=== PATIENT | male | born 1970 | race Caucasian/White ===

== ENCOUNTER 2022-09-12 22:11 | Emergency (ER) | payer MEDICAID, SELFPAY ==
--- NOTE | 2022-09-12 22:12 | CTR_ITS ---
PROCEDURE INFORMATION: Exam: CT Head Without Contrast Exam date and time: 09/12/2022 10:14 PM Age: 51 years old Clinical indication: Stroke-like symptoms; Speech disturbance; Left upper extremity numbness/paresthesia; Additional info: Symptoms of acute stroke. Lkw 5. Left facial droop, seizures, lt upper ext weakness TECHNIQUE: Imaging protocol: Computed tomography of the head without contrast. Radiation optimization: All CT scans at this facility use at least one of these dose optimization techniques: automated exposure control; mA and/or kV adjustment per patient size (includes targeted exams where dose is matched to clinical indication); or iterative reconstruction. Other technique: STROKE PROTOCOL was implemented. REPORTING DATA: Count of CT and Cardiac NM exams in prior 12 months: This patient has received 0 known CTs and 0 known cardiac nuclear medicine studies in the 12 months prior to the current study. COMPARISON: No relevant prior studies available. RADIATION DOSE METRICS: Total DLP (mGy-cm): 1188.98 FINDINGS: Brain: Large intraparenchymal hemorrhage centered in the right thalamus which is extending into the superior midbrain. Hemorrhage measures 4.6 cm x 2.7 cm in the transaxial plane with craniocaudad extension at least 2.5 cm. Regional mass effect on the brain. Mild right to left shift of the midline structures about 4 mm. Small volume hemorrhage extension into the superior suprasellar cistern. Buckely matter and white matter interfaces are preserved at this time. Cerebral ventricles: Intraventricular hemorrhage extension with moderate intraventricular hemorrhage volume. Mildly dilated temporal horns of the lateral ventricles. Intraventricular hemorrhage is limited to lateral ventricles and 3rd ventricle at this time. No 4th ventricle hemorrhage seen. Paranasal sinuses: Visualized sinuses are unremarkable. No fluid levels. Mastoid air cells: Visualized mastoid air cells are well aerated. Bones/joints: Unremarkable. No acute fracture. Soft tissues: Unremarkable. CT/CT head thrombolytic [id number] IMPRESSION: Positive for large intraparenchymal hemorrhage with intraventricular extension demonstrating significant regional mass effect and mild midline shift. Early developing hydrocephalus features.
--- NOTE | 2022-09-12 22:12 | ECG_ITS ---
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 Measurements Intervals [place] Rate: 82 P: 50 WY: 129 QRS: 49 QRSD: 97 T: 38 QT: 419 QTc: 491 Interpretive Statements SINUS RHYTHM No previous ECG available for comparison Electronically Signed On 09-12-2022 23:29:31 CDT by Gurpreet Bolivar M.D. [id number]
[2022-09-12 22:14] VITALS: BP 238/100; PULSE 100; RESP 26; O2SAT 100
[2022-09-12 22:22] LABS: Basophils # 0.1 10^3/uL (0.0-0.1); Basophils % 0.6 %; Eosinophils # 0.2 10^3/uL (0.0-0.8); Eosinophils % 1.7 %; Hematocrit 42.1 % (42.0-52.0); Hemoglobin 14.4 g/dL (11.7-16.6); Lymphocytes # 3.3 10^3/uL (0.8-4.8); Lymphocytes % 27.7 %; Mean Corpuscular HGB Conc 34.2 g/dL (30.0-36.0); Mean Corpuscular Hemoglobin 28.6 pg (28.0-34.0); Mean Corpuscular Volume 83.7 fl (80-94); Monocytes # 0.9 10^3/uL (0.2-0.9); Monocytes % 7.5 %; Neutrophils # 7.35 10^3/uL (1.8-7.7); Neutrophils % 62.2 %; Nucleated Red Blood Cells % 0 %; Platelet Count 279 10^3/cmm (130-400); Red Blood Count 5.03 10^6/uL (4.1-5.3); Red Cell Distribution Width 13.2 % (12.1-15.1); White Blood Count 11.8 10^3/uL (4.0-10.0)
[2022-09-12] MEDS: etomidate 2 mg/mL INJ SDV 10 mL 20 MG IVP (22:25)
[2022-09-12] MEDS: vecuronium 10 mg SDV IVP (22:26)
--- NOTE | 2022-09-12 22:29 | XRR_ITS ---
PROCEDURE INFORMATION: Exam: XR Chest Exam date and time: 09/12/2022 10:31 PM Age: 51 years old Clinical indication: Device placement; Other: Post intubation TECHNIQUE: Imaging protocol: Radiologic exam of the chest. Views: 1 view. COMPARISON: No relevant prior studies available. FINDINGS: Tubes, catheters and devices: ETT is in place, tip is about 3 cm above stanislaw. Lungs: Unremarkable. No consolidation. Pleural spaces: Unremarkable. No pleural effusion. No pneumothorax. Heart/Mediastinum: Unremarkable. No cardiomegaly. Bones/joints: Unremarkable. XR/XR chest 1V portable [id number] IMPRESSION: No consolidation. ETT in place.
--- NOTE | 2022-09-12 22:31 | PM.CONSULT ---
Providers/Reason For Consult Consulting Physician/Specialty*: Jorge Bermudez MD Neurology and Epilepsy Reason for Consult*: Code stroke emergency department room 11 Primary Care Provider: Anu Marshall APN History of Present Illness History of Present Illness Travis Mckeon is a 51 year old male who was brought in by EMS. According to EMS personnel the patient was at work at a [employer] and experienced acute onset of right-sided head and neck pain followed by left-sided weakness, slurred speech and recurrent seizures and generalized shaking at 9:25 PM. The patient was transferred to [facility]. Accu-Chek glucose was reported to be 114. The patient was taken directly to the CT scanner to undergo noncontrast head CT and CT angiogram of the head and neck. But, noncontrast head CT revealed large intraparenchymal and intraventricular hemorrhage with mass effect. Patient was experiencing intermittent seizures and was started on IV Keppra and plans for intubation and transfer to a facility with neurosurgical coverage. NIH score roughly =9 coordination, sensory, visual grier and complete speech evaluation could not be obtained secondary to recurrent intermittent focal motor seizures involving the right side of his body. According to the patient's son who arrived at the emergency room, the patient has no history of seizures. Noncontrast CT scan impression: Positive for large intraparenchymal hemorrhage with intraventricular extension demonstrating significant regional mass effect and mild midline shift. Early developing hydrocephalus features. Past medical history: None Home medications: None Drug allergies: None Habits: The patient admits to occasional beers but denied other drug use Review of Systems General: Reports: ROS unobtainable due to medical condition Medications/Allergies Home Medications Medication Instructions Recorded Confirmed Last Taken Type No Known Home Medications 09/12/22 09/12/22 Unknown History Allergies Allergy/AdvReac Type Severity Reaction Status Date / Time No Known Allergies Allergy Verified 09/12/22 22:14 Vitals/I&O/Wt Last Vital Signs Pulse 100 09/12/22 22:14 Resp 26 H 09/12/22 22:14 BP 238/100 09/12/22 22:14 Pulse Ox 100 09/12/22 22:14 O2 Del Method Room Air 09/12/22 22:14 Physical Exam Narrative: NIH score =9 Blood pressure 238/100 The patient was initially alert and able to communicate and give some history but patient began experiencing recurrent seizures involving the right side of his body and occasionally involving the left upper extremity with decreasing level of consciousness. Head atraumatic cranial nerves II through XII revealed questionable left lower facial weakness. Extraocular movements difficult to assess secondary to recurrent seizures. Motor testing revealed patient able to lift the left arm against gravity with the arm falling down to the bed. Left lower extremity revealed no movement. Speech revealed fairly clear speech with decreased verbal output. Neglect, coordination and evaluation of sensory examination could not be determined secondary to recurrent seizures. Throat clear. Lungs clear. Heart regular rhythm and rate extremities were negative for clubbing or cyanosis Data 09/12/22 22:15 09/12/22 22:15 A&P Assessment and plan (1) Spontaneous intraparenchymal intracranial hemorrhage, acute: Impression: 1. Large intraparenchymal and intraventricular hemorrhage with mass effect 2. Recurrent seizures secondary to intracerebral and intraparenchymal hemorrhage Plan: 1. Agree with transfer to facility with neurosurgical coverage 2. Agree with IV Keppra load 1 g 3. Agree with intubation and stabilization for transfer to another facility with neurosurgical coverage (2) Seizure: Consult Attestations Medical Necessity Statement: Patient evaluated by neurology for intracerebral hemorrhage and recurrent seizures Coding Level of Care Code 67828 Diagnoses Spontaneous intraparenchymal intracranial hemorrhage, acute I62.9 Seizure R56.9 Time Spent (min) 30
[2022-09-12 22:33] LABS: INR 0.91 (0.8-1.2); Partial Thromboplastin Time 37.2 SECONDS (23.9-36.7)
[2022-09-12] MEDS: hyDRALAzine 20 mg/mL INJ 1 mL 10 MG IVP (22:34)
--- NOTE | 2022-09-12 22:36 | W.ED.NEUROSD ---
HPI - Neuro Symptoms/Deficit General: Chief Complaint: Neuro Symptoms/Deficit Stated Complaint: stroke like activity Time Seen by Provider: 09/12/22 22:12 Source: EMS Mode of arrival: EMS Limitations: altered mental status History of Present Illness: 51-year-old male is at work 30 minutes prior arrival started having a headache start having right-sided weakness slurred speech right-sided facial droop. In route patient had seizure-like activity he has some generalized shaking here he is able to awaken tell me his name speech is very slurred he is very confused. No other history is really obtainable at this time Review of Systems General: Reports: ROS unobtainable due to mental status Physical Exam Const: COMMON NORMALS: negative for patient oriented x3 GENERAL APPEARANCE: in distress and ill appearing HENMT: COMMON NORMALS: normocephalic and atraumatic HEAD & SCALP: normocephalic and atraumatic Eye: COMMON NORMALS: Equal, round and reactive pupils present and EOMs intact bilaterally PUPIL: Yes Equal, round and reactive pupils present Neck/C-Spine: COMMON NORMALS: full ROM and supple Chest: COMMONS NORMALS: normal inspection of the chest and normal palpation of entire chest wall Resp: COMMON NORMALS: normal respiratory effort, No retractions, No use of accessory muscles and clear to auscultation bilaterally AUSCULTATION: clear to auscultation bilaterally Cardio: COMMON NORMALS: regular rate, regular rhythm and No murmurs present (Cardio) RATE: regular rate RHYTHM: regular rhythm GI: COMMON NORMALS: Normal to inspection, nondistended, normoactive bowel sounds present, Soft to palpation, non-tender and no masses PALPATION: Yes Soft to palpation Extremity: COMMON NORMALS: normal to inspection and full ROM Neuro: COMMON NORMALS: negative for patient oriented x3 OTHER: Right-sided facial droop along with slurred speech and right-sided weakness patient is very confused Psych: COMMON NORMALS: mental status grossly normal, Normal thought process present and cooperative THOUGHT PROCESS: Normal thought process present Skin: COMMON NORMALS: no rashes or lesions noted and no wounds GENERAL SKIN EXAM: no rashes or lesions noted Procedures Intubation Time out performed: Yes sedative: Etomidate Mg Given: 20 paralytic: Vecuronium Mg Given: 10 Laryngoscope: Eloise ET Tube Size: 8 ET Tube Uncuffed: No Tube Secured Depth (cm): 23 Tube Secured Location: teeth Tube Placement Confirmation: visualized tube passing through cords Patient Tolerated Procedure: well Intubation Complications: none Course Vital Signs: Vital signs: Vital Signs Pulse Rate 113 H 09/12/22 22:50 Respiratory Rate 14 09/12/22 22:50 Blood Pressure 238/100 09/12/22 22:14 Pulse Oximetry 96 09/12/22 23:02 Oxygen Delivery Me thod Mechanical Ventil ation 09/12/22 23:02 Fraction of Inspir ed Oxygen 40 09/12/22 22:50 MDM - Neuro Symptoms/Deficit Medical Decision Making Patient presents here with intraparenchymal hemorrhage likely hypertensive related his blood pressure here is improved now 133/77 he was intubated as his mentation had worsened spoke to [facility] will transfer there for higher level of care Medical Records I reviewed the patient's medical records. Lab Data I reviewed the patient's lab results. 09/12/22 22:15 09/12/22 22:[address] 09/12/22 22:12 IMPRESSION: Positive for large intraparenchymal hemorrhage with intraventricular extension demonstrating significant regional mass effect and mild midline shift. Early developing hydrocephalus features. Laboratory Results WBC 11.8 10^3/uL (4.0-10.0) H 09/12/22 22:15 RBC 5.03 10^6/uL (4.1-5.3) 09/12/22 22:15 Hgb 14.4 g/dL (11.7-16.6) 09/12/22 22:15 Hct 42.1 % (42.0-52.0) 09/12/22 22:15 MCV 83.7 fl (80-94) 09/12/22 22:15 MCH 28.6 pg (28.0-34.0) 09/12/22 22:15 MCHC 34.2 g/dL (30.0-36.0) 09/12/22 22:15 RDW 13.2 % (12.1-15.1) 09/12/22 22:15 Plt Count 279 10^3/cmm (130-400) 09/12/22 22:15 MPV 11.0 fL (7.4-10.4) H 09/12/22 22:15 Neut % (Auto) 62.2 % 09/12/22 22:15 Lymph % (Auto) 27.7 % 09/12/22 22:15 [place] % (Auto) 7.5 % 09/12/22 22:15 Eos % (Auto) 1.7 % 09/12/22 22:15 Baso % (Auto) 0.6 % 09/12/22 22:15 Neut # (Auto) 7.35 10^3/uL (1.8-7.7) 09/12/22 22:15 Lymph # (Auto) 3.3 10^3/uL (0.8-4.8) 09/12/22 22:15 [place] # (Auto) 0.9 10^3/uL (0.2-0.9) 09/12/22 22:15 Eos # (Auto) 0.2 10^3/uL (0.0-0.8) 09/12/22 22:15 Baso # (Auto) 0.1 10^3/uL (0.0-0.1) 09/12/22 22:15 Nucleated RBC % (auto) 0 % 09/12/22 22:15 Nucleated RBCs # 0.0 /100WBC 09/12/22 22:15 PT 12.60 SECONDS (12.1-14.9) 09/12/22 22:15 INR 0.91 (0.8-1.2) 09/12/22 22:15 APTT 37.2 SECONDS (23.9-36.7) H 09/12/22 22:15 Sodium 138 mmol/L (136-145) 09/12/22 22:15 Potassium 3.3 mmol/L (3.5-5.1) L 09/12/22 22:15 Chloride 98 mmol/L (98-107) 09/12/22 22:15 Carbon Dioxide 28 mmol/L (22-29) 09/12/22 22:15 Anion Gap 15.3 (5-19) 09/12/22 22:15 BUN 14 mg/dL (6-20) 09/12/22 22:15 Creatinine 1.1 mg/dL (0.7-1.2) 09/12/22 22:15 GFR Calculation 70.9 mL/min (90-130) L 09/12/22 22:15 Glucose 129 mg/dL (65-115) H 09/12/22 22:15 Calculated Osmolality 288 mOsm/kg (285-295) 09/12/22 22:15 Calcium 9.0 mg/dL (8.5-10.5) 09/12/22 22:15 Total Bilirubin 0.3 mg/dL (0.15-1.2) 09/12/22 22:15 AST 21 U/L (0-40) 09/12/22 22:15 ALT 26 U/L (0-41) 09/12/22 22:15 Alkaline Phosphatase 112 U/L (40-130) 09/12/22 22:15 Total Protein 7.0 g/dL (6.6-8.7) 09/12/22 22:15 Albumin 4.1 g/dL (3.5-5.2) 09/12/22 22:15 Globulin 2.9 g/dL (1.3-4.6) 09/12/22 22:15 Ethyl Alcohol < 10 mg/dL (0-10) 09/12/22 22:15 Critical Care Time Critical Care Time: Critical Care Time: Yes Total Critical Care Time: 40 Attestation: The high probability of a clinically significant, sudden or life threatening deterioration of the patient's neuro system(s) required my full and direct attention, intervention and personal management. The critical care time is as shown. This time is in addition to time spent performing any reported procedures but includes the following: [x] Data and vital sign review and interpretation [x] Patient assessment, examination and intervention [x] Documentation [x] Medication orders and management Discharge Plan Discharge Patient Disposition: Xfer Short-Term Hosp Clinical Impression: Spontaneous intraparenchymal intracranial hemorrhage, acute Condition: Stable Referrals: Anu Marshall APN [Primary Care Provider] - Coding Level of Care Code ED Layaway Clerk for Tere Saavedra
[2022-09-12 22:37] LABS: Alanine Aminotransferase 26 U/L (0-41); Albumin Level 4.1 g/dL (3.5-5.2); Alkaline Phosphatase 112 U/L (40-130); Aspartate Amino Transferase 21 U/L (0-40); Blood Urea Nitrogen 14 mg/dL (6-20); Carbon Dioxide 28 mmol/L (22-29); Chloride 98 mmol/L (98-107); Globulin 2.9 g/dL (1.3-4.6); Glomerular Filtration Rate 70.9 mL/min (90-130); Glucose 129 mg/dL (65-115); Osmolality Calculated 288 mOsm/kg (285-295); Sodium 138 mmol/L (136-145); Total Bilirubin 0.3 mg/dL (0.15-1.2)
[2022-09-12] MEDS: nicardipine 20 MG/200 ML PREMIX 50 MG IV (22:37)
[2022-09-12 22:38] LABS: Alcohol Level < 10 mg/dL (0-10)
[2022-09-12 22:39] LABS: Anion Gap 15.3 (5-19); Potassium 3.3 mmol/L (3.5-5.1)
[2022-09-12] MEDS: propofol 1,000 MG/100 ML INJ 13.56 MG IV (22:43)
[2022-09-12 22:50] VITALS: PULSE 113; RESP 14; O2SAT 96
[2022-09-12] MEDS: labetalol 5 mg/mL SDV 20mL 20 MG IVP ×2 (22:58→23:03)
[2022-09-12 23:02] VITALS: O2SAT 96
--- NOTE | 2022-09-12 23:03 | PC.NURSE ---
2227 - 8.0 ET tube placed by Dr. Dempsey @ 2227. Color changed noted. Bilateral breath sounds noted. Xray confirmed.
--- NOTE | 2022-09-12 23:04 | PC.NURSE ---
2234 - ET tube pulled back from 23 cm at the teeth to 21 cm at the teeth
--- NOTE | 2022-09-12 23:27 | PC.NURSE ---
NIH stroke scale Upon arriving patient was able to communicate with nursing staff in a delayed but clear manner. Shortly after CT scan, patient began having seizures are snoring respirations. MDs decision to intubate patient to protect airway. NIH stroke scale was not able to be completed due to airway safety. Dr. Bermudez gave patient a score of 9 for NIH. Please see physician notes for further details.
--- NOTE | 2022-09-12 23:32 | XRR_ITS ---
PROCEDURE INFORMATION: Exam: XR Chest Exam date and time: 09/12/2022 11:37 PM Age: 51 years old Clinical indication: Device placement; Other: Og; Additional info: Og placement TECHNIQUE: Imaging protocol: Radiologic exam of the chest. Views: 1 view. COMPARISON: CR (CHEST, ) 09/12/2022 10:31 PM FINDINGS: Tubes, catheters and devices: Endotracheal tube position is unremarkable 5 cm cephalad to stanislaw. Enteric tube in the gastric body proximally. Lungs: Unremarkable. No consolidation. Pleural spaces: Unremarkable. No pleural effusion. No pneumothorax. Heart/Mediastinum: Unremarkable. No cardiomegaly. Bones/joints: Unremarkable. XR/XR chest 1V portable [id number] IMPRESSION: Satisfactory enteric tube position.
[2022-09-12 23:33] LABS: Amphetamines Screen Urine Negative (Negative); Barbiturates Screen Urine Negative (Negative); Benzodiazepines Screen Urine Negative (Negative); Cocaine Screen Urine Negative (Negative); Opiate Screen Urine Negative (Negative); PCP Screen Urine Negative (Negative); THC Screen Urine Negative (Negative)
[2022-09-12 23:44] LABS: Add Urine Microscopic? YES; Bacteria Urine TRACE /hpf; Bilirubin Urine Neg (Negative); Blood Urine Neg (Negative); Glucose Urine UA Norm (Normal); Ketones Urine Negative (Negative); Leukocyte Esterase Urine Negative (Negative); Mucus Urine TRACE /hpf; Nitrate Urine Negative (Negative); Protein Urine 2+ (Negative); RBC Urine 0-4 /hpf (0-2); Squamous Epithelial Cell Urine 0-4 /hpf (0-5); Urine Appearance Clear (CLEAR); Urine Color Light yellow (Yellow); Urobilinogen Urine Norm (Negative); WBC Urine 0-4 /hpf (0-5); pH Urine 6 (5-7)
[2022-09-12 23:45] LABS: Add Urine Culture? No; Hyaline Casts Urine RARE /lpf
[2022-09-12 23:54] VITALS: BP 113/61; PULSE 87; RESP 16; O2SAT 96
[2022-09-12] MEDS: nicardipine 20 MG/200 ML PREMIX 150 MG IV (23:58)
--- NOTE | 2022-09-13 00:14 | PC.NURSE ---
Intubation note Patient arrived to ED via EMS at 2210. Upon arrival patient was brought over to CT. In CT patient was able to communicate by telling name, , allergies, and that he takes no medications. Patient transported to room with nurse, upon arriving to room patient started having seizure activity and snoring respirations. MD decision to intubate patient at that time. 20mg Etomidate at 2225 10mg Vecuronium at 6 8.0 ETT, 23cm at teeth placed at 7. positive color change, lung sounds heard bilaterally, and pulse ox showing oxygen saturation of 94%. 1000mg Keppra at 8 10mg Hydrazine at 2234 Fentanyl, Cardene, Propofol all started and titrated. Labetolol IVP given for blood pressure. See MAR for further details. Chirinos catheter and OG placed. See charting for further details. Family updated and at bedside. Family given patients clothing and shoes.
[2022-09-13] MEDS: propofol 1,000 MG/100 ML INJ 33.9 MG IV (00:25)
[2022-09-19 18:01] LABS: ABG PCO2 39.1 mmHg (35-45); ABG PH Result 7.51 (7.35-7.45); HCO3 ABG 30.9 mmol/L (22-26)
[2022-09-19 18:02] LABS: Base Excess ABG 7.3 mmol/L (-2.0-2.0); Potassium Level - ABG 2.6 mmol/L (3.5-5.0)
[2022-09-19 18:03] LABS: Arterial Blood Gas Hematocrit 47.6 % (42-52); Blood Gas Allen Test POS; Blood Gas CCRB Time 1130; Blood Gas Sample Type Arterial; Oxygen Device VENT
[2022-09-19 18:04] LABS: Alveolar-Arterial Oxygen Gradi 73.8 mmHg (5-10); Carboxyhemoglobin 1.2 %THgb (0.4-20.1); HGB O2 Sat 98.1 % (95-100); Ionized Calcium Level - ABG 1.1 mmol/L (1.1-1.4); Methemoglobin 0.9 % (0.4-1.5); Total Hemoglobin 15.5 g/dL (14-18)
== END 2022-09-13 00:41 | disposition short-term general hospital (02) ==
PROVIDERS: Emergency Provider Emergency Medicine; PCP Nurse Practitioner Family
DX: I62.9 Nontraumatic intracranial hemorrhage, unspecified (principal)
CPT/HCPCS: 31500; 51702; 70450; 71045; 80051; 80053; 80306; 80307; 81001; 82330; 82805; 85025; 85610; 85730; 93005; 94002; 96365; 96366; 96367; 96375; 96376; 99291; J0360; J1953; J2704; J3010; J3490

== ENCOUNTER 2022-11-04 11:36 | Emergency (ER) | payer BC, MEDICAID, SELFPAY ==
[2022-11-04] VITALS (23 sets, daily range): BP systolic 98–172; BP diastolic 64–130; PULSE 109–126; RESP 19–28; O2SAT 90–95
--- NOTE | 2022-11-04 11:43 | ECG_ITS ---
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 Measurements Intervals [place] Rate: 111 P: 52 WY: 163 QRS: 35 QRSD: 86 T: 51 QT: 328 QTc: 446 Interpretive Statements SINUS TACHYCARDIA ABNORMAL RHYTHM ECG Compared to ECG 09/12/2022 22:42:03 Sinus rhythm no longer present Electronically Signed On 11-04-2022 12:10:40 CDT by Jennyfer Redman M.D. [email or web address]/store/[id number]
--- NOTE | 2022-11-04 11:47 | ED_ITS ---
HPI - General Adult General: Chief complaint: General Medical Stated complaint: HYPERTENSION Time Seen by Provider: 11/04/22 11:41 History of Present Illness: 51-year-old male presents to the ER from a residential via EMS due to elevated blood pressure. Patient is nonverbal but according to EMS the residential staff reveals that patient blood pressure was 200/116. Patient was able to answer my question by shaking his head. Patient denies any headache, blurry vision or change in vision. Chest pain or shortness of breath. Review of Systems General: Reports: ROS unobtainable due to medical condition Const: Denies: fever(s) or chills Physical Exam Narrative: EXAM NARRATIVE: ; Eye: COMMON NORMALS: Equal, round and reactive pupils present, EOMs intact bilaterally, conjunctivae normal, no scleral icterus, no papilledema, normal visual grier by confrontation and fundi normal bilaterally CONJUNCTIVA: Yes conjunctivae normal PUPIL: Yes Equal, round and reactive pupils present DIRECT OPHTHALMOSCOPY: Yes no papilledema and Yes fundi normal bilaterally Chest: COMMONS NORMALS: normal inspection of the chest, normal palpation of entire chest wall, normal inspection of the breasts and normal palpation of the breasts Breast/axilla inspection: Yes normal inspection of the breasts BREAST/AXILLA PALPATION: Yes normal palpation of the breasts Cardio: COMMON NORMALS: regular rhythm, S1 normal heart sound present and S2 normal heart sound present PALPATION: normal PMI RATE: tachycardic RHYTHM: regular rhythm HEART SOUNDS: S1 normal heart sound present and S2 normal heart sound present GI: COMMON NORMALS: Normal to inspection, nondistended, normoactive bowel sounds present, Soft to palpation, non-tender, No hepatosplenomegaly present, no masses and no bruits PALPATION: Yes Soft to palpation and Yes No hepatosplenomegaly present Neuro: SPEECH: Total aphasia MOTOR EXAM: Motor fasciculations not present and Abnormal muscle tone present (left upper and lower ext with sever contracture ) Course Vital Signs: Vital signs: Vital Signs Pulse Rate 124 H 11/04/22 13:15 Respiratory Rate 19 H 11/04/22 13:07 Blood Pressure 130/84 11/04/22 13:15 Pulse Oximetry 92 11/04/22 13:15 Oxygen Delivery Me thod Nasal Cannula 11/04/22 13:15 Oxygen Flow Rate 3 11/04/22 13:15 MDM - General Adult Medical Decision Making pt made comfortable in the ER. had cbc.cmp, ekg and cxr. pt was given Iv blood pressure medication.. blood pressure improved significantly Differential Diagnosis Elevated blood pressure, malignant hypertension hypertensive urgency or emergency Lab Data 11/04/22 11:43 11/04/22 11:43 Radiology Impressions Chest X-Ray 11/04/22 13:12 IMPRESSION: No acute cardiopulmonary findings. Laboratory Results WBC 12.08 10^3/uL (3.29-11.43) H 11/04/22 11:43 RBC 4.40 10^6/uL (3.85-5.65) 11/04/22 11:43 Hgb 12.90 g/dL (11.27-16.99) 11/04/22 11:43 Hct 37.4 % (37-53) 11/04/22 11:43 MCV 85.0 fl (82-101) 11/04/22 11:43 MCH 29.3 pg (27-33) 11/04/22 11:43 MCHC 34.5 g/dL (30-55) 11/04/22 11:43 RDW 14.1 % (12.1-15.1) 11/04/22 11:43 Plt Count 377 10^3/cmm (157-399) 11/04/22 11:43 MPV 10.7 fL (7.4-10.4) H 11/04/22 11:43 Neut % (Auto) 67.5 % 11/04/22 11:43 Lymph % (Auto) 22.8 % 11/04/22 11:43 [place] % (Auto) 7.5 % 11/04/22 11:43 Eos % (Auto) 1.1 % 11/04/22 11:43 Baso % (Auto) 0.7 % 11/04/22 11:43 Neut # (Auto) 8.15 10^3/uL (1.8-7.7) H 11/04/22 11:43 Lymph # (Auto) 2.8 10^3/uL (0.8-4.8) 11/04/22 11:43 [place] # (Auto) 0.9 10^3/uL (0.2-0.9) 11/04/22 11:43 Eos # (Auto) 0.1 10^3/uL (0.0-0.8) 11/04/22 11:43 Baso # (Auto) 0.1 10^3/uL (0.0-0.1) 11/04/22 11:43 Nucleated RBC % (auto) 0 % 11/04/22 11:43 Nucleated RBCs # 0.0 /100WBC 11/04/22 11:43 Sodium 141 mmol/L (136-145) 11/04/22 11:43 Potassium 4.3 mmol/L (3.5-5.1) 11/04/22 11:43 Chloride 101 mmol/L (98-107) 11/04/22 11:43 Carbon Dioxide 27 mmol/L (22-29) 11/04/22 11:43 Anion Gap 17.3 (5-19) 11/04/22 11:43 BUN 28 mg/dL (6-20) H 11/04/22 11:43 Creatinine 1.0 mg/dL (0.7-1.2) 11/04/22 11:43 GFR Calculation 79.1 mL/min (90-130) L 11/04/22 11:43 Glucose 115 mg/dL (65-115) 11/04/22 11:43 Calculated Osmolality 298 mOsm/kg (285-295) H 11/04/22 11:43 Calcium 10.3 mg/dL (8.5-10.5) 11/04/22 11:43 Total Bilirubin 0.3 mg/dL (0.15-1.2) 11/04/22 11:43 AST 24 U/L (0-40) 11/04/22 11:43 ALT 33 U/L (0-41) 11/04/22 11:43 Alkaline Phosphatase 136 U/L (40-130) H 11/04/22 11:43 Total Protein 7.9 g/dL (6.6-8.7) 11/04/22 11:43 Albumin 3.9 g/dL (3.5-5.2) 11/04/22 11:43 Globulin 4.0 g/dL (1.3-4.6) 11/04/22 11:43 XR interpretation done by ED provider, pending radiology final review ED provider radiology interpretation(s): No acute findings on x-ray. Discharge Plan Discharge Patient Disposition: Home Clinical Impression: CVA, old, aphasia, Hypertension Condition: Stable Prescriptions: No Action docusate sodium 50 mg/5 mL Liquid 10 ml feeding tube DAILY Robaxin 500 mg Tablet 500 mg feeding tube Q8H nystatin 100,000 unit/mL Suspension 5 ml PO Q6H Tylenol 325 mg Tablet 650 mg feeding tube Q6H PRN (Reason: Pain) Keppra 500 mg Tablet 1,000 mg PO Q12H famotidine 20 mg Tablet 20 mg feeding tube DAILY Milk of Magnesia 400 mg/5 mL Suspension 30 ml PO DAILY PRN (Reason: Constipation) Flomax 0.4 mg Capsule 0.4 mg PO DAILY amlodipine 10 mg Tablet 10 mg feeding tube DAILY Dulcolax (bisacodyl) 10 mg Suppository 10 mg IN QPM PRN (Reason: Constipation) metoprolol tartrate 50 mg Tablet 50 mg feeding tube BID Fleet Enema 19-7 gram/118 mL Enema 118 ml IN BEDTIME PRN (Reason: Constipation) lisinopril 40 mg Tablet 40 mg feeding tube DAILY Jevity 1.5 Luke 0.06 gram-1.5 kcal/mL Liquid See Rx Instructions .ROUTE .COMPLEX Rx Instructions: 60ML/HR TUBE EVERY SHIFT FOR NPO lactulose 20 gram/30 mL Solution 30 ml feeding tube TID [id number] gluconate 9 mg iron/ 15 mL (15 mL) Liquid 15 ml feeding tube DAILY Discharge Orders: Discharge ED (Routine); Ordered 11/04/22 Ordered By: Citlaly Leyva Referrals: Marshall,KIA Brennan [Primary Care Provider] - Discharge Diet: Advance as tolerated Discharge Activity: Resume usual activity Coding Level of Care Code ED Automatic 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
[2022-11-04] MEDS: hyDRALAzine 20 mg/mL INJ 1 mL 5 MG IVP (12:02)
[2022-11-04 12:03] LABS: Basophils # 0.1 10^3/uL (0.0-0.1); Basophils % 0.7 %; Eosinophils # 0.1 10^3/uL (0.0-0.8); Eosinophils % 1.1 %; Hematocrit 37.4 % (37-53); Lymphocytes # 2.8 10^3/uL (0.8-4.8); Lymphocytes % 22.8 %; Mean Corpuscular HGB Conc 34.5 g/dL (30-55); Mean Corpuscular Hemoglobin 29.3 pg (27-33); Mean Platelet Volume 10.7 fL (7.4-10.4); Monocytes # 0.9 10^3/uL (0.2-0.9); Monocytes % 7.5 %; Neutrophils # 8.15 10^3/uL (1.8-7.7); Neutrophils % 67.5 %; Nucleated Red Blood Cells % 0 %; Platelet Count 377 10^3/cmm (157-399); Red Cell Distribution Width 14.1 % (12.1-15.1); White Blood Count 12.08 10^3/uL (3.29-11.43)
[2022-11-04 12:26] LABS: Alanine Aminotransferase 33 U/L (0-41); Albumin Level 3.9 g/dL (3.5-5.2); Alkaline Phosphatase 136 U/L (40-130); Anion Gap 17.3 (5-19); Aspartate Amino Transferase 24 U/L (0-40); Blood Urea Nitrogen 28 mg/dL (6-20); Calcium 10.3 mg/dL (8.5-10.5); Carbon Dioxide 27 mmol/L (22-29); Chloride 101 mmol/L (98-107); Glomerular Filtration Rate 79.1 mL/min (90-130); Glucose 115 mg/dL (65-115); Osmolality Calculated 298 mOsm/kg (285-295); Potassium 4.3 mmol/L (3.5-5.1); Sodium 141 mmol/L (136-145); Total Bilirubin 0.3 mg/dL (0.15-1.2); Total Protein 7.9 g/dL (6.6-8.7)
--- NOTE | 2022-11-04 13:12 | XRR_ITS ---
PROCEDURE INFORMATION: Exam: XR Chest Exam date and time: 11/04/2022 1:23 PM Age: 51 years old Clinical indication: Other: Hypertension; Additional info: SOB TECHNIQUE: Imaging protocol: Radiologic exam of the chest. Views: 1 view. COMPARISON: CR (CHEST, ) 09/12/2022 11:37 PM FINDINGS: Tubes, catheters and devices: Presumed LINEMARKER shunt catheter traverses the right neck, right thorax, and visualized right hemiabdomen, without apparent kink or discontinuity. Lungs: Unremarkable. No consolidation. Pleural spaces: Unremarkable. No pleural effusion. No pneumothorax. Heart/Mediastinum: Unremarkable. No cardiomegaly. Bones/joints: Unremarkable. XR/XR chest 1V portable [id number] IMPRESSION: No acute cardiopulmonary findings.
[2022-11-04 16:37] LABS: Glucose Point of Care 133 mg/dL (70-110)
== END 2022-11-04 17:44 | disposition home or self-care (01) ==
PROVIDERS: Emergency Provider Family Medicine; PCP Nurse Practitioner Family
DX: I10 Essential (primary) hypertension (principal); I69.920 Aphasia following unspecified cerebrovascular disease
CPT/HCPCS: 36416; 71045; 80053; 82962; 85025; 93005; 96374; 99285; J0360

== ENCOUNTER 2022-11-09 18:04 | Emergency (ER) | payer BC, MEDICAID, SELFPAY ==
[2022-11-09 18:20] VITALS: BP 135/101; PULSE 125; RESP 22; TEMP 37.6; O2SAT 100; BMI 23.7
--- NOTE | 2022-11-09 18:29 | XRR_ITS ---
PROCEDURE INFORMATION: Exam: XR Chest Exam date and time: 11/09/2022 6:35 PM Age: 51 years old Clinical indication: Cough and fever; Additional info: Cough fever TECHNIQUE: Imaging protocol: Radiologic exam of the chest. Views: 1 view. COMPARISON: 1. CR (CHEST, ) 11/04/2022 1:23 PM 2. CR (CHEST, ) 09/12/2022 11:37 PM 3. CR (CHEST, ) 09/12/2022 10:31 PM FINDINGS: Tubes, catheters and devices: Stable catheter coursing along the right neck, chest, and upper abdomen. Lungs: Pulmonary hypoinflation. Left basilar subsegmental atelectasis versus scarring. No consolidation. Pleural spaces: No pleural effusion or pneumothorax. Heart/Mediastinum: Unremarkable. No cardiomegaly. Bones/joints: Degenerative changes along the spine and shoulders. XR/XR chest 1V portable [id number] IMPRESSION: No acute findings.
--- NOTE | 2022-11-09 18:31 | ECG_ITS ---
[facility] Test Date: 2022-11-09 Pat Name: Travis Mckeon Department: Room: Gender: Male Director Of Finance: : 1970 Requested By: Jus Beltran Order Number: [id number] Faisal MD: Gurpreet Bolivar M.D. Measurements Intervals [place] Rate: 129 P: 74 GA: 162 QRS: 46 QRSD: 86 T: 48 QT: 293 QTc: 430 Interpretive Statements SINUS TACHYCARDIA Compared to ECG 11/04/2022 11:55:38 No significant changes Electronically Signed On 11-09-2022 21:41:49 CDT by Gurpreet Bolivar M.D. [id number]
[2022-11-09 18:43] LABS: Basophils # 0.1 10^3/uL (0.0-0.1); Basophils % 0.4 %; Eosinophils # 0.1 10^3/uL (0.0-0.8); Eosinophils % 0.6 %; Hematocrit 40.1 % (37-53); Lymphocytes # 2.4 10^3/uL (0.8-4.8); Lymphocytes % 18.8 %; Mean Corpuscular HGB Conc 33.4 g/dL (30-55); Mean Corpuscular Hemoglobin 28.9 pg (27-33); Mean Corpuscular Volume 86.6 fl (82-101); Mean Platelet Volume 11.3 fL (7.4-10.4); Monocytes # 0.9 10^3/uL (0.2-0.9); Monocytes % 7.2 %; Neutrophils % 72.6 %; Nucleated Red Blood Cells % 0 %; Platelet Count 425 10^3/cmm (157-399); Red Blood Count 4.63 10^6/uL (3.85-5.65); Red Cell Distribution Width 14.1 % (12.1-15.1); White Blood Count 12.52 10^3/uL (3.29-11.43)
[2022-11-09 18:48] LABS: INR 0.96 (0.8-1.2)
--- NOTE | 2022-11-09 18:51 | ED_ITS ---
HPI - SOB/Dyspnea General: Chief Complaint: Shortness of Breath/Dyspnea Stated Complaint: tachy,resp distress Time Seen by Provider: 11/09/22 18:22 History of Present Illness: HPI Narrative: [facility] of tachycardia and respiratory distress. Per nursing [facility] said they may have heard some rales in the right lower lobe may be consistent with aspiration. He also reported fever 103 degrees axillary. Patient is nonverbal and has no use of his left side currently secondary to a brain bleed. Patient was released from [facility] about 3 weeks ago and has been at the [facility] ever since. Patient can wiggle his right toes and squeeze with his right hand when prompted. Patient's ex- is at bedside and provides some history. Review of Systems General: Reports: 10 or more systems reviewed and unremarkable except in HPI and below Physical Exam Const: COMMON NORMALS: no acute distress and alert; limitations (Patient is nonverbal with limited expressive capabilities) HENMT: COMMON NORMALS: normocephalic (Shunt in place), atraumatic, hearing grossly normal bilaterally, external ears normal, Normal external nose present and moist oral mucous membranes HEAD & SCALP: normocephalic (Shunt in place) and atraumatic NOSE: Normal external nose present EXTERNAL EAR: Yes external ears normal Neck/C-Spine: COMMON NORMALS: no JVD Chest: COMMONS NORMALS: normal inspection of the chest and normal palpation of entire chest wall Resp: COMMON NORMALS: normal respiratory effort (Patient is taking small shallow breaths), No retractions, No use of accessory muscles and clear to auscultation bilaterally AUSCULTATION: clear to auscultation bilaterally Cardio: COMMON NORMALS: no JVD, regular rhythm, S1 normal heart sound present, S2 normal heart sound present, No gallops present (Cardio), No clicks present (Cardio), No murmurs present (Cardio) and No rub (Cardio); negative for regular rate (Tachycardic) RATE: abnormal rate (Tachycardic) RHYTHM: regular rhythm HEART SOUNDS: S1 normal heart sound present and S2 normal heart sound present GI: COMMON NORMALS: Normal to inspection, nondistended, normoactive bowel sounds present (PEG tube in place), Soft to palpation, non-tender, No hepatosplenomegaly present and no masses PALPATION: Yes Soft to palpation and Yes No hepatosplenomegaly present Neuro: SENSORIUM/ORIENTATION: Yes alert Course Vital Signs: Vital signs: Vital Signs Temperature 98.8 F 11/09/22 22:32 Pulse Rate 99 11/09/22 22:32 Respiratory Rate 18 11/09/22 22:32 Blood Pressure 113/82 11/09/22 20:15 Pulse Oximetry 99 11/09/22 22:32 Oxygen Delivery Me thod Room Air 11/09/22 22:32 Oxygen Flow Rate 4 11/09/22 18:20 MDM - SOB/Dyspnea Medical Decision Making Patient presents to the ER with complaints of shortness of breath tachycardia and fever. Upon arrival patient's temperature was 99.7 he is on 4 L per nasal cannula satting 100% with a heart rate of 125 bpm and respirations 22 bpm, patient was worked up in a standard fashion with serial EKGs serial enzymes chest x-ray patient was given 1 L normal saline both fluid bolus temperature resolved pulse come down to the normal range and patient was looking and feeling much better. Respiratory panel was negative. As well as the rest of his labs were benign. Patient be discharged home with diagnosis of viral syndrome and fever. Differential Diagnosis Unlikely acute exacerbation of chronic obstructive airways disease, congestive heart failure, community acquired pneumonia, asthma with exacerbation or pulmonary embolism Medical Records I reviewed the patient's medical records. Lab Data I reviewed the patient's lab results. 11/09/22 17:55 11/09/22 20:40 Labs/Radiology: Radiology Impressions Chest X-Ray 11/09/22 18:29 IMPRESSION: No acute findings. Laboratory Results WBC 12.52 10^3/uL (3.29-11.43) H 11/09/22 17:55 RBC 4.63 10^6/uL (3.85-5.65) 11/09/22 17:55 Hgb 13.40 g/dL (11.27-16.99) 11/09/22 17:55 Hct 40.1 % (37-53) 11/09/22 17:55 MCV 86.6 fl (82-101) 11/09/22 17:55 MCH 28.9 pg (27-33) 11/09/22 17:55 MCHC 33.4 g/dL (30-55) 11/09/22 17:55 RDW 14.1 % (12.1-15.1) 11/09/22 17:55 Plt Count 425 10^3/cmm (157-399) H 11/09/22 17:55 MPV 11.3 fL (7.4-10.4) H 11/09/22 17:55 Neut % (Auto) 72.6 % 11/09/22 17:55 Lymph % (Auto) 18.8 % 11/09/22 17:55 [place] % (Auto) 7.2 % 11/09/22 17:55 Eos % (Auto) 0.6 % 11/09/22 17:55 Baso % (Auto) 0.4 % 11/09/22 17:55 Neut # (Auto) 9.10 10^3/uL (1.8-7.7) H 11/09/22 17:55 Lymph # (Auto) 2.4 10^3/uL (0.8-4.8) 11/09/22 17:55 [place] # (Auto) 0.9 10^3/uL (0.2-0.9) 11/09/22 17:55 Eos # (Auto) 0.1 10^3/uL (0.0-0.8) 11/09/22 17:55 Baso # (Auto) 0.1 10^3/uL (0.0-0.1) 11/09/22 17:55 Nucleated RBC % (auto) 0 % 11/09/22 17:55 Nucleated RBCs # 0.0 /100WBC 11/09/22 17:55 PT 13.00 SECONDS (12.1-14.9) 11/09/22 17:55 INR 0.96 (0.8-1.2) 11/09/22 17:55 Sodium 140 mmol/L (136-145) 11/09/22 20:40 Potassium 4.6 mmol/L (3.5-5.1) 11/09/22 20:40 Chloride 102 mmol/L (98-107) 11/09/22 20:40 Carbon Dioxide 26 mmol/L (22-29) 11/09/22 20:40 Anion Gap 16.6 (5-19) 11/09/22 20:40 BUN 23 mg/dL (6-20) H 11/09/22 20:40 Creatinine 0.8 mg/dL (0.7-1.2) 11/09/22 20:40 GFR Calculation 102.3 mL/min (90-130) 11/09/22 20:40 Glucose 130 mg/dL (65-115) H 11/09/22 20:40 Calculated Osmolality 295 mOsm/kg (285-295) 11/09/22 20:40 Lactic Acid 1.1 mmol/L (0.5-2.2) 11/09/22 20:40 Calcium 9.8 mg/dL (8.5-10.5) 11/09/22 20:40 Magnesium 1.9 mg/dL (1.7-2.3) 11/09/22 20:40 Total Bilirubin 0.3 mg/dL (0.15-1.2) 11/09/22 20:40 AST 19 U/L (0-40) 11/09/22 20:40 ALT 26 U/L (0-41) 11/09/22 20:40 Alkaline Phosphatase 125 U/L (40-130) 11/09/22 20:40 Troponin T Baseline 20 ng/L (0-15) H 11/09/22 20:40 Troponin T 120 Minute 20.61 ng/L (0-15) H 11/09/22 22:28 Delta Troponin T 0.61 ABS# (0-10) 11/09/22 22:28 Total Protein 6.9 g/dL (6.6-8.7) 11/09/22 20:40 Albumin 4.0 g/dL (3.5-5.2) 11/09/22 20:40 Globulin 2.9 g/dL (1.3-4.6) 11/09/22 20:40 Procalcitonin 0.18 ng/mL (0-0.5) 11/09/22 20:40 Urine Color Yellow (Yellow) 11/09/22 20:00 Urine Appearance Clear (CLEAR) 11/09/22 20:00 Urine pH 6 (5-7) 11/09/22 20:00 Ur Specific [place] 1.020 (1.005-1.030) 11/09/22 20:00 Urine Protein Neg (Negative) 11/09/22 20:00 Urine Glucose (UA) Norm (Normal) 11/09/22 20:00 Urine Ketones Negative (Negative) 11/09/22 20:00 Urine Blood Neg (Negative) 11/09/22 20:00 Urine Nitrate Negative (Negative) 11/09/22 20:00 Urine Bilirubin Neg (Negative) 11/09/22 20:00 Urine Urobilinogen Neg mg/dL (Negative) 11/09/22 20:00 Ur Leukocyte Esterase Negative (Negative) 11/09/22 20:00 Nasal Influ A H1 2009 PCR Not detected (NOT DETECT) 11/09/22 19:02 Adenovirus (PCR) Not detected (NOT DETECT) 11/09/22 19:02 C. pneumoniae DNA (PCR) Not detected (NOT DETECT) 11/09/22 19:02 Coronavirus 229E (PCR) Not detected (NOT DETECT) 11/09/22 19:02 Human Metapneumovir PCR Not detected (NOT DETECT) 11/09/22 19:02 Influenza A (H1) PCR Not detected (NOT DETECT) 11/09/22 19:02 Influenza A (H3) PCR Not detected (NOT DETECT) 11/09/22 19:02 Influenza Type A (PCR) Not detected (NOT DETECT) 11/09/22 19:02 Influenza Type B (PCR) Not detected (NOT DETECT) 11/09/22 19:02 M. pneumoniae (PCR) Not detected (NOT DETECT) 11/09/22 19:02 Parainfluenza 1 (PCR) Not detected (NOT DETECT) 11/09/22 19:02 Parainfluenza 2 (PCR) Not detected (NOT DETECT) 11/09/22 19:02 Parainfluenza 3 (PCR) Not detected (NOT DETECT) 11/09/22 19:02 Parainfluenza 4 (PCR) Not detected (NOT DETECT) 11/09/22 19:02 RSV Type A (PCR) Not detected (NOT DETECT) 11/09/22 19:02 RSV Type B (PCR) Not detected (NOT DETECT) 11/09/22 19:02 Entero/Rhino (PCR) Not detected (NOT DETECT) 11/09/22 19:02 SARS-CoV-2 (PCR) Not detected (NOT DETECT) 11/09/22 19:02 All radiology interpretation(s) finalized by discharge EKG Data EKG 1: I personally reviewed and interpreted this EKG as follows: EKG Interpretation Date: 11/09/22 EKG interpretation time: 18:42 Prior EKG tracings: not available for review Interpretation: EKG showed ventricular rate 129 beats minute, TN interval 162, QRS duration 86, QTc 369, sinus tachycardia no ST-T wave changes EKG 2: I personally reviewed and interpreted this EKG as follows: EKG Interpretation Date: 11/09/22 EKG interpretation time: 21:30 Prior EKG tracings: available for review Interpretation: EKG showed ventricular rate 111 beats a minute, TN interval 137, QRS duration 81, QTc of 372, Discharge Plan Discharge Patient Disposition: Home Clinical Impression: Viral syndrome Fever Qualifiers: Fever type: unspecified Qualified Code(s): R50.9 - Fever, unspecified Condition: Stable Prescriptions: No Action docusate sodium 50 mg/5 mL Liquid 10 ml feeding tube DAILY Robaxin 500 mg Tablet 500 mg feeding tube Q8H nystatin 100,000 unit/mL Suspension 5 ml PO Q6H Tylenol 325 mg Tablet 650 mg feeding tube Q6H PRN (Reason: Pain) Keppra 500 mg Tablet 1,000 mg PO Q12H famotidine 20 mg Tablet 20 mg feeding tube DAILY Milk of Magnesia 400 mg/5 mL Suspension 30 ml PO DAILY PRN (Reason: Constipation) Flomax 0.4 mg Capsule 0.4 mg PO DAILY amlodipine 10 mg Tablet 10 mg feeding tube DAILY Dulcolax (bisacodyl) 10 mg Suppository 10 mg TN QPM PRN (Reason: Constipation) metoprolol tartrate 50 mg Tablet 50 mg feeding tube BID Fleet Enema 19-7 gram/118 mL Enema 118 ml TN BEDTIME PRN (Reason: Constipation) lisinopril 40 mg Tablet 40 mg feeding tube DAILY Jevity 1.5 Luke 0.06 gram-1.5 kcal/mL Liquid See Rx Instructions .ROUTE .COMPLEX Rx Instructions: 60ML/HR TUBE EVERY SHIFT FOR NPO lactulose 20 gram/30 mL Solution 30 ml feeding tube TID [id number] gluconate 9 mg iron/ 15 mL (15 mL) Liquid 15 ml feeding tube DAILY Discharge Orders: Discharge ED (Routine); Ordered 11/09/22 Ordered By: Jus Beltran Referrals: Marshall,KIA Brennan [Referring] - 1 week Patient Instructions: Fever in Adults (ED), Viral Syndrome - Adult Activity Restrictions/Additional Instructions: Please follow-up with your family practice physician in approximately 7 days or sooner as needed for further evaluation and treatment. Please continue to use Tylenol as needed for fever control. Coding Level of Care Code ED Staff Writer for Tere Saavedra
[2022-11-09 19:06] VITALS: BP 150/113; PULSE 136; RESP 18; O2SAT 96
[2022-11-09] MEDS: sodium chloride 0.9% 1,000 ML 999 ML IV ×2 (19:18→22:35)
--- NOTE | 2022-11-09 20:05 | PC.NURSE ---
@1954- verbal order from Dr Beltran to Chirinos cath placement.
[2022-11-09 20:13] LABS: Add Urine Microscopic? NO; Charge for UA Resulting for Rev
[2022-11-09 20:15] VITALS: BP 113/82; PULSE 111; RESP 18; O2SAT 98
[2022-11-09 20:16] LABS: Bilirubin Urine Neg (Negative); Blood Urine Neg (Negative); Glucose Urine UA Norm (Normal); Ketones Urine Negative (Negative); Leukocyte Esterase Urine Negative (Negative); Nitrate Urine Negative (Negative); Protein Urine Neg (Negative); Urine Appearance Clear (CLEAR); Urine Color Yellow (Yellow); Urobilinogen Urine Neg (Negative); pH Urine 6 (5-7)
[2022-11-09 21:19] LABS: Troponin(5th) Baseline 20 ng/L (0-15)
[2022-11-09 21:21] LABS: Alanine Aminotransferase 26 U/L (0-41); Alkaline Phosphatase 125 U/L (40-130); Aspartate Amino Transferase 19 U/L (0-40); Blood Urea Nitrogen 23 mg/dL (6-20); Calcium 9.8 mg/dL (8.5-10.5); Carbon Dioxide 26 mmol/L (22-29); Chloride 102 mmol/L (98-107); Globulin 2.9 g/dL (1.3-4.6); Glomerular Filtration Rate 102.3 mL/min (90-130); Glucose 130 mg/dL (65-115); Lactic Sepsis W/Reflex 1.1 mmol/L (0.5-2.2); Magnesium 1.9 mg/dL (1.7-2.3); Osmolality Calculated 295 mOsm/kg (285-295); Sodium 140 mmol/L (136-145); Total Bilirubin 0.3 mg/dL (0.15-1.2); Total Protein 6.9 g/dL (6.6-8.7)
[2022-11-09 21:26] LABS: Anion Gap 16.6 (5-19); Potassium 4.6 mmol/L (3.5-5.1)
[2022-11-09 21:28] LABS: Procalcitonin 0.18 ng/mL (0-0.5)
--- NOTE | 2022-11-09 21:30 | ECG_ITS ---
[facility] Test Date: 2022-11-09 Pat Name: Travis Mckeon Department: Room: Gender: Male Dispatcher Chief Oil: : 1970 Requested By: Jus Beltran Order Number: [id number] Faisal MD: Gurpreet Bolivar M.D. Measurements Intervals [place] Rate: 111 P: -73 CT: 137 QRS: 52 QRSD: 81 T: 55 QT: 307 QTc: 418 Interpretive Statements SINUS TACHYCARDIA Compared to ECG 11/09/2022 18:42:11 Junctional tachycardia now present Sinus tachycardia no longer present Electronically Signed On 11-09-2022 21:42:57 CDT by Gurpreet Bolivar M.D. [email or web address] [email or web address], [id number]
[2022-11-09 22:32] VITALS: PULSE 99; RESP 18; TEMP 37.1; O2SAT 99
[2022-11-09 22:56] LABS: Adenovirus Not Detected (NOT DETECT); Chlamydia Pneumoniae Not Detected (NOT DETECT); Coronavirus 229E,HKU1,NL63,OC4 Not Detected (NOT DETECT); Human Metapneumovirus Not Detected (NOT DETECT); Human Rhinovirus/Enterovirus Not Detected (NOT DETECT); Influenza A Not Detected (NOT DETECT); Influenza A H1 Not Detected (NOT DETECT); Influenza A H1-2009 Not Detected (NOT DETECT); Influenza A H3 Not Detected (NOT DETECT); Influenza B Not Detected (NOT DETECT); Mycoplasma Pneumoniae Not Detected (NOT DETECT); Parainfluenza Virus Type 1 Not Detected (NOT DETECT); Parainfluenza Virus Type 2 Not Detected (NOT DETECT); Parainfluenza Virus Type 3 Not Detected (NOT DETECT); Parainfluenza Virus Type 4 Not Detected (NOT DETECT); Respiratory Syncytial Virus A Not Detected (NOT DETECT); Respiratory Syncytial Virus B Not Detected (NOT DETECT); SARS-COV-2 Not Detected (NOT DETECT)
[2022-11-09 23:01] LABS: Troponin 5 2HR 20.61 ng/L (0-15)
[2022-11-09 23:02] LABS: Troponin 5 2HR Delta 0.61 ABS# (0-10)
[2022-11-09 23:32] VITALS: BP 115/82; PULSE 90; RESP 17; O2SAT 95
== END 2022-11-10 00:04 | disposition home or self-care (01) ==
PROVIDERS: Emergency Provider Emergency Medicine; PCP Internal Medicine
DX: B34.9 Viral infection, unspecified (principal); Z20.822 Contact with and (suspected) exposure to COVID-19
CPT/HCPCS: 36415; 51702; 71045; 80053; 81003; 83605; 83735; 84145; 84484; 85025; 85610; 87040; 87486; 87581; 87633; 93005; 96360; 96361; 99285; J7030

== ENCOUNTER 2022-12-16 08:40 | Emergency (ER) | payer BC, MEDICAID, SELFPAY ==
[2022-12-16 08:41] VITALS: BP 112/75; PULSE 102; RESP 20; TEMP 37.2; O2SAT 91; BMI 22.3
[2022-12-16 08:48] VITALS: BP 112/75; PULSE 104; O2SAT 93
--- NOTE | 2022-12-16 09:05 | ED_ITS ---
HPI - General Adult General: Chief complaint: General Medical Stated complaint: DISLODGED PEG TUBE Time Seen by Provider: 12/16/22 08:56 History of Present Illness: 51-year-old male presents emergency department via EMS personnel [facility] Patient has a feeding tube in place that the [facility] staff became concerned that might of gotten displaced. It does appear that the plastic retainer to the PEG tube is loose but the PEG tube on examinat ion appears to be well secured. The patient is nonverbal given his previous comorbidities. There are no signs of erythema, skin irritation or infection to the insertion site of the feeding tube. Review of Systems General: Reports: ROS unobtainable due to medical condition Physical Exam Const: COMMON NORMALS: no acute distress, healthy appearing, alert and well nourished ORIENTATION/CONSCIOUSNESS: Yes Other orientation findings (Nonverbal) HENMT: COMMON NORMALS: normocephalic, atraumatic and moist oral mucous membranes HEAD & SCALP: normocephalic and atraumatic Eye: COMMON NORMALS: Equal, round and reactive pupils present and EOMs intact bilaterally PUPIL: Yes Equal, round and reactive pupils present Neck/C-Spine: COMMON NORMALS: full ROM and supple Resp: COMMON NORMALS: normal respiratory effort, No retractions and clear to auscultation bilaterally AUSCULTATION: clear to auscultation bilaterally Cardio: COMMON NORMALS: regular rate, regular rhythm, S1 normal heart sound present, S2 normal heart sound present and Peripheral pulses 2+ throughout RATE: regular rate RHYTHM: regular rhythm HEART SOUNDS: S1 normal heart sound present and S2 normal heart sound present PERIPHERAL PULSES: Peripheral pulses 2+ throughout GI: INSPECTION: Yes GI tube present and Yes other (PEG tube in place with dressing that appears saturated with tube feeding.) Back/Pelvis: COMMON NORMALS: thoracic and lumbar spine normal to inspection and no thoracic nor lumbar tenderness Extremity: NARRATIVE EXTREMITY EXAM: Bilateral lower extremities appear to be contracted. There is obvious muscle wasting noted. He does have good capillary refill is less than 3 seconds to all extremities. Neuro: SENSORIUM/ORIENTATION: Yes alert OTHER: Patient appears to be at his baseline after reviewing the medical record. Psych: COMMON NORMALS: mental status grossly normal and cooperative Skin: COMMON NORMALS: no rashes or lesions noted and turgor normal GENERAL SKIN EXAM: no rashes or lesions noted and turgor normal Course ED course: Plain film radiographic examination obtained unable to verify proper placement of the PEG tube. We repeated the radiographic plain film with injected barium contrast and it does appear that the PEG tube is properly placed. We will discharge the patient back to his residential care facility. Vital Signs: Vital signs: Vital Signs Temperature 98.9 F 12/16/22 08:41 Pulse Rate 104 H 12/16/22 08:48 Respiratory Rate 20 H 12/16/22 08:41 Blood Pressure 112/75 12/16/22 08:48 Pulse Oximetry 93 12/16/22 08:48 Oxygen Delivery Me thod Room Air 12/16/22 08:41 MDM - General Adult Medical Decision Making Physical exam completed and documented, I will obtain a plain film abdominal x- ray to evaluate placement of the patient's PEG tube. Differential Diagnosis Dislodged feeding tube. Medical Records I reviewed the patient's medical records. Lab Data Radiology Impressions Abdomen X-Ray 12/16/22 09:05 IMPRESSION: Percutaneous gastric tube projects over the left mid abdomen. Its position relative to the gastric lumen is unknown. KUB X-Ray 12/16/22 10:25 IMPRESSION: Contrast injection through the percutaneous gastric tube partially fills the gastric and duodenal lumen. No contrast extravasation is seen. All radiology interpretation(s) finalized by discharge ED provider radiology interpretation(s): FINDINGS: Tubes, catheters and devices: Percutaneous gastric tube projects over the left mid abdomen. TRIMMER OPERATOR THREE KNIFE shunt tubing is partially imaged over the right chest wall and upper abdomen. Gastrointestinal tract: Bowel gas pattern is unremarkable. No sign of obstruction. Intraperitoneal space: No gross free air. Bones/joints: Bones are unremarkable. XR/XR abdomen 1V* [id number] IMPRESSION: Percutaneous gastric tube projects over the left mid abdomen.? Its position relative to the gastric lumen is unknown. ? Repeat abdominal film with barium contrast FINDINGS: Tubes, catheters and devices: Contrast injected through the percutaneous gastric tube partially fills the gastric and proximal duodenal lumen. No extraluminal contrast extravasation is seen. TRIMMER OPERATOR THREE KNIFE shunt tubing projects over the right upper and mid abdomen. Gastrointestinal tract: Bowel gas pattern is unremarkable. No sign of obstruction. Intraperitoneal space: No gross free air. Bones/joints: Bones are unremarkable. XR/XR KUB [id number] IMPRESSION: Contrast injection through the percutaneous gastric tube partially fills the gastric and duodenal lumen. No contrast extravasation is seen. Discharge Plan Discharge Patient Disposition: Home Clinical Impression: Leaking PEG tube Condition: Stable Prescriptions: No Action docusate sodium 50 mg/5 mL Liquid 10 ml feeding tube DAILY Robaxin 500 mg Tablet 500 mg feeding tube Q8H nystatin 100,000 unit/mL Suspension 5 ml PO Q6H Tylenol 325 mg Tablet 650 mg feeding tube Q6H PRN (Reason: Pain) Keppra 500 mg Tablet 1,000 mg PO Q12H famotidine 20 mg Tablet 20 mg feeding tube DAILY Milk of Magnesia 400 mg/5 mL Suspension 30 ml PO DAILY PRN (Reason: Constipation) Flomax 0.4 mg Capsule 0.4 mg PO DAILY amlodipine 10 mg Tablet 10 mg feeding tube DAILY Dulcolax (bisacodyl) 10 mg Suppository 10 mg VA QPM PRN (Reason: Constipation) metoprolol tartrate 50 mg Tablet 50 mg feeding tube BID Fleet Enema 19-7 gram/118 mL Enema 118 ml VA BEDTIME PRN (Reason: Constipation) lisinopril 40 mg Tablet 40 mg feeding tube DAILY Jevity 1.5 Luke 0.06 gram-1.5 kcal/mL Liquid See Rx Instructions .ROUTE .COMPLEX Rx Instructions: 60ML/HR TUBE EVERY SHIFT FOR NPO lactulose 20 gram/30 mL Solution 30 ml feeding tube TID [id number] gluconate 9 mg iron/ 15 mL (15 mL) Liquid 15 ml feeding tube DAILY Discharge Orders: Discharge ED (Routine); Ordered 12/16/22 Ordered By: Tamir Herr Referrals: Antoine Biswas DO [Primary Care Provider] - Discharge Diet: Usual diet Discharge Activity: Resume usual activity Coding Level of Care Code ED Physical Meteorologist for Deng Fwd
--- NOTE | 2022-12-16 09:05 | XRR_ITS ---
PROCEDURE INFORMATION: Exam: XR Abdomen Exam date and time: 12/16/2022 9:18 AM Age: 51 years old Clinical indication: Device placement; Gi device; Peg tube; Additional info: Peg tube placement verification TECHNIQUE: Imaging protocol: Radiologic exam of the abdomen. Views: Frontal supine view of the abdomen. 1 View. COMPARISON: CR (CHEST, ) 11/09/2022 6:35 PM FINDINGS: Tubes, catheters and devices: Percutaneous gastric tube projects over the left mid abdomen. TIEDOWN OPERATOR shunt tubing is partially imaged over the right chest wall and upper abdomen. Gastrointestinal tract: Bowel gas pattern is unremarkable. No sign of obstruction. Intraperitoneal space: No gross free air. Bones/joints: Bones are unremarkable. XR/XR abdomen 1V* [id number] IMPRESSION: Percutaneous gastric tube projects over the left mid abdomen. Its position relative to the gastric lumen is unknown.
--- NOTE | 2022-12-16 10:25 | XRR_ITS ---
PROCEDURE INFORMATION: Exam: XR Abdomen Exam date and time: 12/16/2022 10:46 AM Age: 51 years old Clinical indication: Device placement; Gi device; Peg tube; Additional info: Peg tube placement with contrast TECHNIQUE: Imaging protocol: Radiologic exam of the abdomen. Views: Frontal supine view of the abdomen. 1 View. COMPARISON: CR (ABDOMEN, ) 12/16/2022 9:18 AM FINDINGS: Tubes, catheters and devices: Contrast injected through the percutaneous gastric tube partially fills the gastric and proximal duodenal lumen. No extraluminal contrast extravasation is seen. DIGITAL PRESS OPERATOR shunt tubing projects over the right upper and mid abdomen. Gastrointestinal tract: Bowel gas pattern is unremarkable. No sign of obstruction. Intraperitoneal space: No gross free air. Bones/joints: Bones are unremarkable. XR/XR KUB [id number] IMPRESSION: Contrast injection through the percutaneous gastric tube partially fills the gastric and duodenal lumen. No contrast extravasation is seen.
--- NOTE | 2022-12-16 12:34 | PC.NURSE ---
PT has been dc'd from er and is resting in room waiting for medicaid ride
--- NOTE | 2022-12-16 17:53 | PC.NURSE ---
Report called back to senior care. PT changed, cleaned, and repositions throughout stay while waiting on transport.
[2022-12-16 17:55] VITALS: BP 112/75; O2SAT 94
== END 2022-12-16 17:56 | disposition home or self-care (01) ==
PROVIDERS: Emergency Provider Internal Medicine; PCP Internal Medicine
DX: K94.29 Other complications of gastrostomy (principal)
CPT/HCPCS: 74018; 99283

== ENCOUNTER 2022-12-20 15:58 | Inpatient (IN) | payer BC, SELFPAY ==
[2022-12-20] VITALS (8 sets, daily range): BP systolic 92–119; BP diastolic 54–81; PULSE 113–128; RESP 15–22; TEMP 36.4–37.7; O2SAT 90–97; BMI 25.1
--- NOTE | 2022-12-20 16:06 | CTR_ITS ---
PROCEDURE INFORMATION: Exam: CT Abdomen And Pelvis With Contrast Exam date and time: 12/20/2022 6:02 PM Age: 51 years old Clinical indication: Abdominal pain; Acute; Prior surgery; Surgery date: 6+ months; Surgery type: Peg tube; Additional info: Severe pain with peg tub flushing; Concern for infection TECHNIQUE: Imaging protocol: Computed tomography of the abdomen and pelvis with contrast. Radiation optimization: All CT scans at this facility use at least one of these dose optimization techniques: automated exposure control; mA and/or kV adjustment per patient size (includes targeted exams where dose is matched to clinical indication); or iterative reconstruction. Contrast material: OMNI 350; Contrast volume: 100 ml; Contrast route: INTRAVENOUS (IV); REPORTING DATA: Count of CT and Cardiac NM exams in prior 12 months: This patient has received [address] and 0 known cardiac nuclear medicine studies in the 12 months prior to the current study. COMPARISON: CR (ABDOMEN, ) 12/16/2022 10:46 AM RADIATION DOSE METRICS: Total DLP (mGy-cm): 1105.43 FINDINGS: Tubes, catheters and devices: There is a catheter embedded in the anterior abdominal wall/left rectus muscle, consistent with a displaced/partially withdrawn PEG tube. There is intramuscular fluid and air surrounding the tip of the catheter. Peritoneal catheter noted with distal portion in the subhepatic space. No fluid collection associated with the catheter. Lungs: Mild atelectasis versus fibrosis noted at the lung bases. Liver: Liver demonstrates multiple simple appearing cysts measuring up to 3.5 cm. No acute hepatic abnormality. Gallbladder and bile ducts: No calcified gallstones in the gallbladder. No gallbladder wall thickening. No pericholecystic fluid. No biliary dilatation. Pancreas: Unremarkable. No ductal dilation. Spleen: Unremarkable. No splenomegaly. Adrenal glands: Unremarkable. No mass. Kidneys and ureters: Nonspecific low-density renal lesions, most of which are too small to characterize. These likely represent multiple cysts. The largest probable cyst measures 1.9 cm in diameter. No hydronephrosis in the bilateral kidneys. The ureters appear unremarkable. Stomach and bowel: No acute gastric abnormality demonstrated. The small bowel is unremarkable as demonstrated. No acute abnormality/inflammatory change of the colon. Appendix: No evidence of appendicitis. Intraperitoneal space: No free air. No significant fluid collection. Vasculature: No abdominal aortic aneurysm. Lymph nodes: Calcified lymph nodes in the lower mediastinum, consistent with old granulomatous disease. Urinary bladder: Urinary bladder is almost completely empty. The bladder appears unremarkable. Reproductive: Mildly enlarged prostate gland noted. Bones/joints: Unremarkable. No acute osseous abnormality. Soft tissues: Abnormal left rectus muscle secondary to displaced PEG tube, as above. CT/CT abdomen pelvis w con* [id number] IMPRESSION: 1. There is a catheter embedded in the anterior abdominal wall/left rectus muscle, consistent with a displaced/partially withdrawn PEG tube. There is intramuscular fluid and air surrounding the tip of the catheter. Recommend repositioning of the catheter. 2. Peritoneal catheter noted with distal portion in the subhepatic space. No fluid collection associated with the catheter. 3. No acute bowel abnormality identified. 4. No acute abnormality of the solid organs demonstrated. COMMENTS: Consistent with the [employer]'s Incidental Findings Committee white paper (J Am Car Radiol 2018): Any incidental renal lesion less than 1 cm or classified as too small to characterize, or any incidental cystic renal lesion characterized as simple-appearing, is likely benign. No follow-up imaging is recommended for these lesions per consensus recommendations based on imaging criteria.
--- NOTE | 2022-12-20 16:08 | XRR_ITS ---
PROCEDURE INFORMATION: Exam: XR Chest Exam date and time: 12/20/2022 4:14 PM Age: 51 years old Clinical indication: Fever; Additional info: Tachycardia, fever TECHNIQUE: Imaging protocol: Radiologic exam of the chest. Views: 1 view. COMPARISON: CR (CHEST, ) 11/09/2022 6:35 PM FINDINGS: Lungs: Infiltrate in the linear formation involving the left base. However, this appears to be slightly decreased since the previous examination and could be improving chronic changes. The right lung is clear. Pleural spaces: Unremarkable. No pleural effusion. No pneumothorax. Heart/Mediastinum: Unremarkable. No cardiomegaly. Bones/joints: Unremarkable. XR/XR chest 1V portable [id number] IMPRESSION: Left base infiltrate however, this appears improved since the previous examination.
--- NOTE | 2022-12-20 16:08 | ED_ITS ---
Documented by User: NEO Struod 12/22/22 09:01 HPI - Abdominal Pain General: Chief Complaint: Abdominal Pain Stated Complaint: Peg tube Issues Time Seen by Provider: 12/20/22 16:00 Source: EMS Mode of arrival: EMS Limitations: other (patient is non-verbal) History of Present Illness: Patient is a 51-year-old male who arrives to the ED today from his [place] [facility] for concerns of possible infection near/around his PEG tube. 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 He was seen here and subsequently shipped to [facility]. Patient has profound neurological deficits from this. He is non-verbal. Patient was seen here 2-3 days ago as [facility] had concerns for a dislodged PEG tube. XR with barium contrast was performed which showed PEG tube seem to be in place. residential states yesterday they began noticing patient seemed to be an incredible amount of discomfort when they would flush his PEG tube. They were reporting tenderness and firmness around his os sonia site as well as some redness, blood, and discharge. Patient arrives tachycardic 125. Temp is 99.1 although clinically he feels warmer. residential denies any other symptoms at this time. MD elicited complaint: other (pain with PEG flushing) Onset (ago): day(s) Pain Consistency: intermittent Location: Other (at/around PEG site) Radiation: none Migration to: no migration Exacerbating factors: other (flushing PEG tube) Relieving factors: nothing Review of Systems General: Reports: ROS unobtainable due to medical condition and ROS unobtainable due to mental status [facility] ED PFSH: Medical History CVA (cerebral vascular accident) Physical Exam Const: COMMON NORMALS: no acute distress and alert EXAM LIMITATIONS: other limitations (pt is non-verbal but can occasionally give one word answers ) ORIENTATION/CONSCIOUSNESS: Yes awake OTHER: feels warm, clammy HENMT: COMMON NORMALS: normocephalic and atraumatic HEAD & SCALP: normal to inspection, normocephalic and atraumatic Eye: GENERAL EYE: appearance normal, both eyes and all related structures Neck/C-Spine: COMMON NORMALS: no lymphadenopathy and no meningeal signs Resp: COMMON NORMALS: normal respiratory effort and clear to auscultation bilaterally AUSCULTATION: clear to auscultation bilaterally Cardio: COMMON NORMALS: regular rhythm RATE: tachycardic RHYTHM: regular rhythm GI: INSPECTION: Yes normal to inspection and Yes other (PEG tube-minimal surrounding redness; firmness surrounding ostomy) PALPATION: Yes Tenderness to palpation present (GI) Extremity: NARRATIVE EXTREMITY EXAM: chronic bilateral UE/LE atrophy and contractures; DP/PT pulses found on bilateral LEs Neuro: SENSORIUM/ORIENTATION: Yes alert MENINGEAL SIGNS: Yes no meningeal signs Skin: COMMON NORMALS: no rashes or lesions noted NARRATIVE SKIN EXAM: no sacral/decubitus ulcers noted GENERAL SKIN EXAM: no rashes or lesions noted Course Vital Signs: Vital signs: Vital Signs Temperature 101.4 F H 12/22/22 07:36 Pulse Rate 112 H 12/22/22 07:36 Respiratory Rate 18 12/22/22 07:36 Blood Pressure 125/83 12/22/22 07:36 Pulse Oximetry 93 12/22/22 07:36 Oxygen Delivery Me thod Nasal Cannula 12/22/22 07:36 Oxygen Flow Rate 1 12/22/22 07:36 MDM - Abdominal Pain Lab Data 12/22/22 04:37 12/22/22 04:37 Labs/Radiology: Radiology Impressions Chest X-Ray 12/20/22 16:08 IMPRESSION: Left base infiltrate however, this appears improved since the previous examination. Abdomen X-Ray 12/21/22 00:00 IMPRESSION: 1. Primary jejunostomy tube noted and appears in good position within the proximal jejunum. Contrast is seen within the stomach, duodenal sweep and proximal jejunum. No extravasation of contrast detected. 2. Normal bowel gas pattern Abdomen/Pelvis CT 12/21/22 12:53 IMPRESSION: 1. Again demonstrated is a gastrostomy tube positioned with its bulb in the left upper rectus abdominis muscle with injection of contrast accumulating in the left upper rectus abdominis muscle. This should be replaced by interventional radiology or surgery. 2. Consolidation with air bronchograms in the left lung base. Atelectatic changes in the right lung base. ADDENDUM: 12/21/221953 THIS REPORT CONTAINS FINDINGS THAT MAY BE CRITICAL TO PATIENT CARE. The findings were verbally communicated via telephone conference with Dr. Hawthorne at 7:52 PM CDT on 12/21/2022. The findings were acknowledged and understood. Laboratory Results WBC 20.44 10^3/uL (3.29-11.43) H 12/20/22 16:38 RBC 3.89 10^6/uL (3.85-5.65) 12/20/22 16:38 Hgb 11.30 g/dL (11.27-16.99) 12/20/22 16:38 Hct 34.9 % (37-53) L 12/20/22 16:38 MCV 89.7 fl (82-101) 12/20/22 16:38 MCH 29.0 pg (27-33) 12/20/22 16:38 MCHC 32.4 g/dL (30-55) 12/20/22 16:38 RDW 14.0 % (12.1-15.1) 12/20/22 16:38 Plt Count 381 10^3/cmm (157-399) 12/20/22 16:38 MPV 10.5 fL (7.4-10.4) H 12/20/22 16:38 Neut % (Auto) 83.3 % 12/20/22 16:38 Lymph % (Auto) 7.0 % 12/20/22 16:38 [place] % (Auto) 7.8 % 12/20/22 16:38 Eos % (Auto) 0.9 % 12/20/22 16:38 Baso % (Auto) 0.3 % 12/20/22 16:38 Neut # (Auto) 17.01 10^3/uL (1.8-7.7) H 12/20/22 16:38 Lymph # (Auto) 1.4 10^3/uL (0.8-4.8) 12/20/22 16:38 [place] # (Auto) 1.6 10^3/uL (0.2-0.9) H 12/20/22 16:38 Eos # (Auto) 0.2 10^3/uL (0.0-0.8) 12/20/22 16:38 Baso # (Auto) 0.1 10^3/uL (0.0-0.1) 12/20/22 16:38 Nucleated RBC % (auto) 0 % 12/20/22 16:38 Nucleated RBCs # 0.0 /100WBC 12/20/22 16:38 Sodium 138 mmol/L (136-145) 12/20/22 16:38 Potassium 4.1 mmol/L (3.5-5.1) 12/20/22 16:38 Chloride 95 mmol/L (98-107) L 12/20/22 16:38 Carbon Dioxide 31 mmol/L (22-29) H 12/20/22 16:38 Anion Gap 16.1 (5-19) 12/20/22 16:38 BUN 27 mg/dL (6-20) H 12/20/22 16:38 Creatinine 0.8 mg/dL (0.7-1.2) 12/20/22 16:38 GFR Calculation 102.3 mL/min (90-130) 12/20/22 16:38 Glucose 110 mg/dL (65-115) 12/20/22 16:38 Calculated Osmolality 292 mOsm/kg (285-295) 12/20/22 16:38 Lactic Acid 1.8 mmol/L (0.5-2.2) 12/20/22 16:38 Calcium 10.6 mg/dL (8.5-10.5) H 12/20/22 16:38 Iron 18 ug/dL (59-158) L 12/20/22 18:35 TIBC 136 mcg/dl 12/20/22 18:35 % Saturation 13.2 % (20-50) L 12/20/22 18:35 Unsat Iron Binding 118 ug/dL (112-347) 12/20/22 18:35 Total Bilirubin 0.3 mg/dL (0.15-1.2) 12/20/22 16:38 AST 20 U/L (0-40) 12/20/22 16:38 ALT 49 U/L (0-41) H 12/20/22 16:38 Alkaline Phosphatase 140 U/L (40-130) H 12/20/22 16:38 Troponin T Baseline 33 ng/L (0-15) H 12/20/22 16:38 Troponin T 120 Minute 31.46 ng/L (0-15) H 12/20/22 18:35 Delta Troponin T -1.54 ABS# (0-10) L 12/20/22 18:35 Total Protein 8.0 g/dL (6.6-8.7) 12/20/22 16:38 Albumin 3.5 g/dL (3.5-5.2) 12/20/22 16:38 Globulin 4.5 g/dL (1.3-4.6) 12/20/22 16:38 Lipase 38 U/L (13-60) 12/20/22 16:38 Vitamin B12 1364 pg/mL (232-1245) H 12/20/22 18:35 Procalcitonin 1.10 ng/mL (0-0.5) H 12/20/22 16:38 TSH 1.23 uIU/mL (0.27-4.20) 12/20/22 18:35 Urine Color Yellow (Yellow) 12/20/22 17:08 Urine Appearance Hazy (CLEAR) A 12/20/22 17:08 Urine pH 7 (5-7) 12/20/22 17:08 Ur Specific [place] 1.015 (1.005-1.030) 12/20/22 17:08 Urine Protein Neg (Negative) 12/20/22 17:08 Urine Glucose (UA) Norm (Normal) 12/20/22 17:08 Urine Ketones Negative (Negative) 12/20/22 17:08 Urine Blood Neg (Negative) 12/20/22 17:08 Urine Nitrate Negative (Negative) 12/20/22 17:08 Urine Bilirubin Neg (Negative) 12/20/22 17:08 Prot Sulfosalicylic Acd Cancelled 12/20/22 11:07 Urine Urobilinogen Norm mg/dL (Negative) 12/20/22 17:08 Ur Leukocyte Esterase 1+ (Negative) H 12/20/22 17:08 Urine RBC 0-4 /hpf (0-2) H 12/20/22 17:08 Urine WBC 5-10 /hpf (0-5) H 12/20/22 17:08 Ur Squamous Epith Cells 0-4 /hpf (0-5) H 12/20/22 17:08 Ur Transition Epith Cell Cancelled 12/20/22 11:07 Ur Renal Epithelial Cell Cancelled 12/20/22 11:07 Calcium Oxalate Crystal Cancelled 12/20/22 11:07 Uric Acid Crystals Cancelled 12/20/22 11:07 Triple Phos Crystals Cancelled 12/20/22 11:07 Other Crystals Cancelled 12/20/22 11:07 Amorphous Sediment 2+ /hpf 12/20/22 17:08 Urine Bacteria Trace /hpf (NONE) 12/20/22 17:08 Hyaline Casts 0-4 /lpf H 12/20/22 17:08 Fine Granular Casts Cancelled 12/20/22 11:07 Coarse Granular Casts Cancelled 12/20/22 11:07 RBC Casts Cancelled 12/20/22 11:07 Other Casts Cancelled 12/20/22 11:07 Urine Mucus Trace /hpf 12/20/22 17:08 Urine Trichomonas Cancelled 12/20/22 11:07 Urine Yeast Cancelled 12/20/22 11:07 Urine Sperm Cancelled 12/20/22 11:07 Ur Oval Fat Bodies Cancelled 12/20/22 11:07 Discharge Plan Discharge Patient Disposition: Admitted As Inpatient Admit Provider: Ander Bojorquez Clinical Impression: Leaking PEG tube, PEG tube malfunction, Elevated WBC count, Elevated procalcitonin Condition: Stable Sign Out Sign Out Data: Patient Sign Out occurred on 12/20/22 at 17:08. Patient's care was discussed, and care was transferred from to NEO Matias. Coding Level of Care Code ED Hydrator Operator for Chg Fwd Documented by User: NEO Matias 12/20/22 21:26 HPI - Abdominal Pain General: Chief Complaint: Abdominal Pain Stated Complaint: Peg tube Issues Time Seen by Provider: 12/20/22 16:00 PFSH ED PFSH: Medical History CVA (cerebral vascular accident) Course Vital Signs: Vital signs: Vital Signs Temperature 101.4 F H 12/22/22 07:36 Pulse Rate 112 H 12/22/22 07:36 Respiratory Rate 18 12/22/22 07:36 Blood Pressure 125/83 12/22/22 07:36 Pulse Oximetry 93 12/22/22 07:36 Oxygen Delivery Me thod Nasal Cannula 12/22/22 07:36 Oxygen Flow Rate 1 12/22/22 07:36 MDM - Abdominal Pain Medical Decision Making Catarina Lindsay PA-C: Transfer of care from Ruth Castañeda PA-C at 1700. At this point, patient's labs are beginning to come in and we are still waiting on imaging. Patient was found to have an elevated white blood cell count but lactic was normal. I added on a procalcitonin which came back elevated. Patient has some generalized lab abnormalities but no critical results at this time. Patient had blood cultures taken upon initial lab work. Chest CT shows an area in the left lower lobe concerning for atelectasis or infiltrate but, is found to be noticeably improved from previous x-rays a couple weeks ago. CT ex amination shows consistent with a displaced and partially withdrawn PEG. There appears to be a little fluid and air at the opening concerning for intra- abdominal contents. I spoke with Dr. Herr as he saw this patient a few days ago. We will start Zosyn at this time. He also recommended calling the hospitalist for admission. I was able to speak with Dr. Bojorquez regarding this patient. He did request touching base with general surgery as the PEG tube would have to be addressed during his stay but would otherwise admit. I spoke with Dr. Stock with general surgery who agreed to the consult for this patient. I called the hospitalist back and he agreed to admission. He did asked that we add vancomycin and also requested a CT of the chest. Upon placing the admission order, Dr. Herr indicated the CT of the chest needs to be performed on the floor and I have attempted to get a hold of the hospitalist to make him aware of Dr. Herr decision but have been unable to get a hold of him at this time. Transfer of care to the hospitalist and general surgery services at this time for further evaluation, intervention, and treatment of this patient. Differential Diagnosis Likely abdominal pain; Unlikely acute appendicitis, calculus of kidney, constipation, diverticulitis, gastroenteritis, pancreatitis or small bowel obstruction Lab Data 12/22/22 04:37 12/22/22 04:37 Labs/Radiology: Radiology Impressions Chest X-Ray 12/20/22 16:08 IMPRESSION: Left base infiltrate however, this appears improved since the previous examination. Abdomen X-Ray 12/21/22 00:00 IMPRESSION: 1. Primary jejunostomy tube noted and appears in good position within the proximal jejunum. Contrast is seen within the stomach, duodenal sweep and proximal jejunum. No extravasation of contrast detected. 2. Normal bowel gas pattern Abdomen/Pelvis CT 12/21/22 12:53 IMPRESSION: 1. Again demonstrated is a gastrostomy tube positioned with its bulb in the left upper rectus abdominis muscle with injection of contrast accumulating in the left upper rectus abdominis muscle. This should be replaced by interventional radiology or surgery. 2. Consolidation with air bronchograms in the left lung base. Atelectatic changes in the right lung base. ADDENDUM: 12/21/221953 THIS REPORT CONTAINS FINDINGS THAT MAY BE CRITICAL TO PATIENT CARE. The findings were verbally communicated via telephone conference with Dr. Hawthorne at 7:52 PM CDT on 12/21/2022. The findings were acknowledged and understood. Laboratory Results WBC 20.44 10^3/uL (3.29-11.43) H 12/20/22 16:38 RBC 3.89 10^6/uL (3.85-5.65) 12/20/22 16:38 Hgb 11.30 g/dL (11.27-16.99) 12/20/22 16:38 Hct 34.9 % (37-53) L 12/20/22 16:38 MCV 89.7 fl (82-101) 12/20/22 16:38 MCH 29.0 pg (27-33) 12/20/22 16:38 MCHC 32.4 g/dL (30-55) 12/20/22 16:38 RDW 14.0 % (12.1-15.1) 12/20/22 16:38 Plt Count 381 10^3/cmm (157-399) 12/20/22 16:38 MPV 10.5 fL (7.4-10.4) H 12/20/22 16:38 Neut % (Auto) 83.3 % 12/20/22 16:38 Lymph % (Auto) 7.0 % 12/20/22 16:38 Dorado % (Auto) 7.8 % 12/20/22 16:38 Eos % (Auto) 0.9 % 12/20/22 16:38 Baso % (Auto) 0.3 % 12/20/22 16:38 Neut # (Auto) 17.01 10^3/uL (1.8-7.7) H 12/20/22 16:38 Lymph # (Auto) 1.4 10^3/uL (0.8-4.8) 12/20/22 16:38 [place] # (Auto) 1.6 10^3/uL (0.2-0.9) H 12/20/22 16:38 Eos # (Auto) 0.2 10^3/uL (0.0-0.8) 12/20/22 16:38 Baso # (Auto) 0.1 10^3/uL (0.0-0.1) 12/20/22 16:38 Nucleated RBC % (auto) 0 % 12/20/22 16:38 Nucleated RBCs # 0.0 /100WBC 12/20/22 16:38 Sodium 138 mmol/L (136-145) 12/20/22 16:38 Potassium 4.1 mmol/L (3.5-5.1) 12/20/22 16:38 Chloride 95 mmol/L (98-107) L 12/20/22 16:38 Carbon Dioxide 31 mmol/L (22-29) H 12/20/22 16:38 Anion Gap 16.1 (5-19) 12/20/22 16:38 BUN 27 mg/dL (6-20) H 12/20/22 16:38 Creatinine 0.8 mg/dL (0.7-1.2) 12/20/22 16:38 GFR Calculation 102.3 mL/min (90-130) 12/20/22 16:38 Glucose 110 mg/dL (65-115) 12/20/22 16:38 Calculated Osmolality 292 mOsm/kg (285-295) 12/20/22 16:38 Lactic Acid 1.8 mmol/L (0.5-2.2) 12/20/22 16:38 Calcium 10.6 mg/dL (8.5-10.5) H 12/20/22 16:38 Iron 18 ug/dL (59-158) L 12/20/22 18:35 TIBC 136 mcg/dl 12/20/22 18:35 % Saturation 13.2 % (20-50) L 12/20/22 18:35 Unsat Iron Binding 118 ug/dL (112-347) 12/20/22 18:35 Total Bilirubin 0.3 mg/dL (0.15-1.2) 12/20/22 16:38 AST 20 U/L (0-40) 12/20/22 16:38 ALT 49 U/L (0-41) H 12/20/22 16:38 Alkaline Phosphatase 140 U/L (40-130) H 12/20/22 16:38 Troponin T Baseline 33 ng/L (0-15) H 12/20/22 16:38 Troponin T 120 Minute 31.46 ng/L (0-15) H 12/20/22 18:35 Delta Troponin T -1.54 ABS# (0-10) L 12/20/22 18:35 Total Protein 8.0 g/dL (6.6-8.7) 12/20/22 16:38 Albumin 3.5 g/dL (3.5-5.2) 12/20/22 16:38 Globulin 4.5 g/dL (1.3-4.6) 12/20/22 16:38 Lipase 38 U/L (13-60) 12/20/22 16:38 Vitamin B12 1364 pg/mL (232-1245) H 12/20/22 18:35 Procalcitonin 1.10 ng/mL (0-0.5) H 12/20/22 16:38 TSH 1.23 uIU/mL (0.27-4.20) 12/20/22 18:35 Urine Color Yellow (Yellow) 12/20/22 17:08 Urine Appearance Hazy (CLEAR) A 12/20/22 17:08 Urine pH 7 (5-7) 12/20/22 17:08 Ur Specific [place] 1.015 (1.005-1.030) 12/20/22 17:08 Urine Protein Neg (Negative) 12/20/22 17:08 Urine Glucose (UA) Norm (Normal) 12/20/22 17:08 Urine Ketones Negative (Negative) 12/20/22 17:08 Urine Blood Neg (Negative) 12/20/22 17:08 Urine Nitrate Negative (Negative) 12/20/22 17:08 Urine Bilirubin Neg (Negative) 12/20/22 17:08 Prot Sulfosalicylic Acd Cancelled 12/20/22 11:07 Urine Urobilinogen Norm mg/dL (Negative) 12/20/22 17:08 Ur Leukocyte Esterase 1+ (Negative) H 12/20/22 17:08 Urine RBC 0-4 /hpf (0-2) H 12/20/22 17:08 Urine WBC 5-10 /hpf (0-5) H 12/20/22 17:08 Ur Squamous Epith Cells 0-4 /hpf (0-5) H 12/20/22 17:08 Ur Transition Epith Cell Cancelled 12/20/22 11:07 Ur Renal Epithelial Cell Cancelled 12/20/22 11:07 Calcium Oxalate Crystal Cancelled 12/20/22 11:07 Uric Acid Crystals Cancelled 12/20/22 11:07 Triple Phos Crystals Cancelled 12/20/22 11:07 Other Crystals Cancelled 12/20/22 11:07 Amorphous Sediment 2+ /hpf 12/20/22 17:08 Urine Bacteria Trace /hpf (NONE) 12/20/22 17:08 Hyaline Casts 0-4 /lpf H 12/20/22 17:08 Fine Granular Casts Cancelled 12/20/22 11:07 Coarse Granular Casts Cancelled 12/20/22 11:07 RBC Casts Cancelled 12/20/22 11:07 Other Casts Cancelled 12/20/22 11:07 Urine Mucus Trace /hpf 12/20/22 17:08 Urine Trichomonas Cancelled 12/20/22 11:07 Urine Yeast Cancelled 12/20/22 11:07 Urine Sperm Cancelled 12/20/22 11:07 Ur Oval Fat Bodies Cancelled 12/20/22 11:07 All radiology interpretation(s) finalized by discharge Discharge Plan Discharge Patient Disposition: Admitted As Inpatient Admit Provider: Ander Bojorquez Clinical Impression: Leaking PEG tube, PEG tube malfunction, Elevated WBC count, Elevated procalcitonin Condition: Stable Sign Out Sign Out Data: Patient Sign Out occurred on 12/20/22 at 17:08. Patient's care was discussed, and care was transferred from to NEO Matias. Coding Level of Care Code ED Hydrator Operator for Tere Saavedra
--- NOTE | 2022-12-20 16:09 | ECG_ITS ---
[facility] Test Date: 2022-12-20 Pat Name: Travis Mckeon Department: Room: Gender: Male Crane Rigger: : 1970 Requested By: Ruth Castañeda Order Number: [id number] Faisal MD: Gurpreet Bolivar M.D. Measurements Intervals [place] Rate: 118 P: 64 RI: 184 QRS: 43 QRSD: 88 T: 55 QT: 301 QTc: 422 Interpretive Statements SINUS TACHYCARDIA ABNORMAL RHYTHM ECG Compared to ECG 11/09/2022 21:30:33 No significant changes Electronically Signed On 12-20-2022 18:12:42 CDT by Gurpreet Bolivar M.D. [id number]
[2022-12-20 16:54] LABS: Basophils # 0.1 10^3/uL (0.0-0.1); Basophils % 0.3 %; Eosinophils # 0.2 10^3/uL (0.0-0.8); Eosinophils % 0.9 %; Hematocrit 34.9 % (37-53); Lymphocytes # 1.4 10^3/uL (0.8-4.8); Mean Corpuscular HGB Conc 32.4 g/dL (30-55); Mean Corpuscular Volume 89.7 fl (82-101); Mean Platelet Volume 10.5 fL (7.4-10.4); Monocytes # 1.6 10^3/uL (0.2-0.9); Monocytes % 7.8 %; Neutrophils # 17.01 10^3/uL (1.8-7.7); Neutrophils % 83.3 %; Nucleated Red Blood Cells % 0 %; Platelet Count 381 10^3/cmm (157-399); Red Blood Count 3.89 10^6/uL (3.85-5.65); White Blood Count 20.44 10^3/uL (3.29-11.43)
[2022-12-20 17:10] LABS: Lactic Sepsis W/Reflex 1.8 mmol/L (0.5-2.2)
[2022-12-20 17:20] LABS: Add Urine Microscopic? YES; Bilirubin Urine Neg (Negative); Blood Urine Neg (Negative); Glucose Urine UA Norm (Normal); Ketones Urine Negative (Negative); Leukocyte Esterase Urine 1+ (Negative); Nitrate Urine Negative (Negative); Protein Urine Neg (Negative); Specific Gravity, Urine 1.015 (1.005-1.030); Urine Appearance Hazy (CLEAR); Urine Color Yellow (Yellow); Urobilinogen Urine Norm (Negative); pH Urine 7 (5-7)
[2022-12-20 17:25] LABS: Troponin(5th) Baseline 33 ng/L (0-15)
[2022-12-20 17:47] LABS: Add Urine Culture? No; Amorphous Sediment Urine 2+ /hpf; Bacteria Urine TRACE /hpf; Hyaline Casts Urine 0-4 /lpf; Mucus Urine TRACE /hpf; RBC Urine 0-4 /hpf (0-2); Squamous Epithelial Cell Urine 0-4 /hpf (0-5)
[2022-12-20 18:05] LABS: Alanine Aminotransferase 49 U/L (0-41); Albumin Level 3.5 g/dL (3.5-5.2); Alkaline Phosphatase 140 U/L (40-130); Anion Gap 16.1 (5-19); Aspartate Amino Transferase 20 U/L (0-40); Blood Urea Nitrogen 27 mg/dL (6-20); Calcium 10.6 mg/dL (8.5-10.5); Carbon Dioxide 31 mmol/L (22-29); Chloride 95 mmol/L (98-107); Globulin 4.5 g/dL (1.3-4.6); Glomerular Filtration Rate 102.3 mL/min (90-130); Glucose 110 mg/dL (65-115); Lipase 38 U/L (13-60); Osmolality Calculated 292 mOsm/kg (285-295); Potassium 4.1 mmol/L (3.5-5.1); Sodium 138 mmol/L (136-145); Total Bilirubin 0.3 mg/dL (0.15-1.2)
[2022-12-20] MEDS: iohexol 350 mg/mL 500 mL Btl (per mL) IV (18:05)
--- NOTE | 2022-12-20 18:56 | ECG_ITS ---
[facility] Test Date: 2022-12-20 Pat Name: Travis Mckeon Department: Room: Gender: Male Seo Engineer: : 1970 Requested By: Ruth Castañeda Order Number: [id number] Malone MD: Gurpreet Bolivar M.D. Measurements Intervals [place] Rate: 120 P: 90 [place]: 177 QRS: 43 QRSD: 90 T: 53 QT: 302 QTc: 428 Interpretive Statements SINUS TACHYCARDIA Compared to ECG 12/20/2022 16:09:13 No significant changes Electronically Signed On 12-21-2022 6:25:17 CDT by Gurpreet Bolivar M.D. [id number]
[2022-12-20] MEDS: piperacillin-tazobactam 3.375 GM in sodium chloride 0.9% (plus) 50 ML IV (18:57)
[2022-12-20 18:58] LABS: Troponin 5 2HR 31.46 ng/L (0-15)
[2022-12-20] MEDS: sodium chloride 0.9% 1,000 ML 999 ML IV ×2 (18:58→22:24)
[2022-12-20 19:05] LABS: Troponin 5 2HR Delta -1.54 ABS# (0-10)
--- NOTE | 2022-12-20 20:29 | PC.PHAR ---
Pharmacokinetic dosing service Date: 12/20/22 Time: 2030 Objective: Patient: Travis Mckeon Floor: ER Age: 51 yo Serum creatinine: 0.8 mg/dL Height: 71.0 Inches Weight (kg): 81.647 Diagnosis: Relevant medical/social history: Cultures and sensitivities: Other labs: Assessment: IBW (kg): 75.30 Dosing wt(kg): 81.647 Estimated Creatinine clearance (ml/min): 117.7 CRCL method: Cockcroft and Gault using ibw(default). Drug selected: Vancomycin Loading dose (mg): 0 Vd (liters): 73.5 (factor used: 0.9 L/kg) Celestino (hr-1): 0.102 Half life (hrs): 6.80 Recommended dose: 1250 mg Interval: 8 hrs Infusion time (hrs): 1.5 Predicted peak (mcg/mL): 28.3 Predicted trough (mcg/mL): 14.58 Total body weight is being used for vancomycin dosing. Renal function is stable [ ] /unstable [ ] Recommendations: Give Vancomycin 1250 mg q 8 hrs with an expected Cpeak of 28.3 mcg/ml and an expected Ctrough of 14.58 mcg/ml Renal dosing of other antibiotics (review renal dosing of other medications and list guidelines here): Thank you for the consult, will continue to follow. Signature: Jenny Lynn [facility]
[2022-12-20] MEDS: vancomycin 1,250 MG/250 ML PIGGYBACK 250 MG IV (20:33)
[2022-12-20 22:02] LABS: INR 1.12 (0.8-1.2)
--- NOTE | 2022-12-20 22:10 | PC.NURSE ---
Patient is nonverbal at baseline, admission questions obtained from [facility] staff. Patient is bed bound and strictly npo, receives nutrition through peg tube.
--- NOTE | 2022-12-20 22:21 | P.HP_ITS ---
Providers/Chief Complaint Admitting Physician: Ander Bojorquez MD Primary Care Provider: Antoine Biswas DO Chief Complaint: Peg tube Issues History of Present Illness History is obtained by talking to ER physician as patient is nonverbal. Travis Mckeon is a 51 year old male brought to the ER today from retirement due to PEG tube malfunction. 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 He was initially seen here on December 16, 2022 due to concerns for dislodged PEG tube. X-ray with barium contrast was performed on this day and the PEG tube seem to be in good position. Since yesterday patient has been noted to have increasing discomfort around the PEG tube site. He is also now erythematous and tender around that area. He had a temp of 99.1 Fahrenheit today and was sent into the emergency room due to concerns for infection. CT of the abdomen and pelvis performed today shows there is a catheter embedded in the anterior abdominal wall/left rectus muscle consistent with a displaced PEG tube. There is intramuscular fluid and air surrounding the tip of the catheter. Medications/Allergies Home Medications Medication Instructions Recorded Confirmed Last Taken Type acetaminophen 325 mg tablet 650 mg feeding tube Q6H PRN Pain 11/04/22 11/04/22 Unknown History (Tylenol) amlodipine 10 mg tablet 10 mg feeding tube DAILY 11/04/22 11/04/22 Unknown History bisacodyl 10 mg rectal suppository 10 mg RI QPM PRN Constipation 11/04/22 11/04/22 Unknown History (Dulcolax (bisacodyl)) docusate sodium 50 mg/5 mL oral 10 ml feeding tube DAILY 11/04/22 11/04/22 Unknown History liquid famotidine 20 mg tablet 20 mg feeding tube DAILY 11/04/22 11/04/22 Unknown History lactose-reduced food with fiber See Rx Instructions .Route .COMPLEX 11/04/22 11/04/22 Unknown History 0.06 gram-1.5 kcal/mL oral liquid (Jevity 1.5 Luke) lactulose 20 gram/30 mL oral 30 ml feeding tube TID 11/04/22 11/04/22 Unknown History solution levetiracetam 500 mg tablet 1,000 mg PO Q12H 11/04/22 11/04/22 Unknown History (Keppra) lisinopril 40 mg tablet 40 mg feeding tube DAILY 11/04/22 11/04/22 Unknown History magnesium hydroxide 400 mg/5 mL 30 ml PO DAILY PRN Constipation 11/04/22 11/04/22 Unknown History oral suspension (Milk of Magnesia) methocarbamol 500 mg tablet 500 mg feeding tube Q8H 11/04/22 11/04/22 Unknown History metoprolol tartrate 50 mg tablet 50 mg feeding tube BID 11/04/22 11/04/22 Unknown History icjloqyd-kumn-gpgpcud gluconate 9 15 ml feeding tube DAILY 11/04/22 11/04/22 Unknown History mg iron/15 mL (15 mL) oral liquid nystatin 100,000 unit/mL oral 5 ml PO Q6H 11/04/22 11/04/22 Unknown History suspension sodium phosphates 19 gram-7 118 ml RI BEDTIME PRN Constipation 11/04/22 11/04/22 Unknown History gram/118 mL enema (Fleet Enema) tamsulosin 0.4 mg capsule (Flomax) 0.4 mg PO DAILY 11/04/22 11/04/22 Unknown History Allergies Allergy/AdvReac Type Severity Reaction Status Date / Time No Known Allergies Allergy Verified 12/20/22 16:05 PFSH Acute PFSH: Medical History (Updated 12/21/22 @ 06:52 by Gemma Plunkett MD) CVA (cerebral vascular accident) Vitals/I&O/Wt Last Vital Signs Temp 97.6 F 12/20/22 21:39 Pulse 121 H 12/20/22 21:39 Resp 17 12/20/22 21:39 BP 92/57 12/20/22 21:39 Pulse Ox 90 12/20/22 21:39 O2 Del Method Room Air 12/20/22 21:44 12/20/22 12/20/22 12/20/22 06:59 14:59 22:59 Intake Total 1300 / 1300 Balance 1300 / 1300 Weight last 48 hrs Weight 81.647 kg Physical Exam Narrative: General: No acute distress, AO x3 HEENT: PERRLA, pupils bilaterally equal and reactive, pallors not present Chest: Normal vesicular breath sounds, no added sounds, equal good air entry bilaterally CVS: S1-S2 regular, no murmurs, no tachycardia, no gallops, no rubs Abdomen: Soft, nontender, no organomegaly, bowel sounds present Neuro: No focal deficits, no facial deformity, AO x3, power 5/5 in all limbs Extremities: Healthy surgical dressing present on the right hip, mild tenderness, soft no erythema. Data 12/21/22 05:53 12/21/22 05:53 Micro: Microbiology 12/20/22 16:42 Blood Culture - Preliminary Blood SPECIMEN COLLECTED 12/20/22 16:38 Blood Culture - Preliminary Blood SPECIMEN COLLECTED A&P Assessment and plan (1) PEG tube malfunction: (2) Infection of PEG site: (3) Seizure: (4) CVA (cerebral vascular accident): Plan 51-year-old male with profound residual neurological deficits from an intraparenchymal hemorrhage in August of this year sent from the retirement today due to PEG site malfunction. Patient has been noted to have increased erythema swelling and pain around the site of the PEG tube with difficulty feeding through there. CT abdomen shows that the tip of the PEG tube is currently lodged in the rectus muscle, it is displaced. N.p.o., PEG not to be used currently. Surgery has been consulted for repositioning of the tube. Noted to have PEG site infection, started on empiric piperacillin/tazobactam and vancomycin for the same. As needed morphine for pain management. Continue Keppra 1000 mg every 12 hours, convert back to IV administration currently. Metoprolol converted to IV additionally. DVt ppx: lovenox Attestations Medical Necessity Statement*: > 2 midnight admission is anticipated for above care Coding Level of Care Code Acute Code for Chg Fwd Diagnoses PEG tube malfunction K94.23 Infection of PEG site K94.22 Seizure R56.9 CVA (cerebral vascular accident) I63.9
[2022-12-20] MEDS: acetaminophen 1,000 MG/100 ML PIGGYBACK 400 MG IV (22:27)
[2022-12-20] MEDS: pantoprazole 40 mg SDV IVP (22:41)
[2022-12-20 22:56] LABS: Iron 18 ug/dL (59-158); Percent Saturation 13.2 % (20-50); Thyroid Stimulating Hormone 1.23 uIU/mL (0.27-4.20); Total Iron Binding Capacity 136 mcg/dl; Unsaturated Iron Binding 118 ug/dL (112-347); Vitamin B12 1364 pg/mL (232-1245)
[2022-12-20 23:01] LABS: Troponin 5 6HR 36.95 ng/L (0-15)
[2022-12-20 23:04] LABS: Troponin 5 6HR Delta 3.95 ng/L (0-12)
[2022-12-21] VITALS (7 sets, daily range): BP systolic 112–118; BP diastolic 71–81; PULSE 106–135; RESP 16–20; TEMP 36.6–38.7; O2SAT 90–93
--- NOTE | 2022-12-21 | XRR_ITS ---
PROCEDURE INFORMATION: Exam: XR Abdomen Exam date and time: 12/21/2022 12:12 PM Age: 51 years old Clinical indication: Device placement; Gi device; Peg tube; Additional info: Peg tube placement TECHNIQUE: Imaging protocol: Radiologic exam of the abdomen. Views: Frontal supine view of the abdomen. 1 View. Total images: 2 COMPARISON: CT abdomen pelvis w con* [id number] 12/20/2022 6:02 PM FINDINGS: Tubes, catheters and devices: Primary jejunostomy tube noted and appears in good position within the proximal jejunum. Contrast is seen within the stomach, duodenal sweep and proximal jejunum. No extravasation of contrast detected. Partially visualized [employer] shunt tubing curled in the right upper abdomen. Gastrointestinal tract: Bowel gas pattern is nondistended and nonobstructive. Small amount of contrast noted in the distal colon. Bones/joints: Unremarkable. XR/XR abdomen 1V* [id number] IMPRESSION: 1. Primary jejunostomy tube noted and appears in good position within the proximal jejunum. Contrast is seen within the stomach, duodenal sweep and proximal jejunum. No extravasation of contrast detected. 2. Normal bowel gas pattern
[2022-12-21] MEDS: dextrose 5%-sod chloride 0.9% 1,000 ML 75 ML IV ×2 (00:14→13:37)
[2022-12-21] MEDS: vancomycin 1,250 MG/250 ML PIGGYBACK 250 MG IV ×2 (04:06→12:24)
[2022-12-21] MEDS: acetaminophen 1,000 MG/100 ML PIGGYBACK 400 MG IV (05:54)
[2022-12-21 06:13] LABS: Basophils # 0.1 10^3/uL (0.0-0.1); Basophils % 0.3 %; Eosinophils # 0.1 10^3/uL (0.0-0.8); Eosinophils % 0.7 %; Hematocrit 31.8 % (37-53); Lymphocytes # 1.5 10^3/uL (0.8-4.8); Lymphocytes % 7.8 %; Mean Corpuscular HGB Conc 32.1 g/dL (30-55); Mean Corpuscular Hemoglobin 29.2 pg (27-33); Mean Corpuscular Volume 91.1 fl (82-101); Mean Platelet Volume 10.5 fL (7.4-10.4); Monocytes # 1.4 10^3/uL (0.2-0.9); Monocytes % 7.3 %; Neutrophils # 15.84 10^3/uL (1.8-7.7); Neutrophils % 83.2 %; Nucleated Red Blood Cells % 0 %; Platelet Count 370 10^3/cmm (157-399); Red Blood Count 3.49 10^6/uL (3.85-5.65); Red Cell Distribution Width 14.2 % (12.1-15.1); White Blood Count 19.05 10^3/uL (3.29-11.43)
[2022-12-21 06:33] LABS: Chol HDL Ratio 2.74 mg/dL (1.0-5.00); Cholesterol 85 mg/dL (0-200); HDL Cholesterol 31 mg/dL (60-100); LDL Cholesterol Calculated 41 mg/dL (50-129); LDL HDL Ratio 1.32 RATIO (0.00-3.22); Triglycerides 67 mg/dL (0-150)
[2022-12-21 06:34] LABS: Alanine Aminotransferase 38 U/L (0-41); Albumin Level 2.9 g/dL (3.5-5.2); Alkaline Phosphatase 125 U/L (40-130); Aspartate Amino Transferase 16 U/L (0-40); Blood Urea Nitrogen 23 mg/dL (6-20); Calcium 10.3 mg/dL (8.5-10.5); Carbon Dioxide 26 mmol/L (22-29); Chloride 101 mmol/L (98-107); Glomerular Filtration Rate 102.3 mL/min (90-130); Glucose 107 mg/dL (65-115); Magnesium 1.8 mg/dL (1.7-2.3); Osmolality Calculated 290 mOsm/kg (285-295); Phosphorus 3.3 mg/dL (2.5-4.5); Sodium 138 mmol/L (136-145); Total Bilirubin 0.4 mg/dL (0.15-1.2); Total Protein 6.9 g/dL (6.6-8.7)
[2022-12-21 06:37] LABS: Estmated Average Glucose 111; Hemoglobin A1C 5.5 % (4.0-6.0)
[2022-12-21 06:49] LABS: Folate Level 11.7 ng/mL (4.5-32.2)
[2022-12-21] MEDS: piperacillin-tazobactam 3.375 GM in sodium chloride 0.9% (plus) 50 ML IV ×3 (08:19→22:07)
[2022-12-21] MEDS: enoxaparin 40 mg/0.4 mL Syringe SUBCUT (08:20)
[2022-12-21 10:07] LABS: Lactate (Lactic Acid level) 0.9 mmol/L (0.5-2.2)
[2022-12-21] MEDS: ketorolac 30 mg/mL INJ 15 MG IVP ×2 (10:29→13:12)
[2022-12-21] MEDS: sodium chloride 0.9% 2,449.41 ML 2449.41 ML IV (10:30)
--- NOTE | 2022-12-21 10:32 | PM.PN ---
Subjective Subjective: This morning patient is septic, requested surgery for debridement Given septic bolus 30 mill per kilo Requested lactic acid Blood cultures taken, antibiotics initiated on admission Vitals/I&O/Wt Last Vital Signs Temp 101.3 F H 12/21/22 07:29 Pulse 135 H 12/21/22 07:29 Resp 17 12/21/22 07:29 BP 118/73 12/21/22 07:29 Pulse Ox 92 12/21/22 07:29 O2 Del Method Room Air 12/21/22 04:27 12/20/22 12/21/22 12/21/22 22:59 06:59 14:59 Intake Total 1400 / 1400 1360 / 2760 126.875 / 126.875 Balance 1400 / 1400 1360 / 2760 126.875 / 126.875 Weight last 48 hrs Weight 81.647 kg Physical Exam Narrative: Patient is nonverbal Not able to respond however eyes are open PEG tube site with purulent drainage around insertion site Clinically patient looks dehydrated Neuro exam is limited Currently he is on room air No sacral ulcers noted on back exam Febrile with tachycardia Data 12/21/22 05:53 12/21/22 05:53 Micro: Microbiology 12/20/22 16:42 Blood Culture - Preliminary Blood SPECIMEN COLLECTED 12/20/22 16:38 Blood Culture - Preliminary Blood SPECIMEN COLLECTED A&P Assessment and plan (1) CVA (cerebral vascular accident): (2) Infection of PEG site: (3) Leaking PEG tube: (4) PEG tube malfunction: (5) Sepsis: (6) Seizure: Plan Sepsis related to possible intramuscular abscess Dr. Stock consulted, Currently on antibiotics Sepsis criteria met with tachypnea tachycardia leukocytosis, requested lactic acid Cultures taken We will place Chirinos catheter No sacral ulcer Left lower lobe infiltrate Currently on broad-spectrum antibiotics Septic bolus given this morning 30 mill per kilo Patient is febrile with tachycardia Hold off on DVT prophylaxis Patient is from retirement Full code Attestations Medical Necessity Statement*: Continue medical management Diagnoses CVA (cerebral vascular accident) I63.9 Infection of PEG site K94.22 Leaking PEG tube K94.23 PEG tube malfunction K94.23 Sepsis A41.9 Seizure R56.9
--- NOTE | 2022-12-21 10:53 | PC.CHAP ---
Pastoral Care Encounter/Spiritual Assessment Type of Contact [] Declined occupational health nursing director visit [] Patient/Family/Request visit [] Outpatient visit [x] Follow-up visit [] Physician referral [] Code/Alert [] Routine visit [] Staff referral [] Actively dying [] Patient sleeping [] Family support [] [] Out of room [] Palliative care [] [] Receiving care in room [] Pre-surgical visit [] Trauma [] Long length of stay [] ICU visit [] Other: Relational/Emotional Strength [] Patient feels connected with others/family/visitors/staff [] Distress [] Loneliness/isolation [] Abandonment Spirituality of Patient [] Person of Deena [] Attends Scientologist of their Deena [] Believes in Prayer [] Reads Bible or Orthodox materials [] There are Spiritual issues to be addressed Mill Tender Washing Interventions [] Prayer [] Active listening [] Non-anxious presence [] Spiritual/emotional support [] Crisis/trauma care [] Spiritual counseling [] Bereavement support [] Provided bereavement packet [] Provided Bible/devotional materials [] Provided toy/stuffed animal, coloring book to patient or family member [] Provided Communion [] Anointing/[place] [] Salvation [] Completed spiritual assessment [] Other: Impact on Illness or Injury [] Angry [] Fearful [] Anxious [] Often cries [] Exhaustion [] Unable to work [] Unable to attend sikhism [] Unable to walk/stand [] Unable to read [] Unable to drive [] Unable to eat/drink [] Unable to sleep [] Unable to be with family [] Patient intubated [] Other: Summary Follow-up visit Time spent with patient 5 mins
[2022-12-21 12:03] LABS: Add Urine Microscopic? YES; Bilirubin Urine Neg (Negative); Blood Urine 2+ (Negative); Glucose Urine UA Norm (Normal); Ketones Urine Negative (Negative); Leukocyte Esterase Urine Trace (Negative); Nitrate Urine Negative (Negative); Protein Urine Trace (Negative); Specific Gravity, Urine 1.015 (1.005-1.030); Sulfosalicylic Acid Urine Positive (Negative); Urine Appearance Clear (CLEAR); Urine Color Yellow (Yellow); Urobilinogen Urine Norm (Negative); pH Urine 8 (5-7)
[2022-12-21 12:08] LABS: Add Urine Culture? No; Amorphous Sediment Urine TRACE /hpf; Bacteria Urine TRACE /hpf; Mucus Urine 2+ /hpf; RBC Urine 0-4 /hpf (0-2); Squamous Epithelial Cell Urine RARE /hpf (0-5); WBC Urine 0-4 /hpf (0-5)
--- NOTE | 2022-12-21 12:53 | CTR_ITS ---
PROCEDURE INFORMATION: Exam: CT Abdomen And Pelvis With Contrast Exam date and time: 12/21/2022 6:00 PM Age: 51 years old Clinical indication: Device placement; Gi device; Peg tube; Additional info: New feeding tube in stomach? , Replaced tube appears to be a peg by previous CT. Tube check TECHNIQUE: Imaging protocol: Computed tomography of the abdomen and pelvis with contrast. Radiation optimization: All CT scans at this facility use at least one of these dose optimization techniques: automated exposure control; mA and/or kV adjustment per patient size (includes targeted exams where dose is matched to clinical indication); or iterative reconstruction. Contrast material: OMNI 350; Contrast volume: 100 ml; Contrast route: INTRAVENOUS (IV); REPORTING DATA: Count of CT and Cardiac NM exams in prior 12 months: This patient has received 2 known CTs and 0 known cardiac nuclear medicine studies in the 12 months prior to the current study. COMPARISON: CT abdomen pelvis w con* [id number] 12/20/2022 6:02 PM RADIATION DOSE METRICS: Total DLP (mGy-cm): 1319 FINDINGS: Tubes, catheters and devices: Again demonstrated is a gastrostomy tube positioned with its bulb in the left upper rectus abdominis muscle with injection of contrast accumulating in the left upper rectus abdominis muscle. Lungs: Consolidation with air bronchograms in the left lung base. Atelectatic changes in the right lung base. Liver: Multiple hypodense lesions throughout both lobes of the liver measuring up to 4.1 x 3.0 cm in the left lobe. These are thought to be simple in nature and of no clinical significance. Gallbladder and bile ducts: Normal. No calcified stones. No ductal dilation. Pancreas: Normal. No ductal dilation. Spleen: Normal. No splenomegaly. Adrenal glands: Normal. No mass. Kidneys and ureters: Normal. No hydronephrosis. Stomach and bowel: Unremarkable. No obstruction. No mucosal thickening. Appendix: No evidence of appendicitis. Intraperitoneal space: Unremarkable. No free air. No significant fluid collection. Vasculature: Unremarkable. No abdominal aortic aneurysm. Lymph nodes: Unremarkable. No enlarged lymph nodes. Urinary bladder: There is a Chirinos catheter in the bladder. Reproductive: Unremarkable as visualized. Bones/joints: Unremarkable. No acute fracture. Soft tissues: Unremarkable. CT/CT abdomen pelvis w con* [id number] IMPRESSION: 1. Again demonstrated is a gastrostomy tube positioned with its bulb in the left upper rectus abdominis muscle with injection of contrast accumulating in the left upper rectus abdominis muscle. This should be replaced by interventional radiology or surgery. 2. Consolidation with air bronchograms in the left lung base. Atelectatic changes in the right lung base.
--- NOTE | 2022-12-21 12:54 | PM.CONSULT ---
Providers/Reason For Consult Consulting Physician/Specialty*: Dr. Marco Stock, DO/General surgery Reason for Consult*: Dislodged PEG tube Attending Physician: Gemma Plunkett MD Primary Care Provider: Antoine Biswas DO History of Present Illness History of Present Illness Travis Mckeon is a 51 year old male who does not speak, was brought to the hospital due to a dislodged PEG tube and swelling around the PEG tube insertion site. CT abdomen pelvis showed that the PEG tube was pulled out into the rectus muscle with some inflammation in the rectus. HPI and review of systems are limited secondary to patient's mental status. Review of Systems General: Reports: ROS unobtainable due to mental status Medications/Allergies Home Medications Medication Instructions Recorded Confirmed Last Taken Type acetaminophen 325 mg tablet 650 mg feeding tube Q6H PRN Pain 11/04/22 12/21/22 Unknown History (Tylenol) amlodipine 10 mg tablet 10 mg feeding tube DAILY 11/04/22 12/21/22 Unknown History bisacodyl 10 mg rectal suppository 10 mg WA QPM PRN Constipation 11/04/22 12/21/22 Unknown History (Dulcolax (bisacodyl)) famotidine 20 mg tablet 20 mg feeding tube DAILY 11/04/22 12/21/22 Unknown History lactose-reduced food with fiber See Rx Instructions .Route .COMPLEX 11/04/22 12/21/22 Unknown History 0.06 gram-1.5 kcal/mL oral liquid (Jevity 1.5 Luke) lactulose 20 gram/30 mL oral 30 ml feeding tube TID 11/04/22 12/21/22 Unknown History solution levetiracetam 500 mg tablet 1,000 mg PO Q12H 11/04/22 12/21/22 Unknown History (Keppra) lisinopril 40 mg tablet 40 mg feeding tube DAILY 11/04/22 12/21/22 Unknown History magnesium hydroxide 400 mg/5 mL 30 ml PO DAILY PRN Constipation 11/04/22 12/21/22 Unknown History oral suspension (Milk of Magnesia) methocarbamol 500 mg tablet 500 mg feeding tube Q8H 11/04/22 12/21/22 Unknown History metoprolol tartrate 50 mg tablet 50 mg feeding tube BID 11/04/22 12/21/22 Unknown History qljpbqbu-cdfy-dsasrpg gluconate 9 15 ml feeding tube DAILY 11/04/22 12/21/22 Unknown History mg iron/15 mL (15 mL) oral liquid sodium phosphates 19 gram-7 118 ml WA BEDTIME PRN Constipation 11/04/22 12/21/22 Unknown History gram/118 mL enema (Fleet Enema) tamsulosin 0.4 mg capsule (Flomax) 0.4 mg PO DAILY 11/04/22 12/21/22 Unknown History albuterol sulfate 2.5 mg/3 mL 2.5 mg inhalation Q6H PRN 12/21/22 12/21/22 Unknown History (0.083 %) solution for nebulization Shortness Of Breath Or Wheezing amino ac-protein hydro-whey 1 ea feeding tube DAILY 12/21/22 12/21/22 Unknown History protein 10 gram-100 kcal/30 mL oral liquid (ProSource) hydrochlorothiazide 25 mg tablet 25 mg feeding tube DAILY 12/21/22 12/21/22 Unknown History hydrocodone 5 mg-acetaminophen 325 1 tab feeding tube Q6H PRN Pain 12/21/22 12/21/22 Unknown History mg tablet pollens extract 1 tab PO DAILY 12/21/22 12/21/22 Unknown History Allergies Allergy/AdvReac Type Severity Reaction Status Date / Time No Known Allergies Allergy Verified 12/20/22 16:05 Current Medications Generic Name Dose Route Start Last Admin Trade Name Freq PRN Reason Stop Dose Admin Enoxaparin Sodium 40 mg 12/21/22 07:15 12/21/22 08:20 Enoxaparin 40 Mg/0.4 Ml Syringe SUBCUT 40 mg Q24H SRINIVASA Administration Levetiracetam 1,000 mg/ Sodium 110 mls @ 440 mls/hr 12/20/22 22:00 12/21/22 11:36 Chloride IV Infused Q12H SRINIVASA Infusion Dextrose/Sodium Chloride 1,000 mls @ 75 mls/hr 12/20/22 21:39 12/21/22 12:23 Dextrose 5%-Sod Chloride 0.9% IV 0 mls/hr .[id number] SRINIVASA Infusion Vancomycin/PEG/NADA/Lysine/Water 1,250 mg in 250 mls @ 250 mls/hr 12/21/22 05:00 12/21/22 12:24 Vancocin IV 250 mls/hr Q8H SRINIVASA Administration Piperacillin Sod/Tazobactam 50 mls @ 12.5 mls/hr 12/21/22 07:00 12/21/22 12:22 Sod 3.375 gm/ Sodium Chloride IV Infused Q8H SRINIVASA Infusion Protocol Pantoprazole Sodium 40 mg 12/20/22 21:39 12/20/22 22:41 Pantoprazole 40 Mg Sdv IVP 40 mg Q24H SRINIVASA Administration PFSH Acute PFSH: Medical History CVA (cerebral vascular accident) Vitals/I&O/Wt Last Vital Signs Temp 101.3 F H 12/21/22 07:29 Pulse 135 H 12/21/22 07:29 Resp 17 12/21/22 07:29 BP 118/73 12/21/22 07:29 Pulse Ox 92 12/21/22 07:29 O2 Del Method Room Air 12/21/22 04:27 12/20/22 12/21/22 12/21/22 22:59 06:59 14:59 Intake Total 1400 / 1400 1360 / 2760 3620.660 / 3620.660 Balance 1400 / 1400 1360 / 2760 3620.660 / 3620.660 Weight last 48 hrs Weight 180 lb Physical Exam Narrative: General : Patient is well developed , no acute distress, Head : Normal cephalic, a-traumatic. Ears : Pinnae and external canal are normal. Hearing is normal. Eyes : PERRLA, Sclera and injection are normal. No conjunctival discharge. Nose : Mucous membranes are without erythema. Throat : buccal mucosa is normal, gums are without significant recession or hypertrophy. Lungs : Equal chest rise bilaterally, no use of accessory muscles, trachea is midline. Cor : Rate and rhythm are normal. Abdomen : Soft, ND, NT, no g/r/m, there is induration around the PEG tube. No exudate Extremities : No edema, no cyanosis or clubbing, dorsalis pedis pulses are present bilaterally, non-tender to palpation of calves. Upper extremities are normal bilaterally. Back : non-tender to palpation, no CVA tenderness. Data 12/21/22 05:53 12/21/22 05:53 Micro: Microbiology 12/20/22 16:42 Blood Culture - Preliminary Blood SPECIMEN COLLECTED 12/20/22 16:38 Blood Culture - Preliminary Blood SPECIMEN COLLECTED A&P Assessment and plan (1) PEG tube malfunction: (2) Infection of PEG site: Plan PEG tube was exchanged at bedside. Tube check x-ray is read as no leak with feeding tube in the jejunum. CT done in the ER shows that this is a PEG tube. Going to order a repeat CT to confirm where the tube is. If the feeding tube is in the stomach it may be used immediately. Any infection his abdominal wall should drain out through the PEG tube insertion site. If the balloon is not in the appropriate position, I recommend removing the PEG tube and packing the insertion site once daily with half-inch plain packing gauze. Then in [address] NG tube for feeding which may begin 24 hours from now. If this happens, I plan to pursue PEG tube early next week after the inflammation and swelling have gone down. Coding Level of Care Code 89507 Diagnoses PEG tube malfunction K94.23 Infection of PEG site K94.22
--- NOTE | 2022-12-21 12:58 | P.PCN_ITS ---
Acute Procedures Feeding Tube Replacement: Type of tube: gastrostomy Insertion site prior to procedure: swollen Tube used for reinsertion: other [place] Tube Size (F): 20 Balloon size (ml): 9 Verification of placement: KUB Tube secured by: other Patient tolerated procedure: well Additional comments: Timeout was performed with nurse Whitehead in the room
[2022-12-21] MEDS: acetaminophen 650 mg Supp PR (16:22)
[2022-12-21] MEDS: iohexol 350 mg/mL 500 mL Btl (per mL) IV (18:02)
[2022-12-21 19:59] LABS: Vancomycin Trough 24.2 ug/mL (10-15)
--- NOTE | 2022-12-21 20:45 | P.PN_ITS ---
Subjective Subjective: I have been asked by my colleague Dr. Stock to follow-up on the care of Mr. Mckeon as he will be out of time for the next day. A CT scan of the abdomen was obtained after Dr. Stock placed that PEG tube. CT shows evidence of balloon inflated in the anterior rectus sheath. Therefore PEG tube needs to be removed, as indicated by previous consultation note wound will be packed and in 24 to 48 hours NG tube can be inserted for feeding, , Will attempt a PEG tube placement early next week. Vitals/I&O/Wt Last Vital Signs Temp 99.4 F 12/21/22 19:42 Pulse 106 H 12/21/22 19:42 Resp 20 H 12/21/22 19:42 BP 112/71 12/21/22 19:42 Pulse Ox 93 12/21/22 19:42 O2 Del Method Room Air 12/21/22 19:42 12/21/22 12/21/22 12/21/22 06:59 14:59 22:59 Intake Total 1360 / 2760 3870.660 / 3870.660 50 / 3920.660 Balance 1360 / 2760 3870.660 / 3870.660 50 / 3920.660 Weight last 48 hrs Weight 207 lb 7 oz Weight 180 lb Physical Exam GI: OTHER: PEG tube noted in place, after removal small skin opening with minimal di scharge, wound was irrigated with saline, subsequently packed with 1 inch packing. No superficial evidence of spreading infection is noted. Urinary Catheter Management: Chirinos: Cath Placed During This Visit: yes Urinary Catheter Date of Insertion: 12/21/22 Urinary Catheter Time of Insertion: 11:00 Data 12/21/22 05:53 12/21/22 05:53 Micro: Microbiology 12/20/22 16:42 Blood Culture - Preliminary Blood NEGATIVE TO DATE 12/20/22 16:38 Blood Culture - Preliminary Blood NEGATIVE TO DATE A&P Assessment and plan (1) PEG tube malfunction: Plan I have evaluated this patient after being requested by my colleague Dr. Stock. As per his original plan PEG tube was removed after being noticed to be on the rectus sheath instead of the stomach lumen. Wound was irrigated and packed. Wound will be continued to be back on a daily basis, patient should continue broad-spectrum antibiotics, in 48 hours NG tube can be placed for f eeding and Dr. Stock will attempt new PEG tube placement early next week. Attestations Medical Necessity Statement*: Patient will require 72 or more hours of hospital stay for management of dislodged PEG tube. Coding Level of Care Code Acute Code for Chg Fwd Diagnoses PEG tube malfunction K94.23
[2022-12-21] MEDS: pantoprazole 40 mg SDV IVP (21:04)
--- NOTE | 2022-12-21 21:49 | PC.NURSE ---
Assisted Dr. Flores with removing PEG tube, wound packed and covered with gauze. Pt tolerated well.
[2022-12-22] VITALS (11 sets, daily range): BP systolic 123–136; BP diastolic 78–89; PULSE 90–113; RESP 15–19; TEMP 37.2–38.6; O2SAT 91–98
--- NOTE | 2022-12-22 00:31 | PC.PHAR ---
Pharmacokinetic dosing service Date: 12/22/22 Time: 31 Patient: Travis Mckeon Floor: [id number] Weight: 94.092 Kilograms Vancomycin single level analysis: Current dose being given: 1250 mg Current dosing interval: 8 hrs Current infusion time (hrs): 1 Single level Trough Data: Trough level obtained: 24.2 mcg/ml Timing of trough - # of hrs before next dose: 0.5 Hrs Desired peak: 40 mcg/ml Desired trough: 15 mcg/ml Diagnosis: Relevant medical/social history: Cultures and sensitivities: Other labs: Estimated PK Parameters: New rate constant (angelita): 0.063 hr-1 Half-life: 11.00 Hours Vd from levels: 84.68 Liters (0.7 L/kg) CLvanco=?? 5.335 L/hr Estimated New Dose and Interval Recommended dose: 2266.8 mg Recommended interval: 16.6 Hrs Patient response: Patient is responding to treatment [yes/no] wbc decreasing, S/SX reduced [yes/no] Renal function is stable/unstable Recommendations: Give Vancomycin 1500 mg q 12 hrs. Infuse over 1.5 hrs Expected Cpeak: 31.9 mcg/mL Expected Ctrough: 16.5 mcg/mL AUC 0-24 /RUBA Data: RUBA 0.5 mcg/mL:?? AUC/RUBA:? 1124.6 RUBA 1.0 mcg/mL:?? AUC/RUBA:? 562.3 Recommended labs and intervals: Measure Bun and Scr 3 times/week. Renal dosing of other antibiotics (review renal dosing of other medications and list guidelines here): Thank you for the consult, will continue to follow. Signature: Jenny Lynn [facility]
[2022-12-22] MEDS: vancomycin 1,500 MG/300 ML PIGGYBACK 200 MG IV ×2 (00:58→13:01)
[2022-12-22] MEDS: dextrose 5%-sod chloride 0.9% 1,000 ML 75 ML IV (04:09)
[2022-12-22 04:54] LABS: Glucose Point of Care 84 mg/dL (70-110)
[2022-12-22 05:13] LABS: Basophils # 0.1 10^3/uL (0.0-0.1); Basophils % 0.4 %; Eosinophils # 0.3 10^3/uL (0.0-0.8); Eosinophils % 1.8 %; Hematocrit 28.7 % (37-53); Lymphocytes # 1.6 10^3/uL (0.8-4.8); Lymphocytes % 9.9 %; Mean Corpuscular HGB Conc 32.1 g/dL (30-55); Mean Corpuscular Volume 90.5 fl (82-101); Monocytes # 1.1 10^3/uL (0.2-0.9); Monocytes % 6.8 %; Neutrophils # 12.85 10^3/uL (1.8-7.7); Neutrophils % 80.4 %; Nucleated Red Blood Cells % 0 %; Platelet Count 376 10^3/cmm (157-399); Red Blood Count 3.17 10^6/uL (3.85-5.65); White Blood Count 15.97 10^3/uL (3.29-11.43)
[2022-12-22 05:39] LABS: Anion Gap 13.8 (5-19); Blood Urea Nitrogen 18 mg/dL (6-20); Carbon Dioxide 24 mmol/L (22-29); Chloride 112 mmol/L (98-107); Glomerular Filtration Rate 89.3 mL/min (90-130); Glucose 86 mg/dL (65-115); Osmolality Calculated 303 mOsm/kg (285-295); Potassium 3.8 mmol/L (3.5-5.1); Sodium 146 mmol/L (136-145)
[2022-12-22] MEDS: piperacillin-tazobactam 3.375 GM in sodium chloride 0.9% (plus) 50 ML IV ×3 (06:20→22:21)
[2022-12-22 06:33] LABS: Glucose Point of Care 85 mg/dL (70-110)
--- NOTE | 2022-12-22 09:31 | PC.CHAP ---
Pastoral Care Encounter/Spiritual Assessment Type of Contact [] Declined quality compliance manager visit [] Patient/Family/Request visit [] Outpatient visit [] Follow-up visit [] Physician referral [] Code/Alert [] Routine visit [] Staff referral [] Actively dying [x] Patient sleeping [] Family support [] [] Out of room [] Palliative care [] [] Receiving care in room [] Pre-surgical visit [] Trauma [] Long length of stay [] ICU visit [] Other: Relational/Emotional Strength [] Patient feels connected with others/family/visitors/staff [] Distress [] Loneliness/isolation [] Abandonment Spirituality of Patient [] Person of Deena [] Attends Mandaeism of their Deena [] Believes in Prayer [] Reads Bible or Hindu materials [] There are Spiritual issues to be addressed [employer] Chief Interventions [] Prayer [] Active listening [] Non-anxious presence [] Spiritual/emotional support [] Crisis/trauma care [] Spiritual counseling [] Bereavement support [] Provided bereavement packet [] Provided Bible/devotional materials [] Provided toy/stuffed animal, coloring book to patient or family member [] Provided Communion [] Anointing/[place] [] Salvation [] Completed spiritual assessment [] Other: Impact on Illness or Injury [] Angry [] Fearful [] Anxious [] Often cries [] Exhaustion [] Unable to work [] Unable to attend hinduism [] Unable to walk/stand [] Unable to read [] Unable to drive [] Unable to eat/drink [] Unable to sleep [] Unable to be with family [] Patient intubated [] Other: Summary Time spent with patient
[2022-12-22] MEDS: levETIRAcetam 1,000 MG/100 ML PREMIX 400 MG IV ×2 (10:55→21:53)
[2022-12-22] MEDS: acetaminophen 650 mg Supp PR (10:57)
--- NOTE | 2022-12-22 11:06 | PM.PN ---
Subjective Subjective: Febrile, PEG tube has been removed Dr. Stock will place PEG tube likely next week In case patient remains febrile and not responding to our antibiotics I am might ask Dr. Luke general surgeon who is here over the weekend to take a look at the insertion site of PEG tube White count 15,000 down from 19,000 Vitals/I&O/Wt Last Vital Signs Temp 101.4 F H 12/22/22 07:36 Pulse 112 H 12/22/22 07:36 Resp 18 12/22/22 07:36 BP 125/83 12/22/22 07:36 Pulse Ox 93 12/22/22 07:36 O2 Del Method Nasal Cannula 12/22/22 07:36 O2 Flow Rate 1 12/22/22 07:36 12/21/22 12/22/22 12/22/22 22:59 06:59 14:59 Intake Total 160 / 4030.660 1350 / 5380.660 1050 / 1050 Output Total 1400 / 1400 600 / 2000 Balance -1240 / 2630.660 750 / 3380.660 1050 / 1050 Weight last 48 hrs Weight 94.092 kg Weight 81.647 kg Physical Exam Narrative: Patient is nonverbal Neuro exam is limited Abdomen soft Diaphoretic My skin No skin ulcers Currently on room air S1, S2 Urinary Catheter Management: Chirinos: Cath Placed During This Visit: yes Urinary Catheter Date of Insertion: 12/21/22 Urinary Catheter Time of Insertion: 11:00 Data 12/22/22 04:37 12/22/22 04:37 Micro: Microbiology 12/20/22 16:42 Blood Culture - Preliminary Blood NEGATIVE TO DATE 12/20/22 16:38 Blood Culture - Preliminary Blood NEGATIVE TO DATE A&P Assessment and plan (1) Sepsis: (2) CVA (cerebral vascular accident): (3) Infection of PEG site: (4) Leaking PEG tube: (5) PEG tube malfunction: (6) Elevated WBC count: (7) Elevated procalcitonin: Plan Sepsis present PEG tube has been removed Dr. Stock is aware Plan for replacement of tube next week Continue broad-spectrum antibiotics Concern for aspiration pneumonia, as per Dr. Stock he was not concerned about abscess formation and thinks that the fluid accumulation will trickle down the track which is formed Family was updated Patient is getting dehydrated, start PPN, continue D5 however I will change normal saline to half-normal saline Consult dietitian Attestations Medical Necessity Statement*: Continue medical management Diagnoses Sepsis A41.9 CVA (cerebral vascular accident) I63.9 Infection of PEG site K94.22 Leaking PEG tube K94.23 PEG tube malfunction K94.23 Elevated WBC count D72.829 Elevated procalcitonin R79.89
--- NOTE | 2022-12-22 13:06 | PM.PN ---
Subjective Subjective: Patient seen this morning. Remains a stable. White count has trended down to 15. No other changes from the surgery standpoint. Vitals/I&O/Wt Last Vital Signs Temp 101.1 F H 12/22/22 11:28 Pulse 102 H 12/22/22 11:28 Resp 19 H 12/22/22 11:28 BP 136/89 12/22/22 11:28 Pulse Ox 94 12/22/22 11:28 O2 Del Method Nasal Cannula 12/22/22 11:28 O2 Flow Rate 2 12/22/22 11:28 12/21/22 12/22/22 12/22/22 22:59 06:59 14:59 Intake Total 160 / 4030.660 1350 / 5380.660 1150 / 1150 Output Total 1400 / 1400 600 / 2000 Balance -1240 / 2630.660 750 / 3380.660 1150 / 1150 Weight last 48 hrs Weight 207 lb 7 oz Weight 180 lb Physical Exam GI: OTHER: Abdominal exam is benign, left PEG tube insertion site with moderate amount of drainage, packing was replaced. Thank you no erythema of the surrounding skin, no evidence of fluctuance. Urinary Catheter Management: Chirinos: Cath Placed During This Visit: yes Urinary Catheter Date of Insertion: 12/21/22 Urinary Catheter Time of Insertion: 11:00 Data 12/22/22 04:37 12/22/22 04:37 Micro: Microbiology 12/20/22 16:42 Blood Culture - Preliminary Blood NEGATIVE TO DATE 12/20/22 16:38 Blood Culture - Preliminary Blood NEGATIVE TO DATE A&P Assessment and plan (1) Leaking PEG tube: Plan Dressing change was done at the bedside this morning. Patient appears to be improving his clinical status, white count is improving. No physical examination findings concerning for abscess or need for debridement. Please continue daily dressing changes with packing and gauze. Continue all other management per hospitalist team. Dr. Stock will attempt PEG tube next week. Attestations Medical Necessity Statement*: Patient will require continuous hospital stay for management of dislodged PEG tube. For the next 72 hours at least Coding Level of Care Code Acute Code for Chg Fwd Diagnoses Leaking PEG tube K94.23
--- NOTE | 2022-12-22 13:26 | PC.NUTR ---
Addendum entered by Jimmy Cordova 12/27/22 08:30: - Initiate EN via PEG following RD recs (See below) - Continuous: Jevity 1.2 @ 65 ml/hr x24hrs (provides 1872 kcals & 87g protein) - FWF 100 ml q4 - taper PPN by 50% x2 hours then DC Original Note: - Reinitiate EN via PEG following RD recs (See below) once new access is obtained and safe to use - Continuous: Jevity 1.5 @ 60 ml/hr x24hrs via PEG - Bolus/Cyclic (if desired): Jevity 1.5 @ 6, 8oz containers q6 via PEG - Initiate/continue PPN until PEG access is obtained -start at 23 ml/hr and advance by 20 ml/hr q8 until goal of 83 ml/hr is reached.
[2022-12-22] MEDS: AA-Dex 4.25%-5% w/Lytes 1,000 ML with multivitamin inj 5 ML 23 ML IV (15:56)
[2022-12-22 16:50] LABS: Levetiracetam Immunoassy 23.8 mcg/mL (6.0-46.0)
[2022-12-22] MEDS: dextrose 5%-sod chloride 0.45% 1,000 ML 100 ML IV (18:29)
[2022-12-22] MEDS: pantoprazole 40 mg SDV IVP (21:49)
[2022-12-23] VITALS (13 sets, daily range): BP systolic 122–144; BP diastolic 79–94; PULSE 77–88; RESP 16–19; TEMP 36.6–38.1; O2SAT 97–99
[2022-12-23 01:04] LABS: Vancomycin Trough 24.5 ug/mL (10-15)
[2022-12-23] MEDS: acetaminophen 650 mg Supp PR (05:08)
[2022-12-23 05:32] LABS: Basophils # 0.1 10^3/uL (0.0-0.1); Basophils % 0.5 %; Eosinophils # 0.4 10^3/uL (0.0-0.8); Eosinophils % 3.5 %; Hematocrit 28.4 % (37-53); Lymphocytes # 1.6 10^3/uL (0.8-4.8); Lymphocytes % 13.9 %; Mean Corpuscular HGB Conc 31.7 g/dL (30-55); Mean Corpuscular Hemoglobin 28.8 pg (27-33); Mean Platelet Volume 9.9 fL (7.4-10.4); Monocytes # 0.7 10^3/uL (0.2-0.9); Monocytes % 6.2 %; Neutrophils # 8.55 10^3/uL (1.8-7.7); Neutrophils % 74.8 %; Nucleated Red Blood Cells % 0 %; Platelet Count 394 10^3/cmm (157-399); Red Blood Count 3.12 10^6/uL (3.85-5.65); Red Cell Distribution Width 13.6 % (12.1-15.1); White Blood Count 11.44 10^3/uL (3.29-11.43)
[2022-12-23 06:00] LABS: Anion Gap 12.3 (5-19); Blood Urea Nitrogen 15 mg/dL (6-20); Calcium 9.7 mg/dL (8.5-10.5); Carbon Dioxide 25 mmol/L (22-29); Chloride 111 mmol/L (98-107); Glomerular Filtration Rate 102.3 mL/min (90-130); Glucose 95 mg/dL (65-115); Osmolality Calculated 301 mOsm/kg (285-295); Potassium 3.3 mmol/L (3.5-5.1); Sodium 145 mmol/L (136-145)
[2022-12-23] MEDS: vancomycin 1,500 MG/300 ML PIGGYBACK 200 MG IV (06:06)
[2022-12-23] MEDS: dextrose 5%-sod chloride 0.45% 1,000 ML 57 ML IV (06:15)
[2022-12-23] MEDS: piperacillin-tazobactam 3.375 GM in sodium chloride 0.9% (plus) 50 ML IV ×3 (08:47→22:22)
--- NOTE | 2022-12-23 10:17 | PM.PN ---
Subjective Subjective: Patient evaluated at bedside this morning. Previous PEG tube area continues to have some mild to moderate amount of purulent discharge, no evidence of spreading infection, no redness of the surrounding skin. White count has improved is currently 11. Vitals/I&O/Wt Last Vital Signs Temp 100.3 F H 12/23/22 07:10 Pulse 88 12/23/22 07:10 Resp 16 12/23/22 07:10 BP 128/88 12/23/22 07:10 Pulse Ox 98 12/23/22 07:10 O2 Del Method Room Air 12/23/22 07:10 O2 Flow Rate 1 12/22/22 23:32 12/22/22 12/23/22 12/23/22 22:59 06:59 14:59 Intake Total 450 / 1600 1264.100 / 2864.100 Output Total 1600 / 1600 700 / 2300 Balance -1150 / 0 564.100 / 564.100 Weight last 48 hrs Weight 207 lb 2 oz Physical Exam GI: OTHER: Dressing was replaced, PEG tube site was packed with plain packing. Urinary Catheter Management: Chirinos: Cath Placed During This Visit: yes Reason for Continuing Indwelling Catheter: Required Immobilization for Trauma or Surgery or Anesthesia Urinary Catheter Date of Insertion: 12/21/22 Urinary Catheter Time of Insertion: 11:00 Data 12/23/22 04:42 12/23/22 04:42 A&P Assessment and plan (1) Infection of PEG site: Plan 51-year-old male with dislodged PEG tube, with failed replacement. PEG tube was removed and wound has been left open to drain, drainage has decreased over the last 24 hours, his white count is improved. Tomorrow NG tube can be inserted to attempt enteral feedings. Replacement of PEG tube will be attempted by my colleague Dr. Stock next week. Attestations Medical Necessity Statement*: Patient will require at least 72 hours more of hospital stay for management of PEG tube dislodgment. Coding Level of Care Code Acute Code for Chg Fwd Diagnoses Infection of PEG site K94.22
[2022-12-23] MEDS: levETIRAcetam 1,000 MG/100 ML PREMIX 400 MG IV ×2 (10:28→21:54)
--- NOTE | 2022-12-23 11:49 | P.PN_ITS ---
Subjective Subjective: Low-grade fever this morning Leukocytosis improved Discontinue normal saline continue PPN PPN rate at goal Hyponatremia mild improvement No BM today Vitals/I&O/Wt Last Vital Signs Temp 98.2 F 12/23/22 11:19 Pulse 78 12/23/22 11:19 Resp 17 12/23/22 11:19 BP 136/94 12/23/22 11:19 Pulse Ox 98 12/23/22 11:19 O2 Del Method Nasal Cannula 12/23/22 11:19 O2 Flow Rate 2 12/23/22 11:19 12/22/22 12/23/22 12/23/22 22:59 06:59 14:59 Intake Total 450 / 1600 1264.100 / 2864.100 100 / 100 Output Total 1600 / 1600 700 / 2300 700 / 700 Balance -1150 / 0 564.100 / 564.100 -600 / -600 Weight last 48 hrs Weight 93.95 kg Physical Exam Narrative: Patient is responding to simple commands Laying supine Currently on 1 L GCS 15 Dressing changed by general surgery today Abdomen soft Neuro exam is limited S1, S2 Sinus rhythm Urinary Catheter Management: Chirinos: Cath Placed During This Visit: yes Reason for Continuing Indwelling Catheter: Required Immobilization for Trauma or Surgery or Anesthesia Urinary Catheter Date of Insertion: 12/21/22 Urinary Catheter Time of Insertion: 11:00 Data 12/23/22 04:42 12/23/22 04:42 A&P Assessment and plan (1) Sepsis: (2) CVA (cerebral vascular accident): (3) Infection of PEG site: (4) Leaking PEG tube: (5) PEG tube malfunction: (6) Elevated WBC count: (7) Elevated procalcitonin: (8) Seizure: (9) Dehydration: Plan PPN at goal Discontinue amoxicillin Responding to antibiotics Low-grade fever this morning Leukocytosis improving We will follow-up with cultures We will follow with Dr. Stokc next week Patient will need PEG tube placement As per the son he thinks his previous living well was stating DNR/DNI but he was not sure for now we are keeping him full code Attestations Medical Necessity Statement*: Continue medical management Diagnoses Sepsis A41.9 CVA (cerebral vascular accident) I63.9 Infection of PEG site K94.22 Leaking PEG tube K94.23 PEG tube malfunction K94.23 Elevated WBC count D72.829 Elevated procalcitonin R79.89 Seizure R56.9 Dehydration E86.0
[2022-12-23] MEDS: AA-Dex 4.25%-5% w/Lytes 1,000 ML with multivitamin inj 5 ML 43 ML IV (15:59)
[2022-12-23] MEDS: pantoprazole 40 mg SDV IVP (21:12)
[2022-12-23] MEDS: morphine 4 mg/mL SDV 1 mL 2 MG IVP (21:49)
[2022-12-23] MEDS: ketorolac 30 mg/mL INJ 15 MG IVP (21:51)
[2022-12-24] VITALS (8 sets, daily range): BP systolic 119–135; BP diastolic 78–89; PULSE 74–87; RESP 17–18; TEMP 36.5–37.8; O2SAT 95–99
[2022-12-24] MEDS: vancomycin 1,500 MG/300 ML PIGGYBACK 200 MG IV ×2 (01:10→18:33)
[2022-12-24] MEDS: AA-Dex 4.25%-5% w/Lytes 1,000 ML with multivitamin inj 5 ML 83 ML IV ×2 (02:26→16:14)
--- NOTE | 2022-12-24 03:39 | PC.NURSE ---
Pt PPN pump was running at 83ml/hr but was not titrated up in APR. Pt received the full PPN bag and scanned new bag at 0230.
[2022-12-24 05:11] LABS: Basophils # 0.1 10^3/uL (0.0-0.1); Basophils % 0.5 %; Eosinophils # 0.4 10^3/uL (0.0-0.8); Eosinophils % 3.5 %; Hematocrit 28.1 % (37-53); Lymphocytes # 1.9 10^3/uL (0.8-4.8); Lymphocytes % 17.9 %; Mean Corpuscular Volume 90.6 fl (82-101); Mean Platelet Volume 9.4 fL (7.4-10.4); Monocytes # 0.6 10^3/uL (0.2-0.9); Monocytes % 6.1 %; Neutrophils # 7.48 10^3/uL (1.8-7.7); Neutrophils % 71.4 %; Nucleated Red Blood Cells % 0 %; Platelet Count 411 10^3/cmm (157-399); Red Cell Distribution Width 13.4 % (12.1-15.1); White Blood Count 10.48 10^3/uL (3.29-11.43)
[2022-12-24 05:37] LABS: Anion Gap 12.5 (5-19); Blood Urea Nitrogen 21 mg/dL (6-20); Calcium 9.7 mg/dL (8.5-10.5); Carbon Dioxide 24 mmol/L (22-29); Chloride 110 mmol/L (98-107); Glomerular Filtration Rate 102.3 mL/min (90-130); Glucose 93 mg/dL (65-115); Osmolality Calculated 299 mOsm/kg (285-295); Potassium 3.5 mmol/L (3.5-5.1); Sodium 143 mmol/L (136-145)
[2022-12-24] MEDS: piperacillin-tazobactam 3.375 GM in sodium chloride 0.9% (plus) 50 ML IV ×2 (06:20→16:48)
--- NOTE | 2022-12-24 08:59 | P.PN_ITS ---
Subjective Subjective: Seen at the bedside this morning, clinically improving, white count has improved to 10, fever starts to resolve. There is a still drainage from the PEG tube site that has been packed daily with plain packing. Vitals/I&O/Wt Last Vital Signs Temp 100.1 F H 12/24/22 08:00 Pulse 81 12/24/22 08:00 Resp 18 12/24/22 08:00 BP 130/83 12/24/22 08:00 Pulse Ox 98 12/24/22 08:00 O2 Del Method Room Air 12/23/22 21:44 O2 Flow Rate 2 12/23/22 11:19 12/23/22 12/24/22 12/24/22 23:59 06:59 14:59 Intake Total Output Total Balance Weight last 48 hrs Weight 206 lb 6.4 oz Weight 207 lb 2 oz Physical Exam GI: OTHER: PEG tube site with small amount of purulent drainage, there is no induration of the surrounding area of erythema suggesting of retained abscess. Urinary Catheter Management: Chirinos: Cath Placed During This Visit: yes Reason for Continuing Indwelling Catheter: Required Immobilization for Trauma or Surgery or Anesthesia Urinary Catheter Date of Insertion: 12/21/22 Urinary Catheter Time of Insertion: 11:00 Data 12/24/22 04:42 12/24/22 04:42 A&P Assessment and plan (1) PEG tube malfunction: Plan Patient improving after PEG tube dislodgment and anterior rectus sheath fluid collection, wound care done this morning at the bedside, packing was replaced there is a still some moderate amount of discharge from the area of the wound, no evidence of worsening erythema or induration suggesting of a underlying abscess. Otherwise clinically appears to have a resolving infection. Plan is for possible PEG tube next week. Attestations Medical Necessity Statement*: Patient will continue to require hospital management for dislodged PEG tube with infection. Coding Level of Care Code Acute Code for [facility] Fwd Diagnoses PEG tube malfunction K94.23
[2022-12-24] MEDS: levETIRAcetam 1,000 MG/100 ML PREMIX 400 MG IV ×2 (10:49→22:52)
--- NOTE | 2022-12-24 10:50 | PM.PN ---
Subjective Subjective: White count improving Low-grade fever Antibiotics on board PPN running at 83 mm/h Vitals/I&O/Wt Last Vital Signs Temp 100.1 F H 12/24/22 08:00 Pulse 81 12/24/22 08:00 Resp 18 12/24/22 08:00 BP 130/83 12/24/22 08:00 Pulse Ox 98 12/24/22 08:00 O2 Del Method Room Air 12/23/22 21:44 O2 Flow Rate 2 12/23/22 11:19 12/23/22 12/24/22 12/24/22 23:59 06:59 14:59 Intake Total Output Total Balance Weight last 48 hrs Weight 93.621 kg Weight 93.95 kg Physical Exam Narrative: Dressing changed by general surgery today Patient is nonverbal Currently doing well on room air Hemodynamic stable Chirinos catheter in place Urinary Catheter Management: Chirinos: Cath Placed During This Visit: yes Reason for Continuing Indwelling Catheter: Required Immobilization for Trauma or Surgery or Anesthesia Urinary Catheter Date of Insertion: 12/21/22 Urinary Catheter Time of Insertion: 11:00 Data 12/24/22 04:42 12/24/22 04:42 A&P Assessment and plan (1) Dehydration: (2) Sepsis: (3) CVA (cerebral vascular accident): (4) Infection of PEG site: (5) Leaking PEG tube: (6) Elevated WBC count: (7) Seizure: Plan Sepsis Related to leaking PEG tube PEG tube has been removed Patient will need reevaluation on Sunday with Dr. Stock Continue antibiotics Sepsis improving low-grade fever with improving leukocytosis Cultures negative Chirinos catheter in place Patient is nonverbal Son has been updated Son was under the impression that he is a DNR/DNI however he is not able to find living will at this point, we both agreed to keep him full code for now Patient will return to the facility once he gets the PEG tube and sepsis is completely resolved Hold DVT prophylaxis for possible intervention tomorrow Follow-up with general surgery Dehydration: Continue PPN, appreciate dietary recommendations Attestations Medical Necessity Statement*: Continue medical management Diagnoses Dehydration E86.0 Sepsis A41.9 CVA (cerebral vascular accident) I63.9 Infection of PEG site K94.22 Leaking PEG tube K94.23 Elevated WBC count D72.829 Seizure R56.9
--- NOTE | 2022-12-24 18:43 | PC.NURSE ---
pt's son Cristi (dpoa) ok'd for pt's mother Penny Mcfadden to receive information about pt
[2022-12-24] MEDS: ketorolac 30 mg/mL INJ 15 MG IVP (21:45)
[2022-12-24] MEDS: pantoprazole 40 mg SDV IVP (21:45)
[2022-12-25] VITALS (19 sets, daily range): BP systolic 124–155; BP diastolic 85–98; PULSE 73–87; RESP 17–20; TEMP 36.7–37.7; O2SAT 93–100
[2022-12-25] MEDS: piperacillin-tazobactam 3.375 GM in sodium chloride 0.9% (plus) 50 ML IV ×3 (00:51→16:46)
[2022-12-25 03:16] LABS: Basophils # 0.1 10^3/uL (0.0-0.1); Basophils % 0.6 %; Eosinophils # 0.3 10^3/uL (0.0-0.8); Eosinophils % 2.8 %; Hematocrit 28.7 % (37-53); Lymphocytes # 1.9 10^3/uL (0.8-4.8); Lymphocytes % 17.4 %; Mean Corpuscular HGB Conc 32.4 g/dL (30-55); Mean Corpuscular Hemoglobin 28.9 pg (27-33); Mean Corpuscular Volume 89.1 fl (82-101); Monocytes # 0.7 10^3/uL (0.2-0.9); Monocytes % 6.2 %; Neutrophils # 7.99 10^3/uL (1.8-7.7); Neutrophils % 72.3 %; Nucleated Red Blood Cells % 0 %; Platelet Count 419 10^3/cmm (157-399); Red Blood Count 3.22 10^6/uL (3.85-5.65); Red Cell Distribution Width 13.2 % (12.1-15.1); White Blood Count 11.07 10^3/uL (3.29-11.43)
[2022-12-25 03:42] LABS: Anion Gap 13.6 (5-19); Blood Urea Nitrogen 24 mg/dL (6-20); C Reactive Protein 46.2 mg/L (0.0-4.9); Calcium 9.6 mg/dL (8.5-10.5); Carbon Dioxide 25 mmol/L (22-29); Chloride 108 mmol/L (98-107); Glomerular Filtration Rate 101.9 mL/min (90-130); Glucose 83 mg/dL (65-115); Osmolality Calculated 299 mOsm/kg (285-295); Potassium 3.6 mmol/L (3.5-5.1); Sodium 143 mmol/L (136-145)
[2022-12-25] MEDS: AA-Dex 4.25%-5% w/Lytes 1,000 ML with multivitamin inj 5 ML 83 ML IV ×2 (04:26→19:36)
--- NOTE | 2022-12-25 09:40 | PM.PN ---
Vitals/I&O/Wt Last Vital Signs Temp 98.3 F 12/25/22 07:33 Pulse 74 12/25/22 07:33 Resp 19 H 12/25/22 07:33 BP 144/89 12/25/22 07:33 Pulse Ox 96 12/25/22 07:33 O2 Del Method Room Air 12/25/22 07:33 O2 Flow Rate 2 12/23/22 11:19 12/24/22 12/25/22 12/25/22 22:59 06:59 14:59 Intake Total 450.000 / 4814.663 4974 / 2660.000 Output Total 1125 / 1125 1300 / 2425 Balance -675.000 / 380.000 -145 / 235.000 Weight last 48 hrs Weight 208 lb 11.2 oz Weight 206 lb 6.4 oz Physical Exam Urinary Catheter Management: Chirinos: Cath Placed During This Visit: yes Reason for Continuing Indwelling Catheter: Required Immobilization for Trauma or Surgery or Anesthesia Urinary Catheter Date of Insertion: 12/21/22 Urinary Catheter Time of Insertion: 11:00 Data 12/25/22 02:39 12/25/22 02:39 A&P Assessment and plan (1) PEG tube malfunction: Plan PEG tube placement The risks and benefits of the procedure, including bleeding, infection, intestinal perforation requiring surgery, missed lesion, feeding tube malfunction, were explained to the patient's power of associate attorney. They are understanding of the risks and wishes to proceed. Attestations Medical Necessity Statement*: per primary Coding Level of Care Code Acute Code for Chg Fwd Diagnoses PEG tube malfunction K94.23
--- NOTE | 2022-12-25 11:05 | PM.PN ---
Subjective Subjective: seen today will be going for peg tube today Vitals/I&O/Wt Last Vital Signs Temp 98.3 F 12/25/22 07:33 Pulse 74 12/25/22 07:33 Resp 19 H 12/25/22 07:33 BP 144/89 12/25/22 07:33 Pulse Ox 96 12/25/22 07:33 O2 Del Method Room Air 12/25/22 07:33 O2 Flow Rate 2 12/23/22 11:19 12/24/22 12/25/22 12/25/22 22:59 06:59 14:59 Intake Total 450.000 / 8566.243 2041 / 2660.000 Output Total 1125 / 1125 1300 / 2425 Balance -675.000 / 380.000 -145 / 235.000 Weight last 48 hrs Weight 94.665 kg Weight 93.621 kg Physical Exam Narrative: Patient is nonverbal Currently doing well on room air Hemodynamic stable Chirinos catheter in place lungs clear to auscultation abd soft non tender pt nonverbal Urinary Catheter Management: Chirinos: Cath Placed During This Visit: yes Reason for Continuing Indwelling Catheter: Required Immobilization for Trauma or Surgery or Anesthesia Urinary Catheter Date of Insertion: 12/21/22 Urinary Catheter Time of Insertion: 11:00 Data 12/25/22 02:39 12/25/22 02:39 A&P Assessment and plan (1) Dehydration: (2) Sepsis: (3) CVA (cerebral vascular accident): (4) Infection of PEG site: (5) Leaking PEG tube: (6) Elevated WBC count: (7) Seizure: Plan Sepsis Related to leaking PEG tube PEG tube has been removed Patient will need reevaluation on Sunday with Dr. Stock Continue antibiotics Sepsis improving low-grade fever with improving leukocytosis Cultures negative Chirinos catheter in place Patient is nonverbal Son has been updated Full Code Patient will return to the facility once he gets the PEG tube and sepsis is completely resolved Hold DVT prophylaxis . PEG placement today Follow-up with general surgery Dehydration: Continue PPN, appreciate dietary recommendations Attestations Medical Necessity Statement*: PEG tube placement today Diagnoses Dehydration E86.0 Sepsis A41.9 CVA (cerebral vascular accident) I63.9 Infection of PEG site K94.22 Leaking PEG tube K94.23 Elevated WBC count D72.829 Seizure R56.9
--- NOTE | 2022-12-25 11:09 | PC.NURSE ---
Patient went to surgery at 1006
[2022-12-25] MEDS: sodium chloride 0.9% 1,000 ML 30 ML IV (11:12)
--- NOTE | 2022-12-25 11:18 | P.ANESASSM_ITS ---
Documented by User: James Haque, IVAN 12/25/22 11:24 Pre-Anesthetic Assessment Height/Weight: Height 1.8 m Weight 94.665 kg Temp Pulse Resp BP Pulse Ox O2 Del Method O2 Flow Rate 98.3 F 74 19 H 144/89 96 Room Air 2 12/25/22 07:33 12/25/22 07:33 12/25/22 07:33 12/25/22 07:33 12/25/22 07:33 12/25/22 07:33 12/23/22 11:19 Operation Date: 12/25/22 10:00 Proposed Procedures p PEG Tube Insertion(Not Applicable) - Marco Stock, DO History/ROS No significant history except as noted and No significant complaints Pulmonary None reported CV/HEM Hypertension None reported GI PEG tube Metabolic None reported Musc/skel None reported Neuropsych Cerebrovascular Accident (Nonverbal) and Seizure Anesthetic Plan ASA status: 3 Anesthesia: Anesthesia Evaluation, General and MAC Risk of > 500 ml blood loss (7ml/kg in children): No Medications/Allergies Home Medications Medication Instructions Recorded Confirmed Last Taken Type acetaminophen 325 mg tablet 650 mg feeding tube Q6H PRN Pain 11/04/22 12/21/22 Unknown History (Tylenol) amlodipine 10 mg tablet 10 mg feeding tube DAILY 11/04/22 12/21/22 Unknown History bisacodyl 10 mg rectal suppository 10 mg [place] QPM PRN Constipation 11/04/22 1 02/20/22 Unknown History (Dulcolax (bisacodyl)) famotidine 20 mg tablet 20 mg feeding tube DAILY 11/04/22 12/21/22 Unknown History lactose-reduced food with fiber See Rx Instructions .Route .COMPLEX 11/04/22 12/21/22 Unknown History 0.06 gram-1.5 kcal/mL oral liquid (Jevity 1.5 Luke) lactulose 20 gram/30 mL oral 30 ml feeding tube TID 11/04/22 12/21/22 Unknown History solution levetiracetam 500 mg tablet 1,000 mg PO Q12H 11/04/22 12/21/22 Unknown History (Keppra) lisinopril 40 mg tablet 40 mg feeding tube DAILY 11/04/22 12/21/22 Unknown History magnesium hydroxide 400 mg/5 mL 30 ml PO DAILY PRN Constipation 11/04/22 12/21/22 Unknown History oral suspension (Milk of Magnesia) methocarbamol 500 mg tablet 500 mg feeding tube Q8H 11/04/22 12/21/22 Unknown History metoprolol tartrate 50 mg tablet 50 mg feeding tube BID 11/04/22 12/21/22 Unknow n History [id number] gluconate 9 15 ml feeding tube DAILY 11/04/22 12/21/22 Unknown History mg iron/15 mL (15 mL) oral liquid sodium phosphates 19 gram-7 118 ml [place] BEDTIME PRN Constipation 11/04/22 12/21/22 Unknown History gram/118 mL enema (Fleet Enema) tamsulosin 0.4 mg capsule (Flomax) 0.4 mg PO DAILY 11/04/22 12/21/22 Unknown History albuterol sulfate 2.5 mg/3 mL 2.5 mg inhalation Q6H PRN 12/21/22 12/21/22 Unknown History (0.083 %) solution for nebulization Shortness Of Breath Or Wheezing amino ac-protein hydro-whey 1 ea feeding tube DAILY 12/21/22 12/21/22 Unknown History protein 10 gram-100 kcal/30 mL oral liquid (ProSource) hydrochlorothiazide 25 mg tablet 25 mg feeding tube DAILY 12/21/22 12/21/22 Unknown History hydrocodone 5 mg-acetaminophen 325 1 tab feeding tube Q6H PRN Pain 12/21/22 12/21/22 Unknown History mg tablet pollens extract 1 tab PO DAILY 12/21/22 12/21/22 Unknown History Allergies Allergy/AdvReac Type Severity Reaction Status Date / Time No Known Allergies Allergy Verified 12/20/22 16:05 Current Medications Generic Name Dose Route Start Last Admin Trade Name Freq PRN Reason Stop Dose Admin Acetaminophen 650 mg 12/21/22 16:03 12/23/22 05:08 Acetaminophen 650 Mg Supp WY 650 mg TID PRN Administration FEVER Enoxaparin Sodium 40 mg 12/21/22 07:15 12/21/22 08:20 Enoxaparin 40 Mg/0.4 Ml Syringe SUBCUT 40 mg Q24H SRINIVASA Administration Piperacillin Sod/Tazobactam 50 mls @ 12.5 mls/hr 12/21/22 07:00 12/25/22 08:56 Sod 3.375 gm/ Sodium Chloride IV 12.5 mls/hr Q8H SRINIVASA Administration Protocol Levetiracetam 1,000 mg in 100 mls @ 400 mls/hr 12/22/22 10:00 12/24/22 23:07 Keppra IV Infused Q12H SRINIVASA Infusion Multivitamins 5 ml/ AA-Dex 4. 1,005 mls @ 0 mls/hr 12/22/22 13:30 12/25/22 04:26 25%-5% w/Lytes IV 83 mls/hr .Q0M SRINIVASA Administration Protocol As Directed Vancomycin/PEG/NADA/Lysine/Water 1,500 mg in 300 mls @ 200 mls/hr 12/23/22 07:00 12/24/22 20:56 Vancocin IV Infused Q18H SRINIVASA Infusion Sodium Chloride 1,000 mls @ 30 mls/hr 12/25/22 11:00 12/25/22 11:12 Sodium Chloride 0.9% IV 12/26/22 10:59 30 mls/hr .Q24H SRINIVASA Administration Ketorolac Tromethamine 15 mg 12/21/22 10:36 12/24/22 21:45 Ketorolac 30 Mg/Ml Inj IVP 12/26/22 10:44 15 mg Q6H PRN Administration Fever Morphine Sulfate 2 mg 12/20/22 21:39 12/23/22 21:49 Morphine 4 Mg/Ml Sdv 1 Ml IVP 2 mg Q4H PRN Administration SEVERE PAIN Pantoprazole Sodium 40 mg 12/20/22 21:39 12/24/22 21:45 Pantoprazole 40 Mg Sdv IVP 40 mg Q24H SRINIVASA Administration [facility] Anesthesia Medical History CVA (cerebral vascular accident) Data Anesthesia 12/25/22 02:39 12/25/22 02:39 Short CBC 12/24/22 12/25/22 Range/Units 04:42 02:39 WBC 10.48 11.07 (3.29-11.43) 10^3/uL Hgb 9.00 L 9.30 L (11.27-16.99) g/dL Hct 28.1 L 28.7 L (37-53) % MCV 90.6 89.1 (82-101) fl Plt Count 411 H 419 H (157-399) 10^3/cmm Neut % (Auto) 71.4 72.3 % Neut # (Auto) 7.48 7.99 H (1.8-7.7) 10^3/uL BMP 12/24/22 12/25/22 04:42 02:39 Sodium 143 143 Potassium 3.5 3.6 Chloride 110 H 108 H Carbon Dioxide 24 25 BUN 21 H 24 H Creatinine 0.8 0.8 Glucose 93 83 Calcium 9.7 9.6 Coags 12/25/22 02:39 C-Reactive Protein 46.2 H Cardiac Studies: No Data to Display Documented by User: Lashawn Betancourt 12/25/22 11:53 Pre-Anesthetic Assessment Was Beta Sabiha taken within 24 hours: N/A Was Clonidine taken within 24 hours: N/A Social No alcohol and No tobacco Exam alert, clear to auscultation bilaterally and regular rate & rhythm Non-verbal Airway Submandibular: within normal limits Cervical ROM: within normal limits Mallampati: Class II Dentition: full Hepatic None reported Medications/Allergies Home Medications Medication Instructions Recorded Confirmed Last Taken Type acetaminophen 325 mg tablet 650 mg feeding tube Q6H PRN Pain 11/04/22 12/21/22 Unknown History (Tylenol) amlodipine 10 mg tablet 10 mg feeding tube DAILY 11/04/22 12/21/22 Unknown History bisacodyl 10 mg rectal suppository 10 mg WY QPM PRN Constipation 11/04/22 12/21/22 Unknown History (Dulcolax (bisacodyl)) famotidine 20 mg tablet 20 mg feeding tube DAILY 11/04/22 12/21/22 Unknown History lactose-reduced food with fiber See Rx Instructions .Route .COMPLEX 11/04/22 12/21/22 Unknown History 0.06 gram-1.5 kcal/mL oral liquid (Jevity 1.5 Luke) lactulose 20 gram/30 mL oral 30 ml feeding tube TID 11/04/22 12/21/22 Unknown History solution levetiracetam 500 mg tablet 1,000 mg PO Q12H 11/04/22 12/21/22 Unknown History (Keppra) lisinopril 40 mg tablet 40 mg feeding tube DAILY 11/04/22 12/21/22 Unknown History magnesium hydroxide 400 mg/5 mL 30 ml PO DAILY PRN Constipation 11/04/22 12/21/22 Unknown History oral suspension (Milk of Magnesia) methocarbamol 500 mg tablet 500 mg feeding tube Q8H 11/04/22 12/21/22 Unknown History metoprolol tartrate 50 mg tablet 50 mg feeding tube BID 11/04/22 12/21/22 Unknown History wxfyqydz-jejd-rlzfdzc gluconate 9 15 ml feeding tube DAILY 11/04/22 12/21/22 Unknown History mg iron/15 mL (15 mL) oral liquid sodium phosphates 19 gram-7 118 ml W[place] BEDTIME PRN Constipation 11/04/22 12/21/22 Unknown History gram/118 mL enema (Fleet Enema) tamsulosin 0.4 mg capsule (Flomax) 0.4 mg PO DAILY 11/04/22 12/21/22 Unknown History albuterol sulfate 2.5 mg/3 mL 2.5 mg inhalation Q6H PRN 12/21/22 12/21/22 Unknown History (0.083 %) solution for nebulization Shortness Of Breath Or Wheezing amino ac-protein hydro-whey 1 ea feeding tube DAILY 12/21/22 12/21/22 Unknown History protein 10 gram-100 kcal/30 mL oral liquid (ProSource) hydrochlorothiazide 25 mg tablet 25 mg feeding tube DAILY 12/21/22 12/21/22 Unknown History hydrocodone 5 mg-acetaminophen 325 1 tab feeding tube Q6H PRN Pain 12/21/22 12/21/22 Unknown History mg tablet pollens extract 1 tab PO DAILY 12/21/22 12/21/22 Unknown History Allergies Allergy/AdvReac Type Severity Reaction Status Date / Time No Known Allergies Allergy Verified 12/20/22 16:05 [facility] Anesthesia Medical History CVA (cerebral vascular accident) Data Anesthesia 12/25/22 02:39 12/25/22 02:39 Cardiac Studies: No Data to Display Documented by User: Qamar Moreno 12/25/22 12:45 Pre-Anesthetic Assessment Familial anesthetic complications: none Medications/Allergies Home Medications Medication Instructions Recorded Confirmed Last Taken Type acetaminophen 325 mg tablet 650 mg feeding tube Q6H PRN Pain 11/04/22 12/21/22 Unknown History (Tylenol) amlodipine 10 mg tablet 10 mg feeding tube DAILY 11/04/22 12/21/22 Unknown History bisacodyl 10 mg rectal suppository 10 mg [place] QPM PRN Constipation 11/04/22 12/21/22 Unknown History (Dulcolax (bisacodyl)) famotidine 20 mg tablet 20 mg feeding tube DAILY 11/04/22 12/21/22 Unknown History lactose-reduced food with fiber See Rx Instructions .Route .COMPLEX 11/04/22 12/21/22 Unknown History 0.06 gram-1.5 kcal/mL oral liquid (Jevity 1.5 Luke) lactulose 20 gram/30 mL oral 30 ml feeding tube TID 11/04/22 12/21/22 Unknown History solution levetiracetam 500 mg tablet 1,000 mg PO Q12H 11/04/22 12/21/22 Unknown History (Keppra) lisinopril 40 mg tablet 40 mg feeding tube DAILY 11/04/22 12/21/22 Unknown History magnesium hydroxide 400 mg/5 mL 30 ml PO DAILY PRN Constipation 11/04/22 12/21/22 Unknown History oral suspension (Milk of Magnesia) methocarbamol 500 mg tablet 500 mg feeding tube Q8H 11/04/22 12/21/22 Unknown History metoprolol tartrate 50 mg tablet 50 mg feeding tube BID 11/04/22 12/21/22 Unknown History ufhipcdj-tgph-pbsswox gluconate 9 15 ml feeding tube DAILY 11/04/22 12/21/22 Unknown History mg iron/15 mL (15 mL) oral liquid sodium phosphates 19 gram-7 118 ml W[place] BEDTIME PRN Constipation 11/04/22 12/21/22 Unknown History gram/118 mL enema (Fleet Enema) tamsulosin 0.4 mg capsule (Flomax) 0.4 mg PO DAILY 11/04/22 12/21/22 Unknown History albuterol sulfate 2.5 mg/3 mL 2.5 mg inhalation Q6H PRN 12/21/22 12/21/22 Unknown History (0.083 %) solution for nebulization Shortness Of Breath Or Wheezing amino ac-protein hydro-whey 1 ea feeding tube DAILY 12/21/22 12/21/22 Unknown History protein 10 gram-100 kcal/30 mL oral liquid (ProSource) hydrochlorothiazide 25 mg tablet 25 mg feeding tube DAILY 12/21/22 12/21/22 Unknown History hydrocodone 5 mg-acetaminophen 325 1 tab feeding tube Q6H PRN Pain 12/21/22 12/21/22 Unknown History mg tablet pollens extract 1 tab PO DAILY 12/21/22 12/21/22 Unknown History Allergies Allergy/AdvReac Type Severity Reaction Status Date / Time No Known Allergies Allergy Verified 12/20/22 16:05 [facility] Anesthesia Medical History CVA (cerebral vascular accident) Data Anesthesia 12/25/22 02:39 12/25/22 02:39 Cardiac Studies: No Data to Display
--- NOTE | 2022-12-25 12:08 | PC.NURSE ---
Attempted to call report for the third time. Patients nurse still in another patients room completing a discharge. 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 Will try again if have not heard from the nurse in 10 minutes.
--- NOTE | 2022-12-25 12:44 | ANE.PACU2 ---
Inpatient post-anesthesia follow up: Airway intact: Yes Vital signs: Temperature 98.1 F Pulse Rate 74 Respiratory Rate 20 Blood Pressure 138/94 Pulse Oximetry 95 Oxygen Delivery Me thod Room Air Oxygen Flow Rate 4 Fraction of Inspir ed Oxygen Hydration adequate: Yes Nausea and vomiting: No Pain level: 2 Mental status: Baseline
[2022-12-25] MEDS: levETIRAcetam 1,000 MG/100 ML PREMIX 400 MG IV ×2 (12:48→21:51)
[2022-12-25 12:49] LABS: Vancomycin Trough 16.7 ug/mL (10-15)
[2022-12-25] MEDS: vancomycin 1,500 MG/300 ML PIGGYBACK 200 MG IV (13:14)
[2022-12-25] MEDS: pantoprazole 40 mg SDV IVP (21:51)
[2022-12-26] VITALS (13 sets, daily range): BP systolic 114–148; BP diastolic 78–90; PULSE 76–94; RESP 15–18; TEMP 36.9–37.4; O2SAT 95–98
[2022-12-26] MEDS: piperacillin-tazobactam 3.375 GM in sodium chloride 0.9% (plus) 50 ML IV ×3 (00:26→17:37)
[2022-12-26] MEDS: vancomycin 1,500 MG/300 ML PIGGYBACK 200 MG IV (06:11)
[2022-12-26] MEDS: enoxaparin 40 mg/0.4 mL Syringe SUBCUT (06:15)
[2022-12-26] MEDS: AA-Dex 4.25%-5% w/Lytes 1,000 ML with multivitamin inj 5 ML 83 ML IV (08:01)
[2022-12-26] MEDS: levETIRAcetam 1,000 MG/100 ML PREMIX 400 MG IV ×2 (10:00→21:45)
--- NOTE | 2022-12-26 13:37 | PM.PN ---
Subjective Subjective: seen this am peg placed yesterday will start feeds today pt appears comfortable Vitals/I&O/Wt Last Vital Signs Temp 98.5 F 12/26/22 11:58 Pulse 81 12/26/22 11:58 Resp 18 12/26/22 11:58 BP 148/89 12/26/22 11:58 Pulse Ox 96 12/26/22 11:58 O2 Del Method Room Air 12/25/22 16:41 O2 Flow Rate 4 12/25/22 11:54 12/25/22 12/26/22 12/26/22 22:59 06:59 14:59 Intake Total 1885.5 / 1885.5 50 / 1935.5 1005 / 1005 Output Total 1400 / 1400 600 / 2000 675 / 675 Balance 485.5 / 485.5 -550 / -64.5 330 / 330 Weight last 48 hrs Weight 94.801 kg Weight 94.665 kg Physical Exam Narrative: Patient is nonverbal Currently doing well on room air Hemodynamic stable Chirinos catheter in place lungs clear to auscultation abd soft non tender pt nonverbal Urinary Catheter Management: Chirinos: Cath Placed During This Visit: yes Reason for Continuing Indwelling Catheter: Required Immobilization for Trauma or Surgery or Anesthesia Urinary Catheter Date of Insertion: 12/21/22 Urinary Catheter Time of Insertion: 11:00 Data 12/25/22 02:39 12/25/22 02:39 Micro: Microbiology 12/20/22 16:42 Blood Culture - Final Blood NO GROWTH AFTER 5 DAYS 12/20/22 16:38 Blood Culture - Final Blood NO GROWTH AFTER 5 DAYS A&P Assessment and plan (1) Dehydration: (2) Sepsis: (3) CVA (cerebral vascular accident): (4) Infection of PEG site: (5) Leaking PEG tube: (6) Elevated WBC count: (7) Seizure: Plan Sepsis Related to leaking PEG tube PEG tube has been removed Patient will need reevaluation on Sunday with Dr. Stock Continue antibiotics Sepsis improving low-grade fever with improving leukocytosis Cultures negative Chirinos catheter in place Patient is nonverbal Labs pending today. Patient will return to the facility once he gets the PEG tube and sepsis is completely resolved Hold DVT prophylaxis . PEG placed yesterday Wean down PPN and restart tube feeds today and monitor for leakage. Follow-up with general surgery Bench Worker Apprentice on board. appreciate dietary recommendations if peg functions ok, we may dc patient tomorrow on oral abx that may be given via peg to complete a 7 day course total. Full Code Attestations Medical Necessity Statement*: potential dc in am Diagnoses Dehydration E86.0 Sepsis A41.9 CVA (cerebral vascular accident) I63.9 Infection of PEG site K94.22 Leaking PEG tube K94.23 Elevated WBC count D72.829 Seizure R56.9
[2022-12-26 14:07] LABS: Basophils # 0.1 10^3/uL (0.0-0.1); Basophils % 0.5 %; Eosinophils # 0.2 10^3/uL (0.0-0.8); Eosinophils % 1.3 %; Hematocrit 30.4 % (37-53); Lymphocytes # 2.1 10^3/uL (0.8-4.8); Lymphocytes % 15.8 %; Mean Corpuscular HGB Conc 33.6 g/dL (30-55); Mean Corpuscular Hemoglobin 29.5 pg (27-33); Mean Corpuscular Volume 87.9 fl (82-101); Mean Platelet Volume 8.8 fL (7.4-10.4); Monocytes # 0.8 10^3/uL (0.2-0.9); Monocytes % 6.1 %; Neutrophils # 9.87 10^3/uL (1.8-7.7); Neutrophils % 75.5 %; Nucleated Red Blood Cells % 0 %; Platelet Count 427 10^3/cmm (157-399); Red Blood Count 3.46 10^6/uL (3.85-5.65); Red Cell Distribution Width 13.3 % (12.1-15.1); White Blood Count 13.07 10^3/uL (3.29-11.43)
--- NOTE | 2022-12-26 14:07 | PM.PN ---
Subjective Subjective: Patient seen and examined. Tube feeds going at goal Vitals/I&O/Wt Last Vital Signs Temp 97.4 F L 12/27/22 11:21 Pulse 67 12/27/22 11:21 Resp 16 12/27/22 11:21 BP 142/92 12/27/22 11:21 Pulse Ox 98 12/27/22 11:21 O2 Del Method Room Air 12/27/22 11:21 O2 Flow Rate 4 12/25/22 11:54 12/26/22 12/27/22 12/27/22 22:59 06:59 14:59 Intake Total 1427.617 / 2982.617 1150 / 4132.617 200 / 200 Output Total 700 / 1375 Balance 1427.617 / 2307.617 450 / 2757.617 200 / 200 Weight last 48 hrs Weight 199 lb 6 oz Weight 209 lb Physical Exam Narrative: General: No acute distress Abdomen: Soft, nontender, nondistended, no erythema or exudate, wound packed Urinary Catheter Management: Chirinos: Cath Placed During This Visit: yes Reason for Continuing Indwelling Catheter: Required Immobilization for Trauma or Surgery or Anesthesia Urinary Catheter Date of Insertion: 12/21/22 Urinary Catheter Time of Insertion: 11:00 Data 12/27/22 05:49 12/27/22 05:49 A&P Assessment and plan (1) PEG tube malfunction: Plan Status post PEG tube replacement Tolerating tube feeds at goal Surgically stable for discharge Pack abdominal wound with half-inch plain packing once daily until healed Attestations Medical Necessity Statement*: Per primary Coding Level of Care Code Acute Code for Chg Fwd Diagnoses PEG tube malfunction K94.23
--- NOTE | 2022-12-26 14:08 | PC.NURSE ---
Order put in for Jevity 1.2 continuous feeding with a goal of [address] Malin
[2022-12-26 14:28] LABS: Anion Gap 13.9 (5-19); Blood Urea Nitrogen 20 mg/dL (6-20); Calcium 9.6 mg/dL (8.5-10.5); Carbon Dioxide 23 mmol/L (22-29); Chloride 108 mmol/L (98-107); Glomerular Filtration Rate 118.9 mL/min (90-130); Glucose 91 mg/dL (65-115); Osmolality Calculated 294 mOsm/kg (285-295); Potassium 3.9 mmol/L (3.5-5.1); Sodium 141 mmol/L (136-145)
[2022-12-26] MEDS: pantoprazole 40 mg SDV IVP (21:45)
[2022-12-27] MEDS: vancomycin 1,500 MG/300 ML PIGGYBACK 200 MG IV (01:40)
[2022-12-27] MEDS: piperacillin-tazobactam 3.375 GM in sodium chloride 0.9% (plus) 50 ML IV ×2 (01:54→10:19)
[2022-12-27 03:59] VITALS: BP 132/85; PULSE 65; RESP 15; TEMP 36.7; O2SAT 96
[2022-12-27 05:35] VITALS: PULSE 63
[2022-12-27] MEDS: enoxaparin 40 mg/0.4 mL Syringe SUBCUT (06:20)
[2022-12-27 06:29] LABS: Basophils # 0.1 10^3/uL (0.0-0.1); Basophils % 0.8 %; Eosinophils # 0.3 10^3/uL (0.0-0.8); Eosinophils % 2.9 %; Hematocrit 30.1 % (37-53); Lymphocytes # 1.9 10^3/uL (0.8-4.8); Lymphocytes % 16.5 %; Mean Corpuscular HGB Conc 31.9 g/dL (30-55); Mean Corpuscular Hemoglobin 29.4 pg (27-33); Mean Corpuscular Volume 92.3 fl (82-101); Mean Platelet Volume 8.9 fL (7.4-10.4); Monocytes # 0.9 10^3/uL (0.2-0.9); Monocytes % 7.7 %; Neutrophils # 8.28 10^3/uL (1.8-7.7); Neutrophils % 71.1 %; Nucleated Red Blood Cells % 0 %; Platelet Count 376 10^3/cmm (157-399); Red Blood Count 3.26 10^6/uL (3.85-5.65); Red Cell Distribution Width 13.7 % (12.1-15.1); White Blood Count 11.65 10^3/uL (3.29-11.43)
[2022-12-27 06:55] LABS: Anion Gap 14.2 (5-19); Blood Urea Nitrogen 22 mg/dL (6-20); Calcium 9.5 mg/dL (8.5-10.5); Carbon Dioxide 23 mmol/L (22-29); Chloride 110 mmol/L (98-107); Creatinine Clr Calc Pharmacy 143.6608; Glomerular Filtration Rate 118.9 mL/min (90-130); Glucose 101 mg/dL (65-115); Osmolality Calculated 299 mOsm/kg (285-295); Potassium 4.2 mmol/L (3.5-5.1); Sodium 143 mmol/L (136-145)
[2022-12-27 07:31] VITALS: BP 133/86; PULSE 76; RESP 16; TEMP 36.9; O2SAT 97
[2022-12-27] MEDS: levETIRAcetam 1,000 MG/100 ML PREMIX 400 MG IV (10:19)
[2022-12-27 11:21] VITALS: BP 142/92; PULSE 67; RESP 16; TEMP 36.3; O2SAT 98
--- NOTE | 2022-12-27 11:51 | PM.DCS ---
Discharge Providers Date of Admission: 12/20/22 21:02 Date of Discharge: December 27, 2022 Attending Provider at Admission: Ander Bojorquez MD Attending Provider at Discharge: Latonya Malin MD Primary Care Provider: Antoine Biswas DO Diagnoses at Discharge Discharge Diagnosis (1) Dehydration: Status: Acute (2) Sepsis: Status: Acute (3) CVA (cerebral vascular accident): Status: Acute (4) Infection of PEG site: Status: Acute (5) Leaking PEG tube: Status: Acute (6) Elevated WBC count: Status: Acute (7) Seizure: Status: Acute Reason for Visit Reason for Visit: Peg tube Issues Hospital Course Hospital [facility]. 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 CT abdomen showed dislodgment of the rectus muscle. PEG tube site was infected and treated with Zosyn and vancomycin. Patient underwent surgical procedure with replacement of PEG tube. Tube feeds were restarted and there is no leakage at this time. Patient will be treated with Augmentin to complete 7 days of antibiotics total. White count has normalized. [facility]. We will be holding lisinopril at discharge. Amlodipine and metoprolol have been restarted. Lisinopril to be added as blood pressure tolerates after discharge. Patient to [facility]. Son was updated. Physical Exam Narrative: Patient is nonverbal Currently doing well on room air Hemodynamic stable Chirinos catheter in place lungs clear to auscultation abd soft non tender pt nonverbal Urinary Catheter Management: Chirinos: Cath Placed During This Visit: yes Reason for Continuing Indwelling Catheter: Required Immobilization for Trauma or Surgery or Anesthesia Urinary Catheter Date of Insertion: 12/21/22 Urinary Catheter Time of Insertion: 11:00 Discharge Data Studies Completed and Pending Completed Studies During Hospitalization Category Date Time Status CT abdomen pelvis w con* [id number] Routine Cat Scan 12/21/22 12:[address] abdomen pelvis w con* [id number] Stat Cat Scan 12/20/22 16:06 Completed XR abdomen 1V* [id number] Routine Exams 12/21/22 Completed XR chest 1V portable [id number] Stat Exams 12/20/22 16:08 Completed Radiology Impressions Chest X-Ray 12/20/22 16:08 IMPRESSION: Left base infiltrate however, this appears improved since the previous examination. Abdomen X-Ray 12/21/22 00:00 IMPRESSION: 1. Primary jejunostomy tube noted and appears in good position within the proximal jejunum. Contrast is seen within the stomach, duodenal sweep and proximal jejunum. No extravasation of contrast detected. 2. Normal bowel gas pattern Abdomen/Pelvis CT 12/21/22 12:53 IMPRESSION: 1. Again demonstrated is a gastrostomy tube positioned with its bulb in the left upper rectus abdominis muscle with injection of contrast accumulating in the left upper rectus abdominis muscle. This should be replaced by interventional radiology or surgery. 2. Consolidation with air bronchograms in the left lung base. Atelectatic changes in the right lung base. ADDENDUM: 12/21/221953 THIS REPORT CONTAINS FINDINGS THAT MAY BE CRITICAL TO PATIENT CARE. The findings were verbally communicated via telephone conference with Dr. Hawthorne at 7:52 PM CDT on 12/21/2022. The findings were acknowledged and understood. Laboratory Results WBC 11.65 10^3/uL (3.29-11.43) H 12/27/22 05:49 RBC 3.26 10^6/uL (3.85-5.65) L 12/27/22 05:49 Hgb 9.60 g/dL (11.27-16.99) L 12/27/22 05:49 Hct 30.1 % (37-53) L 12/27/22 05:49 MCV 92.3 fl (82-101) D 12/27/22 05:49 MCH 29.4 pg (27-33) 12/27/22 05:49 MCHC 31.9 g/dL (30-55) D 12/27/22 05:49 RDW 13.7 % (12.1-15.1) 12/27/22 05:49 Plt Count 376 10^3/cmm (157-399) 12/27/22 05:49 MPV 8.9 fL (7.4-10.4) 12/27/22 05:49 Neut % (Auto) 71.1 % 12/27/22 05:49 Lymph % (Auto) 16.5 % 12/27/22 05:49 Titus % (Auto) 7.7 % 12/27/22 05:49 Eos % (Auto) 2.9 % 12/27/22 05:49 Baso % (Auto) 0.8 % 12/27/22 05:49 Neut # (Auto) 8.28 10^3/uL (1.8-7.7) H 12/27/22 05:49 Lymph # (Auto) 1.9 10^3/uL (0.8-4.8) 12/27/22 05:49 Titus # (Auto) 0.9 10^3/uL (0.2-0.9) 12/27/22 05:49 Eos # (Auto) 0.3 10^3/uL (0.0-0.8) 12/27/22 05:49 Baso # (Auto) 0.1 10^3/uL (0.0-0.1) 12/27/22 05:49 Nucleated RBC % (auto) 0 % 12/27/22 05:49 Nucleated RBCs # 0.0 /100WBC 12/27/22 05:49 PT 14.70 SECONDS (12.1-14.9) 12/20/22 21:42 INR 1.12 (0.8-1.2) 12/20/22 21:42 Sodium 143 mmol/L (136-145) 12/27/22 05:49 Potassium 4.2 mmol/L (3.5-5.1) 12/27/22 05:49 Chloride 110 mmol/L (98-107) H 12/27/22 05:49 Carbon Dioxide 23 mmol/L (22-29) 12/27/22 05:49 Anion Gap 14.2 (5-19) 12/27/22 05:49 BUN 22 mg/dL (6-20) H 12/27/22 05:49 Creatinine 0.7 mg/dL (0.7-1.2) 12/27/22 05:49 GFR Calculation 118.9 mL/min (90-130) 12/27/22 05:49 Glucose 101 mg/dL (65-115) 12/27/22 05:49 POC Glucose 85 mg/dL (70-110) 12/22/22 06:26 Estimat Average Glucose 111 12/21/22 05:53 Hemoglobin A1c 5.5 % (4.0-6.0) 12/21/22 05:53 Calculated Osmolality 299 mOsm/kg (285-295) H 12/27/22 05:49 Lactic Acid 1.8 mmol/L (0.5-2.2) 12/20/22 16:38 Lactate 0.9 mmol/L (0.5-2.2) 12/21/22 09:33 Calcium 9.5 mg/dL (8.5-10.5) 12/27/22 05:49 Phosphorus 3.3 mg/dL (2.5-4.5) 12/21/22 05:53 Magnesium 1.8 mg/dL (1.7-2.3) 12/21/22 05:53 Iron 18 ug/dL (59-158) L 12/20/22 18:35 TIBC 136 mcg/dl 12/20/22 18:35 % Saturation 13.2 % (20-50) L 12/20/22 18:35 Unsat Iron Binding 118 ug/dL (112-347) 12/20/22 18:35 Total Bilirubin 0.4 mg/dL (0.15-1.2) 12/21/22 05:53 AST 16 U/L (0-40) 12/21/22 05:53 ALT 38 U/L (0-41) 12/21/22 05:53 Alkaline Phosphatase 125 U/L (40-130) 12/21/22 05:53 Troponin T Baseline 33 ng/L (0-15) H 12/20/22 16:38 Troponin T 120 Minute 31.46 ng/L (0-15) H 12/20/22 18:35 Delta Troponin T -1.54 ABS# (0-10) L 12/20/22 18:35 Troponin T Hi Sens 6Hr 36.95 ng/L (0-15) H 12/20/22 22:38 Troponin T Hi Sens 6Hr Delta 3.95 ng/L (0-12) 12/20/22 22:38 C-Reactive Protein 46.2 mg/L (0.0-4.9) H 12/25/22 02:39 Total Protein 6.9 g/dL (6.6-8.7) 12/21/22 05:53 Albumin 2.9 g/dL (3.5-5.2) L 12/21/22 05:53 Globulin 4.0 g/dL (1.3-4.6) 12/21/22 05:53 Triglycerides 67 mg/dL (0-150) 12/21/22 05:53 Cholesterol 85 mg/dL (0-200) 12/21/22 05:53 LDL Cholesterol, Calc 41 mg/dL (50-129) L 12/21/22 05:53 HDL Cholesterol 31 mg/dL (60-100) L 12/21/22 05:53 LDL/HDL Ratio 1.32 RATIO (0.00-3.22) 12/21/22 05:53 Cholesterol/HDL Ratio 2.74 mg/dL (1.0-5.00) 12/21/22 05:53 Lipase 38 U/L (13-60) 12/20/22 16:38 Vitamin B12 1364 pg/mL (232-1245) H 12/20/22 18:35 Folate 11.7 ng/mL (4.5-32.2) 12/21/22 05:53 Procalcitonin 1.10 ng/mL (0-0.5) H 12/20/22 16:38 TSH 1.23 uIU/mL (0.27-4.20) 12/20/22 18:35 Urine Color Yellow (Yellow) 12/21/22 11:07 Urine Appearance Clear (CLEAR) 12/21/22 11:07 Urine pH 8 (5-7) H 12/21/22 11:07 Ur Specific Enterprise 1.015 (1.005-1.030) 12/21/22 11:07 Urine Protein Trace (Negative) 12/21/22 11:07 Urine Glucose (UA) Norm (Normal) 12/21/22 11:07 Urine Ketones Negative (Negative) 12/21/22 11:07 Urine Blood 2+ (Negative) H 12/21/22 11:07 Urine Nitrate Negative (Negative) 12/21/22 11:07 Urine Bilirubin Neg (Negative) 12/21/22 11:07 Prot Sulfosalicylic Acd Positive (Negative) 12/21/22 11:07 Urine Urobilinogen Norm mg/dL (Negative) 12/21/22 11:07 Ur Leukocyte Esterase Trace (Negative) H 12/21/22 11:07 Urine RBC 0-4 /hpf (0-2) H 12/21/22 11:07 Urine WBC 0-4 /hpf (0-5) H 12/21/22 11:07 Ur Squamous Epith Cells Rare /hpf (0-5) 12/21/22 11:07 Ur Transition Epith Cell Cancelled 12/20/22 11:07 Ur Renal Epithelial Cell Cancelled 12/20/22 11:07 Calcium Oxalate Crystal Cancelled 12/20/22 11:07 Uric Acid Crystals Cancelled 12/20/22 11:07 Triple Phos Crystals Cancelled 12/20/22 11:07 Other Crystals Cancelled 12/20/22 11:07 Amorphous Sediment Trace /hpf 12/21/22 11:07 Urine Bacteria Trace /hpf (NONE) 12/21/22 11:07 Hyaline Casts 0-4 /lpf H 12/20/22 17:08 Fine Granular Casts Cancelled 12/20/22 11:07 Coarse Granular Casts Cancelled 12/20/22 11:07 RBC Casts Cancelled 12/20/22 11:07 Other Casts Cancelled 12/20/22 11:07 Urine Mucus 2+ /hpf 12/21/22 11:07 Urine Trichomonas Cancelled 12/20/22 11:07 Urine Yeast Cancelled 12/20/22 11:07 Urine Sperm Cancelled 12/20/22 11:07 Ur Oval Fat Bodies Cancelled 12/20/22 11:07 Vancomycin Trough 16.7 ug/mL (10-15) H 12/25/22 12:18 Levetiracetam 23.8 mcg/mL (6.0-46.0) 12/20/22 21:42 Vitals Last Vital Signs Temp 97.4 F L 12/27/22 11:21 Pulse 67 12/27/22 11:21 Resp 16 12/27/22 11:21 BP 142/92 12/27/22 11:21 Pulse Ox 98 12/27/22 11:21 O2 Del Method Room Air 12/27/22 11:21 O2 Flow Rate 4 12/25/22 11:54 Discharge Plan Discharge Patient Disposition: Xfer SNF Condition: Stable Prescriptions: New amoxicillin-pot clavulanate 600-42.9 mg/5 mL suspension for reconstitution 5 ml PO BID 3 Days Qty: 30 0RF Continued methocarbamol 500 mg Tablet 500 mg feeding tube Q8H acetaminophen [Tylenol] 325 mg Tablet 650 mg feeding tube Q6H PRN (Reason: Pain) levetiracetam [Keppra] 500 mg Tablet 1,000 mg PO Q12H famotidine 20 mg Tablet 20 mg feeding tube DAILY magnesium hydroxide [Milk of Magnesia] 400 mg/5 mL Suspension 30 ml PO DAILY PRN (Reason: Constipation) tamsulosin [Flomax] 0.4 mg Capsule 0.4 mg PO DAILY amlodipine 10 mg Tablet 10 mg feeding tube DAILY bisacodyl [Dulcolax (bisacodyl)] 10 mg Suppository 10 mg AK QPM PRN (Reason: Constipation) metoprolol tartrate 50 mg Tablet 50 mg feeding tube BID Fleet Enema 19-7 gram/118 mL Enema 118 ml AK BEDTIME PRN (Reason: Constipation) Jevity 1.5 Luke 0.06 gram-1.5 kcal/mL Liquid See Rx Instructions .ROUTE .COMPLEX Rx Instructions: 60ML/HR TUBE EVERY SHIFT FOR NPO lactulose 20 gram/30 mL Solution 30 ml feeding tube TID [id number] gluconate 9 mg iron/ 15 mL (15 mL) Liquid 15 ml feeding tube DAILY albuterol sulfate 2.5 mg /3 mL (0.083 %) Solution For Nebulization 2.5 mg INHALATION Q6H PRN (Reason: Shortness Of Breath Or Wheezing) hydrocodone-acetaminophen 5-325 mg Tablet 1 tab feeding tube Q6H PRN (Reason: Pain) pollens extract Tablet 1 tab PO DAILY hydrochlorothiazide 25 mg Tablet 25 mg feeding tube DAILY ProSource 10-100 gram-kcal/30 mL Liquid 1 ea feeding tube DAILY Held lisinopril 40 mg Tablet 40 mg feeding tube DAILY Hold Instructions: restart lisinopril as bp allows in next few days. f/u with pcp Discharge Orders: Discharge Order (Routine); Ordered 12/27/22 Ordered By: Latonya Malin Referrals: [facility] [Outside] Antoine Biswas DO [Primary Care Provider] - 1-3 days Discharge Diet: Cardiac and Diabetic Discharge Activity: Increase activity as tolerated and As per PT/OT instructions Patient Instructions: GI Discharge Instructions, Pain Management Activity Restrictions/Additional Instructions: PEG TUBE CARE: Pack once daily until healed. Discharge Attestations Time Spent in Discharge Care*: greater than 30 min Quality Metrics Clinical Quality Measures [ No reported AMI, CVA or VTE this stay] Coding Level of Care Code Acute Code for Chg Fwd Diagnoses Dehydration E86.0 Sepsis A41.9 CVA (cerebral vascular accident) I63.9 Infection of PEG site K94.22 Leaking PEG tube K94.23 Elevated WBC count D72.829 Seizure R56.9
--- NOTE | 2022-12-27 12:56 | PC.NURSE ---
report given to Ethan at [facility]
[2022-12-27 13:15] LABS: SARS Covid-2 Antigen negative (Negative)
[2022-12-27 14:15] VITALS: BP 142/92; PULSE 67; RESP 16; TEMP 36.3; O2SAT 98
== END 2022-12-27 14:05 | disposition skilled nursing facility (03) | DRG 393 ==
LOC: ER 20:20 → MEDSURG 21:02
PROVIDERS: Internal Medicine; Physician Assistant; Student in an Organized Health Care Education/Training Program; Surgery; Admitting Provider Student in an Organized Health Care Education/Training Program; Emergency Provider Physician Assistant; PCP Internal Medicine; Visit Provider Internal Medicine
PROC: 0DH63UZ Insertion of Feeding Device into Stomach, Percutaneous Approach (ICD-10-PCS; CPT 43246; principal; 2022-12-25 10:00)
DX: K94.23 Gastrostomy malfunction (principal); A41.9 Sepsis, unspecified organism; E87.1 Hypo-osmolality and hyponatremia; K94.22 Gastrostomy infection; Y83.3 Surgical operation with formation of external stoma as the cause of abnormal reaction of the patient, or of later complication, without mention of misadventure at the time of the procedure; E86.0 Dehydration; R56.9 Unspecified convulsions; I69.228 Other speech and language deficits following other nontraumatic intracranial hemorrhage
CPT/HCPCS: 36415; 36416; 43246; 51702; 71045; 74018; 74177; 80048; 80053; 80061; 80177; 80202; 81001; 82607; 82746; 82962; 83036; 83540; 83550; 83605; 83690; 83735; 84100; 84145; 84443; 84484; 85025; 85610; 86140; 87040; 87426; 93005; 94664; 96365; 96372; 99285; C9113; J0131; J1650; J1885; J1953; J2270; J2543; J2704; J3370; J7030; J7042; J7799; Q9967

== ENCOUNTER 2023-03-16 21:11 | Emergency (ER) | payer BC, MEDICAID, SELFPAY ==
[2023-03-16 21:15] VITALS: BP 138/94; PULSE 66; RESP 20; TEMP 36.6; O2SAT 96; BMI 23.7
--- NOTE | 2023-03-16 21:27 | W.ED.GENADLT ---
HPI - General Adult General: Chief complaint: General Medical Stated complaint: PEG TUBE DISPLACED Time Seen by Provider: 03/16/23 21:19 History of Present Illness: 52-year-old male long-term patient. He is gastrostomy tube. Evidently was leaking in the long-term and not functioning appropriately. It was still in place however. Associated symptoms: Deny chest pain, dyspnea or vomiting Review of Systems Const: Denies: fever(s) Card: Denies: chest pain Resp: Denies: dyspnea GI: Denies: abdominal pain or vomiting PFSH ED PFSH: Medical History CVA (cerebral vascular accident) Physical Exam Const: COMMON NORMALS: no acute distress and alert GENERAL APPEARANCE: cooperative and frail appearing; not ill appearing HENMT: COMMON NORMALS: normocephalic, atraumatic and Normal external nose present HEAD & SCALP: normocephalic and atraumatic NOSE: Normal external nose present Eye: COMMON NORMALS: Equal, round and reactive pupils present and EOMs intact bilaterally PUPIL: Yes Equal, round and reactive pupils present Neck/C-Spine: GENERAL: Yes trachea midline Chest: CHEST: Yes Symmetrical chest wall rise Resp: COMMON NORMALS: normal respiratory effort, No retractions, No use of accessory muscles and clear to auscultation bilaterally AUSCULTATION: clear to auscultation bilaterally Cardio: COMMON NORMALS: regular rate and regular rhythm RATE: regular rate RHYTHM: regular rhythm GI: OTHER: Abdomen soft, nontender. G-tube in place. Structurally intact, however at the tip, the tube itself is torn near the port. Extremity: COMMON NORMALS: no pedal edema Neuro: SENSORIUM/ORIENTATION: Yes alert SENSORY EXAM: Yes extremities (intact) Course Vital Signs: Vital signs: Vital Signs Temperature 98 F 03/16/23 21:15 Pulse Rate 66 03/16/23 21:15 Respiratory Rate 20 H 03/16/23 21:15 Blood Pressure 138/94 03/16/23 21:15 Pulse Oximetry 96 03/16/23 21:15 MDM - General Adult Medical Decision Making G-tube is in place on exam. It is leaking at the tubing near the tip of the port. Where the port attaches, the tube was torn. The port was removed, tube was trimmed flush, and fitting was placed back. We were able to flush tap water easily without pain, and aspirate gastric contents through the tube without leakage. The tube is secure and intact flush to the belly wall. No evidence of malfunction at this point. He is discharged. No radiology studies performed this visit Discharge Plan Discharge Patient Disposition: Home Clinical Impression: PEG tube malfunction Condition: Stable Prescriptions: No Action methocarbamol 500 mg Tablet 500 mg feeding tube Q8H acetaminophen [Tylenol] 325 mg Tablet 650 mg feeding tube Q6H PRN (Reason: Pain) levetiracetam [Keppra] 500 mg Tablet 1,000 mg PO Q12H famotidine 20 mg Tablet 20 mg feeding tube DAILY magnesium hydroxide [Milk of Magnesia] 400 mg/5 mL Suspension 30 ml PO DAILY PRN (Reason: Constipation) tamsulosin [Flomax] 0.4 mg Capsule 0.4 mg PO DAILY amlodipine 10 mg Tablet 10 mg feeding tube DAILY bisacodyl [Dulcolax (bisacodyl)] 10 mg Suppository 10 mg MD QPM PRN (Reason: Constipation) metoprolol tartrate 50 mg Tablet 50 mg feeding tube BID Fleet Enema 19-7 gram/118 mL Enema 118 ml MD BEDTIME PRN (Reason: Constipation) lisinopril 40 mg Tablet 40 mg feeding tube DAILY Hold Instructions: restart lisinopril as bp allows in next few days. f/u with pcp Jevity 1.5 Luke 0.06 gram-1.5 kcal/mL Liquid See Rx Instructions .ROUTE .COMPLEX Rx Instructions: 60ML/HR TUBE EVERY SHIFT FOR NPO lactulose 20 gram/30 mL Solution 30 ml feeding tube TID [id number]-buo-rbufshw gluconate 9 mg iron/ 15 mL (15 mL) Liquid 15 ml feeding tube DAILY albuterol sulfate 2.5 mg /3 mL (0.083 %) Solution For Nebulization 2.5 mg INHALATION Q6H PRN (Reason: Shortness Of Breath Or Wheezing) hydrocodone-acetaminophen 5-325 mg Tablet 1 tab feeding tube Q6H PRN (Reason: Pain) pollens extract Tablet 1 tab PO DAILY hydrochlorothiazide 25 mg Tablet 25 mg feeding tube DAILY ProSource 10-100 gram-kcal/30 mL Liquid 1 ea feeding tube DAILY Discharge Orders: Discharge ED (Routine); Ordered 03/16/23 Ordered By: Herminio Martinez Referrals: Marco Stock DO [Physician] - Antoine Biswas DO [Primary Care Provider] - 4-7 days Patient Instructions: How to Use and Care for Your PEG Tube (DC) Coding Level of Care Code ED Statement Clerks Supervisor for Chg Fwadryan
--- NOTE | 2023-03-16 21:28 | PC.NURSE ---
Called Tracey at [facility] to give report and update with what was done. Instructed to follow up with Dr Montrell oliveros.
[2023-03-16 21:55] VITALS: PULSE 86; O2SAT 96
== END 2023-03-16 21:58 | disposition home or self-care (01) ==
PROVIDERS: Emergency Provider Emergency Medicine; PCP Internal Medicine
DX: K94.23 Gastrostomy malfunction (principal); Y73.1 Therapeutic (nonsurgical) and rehabilitative gastroenterology and urology devices associated with adverse incidents; Z86.73 Personal history of transient ischemic attack (TIA), and cerebral infarction without residual deficits
CPT/HCPCS: 99282

== ENCOUNTER 2023-03-21 11:24 | Emergency (ER) | payer BC, MEDICAID, SELFPAY ==
[2023-03-21 11:30] VITALS: BP 135/92; PULSE 83; TEMP 36.3; O2SAT 99; BMI 22.3
--- NOTE | 2023-03-21 11:34 | XRR_ITS ---
PROCEDURE INFORMATION: Exam: XR Abdomen Exam date and time: 03/21/2023 11:51 AM Age: 52 years old Clinical indication: Device placement; Gi device; Peg tube; Additional info: Peg tube, gastrogaffin TECHNIQUE: Imaging protocol: Radiologic exam of the abdomen. Views: Frontal supine view of the abdomen. 1 View. COMPARISON: CT abdomen pelvis w con* [id number] 12/21/2022 6:00 PM FINDINGS: Tubes, catheters and devices: The PEG tube is properly positioned within the stomach. There is contrast noted within the stomach that also flows into the duodenum. No sign of leakage. Gastrointestinal tract: See Tubes, catheters and devices finding. Bones/joints: Unremarkable. XR/XR KUB [id number] IMPRESSION: Good PEG tube positioning
--- NOTE | 2023-03-21 11:57 | W.ED.GENADLT ---
HPI - General Adult General: Chief complaint: General Medical Stated complaint: Pulled out Peg Tube Time Seen by Provider: 03/21/23 11:34 Source: other Mode of arrival: ambulatory History of Present Illness: 52-year-old male who is here from [facility] he is nonverbal [facility] is concerned he may have removed his PEG tube it appears to be in place he went to have it checked. Patient is nonverbal no history is available from him. Review of Systems General: Reports: ROS unobtainable due to mental status PFSH ED PFSH: Medical History CVA (cerebral vascular accident) Physical Exam HENMT: COMMON NORMALS: normocephalic HEAD & SCALP: normocephalic Eye: COMMON NORMALS: conjunctivae normal CONJUNCTIVA: Yes conjunctivae normal Chest: COMMONS NORMALS: normal inspection of the chest Resp: COMMON NORMALS: normal respiratory effort GI: OTHER: Abdominal exam is benign PEG tube is in place Course Vital Signs: Vital signs: Vital Signs Temperature 97.3 F L 03/21/23 11:30 Pulse Rate 83 03/21/23 11:30 Blood Pressure 135/92 03/21/23 11:30 Pulse Oximetry 99 03/21/23 11:30 Oxygen Delivery Me thod Room Air 03/21/23 11:30 [facility] - General Adult Medical Decision Making Patient presents here from [facility] with concern that PEG tube dislodged x-ray shows that is in place on exam is normal he is stable for discharge back to the [facility] All radiology interpretation(s) finalized by discharge Discharge Plan Discharge Patient Disposition: Home Clinical Impression: PEG tube malfunction Condition: Stable Prescriptions: No Action methocarbamol 500 mg Tablet 500 mg feeding tube Q8H acetaminophen [Tylenol] 325 mg Tablet 650 mg feeding tube Q6H PRN (Reason: Pain) levetiracetam [Keppra] 500 mg Tablet 1,000 mg PO Q12H famotidine 20 mg Tablet 20 mg feeding tube DAILY magnesium hydroxide [Milk of Magnesia] 400 mg/5 mL Suspension 30 ml PO DAILY PRN (Reason: Constipation) tamsulosin [Flomax] 0.4 mg Capsule 0.4 mg PO DAILY amlodipine 10 mg Tablet 10 mg feeding tube DAILY bisacodyl [Dulcolax (bisacodyl)] 10 mg Suppository 10 mg DE QPM PRN (Reason: Constipation) metoprolol tartrate 50 mg Tablet 50 mg feeding tube BID Fleet Enema 19-7 gram/118 mL Enema 118 ml DE BEDTIME PRN (Reason: Constipation) lisinopril 40 mg Tablet 40 mg feeding tube DAILY Hold Instructions: restart lisinopril as bp allows in next few days. f/u with pcp Jevity 1.5 Luke 0.06 gram-1.5 kcal/mL Liquid See Rx Instructions .ROUTE .COMPLEX Rx Instructions: 60ML/HR TUBE EVERY SHIFT FOR NPO lactulose 20 gram/30 mL Solution 30 ml feeding tube TID [id number]-cvh-icbsoqk gluconate 9 mg iron/ 15 mL (15 mL) Liquid 15 ml feeding tube DAILY albuterol sulfate 2.5 mg /3 mL (0.083 %) Solution For Nebulization 2.5 mg INHALATION Q6H PRN (Reason: Shortness Of Breath Or Wheezing) hydrocodone-acetaminophen 5-325 mg Tablet 1 tab feeding tube Q6H PRN (Reason: Pain) pollens extract Tablet 1 tab PO DAILY hydrochlorothiazide 25 mg Tablet 25 mg feeding tube DAILY ProSource 10-100 gram-kcal/30 mL Liquid 1 ea feeding tube DAILY Discharge Orders: Discharge ED (Routine); Ordered 03/21/23 Ordered By: Feli Dempsey Referrals: Chong Grace MD [Primary Care Provider] - Discharge Diet: Advance as tolerated Discharge Activity: Resume usual activity Patient Instructions: PEG (Percutaneous Endoscopic Gastrostomy) Tube Insertion (DC) Coding Level of Care Code ED Machine Silk Screen Printer for Tere Saavedra
== END 2023-03-21 12:45 | disposition home or self-care (01) ==
PROVIDERS: Emergency Provider Emergency Medicine; PCP Internal Medicine
DX: K94.23 Gastrostomy malfunction (principal); Y73.1 Therapeutic (nonsurgical) and rehabilitative gastroenterology and urology devices associated with adverse incidents; Z86.73 Personal history of transient ischemic attack (TIA), and cerebral infarction without residual deficits
CPT/HCPCS: 74018; 99283

== ENCOUNTER 2023-04-12 09:07 | Outpatient (CLI) | payer MEDICAID, SELFPAY ==
--- NOTE | 2023-04-12 09:11 | FL_ITS ---
WS: [id number] EXAMINATION: FL barium swallow modifd [id number] ORDER DATE: 04/12/2023 9:11 AM REASON FOR EXAM: Oropharyngeal dysphagia COMPARISON: None available. FLUOROSCOPY TIME: 3min [id number] # OF SPOT FILMS: 9 video runs FINDINGS: There is poor oral motor control. There is free spillover of all ingested consistencies with pooling in the piriform sinus as well as t he vallecula. There is poor swallowing initiation with all consistencies No aspiration was seen IMPRESSION: Poor bolus initiation with significant free spillover and pooling There is no penetration or aspiration.
== END 2023-04-12 09:08 | disposition home or self-care (01) ==
LOC: RAD 09:08
PROVIDERS: PCP Internal Medicine; Visit Provider Internal Medicine
DX: R13.12 Dysphagia, oropharyngeal phase (principal)
CPT/HCPCS: 74230; 92611

== ENCOUNTER → 2023-08-08 11:51 | Outpatient (CLI) | payer MEDICAID, SELFPAY ==
--- NOTE | 2023-08-08 12:07 | CTR_ITS ---
PROCEDURE INFORMATION: Exam: CT Neck With Contrast Exam date and time: 08/08/2023 12:22 PM Age: 52 years old Clinical indication: Patient HX: Allover neck pain and stiffness, unable to turn head x 1.5 months; Additional info: Localized swelling, mass, or lump in neck TECHNIQUE: Imaging protocol: Computed tomography of the neck with contrast. Radiation optimization: All CT scans at this facility use at least one of these dose optimization techniques: automated exposure control; mA and/or kV adjustment per patient size (includes targeted exams where dose is matched to clinical indication); or iterative reconstruction. Contrast material: OMNI 350; Contrast volume: 100 ml; Contrast route: INTRAVENOUS (IV); COMPARISON: RF FL barium swallow modifd [id number] 04/12/2023 9:20 AM RADIATION DOSE METRICS: Total DLP (mGy-cm): 158.02 FINDINGS: Salivary glands: Normal.lands are normal in size. Pharynx: Unremarkable. No significant tonsillar enlargement. Prevertebral and retropharyngeal spaces: Unremarkable. Larynx: Unremarkable. Epiglottis is normal. Thyroid: Heterogeneous thyroid gland. Trachea: Visualized trachea is unremarkable. Lungs: Unremarkable as visualized. Lymph nodes: Bilateral and fairly symmetrical cervical lymph nodes are not pathologically enlarged. Bones/joints: Unremarkable. No acute fracture. Soft tissues: Unremarkable. No significant soft tissue swelling. CT/CT neck w con* [id number] IMPRESSION: No acute abnormality.
[2023-08-08] MEDS: iohexol 350 mg/mL 500 mL Btl (per mL) IV (12:35)
== END | disposition home or self-care (01) ==
LOC: RAD 11:50
PROVIDERS: PCP Internal Medicine; Visit Provider Internal Medicine
DX: I61.0 Nontraumatic intracerebral hemorrhage in hemisphere, subcortical (principal); G90.9 Disorder of the autonomic nervous system, unspecified; I10 Essential (primary) hypertension; G93.5 Compression of brain
CPT/HCPCS: 70491; Q9967

== ENCOUNTER 2023-09-06 08:25 | Emergency (ER) | payer MEDICAID, SELFPAY ==
[2023-09-06 08:26] VITALS: BP 166/108; PULSE 66; TEMP 36.4; O2SAT 94
--- NOTE | 2023-09-06 08:42 | CT_ITS ---
WS: [id number] CT CERVICAL TRAUMA TECHNIQUE: Noncontrast CT of the cervical spine with coronal and sagittal reformatted images. CLINICAL INFORMATION: Trauma COMPARISON: None. DLP: 1408.[address] scans at [facility] use at least one of these dose optimization techniques: automated e xposure control; mA and/or kV adjustment per patient size (includes targeted exams where dose is matc hed to clinical indication); or iterative reconstruction. FINDINGS: Straightening of the normal cervical lordosis. Normal craniocervical junction. 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 Normal C1-C2 articulation. Dens is normal in appearan ce. Normal occipital condyles. No high-grade spinal canal narrowing. Normal C1 ring. No evidence of a cute fracture or dislocation. Mild spondylitic changes. Disc osteophyte complex C6-7 with mild centra l canal stenosis. Normal prevertebral soft tissues. Mastoids air cells are well aerated. Multinodular thyroid. CT/CT cervical spin wo con* [id number] IMPRESSION: No evidence of acute fracture or dislocation.
--- NOTE | 2023-09-06 08:43 | CT_ITS ---
WS: [id number] CT HEAD TECHNIQUE: Noncontrast CT of the head obtained from the skullbase to the vertex. CLINICAL INFORMATION: Trauma COMPARISON: 09/12/2022 DLP: 1408.[address] scans at [facility] use at least one of these dose optimization techniques: automated e xposure control; mA and/or kV adjustment per patient size (includes targeted exams where dose is matc hed to clinical indication); or iterative reconstruction. FINDINGS: No evidence of intracranial hemorrhage or mass effect. Ventricular system and basal cisterns are pardo nt. Mild small vessel changes with mild parenchymal volume loss. No extra-axial fluid collections. RI GHT frontal shunt catheter with tip in the foramen of Monro. Mild dilatation of the third ventricle a nd temporal horns. No transependymal edema. LEFT frontal scalp contusion. No fractures. Paranasal sinuses and mastoid air cells are well aerated. .Normal visualized soft tissues. CT/CT head wo con* [id number] IMPRESSION: 1. No evidence of intracranial hemorrhage or mass effect. 2. RIGHT frontal shunt catheter with tip near the foramen of Gonsales. 3. Mild dilatation of the third ventricle and temporal horn. No transependymal edema. 4. LEFT frontal scalp hematoma 5. No other acute intracranial findings.
--- NOTE | 2023-09-06 08:47 | XRR_ITS ---
PROCEDURE INFORMATION: Exam: XR Left Shoulder Exam date and time: 09/06/2023 8:58 AM Age: 52 years old Clinical indication: Injury or trauma; Fall; Blunt trauma (contusions or hematomas); Shoulder; Left TECHNIQUE: Imaging protocol: Radiologic exam of the left shoulder. Views: 2 or more views. COMPARISON: CT neck w con* [id number] 08/08/2023 12:22 PM FINDINGS: Bones/joints: Degenerative changes acromioclavicular joint. Degenerative changes glenohumeral articulation. Indeterminate small linear calcification adjacent to the humeral neck laterally. Soft tissues: Prominent oval likely juxtacortical soft tissue calcification adjacent to the lower glenohumeral articulation. XR/XR shoulder LT min 2V* [id number] IMPRESSION: 1. Degenerative arthritis left shoulder. 2. Oval calcification near the inferior glenohumeral articulation potentially reflecting loose body. 3. Minimal linear calcification near the humeral neck seen only on the scapular Y-view a small cortical fracture was not be excluded. A higher level of diagnostic delineation maybe achieved with thin section CT trauma protocol.
--- NOTE | 2023-09-06 08:48 | ED_ITS ---
HPI - Head Injury General: Chief complaint: Head Injury Stated complaint: fall Time Seen by Provider: 09/06/23 08:33 Source: patient Mode of arrival: EMS History of Present Illness: 52-year-old male presents emergency room via EMS [facility] a [facility]. He foot slid out of his wheelchair hit his head has a laceration on the left upper forehead. No report of loss of consciousness. He does have a bandage in place over the laceration he is also complaining of some pain in his left shoulder. 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 and a forced deviated gaze to the right as a result of the previous brain injury Complaint: head injury Onset (ago): minute(s) Arrival Conditions: C-spine immobilization present Mechanism of Injury: fall Place: other (intermediate) Loss of Consciousness: no Location of injury: frontal Severity: mild Other Injuries: upper extremity (Left shoulder) Associated symptoms: Reports neck pain; Deny amnesia, confusion, nausea, numbness, syncope, tingling, vertigo, visual changes, vomiting or weakness Review of Systems Const: Denies: fever(s) or chills Card: Denies: syncope Resp: Denies: dyspnea GI: Denies: nausea or vomiting : Denies: dysuria, urinary frequency or urinary urgency Musc: Reports: neck pain Neuro: Denies: vertigo or confusion [facility] ED PFSH: Medical History (Updated 09/06/23 @ 10:19 by Frantz Castellanos DO) Seizure CVA (cerebral vascular accident) Physical Exam Const: GENERAL APPEARANCE: cooperative and comfortable ORIENTATION/CONSCIOUSNESS: Yes awake, Yes oriented to person, Yes oriented to place and Yes oriented to time HENMT: COMMON NORMALS: normocephalic and hearing grossly normal bilaterally HEAD & SCALP: normocephalic OTHER: 4 cm laceration of the lateral left fore head at the hairline. No depression no active bleeding Forced gaze deviation to the right Resp: COMMON NORMALS: normal respiratory effort, No retractions, No use of accessory muscles and clear to auscultation bilaterally AUSCULTATION: clear to auscultation bilaterally Cardio: COMMON NORMALS: regular rate, regular rhythm and No murmurs present (Cardio) RATE: regular rate RHYTHM: regular rhythm GI: COMMON NORMALS: Soft to palpation and No hepatosplenomegaly present AUSCULTATION: Yes normoactive bowel sounds PALPATION: Yes Soft to palpation, No Tenderness to palpation present (GI), No Guarding due to palpation present (GI) and Yes No hepatosplenomegaly present Extremity: OTHER: Contracture of the left upper extremity. No deformity of the left shoulder Neuro: SENSORIUM/ORIENTATION: Yes oriented to person, Yes oriented to place and Yes oriented to time Skin: COMMON NORMALS: no rashes or lesions noted GENERAL SKIN EXAM: no rashes or lesions noted Procedures Laceration Laceration 1: Site: face Side (If applicable): left Size (cm): 4 Description: linear Depth: simple, single layer Local Anesthetic: lidocaine 1% and with epi Amount of anesthesia used (mL): 3 Pre-repair: wound explored and irrigated extensively Skin layer closed with: other (Prolene) Size (cm): 5-0 Number of sutures: 1 Technique: running Course Vital Signs: Vital signs: Vital Signs Temperature 97.5 F L 09/06/23 08:26 Pulse Rate 66 09/06/23 08:26 Blood Pressure 166/108 09/06/23 08:26 Pulse Oximetry 94 09/06/23 08:26 Oxygen Delivery Me thod Room Air 09/06/23 08:26 MDM - Head Injury Medcial Decision Making Imaging reviewed no acute fractures no close head injury. Does have a 4 cm laceration was closed with a single running suture of 4 o 5-0 Prolene. Discharge home sutures to be out in 5 to 7 days topical antibiotic ointment to the wound Medical Records I reviewed the patient's medical records. Lab Data Radiology Impressions Cervical Spine CT 09/06/23 08:42 IMPRESSION: No evidence of acute fracture or dislocation. Head CT 09/06/23 08:43 IMPRESSION: 1. No evidence of intracranial hemorrhage or mass effect. 2. RIGHT frontal shunt catheter with tip near the foramen of Gonsales. 3. Mild dilatation of the third ventricle and temporal horn. No transependymal edema. 4. LEFT frontal scalp hematoma 5. No other acute intracranial findings. Shoulder X-Ray 09/06/23 08:47 IMPRESSION: 1. Degenerative arthritis left shoulder. 2. Oval calcification near the inferior glenohumeral articulation potentially reflecting loose body. 3. Minimal linear calcification near the humeral neck seen only on the scapular Y-view a small cortical fracture was not be excluded. A higher level of diagnostic delineation maybe achieved with thin section CT trauma protocol. All radiology interpretation(s) finalized by discharge Discharge Plan Discharge Patient Disposition: Home Clinical Impression: Closed head injury, Laceration Condition: Stable Prescriptions: New mupirocin 2 % ointment 1 applic topical BID Qty: 15 0RF No Action acetaminophen [Tylenol] 325 mg Tablet 650 mg feeding tube Q6H PRN (Reason: Pain) levetiracetam [Keppra] 500 mg Tablet 500 mg PO Q12H famotidine 20 mg Tablet 20 mg feeding tube DAILY magnesium hydroxide [Milk of Magnesia] 400 mg/5 mL Suspension 30 ml PO DAILY PRN (Reason: Constipation) tamsulosin [Flomax] 0.4 mg Capsule 0.4 mg PO BEDTIME amlodipine 10 mg Tablet 10 mg feeding tube DAILY bisacodyl [Dulcolax (bisacodyl)] 10 mg Suppository 10 mg IA QPM PRN (Reason: Constipation) metoprolol tartrate 50 mg Tablet 50 mg feeding tube BID Fleet Enema 19-7 gram/118 mL Enema 118 ml IA BEDTIME PRN (Reason: Constipation) Jevity 1.5 Luke 0.06 gram-1.5 kcal/mL Liquid See Rx Instructions .ROUTE .COMPLEX PRN (Reason: NUTRITION) Rx Instructions: 60ML/HR TUBE EVERY SHIFT FOR NPO lactulose 20 gram/30 mL Solution 30 ml feeding tube BEDTIME [id number]-eww-hzrtqns gluconate 9 mg iron/ 15 mL (15 mL) Liquid 15 ml feeding tube TID albuterol sulfate 2.5 mg /3 mL (0.083 %) Solution For Nebulization 2.5 mg INHALATION Q6H PRN (Reason: Shortness Of Breath Or Wheezing) hydrocodone-acetaminophen 5-325 mg Tablet 1 tab feeding tube Q6H PRN (Reason: Pain) ProSource 10-100 gram-kcal/30 mL Liquid 1 ea feeding tube DAILY Lexapro 10 mg Tablet 10 mg PO DAILY Augmentin 875-125 mg Tablet 1 tab PO BID ashwagandha root extract 300 mg Tablet 300 mg PO TID Discharge Orders: Discharge ED (Routine); Ordered 09/06/23 Ordered By: Frantz Castellanos Referrals: Chong Grace MD [Primary Care Provider] - Discharge Diet: Usual diet Discharge Activity: Resume usual activity Patient Instructions: Opioid Safety, Pain Management Activity Restrictions/Additional Instructions: Thank you for choosing [facility] for your healthcare needs today. It is very important that you follow up as instructed or that you return to the Emergency Department should you have concerns or if your condition changes or worsens in any way. You are seen today after a fall x-rays were negative for fracture. Imaging was normal. Sutures should be removed in 5 to 7 days. Coding Level of Care Code ED Cardiovascular Technician for Tere Saavedra
[2023-09-06] MEDS: tetanus-dipt-pertussis 0.5 mL SDV IM (09:51)
--- NOTE | 2023-09-06 10:30 | PC.NURSE ---
PT NOT TOLERATING PULSE OX ON FINGER FOR VITAL SIGNS. PT ABLE TO TOLERATE BLOOD PRESSURE CUFF AT THIS TIME.
--- NOTE | 2023-09-06 10:52 | PC.NURSE ---
REPORT CALLED BACK TO LONG TERM. EMS RIDE BEING SET UP NOW.
[2023-09-06 13:00] VITALS: BP 141/99
[2023-09-06 14:46] VITALS: BP 151/109
== END 2023-09-06 14:47 | disposition home or self-care (01) ==
PROVIDERS: Emergency Provider Family Medicine; PCP Internal Medicine
DX: S01.81XA Laceration without foreign body of other part of head, initial encounter (principal); Z86.73 Personal history of transient ischemic attack (TIA), and cerebral infarction without residual deficits; W05.0XXA Fall from non-moving wheelchair, initial encounter; Y92.129 Unspecified place in nursing home as the place of occurrence of the external cause; Z23 Encounter for immunization
CPT/HCPCS: 12013; 70450; 72125; 73030; 90471; 90715; 99284

== ENCOUNTER 2023-09-10 18:07 | Emergency (ER) | payer MEDICAID, SELFPAY ==
[2023-09-10 18:09] VITALS: BP 175/106; PULSE 62; RESP 18; TEMP 36.8; O2SAT 98; BMI 23.0
--- NOTE | 2023-09-10 18:13 | ED_ITS ---
HPI - Seizure 2 General: Chief Complaint: Seizure Stated Complaint: AMS Time Seen by Provider: 09/10/23 18:08 History of Present Illness: HPI Narrative: Patient presents by EMS from the correction with seizure like activity. Patient has a's history of a CVA with severe deficit patient is only able to answer yes no type questions. Patient does not remember anything at the event. Per EMS it appeared to be like a tonic-clonic type seizure. Patient does not have any complaints at the moment. Per EMS patient's gaze is usually up into the right but can usually look the left however today he cannot look left. Otherwise pretty much at baseline per EMS. Patient does have a history of seizures and [facility] Review of Systems 2 General: Reports: 10 or more systems reviewed and unremarkable except in HPI and below PFSH ED 2 PFSH: Medical History (Updated 09/10/23 @ 20:41 by Jus Beltran DO) Seizure CVA (cerebral vascular accident) Physical Exam 2 Const: COMMON NORMALS: no acute distress, alert and well nourished HENMT: COMMON NORMALS: normocephalic, hearing grossly normal bilaterally, external ears normal, Normal external nose present and moist oral mucous membranes; head/scalp not atraumatic (Shunt palpable in the right side of scalp) HEAD & SCALP: normocephalic; not atraumatic (Shunt palpable in the right side of scalp) NOSE: Normal external nose present EXTERNAL EAR: Yes external ears normal OTHER: Sutures noted in healing incision this laceration on the left side of scalp Eye: COMMON NORMALS: Equal, round and reactive pupils present, negative for EOMs intact bilaterally (Gaze deviated to the right cannot look to the left), conjunctivae normal and no scleral icterus CONJUNCTIVA: Yes conjunctivae normal PUPIL: Yes Equal, round and reactive pupils present Neck/C-Spine: COMMON NORMALS: full ROM, no lymphadenopathy, supple, no meningeal signs and no JVD Chest: COMMONS NORMALS: normal inspection of the chest and normal palpation of entire chest wall Resp: COMMON NORMALS: normal respiratory effort, No retractions, No use of accessory muscles and clear to auscultation bilaterally AUSCULTATION: clear to auscultation bilaterally Cardio: COMMON NORMALS: no JVD, regular rate, regular rhythm, S1 normal heart sound present, S2 normal heart sound present, No gallops present (Cardio), No clicks present (Cardio), No murmurs present (Cardio) and No rub (Cardio) R ATE: regular rate RHYTHM: regular rhythm HEART SOUNDS: S1 normal heart sound present and S2 normal heart sound present GI: COMMON NORMALS: Normal to inspection, nondistended, normoactive bowel sounds present, Soft to palpation, non-tender, No hepatosplenomegaly present and no masses PALPATION: Yes Soft to palpation and Yes No hepatosplenomegaly present Neuro: SENSORIUM/ORIENTATION: Yes alert MENINGEAL SIGNS: Yes no meningeal signs Course 2 Vital Signs: Vital signs: Vital Signs Temperature 98.3 F 09/10/23 18:09 Pulse Rate 58 L 09/10/23 18:33 Respiratory Rate 18 09/10/23 18:09 Blood Pressure 158/108 09/10/23 18:33 Pulse Oximetry 98 09/10/23 18:33 Oxygen Delivery Me thod Room Air 09/10/23 18:33 MDM - Seizure MDM Narrative Medical decision making narrative: Patient CBC CMP prolactin chest x-ray and head CT all of which was essentially normal except mildly elevated prolactin consistent with seizure. Patient will be discharged back to [facility], family members at bedside and we discussed these with her. Differential Diagnosis Seizure Differential Diagnosis: Likely epileptic seizure Medical Records Attestation: I reviewed the patient's medical records. Lab Data Attestation: I reviewed the patient's lab results. 09/10/23 18:34 09/10/23 18:34 Labs: Radiology Impressions Chest X-Ray 09/10/23 18:14 IMPRESSION: Minimal left basilar atelectasis. Head CT 09/10/23 18:14 IMPRESSION: 1. No evidence of intracranial hemorrhage or territorial infarction. 2. Right frontal approach catheter tip terminates near the foramina of Monro, similar compared to prior. 3. No hydrocephalus. Decrease in caliber of the ventricular system compared to prior head CT September 06, 2023 Laboratory Results WBC 8.10 10^3/uL (3.29-11.43) 09/10/23 18:34 RBC 4.46 10^6/uL (3.85-5.65) 09/10/23 18:34 Hgb 12.60 g/dL (11.27-16.99) 09/10/23 18:34 Hct 39.4 % (37-53) 09/10/23 18:34 MCV 88.3 fl (82-101) 09/10/23 18:34 MCH 28.3 pg (27-33) 09/10/23 18:34 MCHC 32.0 g/dL (30-55) 09/10/23 18:34 RDW 13.3 % (12.1-15.1) 09/10/23 18:34 Plt Count 256 10^3/cmm (157-399) 09/10/23 18:34 MPV 10.3 fL (7.4-10.4) 09/10/23 18:34 Neut % (Auto) 56.7 % 09/10/23 18:34 Lymph % (Auto) 27.0 % 09/10/23 18:34 Crosby % (Auto) 8.9 % 09/10/23 18:34 Eos % (Auto) 6.2 % 09/10/23 18:34 Baso % (Auto) 1.0 % 09/10/23 18:34 Neut # (Auto) 4.59 10^3/uL (1.8-7.7) 09/10/23 18:34 Lymph # (Auto) 2.2 10^3/uL (0.8-4.8) 09/10/23 18:34 Crosby # (Auto) 0.7 10^3/uL (0.2-0.9) 09/10/23 18:34 Eos # (Auto) 0.5 10^3/uL (0.0-0.8) 09/10/23 18:34 Baso # (Auto) 0.1 10^3/uL (0.0-0.1) 09/10/23 18:34 Nucleated RBC % (auto) 0 % 09/10/23 18:34 Nucleated RBCs # 0.0 /100WBC 09/10/23 18:34 Sodium 141 mmol/L (136-145) 09/10/23 18:34 Potassium 3.9 mmol/L (3.5-5.1) 09/10/23 18:34 Chloride 104 mmol/L (98-107) 09/10/23 18:34 Carbon Dioxide 26 mmol/L (22-29) 09/10/23 18:34 Anion Gap 14.9 (5-19) 09/10/23 18:34 BUN 12 mg/dL (6-20) 09/10/23 18:34 Creatinine 1.0 mg/dL (0.7-1.2) 09/10/23 18:34 GFR Calculation 78.8 mL/min (90-130) L 09/10/23 18:34 Glucose 91 mg/dL (65-115) 09/10/23 18:34 Calculated Osmolality 291 mOsm/kg (285-295) 09/10/23 18:34 Calcium 9.5 mg/dL (8.5-10.5) 09/10/23 18:34 Magnesium 1.9 mg/dL (1.7-2.3) 09/10/23 18:34 Total Bilirubin 0.2 mg/dL (0.15-1.2) 09/10/23 18:34 AST 11 U/L (0-40) 09/10/23 18:34 ALT 14 U/L (0-41) 09/10/23 18:34 Alkaline Phosphatase 100 U/L (40-130) 09/10/23 18:34 Creatine Kinase 102 U/L (39-308) 09/10/23 18:34 Total Protein 7.7 g/dL (6.6-8.7) 09/10/23 18:34 Albumin 4.0 g/dL (3.5-5.2) 09/10/23 18:34 Globulin 3.7 g/dL (1.3-4.6) 09/10/23 18:34 TSH 0.86 uIU/mL (0.27-4.20) 09/10/23 18:34 Prolactin 20.14 ng/mL (4.0-15.2) H 09/10/23 18:34 Urine Color Yellow (Yellow) 09/10/23 19:40 Urine Appearance Clear (CLEAR) 09/10/23 19:40 Urine pH 7 (5-7) 09/10/23 19:40 Ur Specific Celestine 1.010 (1.005-1.030) 09/10/23 19:40 Urine Protein Neg (Negative) 09/10/23 19:40 Urine Glucose (UA) Norm (Normal) 09/10/23 19:40 Urine Ketones Negative (Negative) 09/10/23 19:40 Urine Blood Neg (Negative) 09/10/23 19:40 Urine Nitrate Negative (Negative) 09/10/23 19:40 Urine Bilirubin Neg (Negative) 09/10/23 19:40 Urine Urobilinogen Norm mg/dL (Negative) 09/10/23 19:40 Ur Leukocyte Esterase Negative (Negative) 09/10/23 19:40 Urine Opiates Screen Negative ng/mL (Negative) 09/10/23 19:40 Ur Barbiturates Screen Negative ng/mL (Negative) 09/10/23 19:40 Ur Phencyclidine Scrn Negative ng/mL (Negative) 09/10/23 19:40 Ur Amphetamines Screen Negative ng/mL (Negative) 09/10/23 19:40 U Benzodiazepines Scrn Negative ng/mL (Negative) 09/10/23 19:40 Urine Cocaine Screen Negative ng/mL (Negative) 09/10/23 19:40 U Marijuana (THC) Screen Negative ng/mL (Negative) 09/10/23 19:40 All radiology interpretation(s) finalized by discharge Discharge Plan Discharge Patient Disposition: Home Clinical Impression: Generalized seizure Condition: Stable Prescriptions: No Action acetaminophen [Tylenol] 325 mg Tablet 650 mg feeding tube Q6H PRN (Reason: Pain) levetiracetam [Keppra] 500 mg Tablet 500 mg PO Q12H famotidine 20 mg Tablet 20 mg feeding tube DAILY magnesium hydroxide [Milk of Magnesia] 400 mg/5 mL Suspension 30 ml PO DAILY PRN (Reason: Constipation) tamsulosin [Flomax] 0.4 mg Capsule 0.4 mg PO BEDTIME amlodipine 10 mg Tablet 10 mg feeding tube DAILY bisacodyl [Dulcolax (bisacodyl)] 10 mg Suppository 10 mg RI QPM PRN (Reason: Constipation) metoprolol tartrate 50 mg Tablet 50 mg feeding tube BID Fleet Enema 19-7 gram/118 mL Enema 118 ml RI BEDTIME PRN (Reason: Constipation) Jevity 1.5 Luke 0.06 gram-1.5 kcal/mL Liquid See Rx Instructions .ROUTE .COMPLEX PRN (Reason: NUTRITION) Rx Instructions: 60ML/HR TUBE EVERY SHIFT FOR NPO lactulose 20 gram/30 mL Solution 30 ml feeding tube BEDTIME [id number]-[id number] gluconate 9 mg iron/ 15 mL (15 mL) Liquid 15 ml feeding tube TID albuterol sulfate 2.5 mg /3 mL (0.083 %) Solution For Nebulization 2.5 mg INHALATION Q6H PRN (Reason: Shortness Of Breath Or Wheezing) hydrocodone-acetaminophen 5-325 mg Tablet 1 tab feeding tube Q6H PRN (Reason: Pain) ProSource 10-100 gram-kcal/30 mL Liquid 1 ea feeding tube DAILY Lexapro 10 mg Tablet 10 mg PO DAILY Augmentin 875-125 mg Tablet 1 tab PO BID ashwagandha root extract 300 mg Tablet 300 mg PO TID mupirocin 2 % ointment 1 applic topical BID Qty: 15 0RF Discharge Orders: Discharge ED (Routine); Ordered 09/10/23 Ordered By: Jus Beltran Referrals: Chong Grace MD [Primary Care Provider] - 1 week Patient Instructions: Seizures Activity Restrictions/Additional Instructions: Thank you for choosing [facility] for your healthcare needs today. Please realize that you were seen in the emergency department and that we are providing you with an emergency medical screening exam and this may not be a complete and all exclusive of all testing and/or medical workup we may need to determine your element or severity of your illness. It is very important that you follow-up as instructed with your primary care provider or specialist for the additional evaluation and to discuss your medical treatment plan. You may return to the emergency department should you have concerns or if your condition changes or worsens in any way. Coding Level of Care Code ED It Sales Executive for Tere Saavedra
--- NOTE | 2023-09-10 18:14 | XRR_ITS ---
PROCEDURE INFORMATION: Exam: XR Chest Exam date and time: 09/10/2023 6:39 PM Age: 52 years old Clinical indication: Other: Seizure TECHNIQUE: Imaging protocol: Radiologic exam of the chest. Views: 1 view. COMPARISON: CR XR chest 1V portable [id number] 12/20/2022 4:14 PM FINDINGS: Tubes, catheters and devices: Catheter overlies the right lower neck, right chest, and right hemiabdomen coursing inferiorly out of field of view. Lungs: The lungs are hypoexpanded. No focal consolidations. Mild left basilar atelectasis. Pleural spaces: No pleural effusions or pneumothorax. Heart/Mediastinum: Unremarkable. No cardiomegaly. Bones/joints: No acute osseous findings. XR/XR chest 1V portable [id number] IMPRESSION: Minimal left basilar atelectasis.
--- NOTE | 2023-09-10 18:14 | CTR_ITS ---
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 TECHNIQUE: Imaging protocol: Computed tomography of the head without contrast. Radiation optimization: All CT scans at this facility use at least one of these dose optimization techniques: automated exposure control; mA and/or kV adjustment per patient size (includes targeted exams where dose is matched to clinical indication); or iterative reconstruction. COMPARISON: CT head wo con* [id number] 09/06/2023 9:02 AM RADIATION DOSE METRICS: Total DLP (mGy-cm): 1114.19 FINDINGS: Brain: No evidence of intracranial hemorrhage or territorial infarction. Chronic infarct involving right thalamus. Mild microangiopathy in global cerebral volume loss. Cerebral ventricles: Right frontal approach catheter tip terminates near the foramina of Monro, similar compared to prior. No hydrocephalus. Decrease in caliber of the ventricular system compared to prior head CT September 06, 2023 , most notable within the temporal horns of the lateral ventricles. Paranasal sinuses: Visualized sinuses are unremarkable. No fluid levels. Mastoid air cells: Visualized mastoid air cells are well aerated. Bones: Unremarkable. No acute fracture. Soft tissues: Unremarkable. CT/CT head wo con* [id number] IMPRESSION: 1. No evidence of intracranial hemorrhage or territorial infarction. 2. Right frontal approach catheter tip terminates near the foramina of Monro, similar compared to prior. 3. No hydrocephalus. Decrease in caliber of the ventricular system compared to prior head CT September 06, 2023
[2023-09-10 18:33] VITALS: BP 158/108; PULSE 58; O2SAT 98
[2023-09-10 18:39] LABS: Basophils # 0.1 10^3/uL (0.0-0.1); Eosinophils # 0.5 10^3/uL (0.0-0.8); Eosinophils % 6.2 %; Hematocrit 39.4 % (37-53); Lymphocytes # 2.2 10^3/uL (0.8-4.8); Mean Corpuscular Hemoglobin 28.3 pg (27-33); Mean Corpuscular Volume 88.3 fl (82-101); Mean Platelet Volume 10.3 fL (7.4-10.4); Monocytes # 0.7 10^3/uL (0.2-0.9); Monocytes % 8.9 %; Neutrophils # 4.59 10^3/uL (1.8-7.7); Neutrophils % 56.7 %; Nucleated Red Blood Cells % 0 %; Platelet Count 256 10^3/cmm (157-399); Red Blood Count 4.46 10^6/uL (3.85-5.65); Red Cell Distribution Width 13.3 % (12.1-15.1)
[2023-09-10 19:06] LABS: Alanine Aminotransferase 14 U/L (0-41); Alkaline Phosphatase 100 U/L (40-130); Anion Gap 14.9 (5-19); Aspartate Amino Transferase 11 U/L (0-40); Blood Urea Nitrogen 12 mg/dL (6-20); Calcium 9.5 mg/dL (8.5-10.5); Carbon Dioxide 26 mmol/L (22-29); Chloride 104 mmol/L (98-107); Creatine Phosphokinase 102 U/L (39-308); Creatinine Clr Calc Pharmacy 92.8532; Globulin 3.7 g/dL (1.3-4.6); Glomerular Filtration Rate 78.8 mL/min (90-130); Glucose 91 mg/dL (65-115); Magnesium 1.9 mg/dL (1.7-2.3); Osmolality Calculated 291 mOsm/kg (285-295); Potassium 3.9 mmol/L (3.5-5.1); Prolactin 20.14 ng/mL (4.0-15.2); Sodium 141 mmol/L (136-145); Thyroid Stimulating Hormone 0.86 uIU/mL (0.27-4.20); Total Bilirubin 0.2 mg/dL (0.15-1.2); Total Protein 7.7 g/dL (6.6-8.7)
[2023-09-10 19:45] LABS: Add Urine Microscopic? NO; Charge for UA Resulting for Rev
[2023-09-10 19:49] LABS: Bilirubin Urine Neg (Negative); Blood Urine Neg (Negative); Glucose Urine UA Norm (Normal); Ketones Urine Negative (Negative); Leukocyte Esterase Urine Negative (Negative); Nitrate Urine Negative (Negative); Protein Urine Neg (Negative); Urine Appearance Clear (CLEAR); Urine Color Yellow (Yellow); Urobilinogen Urine Norm (Negative); pH Urine 7 (5-7)
[2023-09-10 19:55] LABS: Amphetamines Screen Urine Negative (Negative); Barbiturates Screen Urine Negative (Negative); Benzodiazepines Screen Urine Negative (Negative); Cocaine Screen Urine Negative (Negative); Opiate Screen Urine Negative (Negative); PCP Screen Urine Negative (Negative); THC Screen Urine Negative (Negative)
[2023-09-10 20:45] VITALS: PULSE 62; RESP 16; O2SAT 98
[2023-09-10 21:15] VITALS: BP 175/101; PULSE 60; RESP 15; O2SAT 97
[2023-09-10 21:45] VITALS: BP 158/119; PULSE 65; RESP 16; O2SAT 98
[2023-09-10 22:15] VITALS: BP 174/108; PULSE 73; RESP 15; O2SAT 98
== END 2023-09-10 22:30 | disposition home or self-care (01) ==
PROVIDERS: Emergency Provider Emergency Medicine; PCP Internal Medicine
DX: G40.89 Other seizures (principal); Z86.73 Personal history of transient ischemic attack (TIA), and cerebral infarction without residual deficits
CPT/HCPCS: 36415; 70450; 71045; 80053; 80306; 81003; 82550; 83735; 84146; 84443; 85025; 99285

== ENCOUNTER → 2023-09-11 08:39 | Outpatient (BNVA) | payer MEDICAID, SELFPAY | PROVIDERS: PCP Internal Medicine; Referring Provider Internal Medicine; Visit Provider Psychiatry & Neurology Neurology | DX: R56.9 Unspecified convulsions (principal); I69.354 Hemiplegia and hemiparesis following cerebral infarction affecting left non-dominant side; I69.398 Other sequelae of cerebral infarction | CPT/HCPCS: 36415; 80177; 99203 ==

== ENCOUNTER 2023-09-13 20:01 | Emergency (ER) | payer MEDICAID, SELFPAY ==
[2023-09-13 20:03] VITALS: BP 133/93; PULSE 84; RESP 20; TEMP 36.8; O2SAT 95; BMI 23.7
--- NOTE | 2023-09-13 20:10 | ED_ITS ---
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 He has a long history of seizures as well he was seen here 3 days ago for seizure he had 2 seizures at care home tonight he is given Valium there. Patient is now awake he has no complaints with me he is able to tell me his name. The only thing he complains of is pain in his hand where his IV is Associated symptoms: Deny chest pain, chills or fever(s) Review of Systems 2 Const: Denies: fever(s), chills, body aches or change in appetite ENMT: Denies: throat pain or dental pain Card: Denies: chest pain Resp: Denies: dyspnea GI: Denies: abdominal pain, nausea, vomiting or diarrhea Musc: Denies: neck pain or back pain Skin/Breast: Denies: rash Neuro: Reports: seizure-like activity; Denies: headache(s) PFSH ED 2 PFSH: Medical History Seizure CVA (cerebral vascular accident) Social History Smoking and tobacco/nicotine status: former use of tobacco/nicotine Physical Exam 2 Const: COMMON NORMALS: patient oriented x3 HENMT: COMMON NORMALS: normocephalic and atraumatic HEAD & SCALP: n ormocephalic and atraumatic Eye: COMMON NORMALS: Equal, round and reactive pupils present PUPIL: Yes Equal, round and reactive pupils present OTHER: Gaze deviation to the right Neck/C-Spine: COMMON NORMALS: full ROM and supple Chest: COMMONS NORMALS: normal inspection of the chest and normal palpation of entire chest wall Resp: COMMON NORMALS: normal respiratory effort, No retractions, No use of accessory muscles and clear to auscultation bilaterally AUSCULTATION: clear to auscultation bilaterally Cardio: COMMON NORMALS: regular rate, regular rhythm and No murmurs present (Cardio) RATE: regular rate RHYTHM: regular rhythm GI: COMMON NORMALS: Normal to inspection, nondistended, normoactive bowel sounds present, Soft to palpation, non-tender and no masses PALPATION: Yes Soft to palpation Extremity: COMMON NORMALS: normal to inspection and full ROM Neuro: COMMON NORMALS: patient oriented x3 Psych: COMMON NORMALS: mental status grossly normal, Normal thought process present and cooperative THOUGHT PROCESS: Normal thought process present Skin: COMMON NORMALS: no rashes or lesions noted and no wounds GENERAL SKIN EXAM: no rashes or lesions noted Course 2 Vital Signs: Vital signs: Vital Signs Temperature 98.2 F 09/13/23 20:03 Pulse Rate 78 09/13/23 20:20 Respiratory Rate 20 H 09/13/23 20:03 Blood Pressure 138/92 09/13/23 20:20 Pulse Oximetry 97 09/13/23 20:20 Oxygen Delivery Me thod Room Air 09/13/23 20:20 MDM - Seizure MDM Narrative Medical decision making narrative: Patient presents here with a seizure he is at his baseline currently labs CT is normal he stable for discharge. Lab Data 09/13/23 20:10 09/13/23 20:10 Labs: Laboratory Results WBC 10.36 10^3/uL (3.29-11.43) 09/13/23 20:10 RBC 4.26 10^6/uL (3.85-5.65) 09/13/23 20:10 Hgb 12.10 g/dL (11.27-16.99) 09/13/23 20:10 Hct 37.6 % (37-53) 09/13/23 20:10 MCV 88.3 fl (82-101) 09/13/23 20:10 MCH 28.4 pg (27-33) 09/13/23 20:10 MCHC 32.2 g/dL (30-55) 09/13/23 20:10 RDW 13.5 % (12.1-15.1) 09/13/23 20:10 Plt Count 262 10^3/cmm (157-399) 09/13/23 20:10 MPV 10.5 fL (7.4-10.4) H 09/13/23 20:10 Neut % (Auto) 69.4 % 09/13/23 20:10 Lymph % (Auto) 16.5 % 09/13/23 20:10 [place] % (Auto) 7.2 % 09/13/23 20:10 Eos % (Auto) 5.9 % 09/13/23 20:10 Baso % (Auto) 0.7 % 09/13/23 20:10 Neut # (Auto) 7.19 10^3/uL (1.8-7.7) 09/13/23 20:10 Lymph # (Auto) 1.7 10^3/uL (0.8-4.8) 09/13/23 20:10 [place] # (Auto) 0.8 10^3/uL (0.2-0.9) 09/13/23 20:10 Eos # (Auto) 0.6 10^3/uL (0.0-0.8) 09/13/23 20:10 Baso # (Auto) 0.1 10^3/uL (0.0-0.1) 09/13/23 20:10 Nucleated RBC % (auto) 0 % 09/13/23 20:10 Nucleated RBCs # 0.0 /100WBC 09/13/23 20:10 Sodium 143 mmol/L (136-145) 09/13/23 20:10 Potassium 3.9 mmol/L (3.5-5.1) 09/13/23 20:10 Chloride 103 mmol/L (98-107) 09/13/23 20:10 Carbon Dioxide 27 mmol/L (22-29) 09/13/23 20:10 Anion Gap 16.9 (5-19) 09/13/23 20:10 BUN 18 mg/dL (6-20) 09/13/23 20:10 Creatinine 0.9 mg/dL (0.7-1.2) 09/13/23 20:10 GFR Calculation 89.0 mL/min (90-130) L 09/13/23 20:10 Glucose 151 mg/dL (65-115) H 09/13/23 20:10 Calculated Osmolality 301 mOsm/kg (285-295) H 09/13/23 20:10 Calcium 9.3 mg/dL (8.5-10.5) 09/13/23 20:10 Total Bilirubin 0.2 mg/dL (0.15-1.2) 09/13/23 20:10 AST 11 U/L (0-40) 09/13/23 20:10 ALT 16 U/L (0-41) 09/13/23 20:10 Alkaline Phosphatase 101 U/L (40-130) 09/13/23 20:10 Total Protein 7.2 g/dL (6.6-8.7) 09/13/23 20:10 Albumin 3.9 g/dL (3.5-5.2) 09/13/23 20:10 Globulin 3.3 g/dL (1.3-4.6) 09/13/23 20:10 All radiology interpretation(s) finalized by discharge Discharge Plan Discharge Patient Disposition: Home Clinical Impression: Generalized seizure Condition: Stable Prescriptions: No Action levetiracetam [Keppra] 500 mg tablet 500 mg PO TID Qty: 90 3RF diazepam 5 mg/spray (0.1 mL) spray,non-aerosol 5 mg intranasal ONCE Qty: 2 2RF Rx Instructions: for seizures lasting greater than 2 minutes acetaminophen [Tylenol] 325 mg Tablet 650 mg feeding tube Q6H PRN (Reason: Pain) famotidine 20 mg Tablet 20 mg feeding tube DAILY magnesium hydroxide [Milk of Magnesia] 400 mg/5 mL Suspension 30 ml PO DAILY PRN (Reason: Constipation) tamsulosin [Flomax] 0.4 mg Capsule 0.4 mg PO BEDTIME amlodipine 10 mg Tablet 10 mg feeding tube DAILY bisacodyl [Dulcolax (bisacodyl)] 10 mg Suppository 10 mg IN QPM PRN (Reason: Constipation) metoprolol tartrate 50 mg Tablet 50 mg feeding tube BID Fleet Enema 19-7 gram/118 mL Enema 118 ml IN BEDTIME PRN (Reason: Constipation) Jevity 1.5 Luke 0.06 gram-1.5 kcal/mL Liquid See Rx Instructions .ROUTE .COMPLEX PRN (Reason: NUTRITION) Rx Instructions: 60ML/HR TUBE EVERY SHIFT FOR NPO lactulose 20 gram/30 mL Solution 30 ml feeding tube BEDTIME [id number] gluconate 9 mg iron/ 15 mL (15 mL) Liquid 15 ml feeding tube TID albuterol sulfate 2.5 mg /3 mL (0.083 %) Solution For Nebulization 2.5 mg INHALATION Q6H PRN (Reason: Shortness Of Breath Or Wheezing) hydrocodone-acetaminophen 5-325 mg Tablet 1 tab feeding tube Q6H PRN (Reason: Pain) ProSource 10-100 gram-kcal/30 mL Liquid 1 ea feeding tube DAILY Lexapro 10 mg Tablet 10 mg PO DAILY Augmentin 875-125 mg Tablet 1 tab PO BID ashwagandha root extract 300 mg Tablet 300 mg PO TID mupirocin 2 % ointment 1 applic topical BID Qty: 15 0RF Discharge Orders: Discharge ED (Routine); Ordered 09/13/23 Ordered By: Feli Dempsey Referrals: Chong Grace MD [Primary Care Provider] - Discharge Diet: Advance as tolerated Discharge Activity: Resume usual activity Patient Instructions: Recurrent Seizures in Adults (ED) Coding Level of Care Code ED Supervisor [employer] for Tere Saavedra
--- NOTE | 2023-09-13 20:12 | CTR_ITS ---
PROCEDURE INFORMATION: Exam: CT Head Without Contrast Exam date and time: 09/13/2023 8:26 PM Age: 52 years old Clinical indication: Other: Seizure; Prior surgery; Surgery date: 6+ months; Surgery type: Shunt TECHNIQUE: Imaging protocol: Computed tomography of the head without contrast. Radiation optimization: All CT scans at this facility use at least one of these dose optimization techniques: automated exposure control; mA and/or kV adjustment per patient size (includes targeted exams where dose is matched to clinical indication); or iterative reconstruction. COMPARISON: CT head wo con* [id number] 09/10/2023 7:56 PM RADIATION DOSE METRICS: Total DLP (mGy-cm): 1155.45 FINDINGS: Brain: No acute intracranial hemorrhage or territorial infarction. Chronic infarct involving the right thalamus. Mild microangiopathy and global cerebral volume loss. Cerebral ventricles: Right frontal approach shunt catheter tip terminates near the foramina Gonsales, similar compared to prior. The right lateral ventricle is asymmetrically collapsed compared to the left, similar compared to prior. No hydrocephalus. Paranasal sinuses: Visualized sinuses are unremarkable. No fluid levels. Mastoid air cells: Visualized mastoid air cells are well aerated. Bones: Unremarkable. No acute fracture. Soft tissues: Unremarkable. CT/CT head wo con* [id number] IMPRESSION: 1. Unchanged position of a right frontal approach shunt catheter tip terminates near the foramina Gonsales. The right lateral ventricle is asymmetrically collapsed compared to the left, similar compared to prior. No hydrocephalus. 2. No acute intracranial hemorrhage or territorial infarction.
[2023-09-13] MEDS: levETIRAcetam 1,000 MG/100 ML PREMIX 400 MG IV (20:13)
[2023-09-13 20:20] VITALS: BP 138/92; PULSE 78; O2SAT 97
[2023-09-13 20:38] VITALS: RESP 16; O2SAT 97
[2023-09-13 20:38] LABS: Basophils # 0.1 10^3/uL (0.0-0.1); Basophils % 0.7 %; Eosinophils # 0.6 10^3/uL (0.0-0.8); Eosinophils % 5.9 %; Hematocrit 37.6 % (37-53); Lymphocytes # 1.7 10^3/uL (0.8-4.8); Lymphocytes % 16.5 %; Mean Corpuscular HGB Conc 32.2 g/dL (30-55); Mean Corpuscular Hemoglobin 28.4 pg (27-33); Mean Corpuscular Volume 88.3 fl (82-101); Mean Platelet Volume 10.5 fL (7.4-10.4); Monocytes # 0.8 10^3/uL (0.2-0.9); Monocytes % 7.2 %; Neutrophils # 7.19 10^3/uL (1.8-7.7); Neutrophils % 69.4 %; Nucleated Red Blood Cells % 0 %; Platelet Count 262 10^3/cmm (157-399); Red Blood Count 4.26 10^6/uL (3.85-5.65); Red Cell Distribution Width 13.5 % (12.1-15.1); White Blood Count 10.36 10^3/uL (3.29-11.43)
[2023-09-13 20:56] LABS: Alanine Aminotransferase 16 U/L (0-41); Albumin Level 3.9 g/dL (3.5-5.2); Alkaline Phosphatase 101 U/L (40-130); Anion Gap 16.9 (5-19); Aspartate Amino Transferase 11 U/L (0-40); Blood Urea Nitrogen 18 mg/dL (6-20); Calcium 9.3 mg/dL (8.5-10.5); Carbon Dioxide 27 mmol/L (22-29); Chloride 103 mmol/L (98-107); Creatinine Clr Calc Pharmacy 104.4162; Globulin 3.3 g/dL (1.3-4.6); Glucose 151 mg/dL (65-115); Osmolality Calculated 301 mOsm/kg (285-295); Potassium 3.9 mmol/L (3.5-5.1); Sodium 143 mmol/L (136-145); Total Bilirubin 0.2 mg/dL (0.15-1.2); Total Protein 7.2 g/dL (6.6-8.7)
[2023-09-13 21:08] VITALS: PULSE 78; RESP 16; O2SAT 98
[2023-09-13 22:04] VITALS: PULSE 70; RESP 13; O2SAT 94
[2023-09-13 22:05] VITALS: BP 152/104; PULSE 70; RESP 13; TEMP 36.8; O2SAT 94
[2023-09-14] VITALS: BP 155/105; PULSE 72; RESP 16; O2SAT 96
[2023-09-14] MEDS: hyDRALAzine 20 mg/mL INJ 1 mL 10 MG IVP (00:53)
[2023-09-14 01:00] VITALS: BP 156/111; PULSE 82; RESP 18; O2SAT 96
[2023-09-14 01:30] VITALS: BP 151/105; PULSE 76; RESP 16; O2SAT 93
[2023-09-14 02:00] VITALS: BP 151/110; PULSE 80; RESP 13; O2SAT 95
[2023-09-14 02:30] VITALS: BP 151/106; PULSE 73; RESP 16; O2SAT 97
== END 2023-09-14 04:41 | disposition home or self-care (01) ==
PROVIDERS: Emergency Provider Emergency Medicine; PCP Internal Medicine
DX: G40.89 Other seizures (principal); Z86.73 Personal history of transient ischemic attack (TIA), and cerebral infarction without residual deficits; Z87.891 Personal history of nicotine dependence
CPT/HCPCS: 70450; 80053; 85025; 96365; 96375; 99285; J0360; J1953

== ENCOUNTER → 2023-11-02 08:51 | Outpatient (BNVA) | payer MEDICAID, SELFPAY | PROVIDERS: PCP Internal Medicine; Visit Provider Specialist | DX: R56.9 Unspecified convulsions (principal); I69.352 Hemiplegia and hemiparesis following cerebral infarction affecting left dominant side; I63.9 Cerebral infarction, unspecified | CPT/HCPCS: 99214; 99215 ==

== ENCOUNTER → 2023-11-08 13:56 | Outpatient (BNVA) | payer MEDICAID, SELFPAY | PROVIDERS: PCP Internal Medicine; Referring Provider Internal Medicine; Visit Provider Psychiatry & Neurology Neurology | DX: R56.9 Unspecified convulsions (principal) | CPT/HCPCS: 95819 ==

== ENCOUNTER 2023-12-11 20:11 | Emergency (ER) | payer MEDICAID, SELFPAY ==
[2023-12-11 20:16] VITALS: BP 142/93; PULSE 67; RESP 14; TEMP 36.7; O2SAT 95; BMI 22.3
--- NOTE | 2023-12-11 20:16 | XRR_ITS ---
PROCEDURE INFORMATION: Exam: XR Chest Exam date and time: 12/11/2023 8:21 PM Age: 52 years old Clinical indication: Other: Seizure TECHNIQUE: Imaging protocol: Radiologic exam of the chest. Views: 1 view. COMPARISON: CR XR chest 1V portable [id number] 09/10/2023 6:39 PM FINDINGS: Tubes, catheters and devices: Stable partially imaged BUSINESS APPLICATIONS ANALYST shunt catheter overlying the right neck and right hemithorax. Lungs: Low lung volumes with scattered hypoventilatory changes including left basilar atelectasis. No focal consolidation. Pleural spaces: Unremarkable. No pleural effusion. No pneumothorax. Heart/Mediastinum: Unremarkable. No cardiomegaly. Bones/joints: Unremarkable. XR/XR chest 1V portable [id number] IMPRESSION: Low lung volumes. No acute cardiopulmonary findings.
[2023-12-11 20:28] VITALS: BP 142/93; PULSE 68; RESP 16; O2SAT 95
--- NOTE | 2023-12-11 20:40 | ED_ITS ---
HPI - Seizure 2 General: Chief Complaint: Seizure Stated Complaint: SEIZURES Time Seen by Provider: 12/11/23 20:13 History of Present Illness: HPI Narrative: Patient presents to the ER by EMS with history of seizures. Patient is coming from [facility]. Patient did receive 5 mg IV Versed per EMS. EMS stated she had yolks gave him something for nasal procedures and did not work. Patient does have a history of seizures. They did not state patient had any coughs colds fevers chills other overt sickness symptoms. Related Data Home Medications Medication Instructions Recorded Confirmed acetaminophen 325 mg tablet 650 mg feeding tube Q6H PRN Pain 11/04/22 11/08/23 (Tylenol) amlodipine 10 mg tablet 10 mg feeding tube DAILY 11/04/22 11/08/23 bisacodyl 10 mg rectal suppository 10 mg CA QPM PRN Constipation 11/04/22 11/08/23 (Dulcolax (bisacodyl)) famotidine 20 mg tablet 20 mg feeding tube DAILY 11/04/22 11/08/23 lactose-reduced food with fiber See Rx Instructions .Route 11/04/22 11/08/23 0.06 gram-1.5 kcal/mL oral liquid .COMPLEX PRN NUTRITION (Jevity 1.5 Luke) lactulose 20 gram/30 mL oral 30 ml feeding tube BEDTIME 11/04/22 11/08/23 solution magnesium hydroxide 400 mg/5 mL 30 ml PO DAILY PRN Constipation 11/04/22 11/08/23 oral suspension (Milk of Magnesia) metoprolol tartrate 50 mg tablet 50 mg feeding tube BID 11/04/22 11/08/23 kkoswufl-pugs-ryjygsn gluconate 9 15 ml feeding tube TID 11/04/22 11/08/23 mg iron/15 mL (15 mL) oral liquid sodium phosphates 19 gram-7 118 ml CA BEDTIME PRN Constipation 11/04/22 11/08/23 gram/118 mL enema (Fleet Enema) tamsulosin 0.4 mg capsule (Flomax) 0.4 mg PO BEDTIME 11/04/22 11/08/23 albuterol sulfate 2.5 mg/3 mL 2.5 mg inhalation Q6H PRN 12/21/22 11/08/23 (0.083 %) solution for nebulization Shortness Of Breath Or Wheezing amino ac-protein hydro-whey 1 ea feeding tube DAILY 12/21/22 11/08/23 protein 10 gram-100 kcal/30 mL oral liquid (ProSource) hydrocodone 5 mg-acetaminophen 325 1 tab feeding tube Q6H PRN Pain 12/21/22 11/08/23 mg tablet amoxicillin 875 mg-potassium 1 tab PO BID 09/06/23 11/08/23 clavulanate 125 mg tablet ashwagandha root extract 300 mg 300 mg PO TID 09/06/23 11/08/23 tablet escitalopram oxalate 10 mg tablet 10 mg PO DAILY 09/06/23 11/08/23 (Lexapro) Previous Rx's Medication Instructions Recorded mupirocin 2 % topical ointment 1 applic topical BID #15 grams 09/06/23 levetiracetam 500 mg tablet 500 mg PO TID #90 tabs 09/11/23 (Keppra) diazepam 5 mg/spray (0.1 mL) nasal 5 mg (0.1 mL) intranasal ONCE #2 10/29/23 spray sprays Allergies Allergy/AdvReac Type Severity Reaction Status Date / Time No Known Allergies Allergy Verified 11/08/23 16:50 Review of Systems 2 General: Reports: 10 or more systems reviewed and unremarkable except in HPI and below PFSH ED 2 PFSH: Medical History Seizure CVA (cerebral vascular accident) Social History Smoking and tobacco/nicotine status: never used tobacco/nicotine Physical Exam 2 Const: COMMON NORMALS: no acute distress, average body habitus, alert and well nourished HENMT: COMMON NORMALS: normocephalic, atraumatic, hearing grossly normal bilaterally, external ears normal and moist oral mucous membranes HEAD & SCALP: normocephalic and atraumatic EXTERNAL EAR: Yes external ears normal Eye: GENERAL EYE: appearance normal, both eyes and all related structures and normal light reflex DIRECT OPHTHALMOSCOPY: Yes normal light reflex Neck/C-Spine: COMMON NORMALS: no JVD Chest: COMMONS NORMALS: normal inspection of the chest and normal palpation of entire chest wall Resp: COMMON NORMALS: normal respiratory effort, No retractions, No use of accessory muscles and clear to auscultation bilaterally AUSCULTATION: clear to auscultation bilaterally Cardio: COMMON NORMALS: no JVD, regular rate, regular rhythm, S1 normal heart sound present, S2 normal heart sound present, No gallops present (Cardio), No clicks present (Cardio), No murmurs present (Cardio) and No rub (Cardio) R ATE: regular rate RHYTHM: regular rhythm HEART SOUNDS: S1 normal heart sound present and S2 normal heart sound present GI: COMMON NORMALS: Normal to inspection, nondistended, normoactive bowel sounds present, Soft to palpation, non-tender, No hepatosplenomegaly present and no masses PALPATION: Yes Soft to palpation and Yes No hepatosplenomegaly present Neuro: SENSORIUM/ORIENTATION: Yes alert Course 2 Vital Signs: Vital signs: Vital Signs Temperature 98.1 F 12/11/23 20:16 Pulse Rate 48 L 12/11/23 23:04 Respiratory Rate 18 12/11/23 23:04 Blood Pressure 162/87 12/11/23 23:04 Pulse Oximetry 96 12/11/23 23:04 Oxygen Delivery Me thod Room Air 12/11/23 20:28 MDM - Seizure MDM Narrative Medical decision making narrative: Patient presented to the ER by EMS postictal from a seizure. Patient had lab work chest x-ray performed was all essentially unremarkable. Patient be discharged back to his facility. Lab Data 12/11/23 20:44 12/11/23 20:44 Labs: Radiology Impressions Chest X-Ray 12/11/23 20:16 IMPRESSION: Low lung volumes. No acute cardiopulmonary findings. Laboratory Results WBC 8.51 10^3/uL (3.29-11.43) 12/11/23 20:44 RBC 4.61 10^6/uL (3.85-5.65) 12/11/23 20:44 Hgb 12.60 g/dL (11.27-16.99) 12/11/23 20:44 Hct 39.6 % (37-53) 12/11/23 20:44 MCV 85.9 fl (82-101) 12/11/23 20:44 MCH 27.3 pg (27-33) 12/11/23 20:44 MCHC 31.8 g/dL (30-55) 12/11/23 20:44 RDW 13.5 % (12.1-15.1) 12/11/23 20:44 Plt Count 246 10^3/cmm (157-399) 12/11/23 20:44 MPV 10.4 fL (7.4-10.4) 12/11/23 20:44 Neut % (Auto) 67.8 % 12/11/23 20:44 Lymph % (Auto) 20.7 % 12/11/23 20:44 [place] % (Auto) 8.2 % 12/11/23 20:44 Eos % (Auto) 2.4 % 12/11/23 20:44 Baso % (Auto) 0.8 % 12/11/23 20:44 Neut # (Auto) 5.77 10^3/uL (1.8-7.7) 12/11/23 20:44 Lymph # (Auto) 1.8 10^3/uL (0.8-4.8) 12/11/23 20:44 [place] # (Auto) 0.7 10^3/uL (0.2-0.9) 12/11/23 20:44 Eos # (Auto) 0.2 10^3/uL (0.0-0.8) 12/11/23 20:44 Baso # (Auto) 0.1 10^3/uL (0.0-0.1) 12/11/23 20:44 Nucleated RBC % (auto) 0 % 12/11/23 20:44 Nucleated RBCs # 0.0 /100WBC 12/11/23 20:44 Sodium 138 mmol/L (136-145) 12/11/23 20:44 Potassium 4.1 mmol/L (3.5-5.1) 12/11/23 20:44 Chloride 102 mmol/L (98-107) 12/11/23 20:44 Carbon Dioxide 27 mmol/L (22-29) 12/11/23 20:44 Anion Gap 13.1 (5-19) 12/11/23 20:44 BUN 14 mg/dL (6-20) 12/11/23 20:44 Creatinine 1.1 mg/dL (0.7-1.2) 12/11/23 20:44 GFR Calculation 70.6 mL/min (90-130) L 12/11/23 20:44 Glucose 103 mg/dL (65-115) 12/11/23 20:44 Calculated Osmolality 287 mOsm/kg (285-295) 12/11/23 20:44 Calcium 9.1 mg/dL (8.5-10.5) 12/11/23 20:44 Magnesium 1.8 mg/dL (1.7-2.3) 12/11/23 20:44 Total Bilirubin 0.2 mg/dL (0.15-1.2) 12/11/23 20:44 AST 12 U/L (0-40) 12/11/23 20:44 ALT 14 U/L (0-41) 12/11/23 20:44 Alkaline Phosphatase 108 U/L (40-130) 12/11/23 20:44 Total Protein 7.0 g/dL (6.6-8.7) 12/11/23 20:44 Albumin 4.0 g/dL (3.5-5.2) 12/11/23 20:44 Globulin 3.0 g/dL (1.3-4.6) 12/11/23 20:44 Urine Color Yellow (Yellow) 12/11/23 21:47 Urine Appearance Clear (CLEAR) 12/11/23 21:47 Urine pH 7.0 (5-7) 12/11/23 21:47 Ur Specific [facility] 1.012 (1.005-1.030) 12/11/23 21:47 Urine Protein Negative (Negative) 12/11/23 21:47 Urine Glucose (UA) Negative (Normal) 12/11/23 21:47 Urine Ketones Negative (Negative) 12/11/23 21:47 Urine Blood Negative (Negative) 12/11/23 21:47 Urine Nitrate Negative (Negative) 12/11/23 21:47 Urine Bilirubin Negative (Negative) 12/11/23 21:47 Urine Urobilinogen 1.0 mg/dL (Negative) 12/11/23 21:47 Ur Leukocyte Esterase Negative (Negative) 12/11/23 21:47 Urine RBC 0-2 /hpf (0-2) 12/11/23 21:47 Urine WBC 0-5 /hpf (0-5) 12/11/23 21:47 Ur Squamous Epith Cells 0-5 /hpf (0-5) 12/11/23 21:47 Amorphous Sediment Not Reportable 12/11/23 21:47 Urine Bacteria None seen /hpf (NONE) 12/11/23 21:47 Hyaline Casts 2.87 /lpf 12/11/23 21:47 All radiology interpretation(s) finalized by discharge Discharge Plan Discharge Patient Disposition: Home Clinical Impression: Epileptic seizure Condition: Stable Prescriptions: No Action levetiracetam [Keppra] 500 mg tablet 500 mg PO TID Qty: 90 3RF diazepam 5 mg/spray (0.1 mL) spray,non-aerosol 5 mg intranasal ONCE Qty: 2 2RF Rx Instructions: for seizures lasting greater than 2 minutes acetaminophen [Tylenol] 325 mg Tablet 650 mg feeding tube Q6H PRN (Reason: Pain) famotidine 20 mg Tablet 20 mg feeding tube DAILY magnesium hydroxide [Milk of Magnesia] 400 mg/5 mL Suspension 30 ml PO DAILY PRN (Reason: Constipation) tamsulosin [Flomax] 0.4 mg Capsule 0.4 mg PO BEDTIME amlodipine 10 mg Tablet 10 mg feeding tube DAILY bisacodyl [Dulcolax (bisacodyl)] 10 mg Suppository 10 mg CA QPM PRN (Reason: Constipation) metoprolol tartrate 50 mg Tablet 50 mg feeding tube BID Fleet Enema 19-7 gram/118 mL Enema 118 ml CA BEDTIME PRN (Reason: Constipation) Jevity 1.5 Luke 0.06 gram-1.5 kcal/mL Liquid See Rx Instructions .ROUTE .COMPLEX PRN (Reason: NUTRITION) Rx Instructions: 60ML/HR TUBE EVERY SHIFT FOR NPO lactulose 20 gram/30 mL Solution 30 ml feeding tube BEDTIME rqbzhqcf-ltt-itwmdkx gluconate 9 mg iron/ 15 mL (15 mL) Liquid 15 ml feeding tube TID albuterol sulfate 2.5 mg /3 mL (0.083 %) Solution For Nebulization 2.5 mg INHALATION Q6H PRN (Reason: Shortness Of Breath Or Wheezing) hydrocodone-acetaminophen 5-325 mg Tablet 1 tab feeding tube Q6H PRN (Reason: Pain) ProSource 10-100 gram-kcal/30 mL Liquid 1 ea feeding tube DAILY Lexapro 10 mg Tablet 10 mg PO DAILY Augmentin 875-125 mg Tablet 1 tab PO BID ashwagandha root extract 300 mg Tablet 300 mg PO TID mupirocin 2 % ointment 1 applic topical BID Qty: 15 0RF Discharge Orders: Discharge ED (Routine); Ordered 12/11/23 Ordered By: Jus Beltran Referrals: Chong Grace MD [Primary Care Provider] - 1 week Patient Instructions: Seizures Activity Restrictions/Additional Instructions: Thank you for choosing [facility] for your healthcare needs today. Please realize that you were seen in the emergency department and that we are providing you with an emergency medical screening exam and this may not be a complete and all exclusive of all testing and/or medical workup we may need to determine your element or severity of your illness. It is very important that you follow-up as instructed with your primary care provider or specialist for the additional evaluation and to discuss your medical treatment plan. You may return to the emergency department should you have concerns or if your condition changes or worsens in any way. Coding Level of Care Code ED Senior Network Security Architect for Tere Saavedra
[2023-12-11 20:51] LABS: Basophils # 0.1 10^3/uL (0.0-0.1); Basophils % 0.8 %; Eosinophils # 0.2 10^3/uL (0.0-0.8); Eosinophils % 2.4 %; Hematocrit 39.6 % (37-53); Lymphocytes # 1.8 10^3/uL (0.8-4.8); Lymphocytes % 20.7 %; Mean Corpuscular HGB Conc 31.8 g/dL (30-55); Mean Corpuscular Hemoglobin 27.3 pg (27-33); Mean Corpuscular Volume 85.9 fl (82-101); Mean Platelet Volume 10.4 fL (7.4-10.4); Monocytes # 0.7 10^3/uL (0.2-0.9); Monocytes % 8.2 %; Neutrophils # 5.77 10^3/uL (1.8-7.7); Neutrophils % 67.8 %; Nucleated Red Blood Cells % 0 %; Platelet Count 246 10^3/cmm (157-399); Red Blood Count 4.61 10^6/uL (3.85-5.65); Red Cell Distribution Width 13.5 % (12.1-15.1); White Blood Count 8.51 10^3/uL (3.29-11.43)
[2023-12-11 21:07] LABS: Alanine Aminotransferase 14 U/L (0-41); Alkaline Phosphatase 108 U/L (40-130); Anion Gap 13.1 (5-19); Aspartate Amino Transferase 12 U/L (0-40); Blood Urea Nitrogen 14 mg/dL (6-20); Calcium 9.1 mg/dL (8.5-10.5); Carbon Dioxide 27 mmol/L (22-29); Chloride 102 mmol/L (98-107); Creatinine Clr Calc Pharmacy 83.3926; Glomerular Filtration Rate 70.6 mL/min (90-130); Glucose 103 mg/dL (65-115); Magnesium 1.8 mg/dL (1.7-2.3); Osmolality Calculated 287 mOsm/kg (285-295); Potassium 4.1 mmol/L (3.5-5.1); Sodium 138 mmol/L (136-145); Total Bilirubin 0.2 mg/dL (0.15-1.2)
--- NOTE | 2023-12-11 21:29 | ECG_ITS ---
[employer] Test Date: 2023-12-11 Pat Name: Travis Mckeon Department: Room: Gender: Male Bobbin Marker: : 1970 Requested By: Jus Beltran Order Number: [id number] Malone MD: Marisa Alegria M.D. Measurements Intervals [place] Rate: 68 P: 52 MI: 227 QRS: 10 QRSD: 98 T: 12 QT: 416 QTc: 444 Interpretive Statements SINUS RHYTHM WITH FIRST DEGREE AV BLOCK Compared to ECG 12/20/2022 18:56:18 First degree AV block now present Sinus tachycardia no longer present Electronically Signed On 12-12-2023 22:39:46 CDT by Marisa Alegria M.D. [email or web address]
[2023-12-11 21:58] LABS: Bilirubin Urine Negative (Negative); Blood Urine Negative (Negative); Glucose Urine UA Negative (Normal); Ketones Urine Negative (Negative); Leukocyte Esterase Urine Negative (Negative); Nitrate Urine Negative (Negative); Protein Urine Negative (Negative); Specific Gravity, Urine 1.012 (1.005-1.030); Urine Appearance Clear (CLEAR); Urine Color Yellow (Yellow)
[2023-12-11 22:06] LABS: Add Urine Microscopic? YES; Bacteria Urine None Seen /hpf; Hyaline Casts Urine 2.87 /lpf; RBC Urine 0-2 /hpf (0-2); Squamous Epithelial Cell Urine 0-5 /hpf (0-5); WBC Urine 0-5 /hpf (0-5)
[2023-12-11 22:23] VITALS: BP 134/87; PULSE 57; RESP 25; O2SAT 94
[2023-12-11 23:04] VITALS: BP 162/87; PULSE 48; RESP 18; O2SAT 96
[2023-12-11 23:37] LABS: Prolactin 19.69 ng/mL (4.0-15.2)
--- NOTE | 2023-12-12 00:06 | PC.NURSE ---
Report given to STEWART Pérez at [facility]. no further questions requested by [place] staff. awaiting ems ride at this time back to [facility].
[2023-12-12 00:28] VITALS: BP 129/86; PULSE 55; RESP 13; O2SAT 94
[2023-12-12 01:24] VITALS: BP 144/93; PULSE 95; RESP 16; O2SAT 95
== END 2023-12-12 01:00 | disposition home or self-care (01) ==
PROVIDERS: Emergency Provider Emergency Medicine; PCP Internal Medicine
DX: G40.909 Epilepsy, unspecified, not intractable, without status epilepticus (principal); Z79.899 Other long term (current) drug therapy
CPT/HCPCS: 36415; 71045; 80053; 81001; 83735; 84146; 85025; 93005; 99285

== ENCOUNTER 2023-12-27 08:58 | Inpatient (IN) | payer MEDICAID, SELFPAY ==
[2023-12-27] VITALS (28 sets, daily range): BP systolic 99–186; BP diastolic 67–143; PULSE 50–197; RESP 13–25; TEMP 36.8–37.9; O2SAT 92–96; BMI 30.7
--- NOTE | 2023-12-27 09:20 | CT_ITS ---
WS: [id number] CT HEAD TECHNIQUE: Noncontrast CT of the head obtained from the skullbase to the vertex. CLINICAL INFORMATION: AMS COMPARISON: CT 09/13/2023 DLP: 1176.[address] scans at [facility] use at least one of these dose optimization techniques: automated e xposure control; mA and/or kV adjustment per patient size (includes targeted exams where dose is matc hed to clinical indication); or iterative reconstruction. FINDINGS: RIGHT frontal shunt catheter with tip in the upper third ventricle near the foramen of Gonsales unchang ed compared to previous. Ventricular system is decompressed RIGHT greater than LEFT unchanged compare d to the prior examination. No evidence of new or progressive hydrocephalus. Low-attenuation change i n the RIGHT frontal parietal white matter is unchanged. Evidence of chronic lacunar infarcts in the R IGHT basal ganglia and thalamus as well as the midbrain appears unchanged. Wallerian degeneration RIG HT cerebral peduncle. No extra-axial fluid collections. Mastoid air cells are well aerated. Mild muco shane thickening RIGHT mastoid tip. Mild mucosal thickening in the paranasal sinuses. CT/CT head wo con* [id number] IMPRESSION: 1. Stable RIGHT frontal shunt catheter. 2. No new or progressive hydrocephalus 3. No other significant changes compared to previous
--- NOTE | 2023-12-27 09:20 | XR_ITS ---
WS: [id number] XR chest 1V portable [id number] REASON FOR EXAM: AMS FINDINGS: Left arm overlying the left lower left hemithorax. The chest appears stable compared to previous examination 12/11/2023. Moderate tortuosity and ectasia of the thoracic aorta heart size is at the upper limits of normal to mildly enlarged. Ventriculoperitoneal shunt tubing overlying the right chest and extending into the r ight upper quadrant and then inferiorly along the right flank and coming back into the right upper ab domen. XR/XR chest 1V portable [id number] IMPRESSION: No acute chest abnormality. The ventricular peritoneal shunt tubing is tortuous in the peritoneal cavity wi thout kinking or fracture.
--- NOTE | 2023-12-27 09:20 | ECG_ITS ---
[email or web address]23-12[facility]27 Pat Name: Travis Mckeon Department: Room: Gender: Male Institutional Research Coordinator: : 1970 Requested By: Frantz Hodges Order Number: [id number] Faisal MD: Marisa Alegria M.D. Measurements Intervals [place] Rate: 69 P: 44 MN: 188 QRS: 25 QRSD: 103 T: -20 QT: 297 QTc: 318 Interpretive Statements SINUS RHYTHM NONSPECIFIC T-WAVE ABNORMALITY INTERPRETATION BASED ON A DEFAULT AGE OF 40 YEARS Compared to ECG 12/11/2023 21:29:58 T-wave abnormality now present First degree AV block no longer present Electronically Signed On 12-27-2023 21:39:34 INTERNATIONAL PROJECT ENGINEER by Marisa Alegria M.D. [email or web address]
--- NOTE | 2023-12-27 09:22 | ED_ITS ---
HPI - General Adult 2 General: Chief complaint: General Medical Stated complaint: ams, possible seizures Time Seen by Provider: 12/27/23 09:06 History of Present Illness: 53-year-old male with a history of nontr aumatic brain bleed. He presents from the [place] [facility] with altered mental status although he is nonverbal. They reported he had a fever but he was afebrile when he arrived here he did have a seizure and route and was given Ativan. His initial rhythm strip looked very concerning however it is due to a constant tremor that he has. He briefly look like he was having sustained V. tach however when the tremor is controlled his heart rate is actually normal sinus rhythm in the 70s. No other information forwarded from [place]. Associated symptoms: Deny chest pain, dyspnea or rash Related Data Home Medications Medication Instructions Recorded Confirmed acetaminophen 325 mg tablet 650 mg feeding tube Q6H PRN Pain 11/04/22 12/27/23 (Tylenol) amlodipine 10 mg tablet 10 mg feeding tube DAILY 11/04/22 12/27/23 bisacodyl 10 mg rectal suppository 10 mg RI QPM PRN Constipation 11/04/22 12/27/23 (Dulcolax (bisacodyl)) famotidine 20 mg tablet 20 mg feeding tube DAILY 11/04/22 12/27/23 lactose-reduced food with fiber See Rx Instructions .Route 11/04/22 12/27/23 0.06 gram-1.5 kcal/mL oral liquid .COMPLEX PRN NUTRITION (Jevity 1.5 Luke) lactulose 20 gram/30 mL oral 30 ml feeding tube BEDTIME 11/04/22 12/27/23 solution magnesium hydroxide 400 mg/5 mL 30 ml PO DAILY PRN Constipation 11/04/22 12/27/23 oral suspension (Milk of Magnesia) yzuhlbff-ashc-lifpfis gluconate 9 15 ml feeding tube TID 11/04/22 12/27/23 mg iron/15 mL (15 mL) oral liquid sodium phosphates 19 gram-7 118 ml RI BEDTIME PRN Constipation 11/04/22 12/27/23 gram/118 mL enema (Fleet Enema) tamsulosin 0.4 mg capsule (Flomax) 0.4 mg PO BEDTIME 11/04/22 12/27/23 albuterol sulfate 2.5 mg/3 mL 2.5 mg inhalation Q6H PRN 12/21/22 12/27/23 (0.083 %) solution for nebulization Shortness Of Breath Or Wheezing amino ac-protein hydro-whey 1 ea feeding tube DAILY 12/21/22 12/27/23 protein 10 gram-100 kcal/30 mL oral liquid (ProSource) hydrocodone 5 mg-acetaminophen 325 1 tab feeding tube Q6H PRN Pain 12/21/22 12/27/23 mg tablet ashwagandha root extract 300 mg 300 mg PO TID 09/06/23 12/27/23 tablet escitalopram oxalate 10 mg tablet 10 mg PO DAILY 09/06/23 12/27/23 (Lexapro) lamotrigine 100 mg tablet 100 mg PO BID 12/27/23 12/27/23 metoprolol tartrate 100 mg tablet 100 mg PO BID 12/27/23 12/27/23 potassium chloride 10 mEq 10 meq PO BID 12/27/23 12/27/23 capsule,extended release zonisamide 100 mg capsule 200 mg PO DAILY 12/27/23 12/27/23 Previous Rx's Medication Instructions Recorded levetiracetam 500 mg tablet 500 mg PO TID #90 tabs 09/11/23 (Keppra) diazepam 5 mg/spray (0.1 mL) nasal 5 mg (0.1 mL) intranasal ONCE #2 10/29/23 spray sprays Allergies Allergy/AdvReac Type Severity Reaction Status Date / Time No Known Allergies Allergy Verified 11/08/23 16:50 Review of Systems 2 Const: Denies: fever(s) or chills Card: Denies: chest pain Resp: Denies: dyspnea GI: Denies: abdominal pain : Denies: dysuria, urinary frequency or urinary urgency Musc: Denies: neck pain or back pain Skin/Breast: Denies: rash PFSH ED 2 PFSH: Medical History Seizure CVA (cerebral vascular accident) Social History Smoking and tobacco/nicotine status: never used tobacco/nicotine Physical Exam 2 Const: ORIENTATION/CONSCIOUSNESS: Yes patient obtunded HENMT: COMMON NORMALS: normocephalic, atraumatic and hearing grossly normal bilaterally HEAD & SCALP: normocephalic and atraumatic Resp: COMMON NORMALS: normal respiratory effort, No retractions, No use of accessory muscles and clear to auscultation bilaterally AUSCULTATION: clear to auscultation bilaterally Cardio: COMMON NORMALS: regular rate, regular rhythm and No murmurs present (Cardio) RATE: regular rate RHYTHM: regular rhythm GI: COMMON NORMALS: Soft to palpation and No hepatosplenomegaly present A USCULTATION: Yes normoactive bowel sounds PALPATION: Yes Soft to palpation, No Tenderness to palpation present (GI), No Guarding due to palpation present (GI) and Yes No hepatosplenomegaly present Extremity: COMMON NORMALS: normal to inspection, capillary refill normal, no clubbing, cyanosis or edema, no calf tenderness and no pedal edema Neuro: OTHER: Patient has a continuous fine tremor. It at times is throwing artifact on the monitor and it looks like he is almost in V. tach however we were able to distinguish that once the artifact is removed based rate is continuously normal around the 80s and 90s. Skin: COMMON NORMALS: no rashes or lesions noted GENERAL SKIN EXAM: no rashes or lesions noted Course 2 Vital Signs: Vital signs: Vital Signs Temperature 98.4 F 12/27/23 09:00 Pulse Rate 89 12/27/23 13:45 Respiratory Rate 16 12/27/23 13:45 Blood Pressure 118/82 12/27/23 13:45 Pulse Oximetry 93 12/27/23 13:45 [facility] - General Adult Medical Decision Making We contacted the [place] [facility] they did distinguish his tremor from his seizure I do not believe he is in status epilepticus at this time. His lactate is not elevated. He has a little bit of white blood cells in his urine that could be traumatic his white count is normal. We did get cultures we will observation for altered mental status this may just be adult prolonged postictal phase. Discussed with hospitalist will hold off on any antibiotics this point since there is no clear sign of infection Medical Records I reviewed the patient's medical records. Lab Data I reviewed the patient's lab results. 12/27/23 09:40 12/27/23 09:40 Radiology Impressions Chest X-Ray 12/27/23 09:20 IMPRESSION: No acute chest abnormality. The ventricular peritoneal shunt tubing is tortuous in the peritoneal cavity without kinking or fracture. Head CT 12/27/23 09:20 IMPRESSION: 1. Stable RIGHT frontal shunt catheter. 2. No new or progressive hydrocephalus 3. No other significant changes compared to previous Laboratory Results WBC 8.72 10^3/uL (3.29-11.43) 12/27/23 09:40 RBC 4.52 10^6/uL (3.85-5.65) 12/27/23 09:40 Hgb 12.80 g/dL (11.27-16.99) 12/27/23 09:40 Hct 39.0 % (37-53) 12/27/23 09:40 MCV 86.3 fl (82-101) 12/27/23 09:40 MCH 28.3 pg (27-33) 12/27/23 09:40 MCHC 32.8 g/dL (30-55) 12/27/23 09:40 RDW 13.8 % (12.1-15.1) 12/27/23 09:40 Plt Count 276 10^3/cmm (157-399) 12/27/23 09:40 MPV 10.0 fL (7.4-10.4) 12/27/23 09:40 Neut % (Auto) 67.4 % 12/27/23 09:40 Lymph % (Auto) 22.5 % 12/27/23 09:40 Osborne % (Auto) 7.8 % 12/27/23 09:40 Eos % (Auto) 1.3 % 12/27/23 09:40 Baso % (Auto) 0.8 % 12/27/23 09:40 Neut # (Auto) 5.88 10^3/uL (1.8-7.7) 12/27/23 09:40 Lymph # (Auto) 2.0 10^3/uL (0.8-4.8) 12/27/23 09:40 Osborne # (Auto) 0.7 10^3/uL (0.2-0.9) 12/27/23 09:40 Eos # (Auto) 0.1 10^3/uL (0.0-0.8) 12/27/23 09:40 Baso # (Auto) 0.1 10^3/uL (0.0-0.1) 12/27/23 09:40 Nucleated RBC % (auto) 0 % 12/27/23 09:40 Nucleated RBCs # 0.0 /100WBC 12/27/23 09:40 Specimen Type Arterial 12/27/23 09:27 Sample Site Radial, right 12/27/23 09:27 ABG pH 7.38 (7.35-7.45) 12/27/23 09: ABG pCO2 40.7 mmHg (35-45) 12/27/23 09: ABG pO2 73.0 mmHg (80.0-100.0) L 12/27/23 09: ABG PO2/FiO2 Ratio 347 12/27/23 09: ABG HCO3 24.2 mmol/L (22-26) 12/27/23 09: ABG O2 Saturation 95.6 12/27/23 09: ABG Base Excess -0.9 mmol/L (-2.0-2.0) 12/27/23 09: Kareem Test Pos 12/27/23 09:27 A-a O2 Gradient 3.6 mmHg (5-10) L 12/27/23 09:27 Hematocrit 38.9 % (42-52) L 12/27/23 09:27 Hgb O2 Saturation 93.8 % (95-100) L 12/27/23 09:27 Carboxyhemoglobin 0.8 %THgb (0.4-20.1) 12/27/23 09:27 Methemoglobin 1.0 % (0.4-1.5) 12/27/23 09:27 Total Hemoglobin 12.7 g/dL (14-18) L 12/27/23 09:27 Sodium 146.0 mmol/L (131-143) H 12/27/23 09:27 Potassium 3.6 mmol/L (3.5-5.0) 12/27/23 09:27 Glucose 74.0 mg/dL (70-115) 12/27/23 09:27 Ionized Calcium 1.3 mmol/L (1.1-1.4) 12/27/23 09:27 O2 Delivery Device Room air 12/27/23 09:27 FiO2 21.0 % 12/27/23 09:27 Systems Librarian ID [place] 12/27/23 09:27 Sodium 143 mmol/L (136-145) 12/27/23 09:40 Potassium 4.0 mmol/L (3.5-5.1) 12/27/23 09:40 Chloride 107 mmol/L (98-107) 12/27/23 09:40 Carbon Dioxide 25 mmol/L (22-29) 12/27/23 09:40 Anion Gap 15.0 (5-19) 12/27/23 09:40 BUN 19 mg/dL (6-20) 12/27/23 09:40 Creatinine 1.3 mg/dL (0.7-1.2) H 12/27/23 09:40 GFR Calculation 58.0 mL/min (90-130) L 12/27/23 09:40 Glucose 72 mg/dL (65-115) 12/27/23 09:40 Calculated Osmolality 297 mOsm/kg (285-295) H 12/27/23 09:40 Lactic Acid 1.2 mmol/L (0.5-2.2) 12/27/23 09:40 Calcium 9.8 mg/dL (8.5-10.5) 12/27/23 09:40 Magnesium 2.0 mg/dL (1.7-2.3) 12/27/23 09:40 Total Bilirubin 0.4 mg/dL (0.15-1.2) 12/27/23 09:40 AST 9 U/L (0-40) 12/27/23 09:40 ALT 8 U/L (0-41) 12/27/23 09:40 Alkaline Phosphatase 97 U/L (40-130) 12/27/23 09:40 Creatine Kinase 145 U/L (39-308) 12/27/23 09:40 Troponin T Baseline 98 ng/L (0-15) H 12/27/23 09:40 Troponin T 120 Minute 90.86 ng/L (0-15) H 12/27/23 12:41 Delta Troponin T -7.14 ABS# (0-10) L 12/27/23 12:41 Total Protein 6.3 g/dL (6.6-8.7) L 12/27/23 09:40 Albumin 4.4 g/dL (3.5-5.2) 12/27/23 09:40 Globulin 1.9 g/dL (1.3-4.6) 12/27/23 09:40 Lipase 32 U/L (13-60) 12/27/23 09:40 Urine Color Yellow (Yellow) 12/27/23 10:22 Urine Appearance Clear (CLEAR) 12/27/23 10:22 Urine pH Not Reportable 12/27/23 10:22 Ur Specific Boyers Not Reportable 12/27/23 10:22 Urine Protein Not Reportable 12/27/23 10:22 Urine Glucose (UA) Not Reportable 12/27/23 10:22 Urine Ketones Not Reportable 12/27/23 10:22 Urine Blood Not Reportable 12/27/23 10:22 Urine Nitrate Not Reportable 12/27/23 10:22 Urine Bilirubin Not Reportable 12/27/23 10:22 Urine Urobilinogen Not Reportable 12/27/23 10:22 Ur Leukocyte Esterase Not Reportable 12/27/23 10:22 Urine RBC None /hpf (0-2) 12/27/23 10:22 Urine WBC 0-4 /hpf (0-5) H 12/27/23 10:22 Ur Squamous Epith Cells None /hpf (0-5) 12/27/23 10:22 Amorphous Sediment Not Reportable 12/27/23 13:30 Urine Bacteria None /hpf (NONE) 12/27/23 10:22 Hyaline Casts 0-4 /lpf H 12/27/23 10:22 Urine Mucus 1+ /hpf 12/27/23 10:22 Coronavirus (PCR) Negative (Negative) 12/27/23 10:36 Influenza A (PCR) Negative (Negative) 12/27/23 10:36 Influenza Type B (PCR) Negative (Negative) 12/27/23 10:36 RSV (PCR) Negative (Negative) 12/27/23 10:36 All radiology interpretation(s) finalized by discharge Discharge Plan Discharge Patient Disposition: Placed in Observation Clinical Impression: Seizure, Spastic hemiparesis of left dominant side as late effect of cerebral infarction, History of CVA in adulthood Condition: Stable Prescriptions: No Action levetiracetam [Keppra] 500 mg tablet 500 mg PO TID Qty: 90 3RF diazepam 5 mg/spray (0.1 mL) spray,non-aerosol 5 mg intranasal ONCE Qty: 2 2RF Rx Instructions: for seizures lasting greater than 2 minutes acetaminophen [Tylenol] 325 mg Tablet 650 mg feeding tube Q6H PRN (Reason: Pain) famotidine 20 mg Tablet 20 mg feeding tube DAILY magnesium hydroxide [Milk of Magnesia] 400 mg/5 mL Suspension 30 ml PO DAILY PRN (Reason: Constipation) tamsulosin [Flomax] 0.4 mg Capsule 0.4 mg PO BEDTIME amlodipine 10 mg Tablet 10 mg feeding tube DAILY bisacodyl [Dulcolax (bisacodyl)] 10 mg Suppository 10 mg RI QPM PRN (Reason: Constipation) Fleet Enema 19-7 gram/118 mL Enema 118 ml RI BEDTIME PRN (Reason: Constipation) Jevity 1.5 Luke 0.06 gram-1.5 kcal/mL Liquid See Rx Instructions .ROUTE .COMPLEX PRN (Reason: NUTRITION) Rx Instructions: 60ML/HR TUBE EVERY SHIFT FOR NPO lactulose 20 gram/30 mL Solution 30 ml feeding tube BEDTIME uafxxzcr-xqs-xyfmzgq gluconate 9 mg iron/ 15 mL (15 mL) Liquid 15 ml feeding tube TID potassium chloride 10 mEq Capsule, Extended Release 10 meq PO BID metoprolol tartrate 100 mg Tablet 100 mg PO BID lamotrigine 100 mg tablet 100 mg PO BID zonisamide 100 mg capsule 200 mg PO DAILY Rx Instructions: 1 capsule po at night for 1 week; then go up to 2 capsules po at night. albuterol sulfate 2.5 mg /3 mL (0.083 %) Solution For Nebulization 2.5 mg INHALATION Q6H PRN (Reason: Shortness Of Breath Or Wheezing) hydrocodone-acetaminophen 5-325 mg Tablet 1 tab feeding tube Q6H PRN (Reason: Pain) ProSource 10-100 gram-kcal/30 mL Liquid 1 ea feeding tube DAILY escitalopram oxalate [Lexapro] 10 mg Tablet 10 mg PO DAILY ashwagandha root extract 300 mg Tablet 300 mg PO TID Referrals: Chong Grace MD [Primary Care Provider] - Coding Level of Care Code ED Blanker Operator for Tere Saavedra
[2023-12-27 09:38] LABS: ABG PCO2 40.7 mmHg (35-45); ABG PH Result 7.38 (7.35-7.45); Alveolar-Arterial Oxygen Gradi 3.6 mmHg (5-10); Arterial Blood Gas Hematocrit 38.9 % (42-52); Base Excess ABG -0.9 mmol/L (-2.0-2.0); Blood Gas Allen Test Pos; Blood Gas Operator Identificat WALCI; Blood Gas Sample Site Radial, right; Blood Gas Sample Type Arterial; Carboxyhemoglobin 0.8 %THgb (0.4-20.1); HCO3 ABG 24.2 mmol/L (22-26); HGB O2 Sat 93.8 % (95-100); Ionized Calcium Level - ABG 1.3 mmol/L (1.1-1.4); Oxygen Device ROOM AIR; Oxygen Saturation ABG 95.6; PO2 FiO2 Ratio Arterial Blood 347; Potassium Level - ABG 3.6 mmol/L (3.5-5.0); Total Hemoglobin 12.7 g/dL (14-18)
[2023-12-27 10:01] LABS: Basophils # 0.1 10^3/uL (0.0-0.1); Basophils % 0.8 %; Eosinophils # 0.1 10^3/uL (0.0-0.8); Eosinophils % 1.3 %; Lymphocytes % 22.5 %; Mean Corpuscular HGB Conc 32.8 g/dL (30-55); Mean Corpuscular Hemoglobin 28.3 pg (27-33); Mean Corpuscular Volume 86.3 fl (82-101); Monocytes # 0.7 10^3/uL (0.2-0.9); Monocytes % 7.8 %; Neutrophils # 5.88 10^3/uL (1.8-7.7); Neutrophils % 67.4 %; Nucleated Red Blood Cells % 0 %; Platelet Count 276 10^3/cmm (157-399); Red Blood Count 4.52 10^6/uL (3.85-5.65); Red Cell Distribution Width 13.8 % (12.1-15.1); White Blood Count 8.72 10^3/uL (3.29-11.43)
[2023-12-27 10:24] LABS: Troponin(5th) Baseline 98 ng/L (0-15)
[2023-12-27 10:25] LABS: Alanine Aminotransferase 8 U/L (0-41); Albumin Level 4.4 g/dL (3.5-5.2); Alkaline Phosphatase 97 U/L (40-130); Aspartate Amino Transferase 9 U/L (0-40); Blood Urea Nitrogen 19 mg/dL (6-20); Calcium 9.8 mg/dL (8.5-10.5); Carbon Dioxide 25 mmol/L (22-29); Chloride 107 mmol/L (98-107); Creatine Phosphokinase 145 U/L (39-308); Creatinine Clr Calc Pharmacy 80.0048; Globulin 1.9 g/dL (1.3-4.6); Glucose 72 mg/dL (65-115); Lipase 32 U/L (13-60); Osmolality Calculated 297 mOsm/kg (285-295); Sodium 143 mmol/L (136-145); Total Bilirubin 0.4 mg/dL (0.15-1.2); Total Protein 6.3 g/dL (6.6-8.7)
[2023-12-27 10:27] LABS: Lactic Sepsis W/Reflex 1.2 mmol/L (0.5-2.2)
[2023-12-27 10:29] LABS: Urine Appearance Clear (CLEAR); Urine Color Yellow (Yellow)
[2023-12-27 10:30] LABS: Add Urine Microscopic? YES; UA Manual Slide Review YES; UA Slide Review UA Slide Review Perf
[2023-12-27 10:33] LABS: Hyaline Casts Urine 0-4 /lpf; Mucus Urine 1+ /hpf; WBC Urine 0-4 /hpf (0-5)
[2023-12-27 10:34] LABS: Add Urine Culture? No
[2023-12-27] MEDS: sodium chloride 0.9% 1,000 ML 999 ML IV (10:40)
--- NOTE | 2023-12-27 11:20 | ECG_ITS ---
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
[2023-12-27 11:33] LABS: Covid PCR NEGATIVE (Negative); Influenza A NEGATIVE (Negative); Influenza B NEGATIVE (Negative); Respiratory Syncytial Virus Ce NEGATIVE (Negative)
[2023-12-27 13:03] LABS: Troponin 5 2HR 90.86 ng/L (0-15)
[2023-12-27 13:11] LABS: Troponin 5 2HR Delta -7.14 ABS# (0-10)
[2023-12-27 13:57] LABS: Bilirubin Urine Negative (Negative); Blood Urine 2+ (Negative); Glucose Urine UA Negative (Normal); Ketones Urine 2+ (Negative); Leukocyte Esterase Urine Trace (Negative); Nitrate Urine Negative (Negative); Protein Urine Trace (Negative); Specific Gravity, Urine 1.022 (1.005-1.030); Urine Appearance Cloudy (CLEAR); Urine Color Yellow (Yellow)
--- NOTE | 2023-12-27 14:42 | P.HP_ITS ---
Providers/Chief Complaint 2 Primary Care Provider: Chong Grace MD Chief Complaint: ams, possible seizures History of Present Illness Travis Mckeon is a 53 year old male With past medical history of seizures, previous stroke, previous PEG tube, primary resident at [facility], somewhat nonverbal at baseline, hydrocephalus and aneurysm rupture requiring COIN MACHINE MECHANIC shunt placement in 2022 sent to hospital from [facility] for high blood pressure. That was the initial complaint. I spoke to Richy Huggins to obtain history. They state that patient had a seizure recently and was sent to ER and discharged from there and then had another seizure and was discharged back to [facility]. When he is postictal at times he will be completely nonverbal and will stare into space. He is also had a tremor and he has been staring into space last couple of weeks. He has also had this before. Today upon encounter in the emergency room patient is staring up into the ceiling and does have a right tremor. At this time he is not responding to or following any commands. Blood pressure is elevated and heart rate is elevated showing up as a V. tach on telemetry however once you hold the patient's hands still the rhythm is sinus rhythm. Telemetry findings are artifact Unsure if he had a seizure today. She states that the sole reason of sending him to the hospital was due to high blood pressure. His mental status has been somewhat similar to today. At baseline he does talk very little and is not completely nonverbal. Additionally he is on a thickened pur?ed diet and moderately thickened liquids. PEG tube was removed. They deny fever nausea vomiting diarrhea constipation coughing or any other complaints at this time. Patient has not complained of any chest pain either. Medications/Allergies Home Medications Medication Instructions Recorded Confirmed Last Taken Type acetaminophen 325 mg tablet 650 mg feeding tube Q6H PRN Pain 11/04/22 12/27/23 Unknown History (Tylenol) amlodipine 10 mg tablet 10 mg feeding tube DAILY 11/04/22 12/27/23 09/06/23 History bisacodyl 10 mg rectal suppository 10 mg OK QPM PRN Constipation 11/04/22 12/27/23 Unknown History (Dulcolax (bisacodyl)) famotidine 20 mg tablet 20 mg feeding tube DAILY 11/04/22 12/27/23 09/06/23 History lactose-reduced food with fiber See Rx Instructions .Route 11/04/22 12/27/23 Unknown History 0.06 gram-1.5 kcal/mL oral liquid .COMPLEX PRN NUTRITION (Jevity 1.5 Luke) lactulose 20 gram/30 mL oral 30 ml feeding tube BEDTIME 11/04/22 12/27/23 09/05/23 History solution magnesium hydroxide 400 mg/5 mL 30 ml PO DAILY PRN Constipation 11/04/22 12/27/23 Unknown History oral suspension (Milk of Magnesia) flilyoua-uuxq-bhmvnal gluconate 9 15 ml feeding tube TID 11/04/22 12/27/23 09/06/23 History mg iron/15 mL (15 mL) oral liquid sodium phosphates 19 gram-7 118 ml OK BEDTIME PRN Constipation 11/04/22 12/27/23 Unknown History gram/118 mL enema (Fleet Enema) tamsulosin 0.4 mg capsule (Flomax) 0.4 mg PO BEDTIME 11/04/22 12/27/23 09/05/23 History albuterol sulfate 2.5 mg/3 mL 2.5 mg inhalation Q6H PRN 12/21/22 12/27/23 Unknown History (0.083 %) solution for nebulization Shortness Of Breath Or Wheezing amino ac-protein hydro-whey 1 ea feeding tube DAILY 12/21/22 12/27/23 09/05/23 History protein 10 gram-100 kcal/30 mL oral liquid (ProSource) hydrocodone 5 mg-acetaminophen 325 1 tab feeding tube Q6H PRN Pain 12/21/22 12/27/23 Unknown History mg tablet ashwagandha root extract 300 mg 300 mg PO TID 09/06/23 12/27/23 09/06/23 History tablet escitalopram oxalate 10 mg tablet 10 mg PO DAILY 09/06/23 12/27/23 09/06/23 History (Lexapro) levetiracetam 500 mg tablet 500 mg PO TID #90 tabs 09/11/23 12/27/23 Unknown Rx (Keppra) diazepam 5 mg/spray (0.1 mL) nasal 5 mg (0.1 mL) intranasal ONCE #2 10/29/23 12/27/23 Unknown Rx spray sprays lamotrigine 100 mg tablet 100 mg PO BID 12/27/23 12/27/23 Unknown History metoprolol tartrate 100 mg tablet 100 mg PO BID 12/27/23 12/27/23 Unknown History potassium chloride 10 mEq 10 meq PO BID 12/27/23 12/27/23 Unknown History capsule,extended release zonisamide 100 mg capsule 200 mg PO DAILY 12/27/23 12/27/23 Unknown History Allergies Allergy/AdvReac Type Severity Reaction Status Date / Time No Known Allergies Allergy Verified 11/08/23 16:50 PFSH Acute 2 PFSH: Medical History Seizure CVA (cerebral vascular accident) Social History Smoking and tobacco/nicotine status: never used tobacco/nicotine Vitals/I&O/Wt Last Vital Signs Temp 98.4 F 12/27/23 09:00 Pulse 89 12/27/23 13:45 Resp 16 12/27/23 13:45 BP 118/82 12/27/23 13:45 Pulse Ox 93 12/27/23 13:45 Weight last 48 hrs Weight 99.79 kg Physical Exam 2 Narrative: Is staring up into the ceiling and not following any commands at this time. On 2 L nasal cannula. Blood pressure elevated, telemetry shows V. tach however it is after artifact secondary to his hand tremor. Patient is not tachycardic upon auscultation. Lungs clear to auscultation abdomen soft nontender Scar noted at xiphoid process area Nonverbal at this time. Visible skin intact Urinary Catheter Management: Chirinos: Cath Placed During This Visit: yes Reason for Continuing Indwelling Catheter: Required Immobilization for Trauma or Surgery or Anesthesia Urinary Catheter Date of Insertion: 12/21/22 Urinary Catheter Time of Insertion: 11:00 Data 12/28/23 04:06 12/28/23 04:06 Micro: Microbiology 12/27/23 09:40 Blood Culture - Preliminary Blood SPECIMEN COLLECTED 12/27/23 09:44 Blood Culture - Preliminary Blood SPECIMEN COLLECTED A&P Assessment and plan (1) History of CVA in adulthood: (2) Altered mental status: (3) Seizure: (4) Recurrent seizures: (5) Intractable epilepsy: (6) Spastic hemiparesis of left dominant side as late effect of cerebral infarction: (7) CVA (cerebral vascular accident): (8) Postictal state: Plan #Seizure-like activity/altered mental status #Hypertension #NSTEMI, most likely type II demand ischemia, elevated troponin #Microscopic hematuria most likely due to traumatic Chirinos insertion #Leukocytosis #History of PEG tube placement and removal #History of hydrocephalus, ruptured aneurysm requiring a COIN MACHINE MECHANIC shunt #Intractable epilepsy #History of stroke #Spastic hemiparesis of left side ? Patient is presented with hypertension and is staring into space and has a right-sided hand tremor which apparently has been going on for the last couple of weeks intermittently. [facility] this is normal for him to have. He did have 2 recent seizures few weeks ago however has not had any seizure activity between today and yesterday. ? At baseline he is not completely nonverbal. He will answer some questions and speak some words but is somewhat nonverbal. ? Urinalysis shows RBCs in urine 1+ bacteria. Most likely due to traumatic Chirinos insertion. ? Troponins elevated 98, 90.86, 85 with a negative delta 13. Heparin drip was initiated to cover for possible NSTEMI however my suspicion is not very high at this time and I believe this may be due to a demand ischemia. Patient has not complained of any chest pain at the [facility]. We will check an echo and if echo is normal we will turn off heparin drip. ? Chirinos is draining clear yellow urine at this time. ? Consult neurology since I have a suspicion patient may be having an absence seizure or prolonged postictal state? ? Will order Ativan 1 mg IV x 1. ? Will load with Keppra 1000 mg IV x 1. ? Discussed with neurology over the phone. Will continue lamotrigine at 100 twice daily, Metroprolol tartrate 100 twice daily, zonisamide 200 daily. They will also switch his Keppra dose to 500 morning and afternoon and 1000 at bedtime. ? Will order Ativan 1 mg IV every 6 hours as needed ? Will keep n.p.o. for now until mental status is improved. At which point we can restart his diet. ? Continue amlodipine 10 daily. ? Transfer to ICU at this time. Patient is no longer on tube feeds. ? CT head was obtained which does not show any acute stroke. COIN MACHINE MECHANIC shunt is intact with no issues at this time ? EKG does not show any acute ischemic changes ? Will place on Zosyn empirically to cover for possible aspiration versus possible UTI. ? Will need to redo home med rec with the patient as tube feeds are still listed as a part of his home medication list. Full code DVT prophylaxis: Will be on a heparin drip. Attestations 2 Medical Necessity Statement*: Greater than 2 midnight stay for management of NSTEMI, leukocytosis, microscopic hematuria, altered mental status, seizure-like activity. Critical Care Time: The high probability of a clinically significant, sudden or life threatening deterioration of the patient's [neurological, cardiovascular, respiratory] system(s) required my full and direct attention, intervention and personal management. The critical care time is as shown. This time is in addition to time spent performing any reported procedures but includes the following: [x] Data and vital sign review and interpretation [x] Patient assessment, examination and intervention [x] Documentation [x] Medication orders and management Critical Care Time (min): 60 Coding Level of Care Code Critical Care >/= 30 minutes Critical care time (in minutes): 60 The high probability of a clinically significant, sudden or life threatening deterioration, as referenced in this documentation, required my full and direct attention, intervention and personal management. The critical care time shown is in addition to time spent performing any reported separately billable procedures and includes the following: [x] Data and vital sign review and interpretation [x ] Patient assessment, examination and intervention [x] Medication orders and management [x] Patient/Family updates as able [x] Care Coordination and Documentation. Diagnoses History of CVA in adulthood Z86.73 Altered mental status R41.82 Seizure R56.9 Recurrent seizures G40.909 Intractable epilepsy G40.919 Spastic hemiparesis of left dominant side as late effect of cerebral infarction I69.352 CVA (cerebral vascular accident) I63.9 Postictal state R56.9
[2023-12-27 14:48] LABS: UA Manual Slide Review YES; UA Slide Review UA Slide Review Perf
--- NOTE | 2023-12-27 14:48 | USCV_ITS ---
Travis Mckeon Age: 53 Gender: M : 1970 Exam Date: 12/27/2023 15:20 Ordering Phys: Latonya Malin MD Technologist: [place] [facility] [place]: ? mi BP: 114 / 74 HR: 87 Rhythm: Sinus Technical Quality: Adequate MEASUREMENTS (Male / Female) Normal Values 2D ECHO LV Diastolic Diameter PLAX 4.8 cm 4.2 - 5.9 / 3.9 - 5.3 cm IVS Diastolic Thickness 1.0 cm 0.6 - 1.0 / 0.6 - 0.9 cm IVS Systolic Thickness 1.5 cm LVPW Diastolic Thickness 1.4 cm 0.6 - 1.0 / 0.6 - 0.9 cm LVPW Systolic Thickness 1.7 cm LVOT Diameter 2.6 cm LV Ejection Fraction 2D Teich 68.9 % LA Diameter 3.4 cm Aorta at Sinotubular Diameter 3.0 cm M-MODE LA Ao Ratio MM 1.3 AV Cusp Separation MM 2.8 cm DOPPLER AV Peak Velocity 141.0 cm/s LVOT Peak Velocity 89.0 cm/s AV Area Cont Eq vti 4.3 cm squared AV Area Cont Eq pk 3.3 cm squared MV Area PHT 7.0 cm squared Mitral E to A Ratio 1.5 TR Peak Velocity 247.0 cm/s TR Peak Gradient 24.4 mmHg TV Peak E Velocity 97.0 cm/s Right Atrial Pressure 3.0 mmHg Pulmonary Artery Systolic Pressu 27.4 mmHg PV Peak Velocity 111.0 cm/s FINDINGS Left Ventricle Normal left ventricular size, systolic function and wall thickness, with no regional wall motion abnormalities. Left ventricular ejection fraction is estimated at 60 %. Right Ventricle The right ventricle is normal in size and function. Right Atrium The right atrium is normal in size. Left Atrium The left atrium is normal in size. Mitral Valve Structurally normal mitral valve without significant stenosis or prolapse. There is no mitral regurgitation. Aortic Valve Structurally normal aortic valve without significant sclerosis or stenosis. There is no aortic regurgitation. Tricuspid Valve Structurally normal tricuspid valve without significant stenosis or regurgitation. Pulmonary artery systolic pressure is normal. Pulmonic Valve Structurally normal pulmonic valve without significant stenosis. There is no pulmonic regurgitation. Pericardium Normal pericardium without effusion. Aorta Normal ascending aorta dimension. IVC The inferior vena cava appears normal. CONCLUSIONS CONCLUSIONS: 1. Normal left ventricular size, systolic function and wall thickness, with no regional wall motion abnormalities. Left ventricular ejection fraction is estimated at 60%. Normal left ventricular wall thickness. 2. No significant chamber abnormalities. 3. No sigificant valve abnormalities. 4. There is no pericardial effusion. 5. There are no intracardiac masses. 6. Pulmonary artery systolic pressure is within normal limits. 7. Right atrial pressure is around 5 mm of mercury. Jake Coburn MD (Electronically Signed) Final Date: 27 December 2023 23:17 S
[2023-12-27 14:53] LABS: Add Urine Microscopic? YES; Bacteria Urine 1+ /hpf; Mucus Urine 3+ /hpf; RBC Urine 15-25 /hpf (0-2); Squamous Epithelial Cell Urine 0-4 /hpf (0-5); WBC Urine 0-4 /hpf (0-5)
[2023-12-27 14:54] LABS: Add Urine Culture? Yes; Amorphous Sediment Urine 1+ /hpf
[2023-12-27] MEDS: LORazepam 2 mg/mL INJ 1 mL 1 MG IVP (15:20)
[2023-12-27] MEDS: levETIRAcetam 1,000 MG/100 ML PREMIX 400 MG IV (15:23)
--- NOTE | 2023-12-27 15:43 | ECG_ITS ---
[employer] Test Date: 2023-12-27 Pat Name: Travis Mckeon Department: Room: ICU02 Gender: Male Upper Cutter: : 1970 Requested By: Frantz Hodges Order Number: [id number] Faisal MD: JARAD IQBAL Measurements Intervals Lester Rate: 91 P: 25 NJ: 178 QRS: 9 QRSD: 81 T: -5 QT: 338 QTc: 417 Interpretive Statements SINUS RHYTHM POSSIBLE LEFT ATRIAL ENLARGEMENT [-0.1mV P-WAVE IN V1/V2] SEPTAL MYOCARDIAL INFARCTION , PROBABLY OLD [40+ ms Q WAVE IN V1/V2] Compared to ECG 12/27/2023 10:57:42 Myocardial infarct finding now present T-wave abnormality no longer present Electronically Signed On 12-28-2023 00:30:08 FRAME BENDER by JARAD IQBAL [id number]
--- NOTE | 2023-12-27 16:00 | PM.CONSULT ---
Providers/Reason For Consult Consulting Physician/Specialty*: Jorge Bermudez MD neurology and epilepsy Reason for Consult*: Recurrent seizure at care facility with prolonged postictal state Attending Physician: Latonya Malin MD Primary Care Provider: Chong Grace MD History of Present Illness History of Present Illness Primary CARE physician:: Chong Grace MD Reason for consultation recurrent seizures in patient with history of aneurysm rupture requiring ventriculoperitoneal shunt placement 2022 History of present illness: 53-year-old male who experienced a aneurysm rupture in 2022 associated with hydrocephalus requiring shunt placement in 2022 in the right frontal region with the tip of the shunt near the foramen of Monro. The patient resides in a nursing care facility. The patient was accompanied by his mother. According to the patient's mother, the patient experienced a seizure following the aneurysm rupture and was started on Keppra 500 mg p.o. twice daily. To the mother's knowledge the patient has not experienced any further seizures until 09/10/2023. According to the mother the [facility] staff had finished giving the patient his dinner and he was observed to have left eye fluttering and was not conversing with decreased level consciousness. Patient was taken to the [facility] emergency department. Lab for CBC, comprehensive metabolic panel, magnesium, thyroid profile, and prolactin levels were obtained. Prolactin level was elevated 20.14. (Normal equals 4-15.2). Urine drug screen and urinalysis were also obtained and were negative. The patient the labs were unrevealing. Noncontrast head CT was also obtained and was compared to the previous CT scan performed on 09/06/2023 and revealed no acute findings. The head CT performed on 09/06/2023 revealed left frontal scalp hematoma. There was also reports of the right frontal [employer] shunt with tip near the foramen of Monro. No hydrocephalus and no hemorrhage. CT scan of the cervical spine was also performed on 09/06/2023 and was reported to be negative. Currently the patient is arousable to verbal and tactile stimuli. He will follow commands with the right side of his body has severe spasticity and paralysis involving the left arm and left leg. Patient has an scalp abrasion/laceration with surgical stitches in the left frontal scalp subcutaneous tissue. There was no sign of infection. Repeat EEG study 11/08/2023 Impression: This is a mildly abnormal awake, stage I and stage II sleep 46-minute surface EEG recording secondary to poorly sustained 8 Hz posterior alpha rhythm observed during the awake portion of the recording. The myoclonic jerk reported at 15:50:48 during sleep was not associated with any obvious electroencephalographic correlation Note: The patient did not experience any obvious seizure activity during this recording. Therefore if clinically indicated recommend continuous video surface EEG monitoring for further clarification. Addendum: 12/19/2023 Patient missed follow-up clinic appointment scheduled for 12/19/2023 I reviewed the patient's medical records which indicate patient has been in the emergency room at [facility] on at least 2 occasions secondary to recurrent seizures. Plan: 1. The nurse was instructed to contact the patient's care facility to determine why the patient missed his appointment today. 2. Continue Keppra 500 mg p.o. 3 times daily 3. Restart Zonegran 100 mg p.o. nightly for 1 week then increase to 200 mg p.o. nightly 4. Trough Zonegran level and Keppra levels once the patient has been on Zonegran 200 mg p.o. nightly for 1 week 5. Repeat routine surface EEG recording to assess for subclinical seizure activity Prior to the patient's scheduled follow-up clinic visit and repeat EEG study, the patient was reported to experience a seizure at the care facility with prolonged postictal state. Patient was transferred to [facility] emergency department on 12/27/2023. I spoke with the admitting physician who stated the patient was staring and not responding. I recommended the following: Ativan 1 mg IV now and 1 mg IV every 6 hours as needed for seizures Change oral Keppra to IV Keppra 1000 mg IV load x 1 dose followed by 500 mg IV every 6 hours Continue Zonegran 200 mg p.o. nightly. I reevaluated the patient in the emergency department room #15 on 12/27/2023. The patient was lying in bed undergoing 2D echocardiogram. Patient was awake and blinking spontaneously and following some commands. Patient is still nonverbal but will cooperate with the right upper extremity and squeeze my hand and release my hand on command. Patient does have a intermittent resting tremor in the right upper extremity. Patient did respond to visual threat. I spoke with the admitting physician to inform her that the patient's mental status had improved. I recommended continuing the above treatment as planned and agree with patient being transferred to intensive care unit bed #2. Drug allergies: None Current medications: Keppra 500 mg p.o. 3 times daily for seizure prophylaxis Zonegran 200 mg p.o. nightly (Zonegran restarted on 12/19/2023 at 100 mg p.o. nightly for 1 week then increase to 200 mg p.o. nightly) Tylenol 650 mg via feeding tube every 6 hours as needed for pain Albuterol sulfate 2.5 mg inhaled every 6 hours as needed for shortness of breath Prosource 1 each via feeding tube daily Norvasc 10 mg via feeding tube daily Metoprolol 50 mg twice daily via 2 Ashwagandha root extract 300 mg p.o. 3 times daily Dulcolax 10 mg rectal suppository as needed for constipation Lexapro 10 mg p.o. daily Pepcid 20 mg via tube daily hydrocodone 5/acetaminophen 325 mg tablets 1 tablet via feeding tube every 6 hours as needed for pain Jevity 60 mL/h to every shift Lactulose 30 g per 30 mL oral solution 30 mL via feeding tube at bedtime Milk of magnesia 30 mL orally daily as needed for constipation Flomax 0.4 mg p.o. 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 2022 Closed head trauma 09/06/2023 with left subcutaneous laceration requiring stitches 09/06/2023 Habits: Unknown Family history: Unknown Review of Systems General: Reports: 10 or more systems reviewed and unremarkable except in HPI and below Medications/Allergies Home Medications Medication Instructions Recorded Confirmed Last Taken Type acetaminophen 325 mg tablet 650 mg feeding tube Q6H PRN Pain 11/04/22 12/27/23 Unknown History (Tylenol) amlodipine 10 mg tablet 10 mg feeding tube DAILY 11/04/22 12/27/23 09/06/23 History bisacodyl 10 mg rectal suppository 10 mg SD QPM PRN Constipation 11/04/22 12/27/23 Unknown History (Dulcolax (bisacodyl)) famotidine 20 mg tablet 20 mg feeding tube DAILY 11/04/22 12/27/23 09/06/23 History lactose-reduced food with fiber See Rx Instructions .Route 11/04/22 12/27/23 Unknown History 0.06 gram-1.5 kcal/mL oral liquid .COMPLEX PRN NUTRITION (Jevity 1.5 Luke) lactulose 20 gram/30 mL oral 30 ml feeding tube BEDTIME 11/04/22 12/27/23 09/05/23 History solution magnesium hydroxide 400 mg/5 mL 30 ml PO DAILY PRN Constipation 11/04/22 12/27/23 Unknown History oral suspension (Milk of Magnesia) krvbdrko-uivr-zvajhop gluconate 9 15 ml feeding tube TID 11/04/22 12/27/23 09/06/23 History mg iron/15 mL (15 mL) oral liquid sodium phosphates 19 gram-7 118 ml SD BEDTIME PRN Constipation 11/04/22 12/27/23 Unknown History gram/118 mL enema (Fleet Enema) tamsulosin 0.4 mg capsule (Flomax) 0.4 mg PO BEDTIME 11/04/22 12/27/23 09/05/23 History albuterol sulfate 2.5 mg/3 mL 2.5 mg inhalation Q6H PRN 12/21/22 12/27/23 Unknown History (0.083 %) solution for nebulization Shortness Of Breath Or Wheezing amino ac-protein hydro-whey 1 ea feeding tube DAILY 12/21/22 12/27/23 09/05/23 History protein 10 gram-100 kcal/30 mL oral liquid (ProSource) hydrocodone 5 mg-acetaminophen 325 1 tab feeding tube Q6H PRN Pain 12/21/22 12/27/23 Unknown History mg tablet ashwagandha root extract 300 mg 300 mg PO TID 09/06/23 12/27/23 09/06/23 History tablet escitalopram oxalate 10 mg tablet 10 mg PO DAILY 09/06/23 12/27/23 09/06/23 History (Lexapro) levetiracetam 500 mg tablet 500 mg PO TID #90 tabs 09/11/23 12/27/23 Unknown Rx (Keppra) diazepam 5 mg/spray (0.1 mL) nasal 5 mg (0.1 mL) intranasal ONCE #2 10/29/23 12/27/23 Unknown Rx spray sprays lamotrigine 100 mg tablet 100 mg PO BID 12/27/23 12/27/23 Unknown History metoprolol tartrate 100 mg tablet 100 mg PO BID 12/27/23 12/27/23 Unknown History potassium chloride 10 mEq 10 meq PO BID 12/27/23 12/27/23 Unknown History capsule,extended release zonisamide 100 mg capsule 200 mg PO DAILY 12/27/23 12/27/23 Unknown History Allergies Allergy/AdvReac Type Severity Reaction Status Date / Time No Known Allergies Allergy Verified 11/08/23 16:50 PFSH Acute PFSH: Medical History Seizure CVA (cerebral vascular accident) Social History Smoking and tobacco/nicotine status: never used tobacco/nicotine Vitals/I&O/Wt Last Vital Signs Temp 98.4 F 12/27/23 09:00 Pulse 89 12/27/23 13:45 Resp 16 12/27/23 13:45 BP 118/82 12/27/23 13:45 Pulse Ox 93 12/27/23 13:45 12/27/23 12/27/23 12/27/23 06:59 14:59 22:59 Intake Total 1000 / 1000 Balance 1000 / 1000 Weight last 48 hrs Weight 220 lb Physical Exam Narrative: Blood pressure 118/82 heart rate 89 respiration 16 temperature 98.4 ?F O2 saturation 93% on room air The patient is currently alert and in no apparent distress. He follows some commands. He was nonverbal. He denied pain. Head atraumatic without signs of infection. Pupils 4 mm round reactive to light and accommodation. Extraocular movements intact. Motor testing while patient was lying on his back on the gurney in the emergency department room #15 revealed 5/5 in the right arm and right leg and paralysis in the left arm and left leg with spasticity in the left arm and left leg. Deep tendon reflex revealed left arm and left leg hyperreflexia. Sensory examination was intact to touch. Throat clear. Lungs clear. Heart regular rhythm and rate. Extremities were negative for cyanosis. Data 12/27/23 09:40 12/27/23 09:40 Micro: Microbiology 12/27/23 09:40 Blood Culture - Preliminary Blood SPECIMEN COLLECTED 12/27/23 09:44 Blood Culture - Preliminary Blood SPECIMEN COLLECTED A&P Assessment and plan (1) Intractable epilepsy: Impression: 1. Intractable epilepsy with recurrent seizure 12/27/2023 with prolonged postictal state 2. Decreased level consciousness with staring suggestive of subclinical seizure activity 12/27/2023 in the emergency department room #15, with resolution following IV Ativan 3. History of seizures manifested as left eye fluttering with loss of consciousness 09/10/2023 4. History of aneurysmal rupture with intracerebral hemorrhage and seizures and right MCA distribution stroke with residual left-sided paralysis and spasticity requiring right frontal ventriculoperitoneal shunt placement 2022 5. History of right MCA distribution stroke with residual left-sided paralysis and spasticity reported to be secondary to aneurysm rupture with intracerebral hemorrhage 2022 Plan: 1. Ativan 1 mg IV now and 1 mg IV every 6 hours as needed for seizures 2. Change oral Keppra to IV Keppra 1000 mg IV load x 1 dose followed by 500 mg IV every 6 hours 3. Continue Zonegran 200 mg p.o. nightly. 4. Continue seizure precautions and fall precautions 5. Once patient able to take oral Keppra continue Keppra at 1000 mg p.o. twice daily and discontinue intravenous Keppra 6. Trough Keppra and Zonegran levels on outpatient basis 12/31/2023 7. Have the patient's care facility make sure the patient patient keeps appointment as scheduled for repeat surface EEG recording on outpatient basis once discharged to assess for subclinical seizure activity and to assist in determining if additional or alternative anticonvulsant medications are required (note: The patient missed his clinic appointment on 12/19/2023) 8. Keep rescheduled follow-up clinic appointment as scheduled 9. Recommend Valtoco (intranasal Valium) 5 mg per 0.1 mL 0.1 mL intranasally for seizures lasting greater than 2 minutes or greater than 2 seizures within a 1 hour period of time. To be used when the patient has returned to the care facility (2) Recurrent seizures: (3) Spastic hemiparesis of left dominant side as late effect of cerebral infarction: (4) Altered mental status: Consult Attestations Medical Necessity Statement: The patient was evaluated by neurology for recurrent seizures with reported prolonged postictal state and possible subclinical seizures improved following IV Ativan Coding Level of Care Code 73153 Diagnoses Intractable epilepsy G40.919 Recurrent seizures G40.909 Spastic hemiparesis of left dominant side as late effect of cerebral infarction I69.352 Altered mental status R41.82
--- NOTE | 2023-12-27 17:00 | PC.NURSE ---
ED nurse called and gave report. Stated pt only had one IV access and staff was unable to obtain additional access. Stated PICC line would be placed at [address] Castellanos was aware med times would all be altered. ED nurse stated Heparin gtt would be started with the one available access and osuna placed prior to transfer to ICU.
[2023-12-27] MEDS: piperacillin-tazobactam 3.375 GM in sodium chloride 0.9% (plus) 50 ML IV ×2 (18:04→23:47)
--- NOTE | 2023-12-27 18:05 | PC.NURSE ---
Pt arrived on unit via bed. Transferred without difficulty. Pt tolerated well. Pt had Piperacillin/Tazobactam running in IV upon arrival. Pt arrived in clothing and experienced bladder incontinence in adult absorbent briefs. Pt unable to verbalize needs or understanding. Does not follow commands. Severe left sided contractions.
--- NOTE | 2023-12-27 18:19 | XRR_ITS ---
PROCEDURE INFORMATION: Exam: XR Chest Exam date and time: 12/27/2023 7:03 PM Age: 53 years old Clinical indication: Device placement; Picc; Additional info: Post picc insertion right side TECHNIQUE: Imaging protocol: Radiologic exam of the chest. Views: 1 view. COMPARISON: CR XR chest 1V portable [id number] 12/27/2023 9:24 AM FINDINGS: Tubes, catheters and devices: Ventriculoperitoneal shunt catheter tubing. Right PICC with tip not well imaged due to patient rotation and overlapping structures, at least at the brachiocephalic-SVC confluence, possibly more distal. Lungs: No consolidation. Pleural spaces: No large pleural effusion. No pneumothorax. Heart/Mediastinum: Unchanged cardiomediastinal silhouette. Bones/joints: No acute abnormality. XR/XR chest 1V portable [id number] IMPRESSION: Right PICC with tip not well imaged due to patient rotation and overlapping structures, at least at the brachiocephalic-SVC confluence, possibly more distal.
--- NOTE | 2023-12-27 19:51 | PICC.NOTE ---
Double lumen PICC placed to right basilic vein. Referred to vascular access nurse for PICC placement due to poor access. Pt mentally incompetent and nonverbal. Unable to reach pt mother by phone. Urgent consent given per Dr. Malin for placement. Right arm assessed with right basilic vein measuring 4.9 mm, straight, and apparent best choice for placement. Using sterile technique and MST, right basilic vein accessed x 1 stick. Mid-arm circumference measured 10 cm from right AC 30 cm. Trimmed cath 47 cm with 0 cm external length noted. CXR shows tip to appear to be in the distal SVC, waiting on [facility]Rad to read. Line secured with stat-lock. Insertion site covered with Biopatch, gauze, and TSM. Report given to bedside nurse, STEWART Campos.
[2023-12-27] MEDS: sodium chloride 0.9% 1,000 ML 75 ML IV (20:16)
[2023-12-27] MEDS: lamoTRIgine 100 mg Tablet PO (20:17)
[2023-12-27] MEDS: metoprolol succinate ER (24 HR) 50 mg Tablet 100 MG PO (20:17)
--- NOTE | 2023-12-27 20:40 | XRR_ITS ---
PROCEDURE INFORMATION: Exam: XR Chest Exam date and time: 12/27/2023 9:18 PM Age: 53 years old Clinical indication: Device placement; Picc; Additional info: Post picc insertion - unclear first image of tip location, please reposition patient and possibly move left hand for TECHNIQUE: Imaging protocol: Radiologic exam of the chest. Views: 1 view. COMPARISON: CR (CHEST, ) 12/27/2023 7:03 PM FINDINGS: Tubes, catheters and devices: Right PICC with tip near the superior cavoatrial junction. Ventriculoperitoneal shunt catheter tubing. Lungs: No consolidation. Pleural spaces: No visible pneumothorax. No large pleural effusion. Heart/Mediastinum: Contusion enlarged cardiac silhouette. Bones/joints: No acute abnormality. XR/XR chest 1V portable [id number] IMPRESSION: Right PICC with tip near the superior cavoatrial junction.
[2023-12-27 20:54] LABS: Partial Thromboplastin Time 44.4 SECONDS (23.9-36.7)
[2023-12-27] MEDS: heparin 5,000 unit/mL INJ 1 mL IVP (21:26)
[2023-12-27] MEDS: heparin drip 25,000 UNIT/500 ML PREMIX 25 UNIT IV (21:28)
[2023-12-27] MEDS: tamsulosin 0.4 mg Capsule PO (22:42)
[2023-12-28] VITALS (49 sets, daily range): BP systolic 105–172; BP diastolic 67–113; PULSE 52–269; RESP 12–25; TEMP 36.9–38.6; O2SAT 88–99; BMI 27.0
--- NOTE | 2023-12-28 01:13 | PC.NURSE ---
Pt having hematuria after osuna insertion. Dr López notified, new order to hold heparin for 2 hours then restart at same rate.
[2023-12-28 05:06] LABS: Basophils % 0.4 %; Eosinophils # 0.1 10^3/uL (0.0-0.8); Eosinophils % 0.5 %; Hematocrit 35.1 % (37-53); Lymphocytes # 1.4 10^3/uL (0.8-4.8); Lymphocytes % 14.9 %; Mean Corpuscular HGB Conc 31.6 g/dL (30-55); Mean Corpuscular Hemoglobin 27.7 pg (27-33); Mean Corpuscular Volume 87.5 fl (82-101); Monocytes # 0.7 10^3/uL (0.2-0.9); Monocytes % 7.8 %; Neutrophils # 7.06 10^3/uL (1.8-7.7); Nucleated Red Blood Cells % 0 %; Platelet Count 322 10^3/cmm (157-399); Red Blood Count 4.01 10^6/uL (3.85-5.65); Red Cell Distribution Width 13.8 % (12.1-15.1); White Blood Count 9.29 10^3/uL (3.29-11.43)
[2023-12-28 05:31] LABS: Procalcitonin 0.09 ng/mL (0-0.5)
[2023-12-28 05:33] LABS: Alanine Aminotransferase 9 U/L (0-41); Albumin Level 3.9 g/dL (3.5-5.2); Alkaline Phosphatase 88 U/L (40-130); Blood Urea Nitrogen 17 mg/dL (6-20); Calcium 8.7 mg/dL (8.5-10.5); Carbon Dioxide 21 mmol/L (22-29); Chloride 108 mmol/L (98-107); Globulin 2.6 g/dL (1.3-4.6); Glomerular Filtration Rate 70.3 mL/min (90-130); Glucose 59 mg/dL (65-115); Magnesium 1.8 mg/dL (1.7-2.3); Osmolality Calculated 299 mOsm/kg (285-295); Phosphorus 2.9 mg/dL (2.5-4.5); Sodium 145 mmol/L (136-145); Total Bilirubin 0.5 mg/dL (0.15-1.2); Total Protein 6.5 g/dL (6.6-8.7)
[2023-12-28 05:38] LABS: Anion Gap 20.1 (5-19); Aspartate Amino Transferase 19 U/L (0-40); Potassium 4.1 mmol/L (3.5-5.1)
[2023-12-28 06:00] LABS: Glucose Point of Care 62 mg/dL (70-110)
[2023-12-28] MEDS: zonisamide 100 MG Capsule 200 MG PO (07:48)
[2023-12-28] MEDS: lamoTRIgine 100 mg Tablet PO ×2 (07:50→16:14)
[2023-12-28] MEDS: piperacillin-tazobactam 3.375 GM in sodium chloride 0.9% (plus) 50 ML IV ×3 (07:50→23:10)
[2023-12-28] MEDS: escitalopram 10 mg Tablet PO (07:50)
[2023-12-28] MEDS: amlodipine 10 mg Tablet PO (07:50)
[2023-12-28] MEDS: metoprolol succinate ER (24 HR) 50 mg Tablet 100 MG PO (07:50)
[2023-12-28] MEDS: levETIRAcetam 500 mg Tablet PO ×2 (07:50→10:35)
[2023-12-28] MEDS: dextrose 10% 125 ML 750 ML IV (07:52)
[2023-12-28 09:28] LABS: Glucose Point of Care 61 mg/dL (70-110)
[2023-12-28 09:33] LABS: Glucose Point of Care 83 mg/dL (70-110)
[2023-12-28] MEDS: dextrose 10% 1,000 ML 75 ML IV ×2 (10:35→19:05)
--- NOTE | 2023-12-28 11:23 | PM.PN ---
Subjective Subjective: Seen today. Patient is more responsive today. Follows some commands. Still a high aspiration risk. Was evaluated by speech therapy. Patient appears to be diaphoretic. Blood sugar was 62 this morning, D10 bolus was given and it was still low. We will be starting D10 drip at this time. Patient is having hematuria therefore heparin drip was stopped. Vitals/I&O/Wt Last Vital Signs Temp 100.2 F H 12/28/23 10:00 Pulse 65 12/28/23 06:00 Resp 22 H 12/28/23 06:00 BP 115/67 12/28/23 06:00 Pulse Ox 91 12/28/23 06:00 O2 Del Method Room Air 12/28/23 06:00 12/27/23 12/28/23 12/28/23 22:59 06:59 14:59 Intake Total 1150 / 1150 143.333 / 1293.333 Output Total 650 / 650 Balance 1150 / 1150 -506.667 / 643.333 Weight last 48 hrs Weight 87.9 kg Weight 86.778 kg Weight 99.79 kg Physical Exam Narrative: Sitting up in bed at this time appearing comfortable. On 2 L nasal cannula. Vitals are stable. Patient diaphoretic. Lungs clear to auscultation abdomen soft nontender Scar noted at xiphoid process area Nonverbal at this time. Visible skin intact Urinary Catheter Management: Chirinos: Cath Placed During This Visit: yes Reason for Continuing Indwelling Catheter: Required Immobilization for Trauma or Surgery or Anesthesia Urinary Catheter Date of Insertion: 12/21/22 Urinary Catheter Time of Insertion: 11:00 Data 12/28/23 04:06 12/28/23 04:06 Micro: Microbiology 12/27/23 09:44 Blood Culture - Preliminary Blood NEGATIVE TO DATE 12/27/23 09:40 Blood Culture - Preliminary Blood NEGATIVE TO DATE 12/27/23 13:30 Urine Culture - Preliminary Urine,Clean Catch A&P Assessment and plan (1) History of CVA in adulthood: (2) Altered mental status: (3) Seizure: (4) Recurrent seizures: (5) Intractable epilepsy: (6) Spastic hemiparesis of left dominant side as late effect of cerebral infarction: (7) CVA (cerebral vascular accident): (8) Postictal state: Plan #Seizure-like activity/altered mental status #Hypertension #NSTEMI, most likely type II demand ischemia, elevated troponin #Microscopic hematuria most likely due to traumatic Chirinos insertion #Leukocytosis #History of PEG tube placement and removal #History of hydrocephalus, ruptured aneurysm requiring a [employer]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 Patient is presented with hypertension and is staring into space and has a right-sided hand tremor which apparently has been going on for the last couple of weeks intermittently. [employer] this is normal for him to have. He did have 2 recent seizures few weeks ago however has not had any seizure activity between today and yesterday. ? At baseline he is not completely nonverbal. He will answer some questions and speak some words but is somewhat nonverbal. ? Urinalysis shows RBCs in urine 1+ bacteria. Most likely due to traumatic Chirinos insertion. ? Troponins elevated 98, 90.86, 85 with a negative delta 13. Heparin drip was initiated to cover for possible NSTEMI however my suspicion is not very high at this time and I believe this may be due to a demand ischemia. Patient has not complained of any chest pain at the skilled nursing. We will check an echo and if echo is normal we will turn off heparin drip. ? Chirinos is draining clear yellow urine at this time. ? Consult neurology since I have a suspicion patient may be having an absence seizure or prolonged postictal state? ? Will order Ativan 1 mg IV x 1. ? Will load with Keppra 1000 mg IV x 1. ? Discussed with neurology over the phone. Will continue lamotrigine at 100 twice daily, Metroprolol tartrate 100 twice daily, zonisamide 200 daily. They will also switch his Keppra dose to 500 morning and afternoon and 1000 at bedtime. ? Will order Ativan 1 mg IV every 6 hours as needed ? Will keep n.p.o. for now until mental status is improved. At which point we can restart his diet. ? Continue amlodipine 10 daily. ? Transfer to ICU at this time. Patient is no longer on tube feeds. ? CT head was obtained which does not show any acute stroke. BR[employer] TECH[employer]ICIAN shunt is intact with no issues at this time ? EKG does not show any acute ischemic changes ? Will place on Zosyn empirically to cover for possible aspiration versus possible UTI. ? Will need to redo home med rec with the patient as tube feeds are still listed as a part of his home medication list. Full code DVT prophylaxis: Will be on a heparin drip. 12/28/2023 -Patient was febrile overnight 101.5. Most likely secondary to aspiration. ? Speech therapy to evaluate the patient again. For now we will keep him n.p.o. Patient is extremely thick pur?ed diet at the skilled nursing. ? I will switch his medications all to IV at this time. ? Troponins elevated however delta -13. There was no report of chest pain at the skilled nursing. Patient also experiencing hematuria at this time. Nursing staff to flush Chirinos. Heparin drip to be held at this time. ? Most likely secondary to demand ischemia. I do not suspect a coronary event. EKG without any acute ischemic changes. Echocardiogram shows no regional wall motion abnormalities. Normal EF. ? Patient has been diaphoretic this morning secondary to hypoglycemia. Blood sugar 62. He was given D10 bolus. Sugar is still low. We will start on D10 drip at 75 cc/h. ? Blood cultures pending, urine culture pending, sputum Gram stain pending at this time ? We will continue to treat with Vanco and Zosyn at this time. I highly suspect aspiration pneumonia. ? Recheck chest x-ray in AM. ? Continue to hospitalize patient. ? Will discuss with neurology over the phone. Attestations Medical Necessity Statement*: Aspiration pneumonia, possible breakthrough seizure. Diagnoses History of CVA in adulthood Z86.73 Altered mental status R41.82 Seizure R56.9 Recurrent seizures G40.909 Intractable epilepsy G40.919 Spastic hemiparesis of left dominant side as late effect of cerebral infarction I69.352 CVA (cerebral vascular accident) I63.9 Postictal state R56.9
--- OUTSIDE RECORDS SUMMARY | 2023-12-28 12:22 | XMS_ITS | Patient Health Record ---
Author Name Unknown Organization [facility] Address [address] [place] [address] Care Team Providers Care Stable Helper Name Role Phone Cooper Grace Primary Care Provider [phone] Allergies No Known Allergies Reason For Referral No Information Medications Medication SIG (Take, Route, Frequency, Duration) Notes Start Date End Date Status amLODIPine Besylate 10 mg TAKE ONE TABLE T PER tube EVERY DAY for 30 Active Bisacodyl 10 MG 1 suppository as nee ded Rectal Once a day Active Albuterol Sulfate (2.5 MG/3ML) 0.083% 3 mL as needed Inhalation every 6 hrs Active Escitalopram Oxalate 10 mg TAKE ONE TABL ET PER tube EVERY DAY for 30 Active Milk of Magnesia 400 MG/5ML 5 mL at least 4 hours between doses as needed Orally Four times a day Active Famotidine 20 mg TAKE ONE TABLET PER tube EVERY DAY for 30 Active Fleet Enema 7-19 GM/118ML as directed Rectal Active HYDROcodone-Acetaminophen 5-325 MG 1 tablet as needed Orally every 6 hrs for 30 days 12/05/2023 01/04/2024 Active ProSource - as directed Orally Active Valtoco 5 MG Dose 5 MG/0.1ML as directed Nasally as needed for 30 days 12/13/2023 Active Prostate - as directed Orally Active Metoprolol Tartrate 50 mg TAKE ONE TABLE T PER tube TWICE DAILY for 30 Active Keppra 500 MG 1 tablet Orally ever y 12 hrs Active Tamsulosin HCl 0.4 mg TAKE ONE CAPSULE P ER tube daily for 30 Active Tylenol 325 MG 1 tablet as needed Orally every 4 hrs Active levETIRAcetam 500 mg TAKE ONE TABLET PER tube TWICE DAILY for 30 Active Jevity - as directed Orally A ctive Lexapro 10 MG 1 tablet Orally Once a day Active Lactulose 10 GM/15ML TAKE 30ML PER TUBE DAILY for 31 Active Social History Tobacco Use: Social History Observation Description Date Details (start date - stop date) Unknown Household Question Answer Notes Marital status: single Number of adults in household: 1 Number of children in household: 0 Level of education: not finished high school com pleted 10th grade xTobacco Use/Smoking Question Answer Notes Are you a Uses tobacco in other forms Additional Findings: Tobacco User Chews tobacco Alcohol Screen (Audit-C) Question Answer Notes Did you have a drink containing alcohol in the p ast year? 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) Active confirmed Problem 70249417 Essential (primary) hypertension (I10) Active confirmed Problem 29318067 Dysphagia, oropharyngeal phase (R13.12) Active confirmed Problem 57712728 Aphasia (R47.01) Active confirmed Problem 695735996 Presence of cerebrospinal fluid drainage device (Z98.2) Active confirmed Problem 165725471 Altered mental status, unspecified altered mental status type (R41.82) Active confirmed Problem 571055207 Hydrocephalus, unspecified type (G91.9) Active confirmed Problem Essential hypertension (04924644) Essential hypertension (401.1) 10/06/19 18 Active confirmed [id number] 11- Problem General examination of patient (270391401) DOT Physical (V70.0) 11/20/19 19 Problem resolved confirmed [id number] 11- Encounters Encounter Location Date Provider Diagnosis [facility] [address] [place] [facility] [address] [place] [address] 11/30/2023 Cooper Grace Disorder of the autonomic nervous system, unspecified G90.9 ; Essential (primary) hypertension I10 and Hydrocephalus, unspecified type G91.9 [facility] [address] [place] [facility] [address] [place] [address] 01/09/2023 Cooper Grace Essential (primary) hypertension I10 ; Compression of brain G93.5 ; Hydrocephalus, unspecified type G91.9 ; Disorder of the autonomic nervous system, unspecified G90.9 ; Altered mental status, unspecified altered mental status type R41.82 ; Presence of cerebrospinal fluid drainage device Z98.2 ; Aphasia R47.01 and Dysphagia, oropharyngeal phase R13.[address] [place] [address] 01/22/2023 Cooper Grace Nontraumatic subcortical hemorrhage of cerebral hemisphere, unspecified laterality I61.0 ; Disorder of the autonomic nervous system, unspecified G90.9 ; Essential (primary) hypertension I10 ; Compression of brain G93.5 ; Other specified respiratory disorders J98.8 ; Weakness R53.1 ; Personal history of other diseases of the circulatory system Z86.79 ; Hydrocephalus, unspecified type G91.9 ; Nontraumatic intraventricular intracerebral hemorrhage, unspecified laterality I61.5 ; Altered mental status, unspecified altered mental status type R41.82 ; Encounter for palliative care Z51.5 ; Presence of cerebrospinal fluid drainage device Z98.2 ; Aphasia R47.01 ; Retention of urine, unspecified R33.9 ; Dysphagia, oropharyngeal phase R13.12 ; Gastrostomy malfunction K94.23 and Gastrostomy infection K94.[address] [place] [address] 01/26/2023 Cooper Grace Nontraumatic subcortical hemorrhage of cerebral hemisphere, unspecified laterality I61.0 ; Disorder of the autonomic nervous system, unspecified G90.9 ; Essential (primary) hypertension I10 ; Compression of brain G93.5 ; Other specified respiratory disorders J98.8 ; Weakness R53.1 ; Personal history of other diseases of the circulatory system Z86.79 ; Hydrocephalus, unspecified type G91.9 ; Nontraumatic intraventricular intracerebral hemorrhage, unspecified laterality I61.5 ; Altered mental status, unspecified altered mental status type R41.82 ; Encounter for palliative care Z51.5 ; Presence of cerebrospinal fluid drainage device Z98.2 ; Aphasia R47.01 ; Retention of urine, unspecified R33.9 ; Dysphagia, oropharyngeal phase R13.12 ; Gastrostomy malfunction K94.23 and Gastrostomy infection K94.[address] [place] [address] 03/02/2023 Cooper Grace Disorder of the autonomic nervous system, unspecified G90.9 ; Compression of brain G93.5 ; Essential (primary) hypertension I10 and Dysphagia, oropharyngeal phase R13.12 [id number] [place] [address] [place] [address] 03/30/2023 Christopher Grace Disorder of the autonomic nervous system, unspecified G90.9 ; Dysphagia, oropharyngeal phase R13.12 and Compression of brain G93.5 [address] [id number] [facility] [address] [place] [address] 04/27/2023 Christopher Grace Disorder of the autonomic nervous system, unspecified G90.9 ; Essential (primary) hypertension I10 and Compression of brain G93.5 [address] [address] [facility] [address] [place] [address] 06/01/2023 Christopher Grace Disorder of the autonomic nervous system, unspecified G90.9 ; Essential (primary) hypertension I10 and Compression of brain G93.5 [address] [place] [address] [facility] [address] [place] [address] 06/29/2023 Christopher Grace Disorder of the autonomic nervous system, unspecified G90.9 ; Altered mental status, unspecified altered mental status type R41.82 and Presence of cerebrospinal fluid drainage device Z98.2 [place] [address] [facility] [address] [place] [address] 08/03/2023 Christopher Grace Disorder of the autonomic nervous system, unspecified G90.9 ; Hydrocephalus, unspecified type G91.9 and Aphasia R47.01 [address] [place] [address] 08/31/2023 Christopher Grace Disorder of the autonomic nervous system, unspecified G90.9 ; Hydrocephalus, unspecified type G91.9 and Dysphagia, oropharyngeal phase R13.12 [place] [address] [facility] [address] [place] [address] 09/28/2023 Christopher Grace Essential (primary) hypertension I10 ; Dysphagia, oropharyngeal phase R13.12 and Presence of cerebrospinal fluid drainage device Z98.2 [address] [address] [place] [address] [place] [address] 11/02/2023 Christopher Grace Hydrocephalus, unspecified type G91.9 ; Altered mental status, unspecified altered mental status type R41.82 and Presence of cerebrospinal fluid drainage device Z98.2 [facility] [address] [place] [address] 01/10/2023 Cooper Grace Nontraumatic subcortical hemorrhage of cerebral hemisphere, unspecified laterality I61.0 ; Disorder of the autonomic nervous system, unspecified G90.9 ; Essential (primary) hypertension I10 ; Compression of brain G93.5 ; Other specified respiratory disorders J98.8 ; Weakness R53.1 ; Personal history of other diseases of the circulatory system Z86.79 ; Hydrocephalus, unspecified type G91.9 ; Nontraumatic intraventricular intracerebral hemorrhage, unspecified laterality I61.5 ; Altered mental status, unspecified altered mental status type R41.82 ; Encounter for palliative care Z51.5 ; Presence of cerebrospinal fluid drainage device Z98.2 ; Aphasia R47.01 ; Retention of urine, unspecified R33.9 ; Dysphagia, oropharyngeal phase R13.12 ; Gastrostomy malfunction K94.23 and Gastrostomy infection K94.22 [facility] [address] [place] [address] 01/10/2023 [facility] [address] [place] [address] 02/06/2023 Cooper Grace [facility] [address] [place] [address] 03/20/20[facility] [address] [place] [phone] 05/01/2023 [facility] [address] [place] [address] 05/22/2023 [facility] [address] [place] [address] 06/20/2023 Cooper [facility] [address] [address] 07/23/2023 Cooper [facility] [address] [place] [phone] 09/10/2023 Cooper [facility] [address] [place] [address], [place] [address] 11/06/2023 [facility] [address] [place] [address], [place] [address] 12/05/2023 [facility] [address] [place] [phone] 12/12/2023 Cooper Grace Assessments Encounter Date Diagnosis (ICD Code) Assessment Notes Treat ment Notes Treatment Clinical Notes 01/10/2023 Nontraumatic subcortical hemorrhage of cerebral hemisphere, unspecified laterality (ICD-10 - I61.0) 01/10/2023 Disorder of the autonomic nervous system, unspecified (ICD-10 - G90.9) 01/22/2023 Nontraumatic subcortical hemorrhage of cerebral hemisphere, unspecified laterality (ICD-10 - I61.0) 01/26/2023 Nontraumatic subcortical hemorrhage of cerebral hemisphere, unspecified laterality (ICD-10 - I61.0) 01/09/2023 Essential (primary) hypertension (ICD-10 - I10) 01/09/2023 Compression of brain (ICD-10 - G93.5) 03/02/2023 Disorder of the autonomic nervous system, unspecified (ICD-10 - G90.9) 03/30/2023 Disorder of the autonomic nervous system, unspecified (ICD-10 - G90.9) 04/27/2023 Disorder of the autonomic nervous system, unspecified (ICD-10 - G90.9) 06/01/2023 Disorder of the autonomic nervous system, unspecified (ICD-10 - G90.9) 06/29/2023 Disorder of the autonomic nervous system, unspecified (ICD-10 - G90.9) 08/03/2023 Disorder of the autonomic nervous system, unspecified (ICD-10 - G90.9) 08/31/2023 Disorder of the autonomic nervous system, unspecified (ICD-10 - G90.9) 09/28/2023 Essential (primary) hypertension (ICD-10 - I10) 11/02/2023 Hydrocephalus, unspecified type (ICD-10 - G91.9) 11/30/2023 Disorder of the autonomic nervous system, unspecified (ICD-10 - G90.9) 11/30/2023 Essential (primary) hypertension (ICD-10 - I10) 11/02/2023 Altered mental statu s, unspecified altered mental status type (ICD-10 - R41.82) 09/28/2023 Dysphagia, oropharyngeal phase (ICD-10 - R13.12) 08/31/2023 Hydrocephalus, unspecified type (ICD-10 - G91.9) 08/03/2023 Hydrocephalus, unspecified type (ICD-10 - G91.9) 06/29/2023 Altered mental statu s, unspecified altered mental status type (ICD-10 - R41.82) 06/01/2023 Essential (primary) hypertension (ICD-10 - I10) 04/27/2023 Essential (primary) hypertension (ICD-10 - I10) 03/30/2023 Dysphagia, oropharyngeal phase (ICD-10 - R13.12) 03/02/2023 Compression of brain (ICD-10 - G93.5) 01/09/2023 Hydrocephalus, unspecified type (ICD-10 - G91.9) 01/26/2023 Disorder of the autonomic nervous system, unspecified (ICD-10 - G90.9) 01/22/2023 Disorder of the autonomic nervous system, unspecified (ICD-10 - G90.9) 01/10/2023 Essential (primary) hypertension (ICD-10 - I10) 01/10/2023 Compression of brain (ICD-10 - G93.5) 01/22/2023 Essential (primary) hypertension (ICD-10 - I10) 01/26/2023 Essential (primary) hypertension (ICD-10 - I10) 01/09/2023 Disorder of the autonomic nervous system, unspecified (ICD-10 - G90.9) 03/02/2023 Essential (primary) hypertension (ICD-10 - I10) 03/30/2023 Compression of brain (ICD-10 - G93.5) 04/27/2023 Compression of brain (ICD-10 - G93.5) 06/01/2023 Compression of brain (ICD-10 - G93.5) 06/29/2023 Presence of cerebrospinal fluid drainage device (ICD-10 - Z98.2) 08/03/2023 Aphasia (ICD-10 - R47.01) 08/31/2023 Dysphagia, oropharyngeal phase (ICD-10 - R13.12) 09/28/2023 Presence of cerebrospinal fluid drainage device (ICD-10 - Z98.2) 11/02/2023 Presence of cerebrospinal fluid drainage device (ICD-10 - Z98.2) 11/30/2023 Hydrocephalus, unspecified type (ICD-10 - G91.9) 03/02/2023 Dysphagia, oropharyngeal phase (ICD-10 - R13.12) 01/09/2023 Altered mental statu s, unspecified altered mental status type (ICD-10 - R41.82) 01/26/2023 Compression of brain (ICD-10 - G93.5) 01/22/2023 Compression of brain (ICD-10 - G93.5) 01/10/2023 Other specified respiratory disorders (ICD-10 - J98.8) 01/10/2023 Weakness (ICD-10 - R53.1) 01/22/2023 Other specified respiratory disorders (ICD-10 - J98.8) 01/26/2023 Other specified respiratory disorders (ICD-10 - J98.8) 01/09/2023 Presence of cerebrospinal fluid drainage device (ICD-10 - Z98.2) 01/09/2023 Aphasia (ICD-10 - R47.01) 01/26/2023 Weakness (ICD-10 - R53.1) 01/22/2023 Weakness (ICD-10 - R53.1) 01/10/2023 Personal history of other diseases of the circulatory system (ICD-10 - Z86.79) 01/10/2023 Hydrocephalus, unspecified type (ICD-10 - G91.9) 01/22/2023 Personal history of other diseases of the circulatory system (ICD-10 - Z86.79) 01/26/2023 Personal history of other diseases of the circulatory system (ICD-10 - Z86.79) 01/09/2023 Dysphagia, oropharyngeal phase (ICD-10 - R13.12) 01/26/2023 Hydrocephalus, unspecified type (ICD-10 - G91.9) 01/22/2023 Hydrocephalus, unspecified type (ICD-10 - G91.9) 01/10/2023 Nontraumatic intraventricular intracerebral hemorrhage, unspecified laterality (ICD-10 - I61.5) 01/10/2023 Altered mental statu s, unspecified altered mental status type (ICD-10 - R41.82) 01/22/2023 Nontraumatic intraventricular intracerebral hemorrhage, unspecified laterality (ICD-10 - I61.5) 01/26/2023 Nontraumatic intraventricular intracerebral hemorrhage, unspecified laterality (ICD-10 - I61.5) 01/26/2023 Altered mental statu s, unspecified altered mental status type (ICD-10 - R41.82) 01/22/2023 Altered mental statu s, unspecified altered mental status type (ICD-10 - R41.82) 01/10/2023 Encounter for palliative care (ICD-10 - Z51.5) 01/10/2023 Presence of cerebrospinal fluid drainage device (ICD-10 - Z98.2) 01/22/2023 Encounter for palliative care (ICD-10 - Z51.5) 01/26/2023 Encounter for palliative care (ICD-10 - Z51.5) 01/26/2023 Presence of cerebrospinal fluid drainage device (ICD-10 - Z98.2) 01/22/2023 Presence of cerebrospinal fluid drainage device (ICD-10 - Z98.2) 01/10/2023 Aphasia (ICD-10 - R47.01) 01/10/2023 Retention of urine, unspecified (ICD-10 - R33.9) 01/22/2023 Aphasia (ICD-10 - R47.01) 01/26/2023 Aphasia (ICD-10 - R47.01) 01/26/2023 Retention of urine, unspecified (ICD-10 - R33.9) 01/22/2023 Retention of urine, unspecified (ICD-10 - R33.9) 01/10/2023 Dysphagia, oropharyngeal phase (ICD-10 - R13.12) 01/10/2023 Gastrostomy malfunction (ICD-10 - K94.23) 01/22/2023 Dysphagia, oropharyngeal phase (ICD-10 - R13.12) 01/26/2023 Dysphagia, oropharyngeal phase (ICD-10 - R13.12) 01/26/2023 Gastrostomy malfunction (ICD-10 - K94.23) 01/22/2023 Gastrostomy malfunction (ICD-10 - K94.23) 01/10/2023 Gastrostomy infectio n (ICD-10 - K94.22) 01/22/2023 Gastrostomy infectio n (ICD-10 - K94.22) 01/26/2023 Gastrostomy infectio n (ICD-10 - K94.22) 11/30/2023 Other Medications reviewed, orders signed and documented with nursing staff. Vitals taken and recorded at [facility]. 12/28/2023 Other Medications reviewed, orders signed and documented with nursing staff. Vitals taken and recorded at [facility]. 01/09/2023 Other Medications reviewed, orders signed and documented with nursing staff. Vitals taken and recorded at [facility]. 01/22/2023 Other Medications reviewed, orders signed and documented with nursing staff. Vitals taken and recorded at [facility]. Pt approved for discharge. 01/26/2023 Other Medications reviewed, orders signed and documented with nursing staff. Vitals taken and recorded at [facility]. 03/02/2023 Other Medications reviewed, orders signed and documented with nursing staff. Vitals taken and recorded at [facility]. 03/30/2023 Other Medications reviewed, orders signed and documented with nursing staff. Vitals taken and recorded at [facility]. 04/27/2023 Other Medications reviewed, orders signed and documented with nursing staff. Vitals taken and recorded at [facility]. 06/01/2023 Other Medications reviewed, orders signed and documented with nursing staff. Vitals taken and recorded at [facility]. 06/29/2023 Other Medications reviewed, orders signed and documented with nursing staff. Vitals taken and recorded at [facility]. 08/03/2023 Other Medications reviewed, orders signed and documented with nursing staff. Vitals taken and recorded at [facility]. 08/31/2023 Other Medications reviewed, orders signed and documented with nursing staff. Vitals taken and recorded at [facility]. 09/28/2023 Other Medications reviewed, orders signed and documented with nursing staff. Vitals taken and recorded at [facility]. 11/02/2023 Other Medications reviewed, orders signed and documented with nursing staff. Vitals taken and recorded at [facility]. Plan Of Treatment Next Appt Details Provider Name:Cooper Grace, 12/28/2023 01:00:00 PM, [address] [place], [address], Insurance Providers Payer Name Payer Address Payer Phone Subscriber Number Group Number Insured Name Patient Relationship to Insured Coverage Start Date Coverage End Date [place] Medicaid [address] [place] [address] [id number] Travis Mckeon Self - patient is the insured Medical (General) History Medical History History ICD Code Hypertension Hx of renal stones Surgical History Surgery Date(Month/Year) Finger reattachment; right little finger Hospitalization History Reason Date(Month/Year) Finger reattachment; right little finger Renal stones
--- OUTSIDE RECORDS SUMMARY | 2023-12-28 12:22 | XMS_ITS ---
Author Name Unknown Organization [facility] Address [address] [place] [address] Care Team Providers Care Dental Services Director Name Role Phone Cooper Grace Primary Care Provider Medications Medication SIG (Take, Route, Frequency, Duration) Notes Start Date End Date Status Valtoco 5 MG Dose 5 MG/0.1ML as directed Nasally as needed for 30 days 12/13/2023 Active Encounters Encounter Location Date Provider Diagnosis [facility] [address] [place] [phone] 12/12/2023 Cooper Grace Plan Of Treatment Medication Medication Name Sig Start Date Stop Date Notes Valtoco 5 MG Dose 5 MG/0.1ML as directed Nasally as needed for 30 days 12/13/2023 Next Appt Details Provider Name:Cooper Grace, 12/28/2023 01:00:00 PM, [address] [facility], [place], [address], Progress Notes * Travis WIGGINS DDOB: [birth year] (52 yo M)Acc No.[id number]:12/12/2023 Patient:?Travis WIGGINS :1970???Age:52 Y???Sex:Male Address:[place] [address] * Refills? Start Valtoco 5 MG Dose Liquid, 5 MG/0.1ML, Nasally, 30, as directed, as needed, 30 days, Refills=2 * true * Date:? 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
--- OUTSIDE RECORDS SUMMARY | 2023-12-28 12:22 | XMS_ITS ---
Author Name Unknown Organization [facility] Address [address] [place] [address] Care Team Providers Care Valver Name Role Phone Cooper Grace Primary Care Provider Allergies No Known Allergies Medications Medication SIG (Take, Route, Frequency, Duration) Notes Start Date End Date Status Fleet Enema 7-19 GM/118ML as directed Rectal Active Keppra 500 MG 1 tablet Orally ever y 12 hrs Active Tylenol 325 MG 1 tablet as needed Orally every 4 hrs Active Jevity - as directed Orally A ctive Lactulose 10 GM/15ML TAKE 30ML PER TUBE DAILY for 31 Active Bisacodyl 10 MG 1 suppository as nee ded Rectal Once a day Active Albuterol Sulfate (2.5 MG/3ML) 0.083% 3 mL as needed Inhalation every 6 hrs Active Milk of Magnesia 400 MG/5ML 5 mL at least 4 hours between doses as needed Orally Four times a day Active ProSource - as directed Orally Active Prostate - as directed Orally Active amLODIPine Besylate 10 mg TAKE ONE TABLE T PER tube EVERY DAY for 30 Active Metoprolol Tartrate 50 mg TAKE ONE TABLE T PER tube TWICE DAILY for 30 Active Tamsulosin HCl 0.4 mg TAKE ONE CAPSULE P ER tube daily for 30 Active levETIRAcetam 500 mg TAKE ONE TABLET PER tube TWICE DAILY for 30 Active Lexapro 10 MG 1 tablet Orally Once a day Active Escitalopram Oxalate 10 mg TAKE ONE TABL ET PER tube EVERY DAY for 30 Active Famotidine 20 mg TAKE ONE TABLET PER tube EVERY DAY for 30 Active HYDROcodone-Acetaminophen 5-325 MG 1 tablet as needed Orally every 6 hrs for 30 days 12/05/2023 01/04/2024 Active Valtoco 5 MG Dose 5 MG/0.1ML as directed Nasally as needed for 30 days 12/13/2023 Active Encounters Encounter Location Date Provider Diagnosis [facility] [address] [place] [address] 12/28/2023 Cooper Grace Assessments Encounter Date Diagnosis (ICD Code) Assessment Notes Treatment Notes Treatment Clinical Notes 12/28/2023 Other Medications reviewed, orders signed and documented with nursing staff. Vitals taken and recorded at [facility]. Plan Of Treatment Treatment Notes Assessment Notes Other Medications reviewed , orders signed and documented with nursing staff. Vitals taken and recorded at [facility]. Next Appt Details Follow Up: 4 Weeks, Reason: Provider Name:Cooper Grace, 12/28/2023 01:00:00 PM, [address], [place], [id number], Progress Notes * Travis WIGGINS DDOB: [birth year] (53 yo M)Acc No.[id number]:12/28/2023 Patient:?Travis WIGGINS Provider:?Cooper Grace MD :1970???Age:53 Y???Sex:Male Joaquin e:12/28/2023 Address:[address], [place], [facility] [id number] Subjective: * Chief Complaints: * ??? * HPI: ???::? The patient is seen in the senior care today for follow-up. Staff reports no new complaints. The review of systems and exam are unchanged from previous. Patient denies pain and is comfortable. * Medical History:?Hypertensio n, Hx of renal stones. * Medications:?Taking HYDROcod one-Acetaminophen 5-325 MG Tablet 1 tablet as needed Orally every 6 hrs , stop date 01/04/2024, Taking Valtoco 5 MG Dose 5 MG/0.1ML Liquid as directed Nasally as needed , Taking Escitalopram Oxalate 10 mg Tablet TAKE ONE TABLET PER tube EVERY DAY , Taking Famotidine 20 mg Tablet TAKE ONE TABLET PER tube EVERY DAY , Taking levETIRAcetam 500 mg Tablet TAKE ONE TABLET PER tube TWICE DAILY , Taking Lexapro 10 MG Tablet 1 tablet Orally Once a day , Taking Metoprolol Tartrate 50 mg Tablet TAKE ONE TABLET PER tube TWICE DAILY , Taking Tamsulosin HCl 0.4 mg Capsule TAKE ONE CAPSULE PER tube daily , Taking amLODIPine Besylate 10 mg Tablet TAKE ONE TABLET PER tube EVERY DAY , Taking Bisacodyl 10 MG Suppository 1 suppository as needed Rectal Once a day , Taking Albuterol Sulfate (2.5 MG/3ML) 0.083% Nebulization Solution 3 mL as needed Inhalation every 6 hrs , Taking ProSource - Packet as directed Orally , Taking Prostate - Tablet as directed Orally , Taking Milk of Magnesia 400 MG/5ML Suspension 5 mL at least 4 hours between doses as needed Orally Four times a day , Taking Fleet Enema 7-19 GM/118ML Enema as directed Rectal , Taking Jevity - Liquid as directed Orally , Taking Lactulose 10 GM/15ML Solution TAKE 30ML PER TUBE DAILY , Taking Keppra 500 MG Tablet 1 tablet Orally every 12 hrs , Taking Tylenol 325 MG Tablet 1 tablet as needed Orally every 4 hrs , Medication List reviewed and reconciled with the patient * Allergies:?N.K.D.A. Objective: * Vitals:? * Examination: ???General Examination: ?GENERAL APPEARANCE:?in no acute distress. Vital signs as documented..?NECK/THYROID:?no JVD.?SKIN:?warm and dry, without overt rashes..?HEART:?notable for regular rhythym, normal sounds and absence of murmurs, rubs or gallops..?LUNGS:?Lungs clear.?ABDOMEN:?unremarkable, no organomegaly , no masses, or abdominal aortic enlargement..? Assessment: Plan: * Treatment: * Procedure Codes:?64381 [facility] C ARE SUBSEQ * Follow Up:?4 Weeks * Billing Information: * Visit Code:? * Procedure Codes:? 36280 [facility] CARE SUBSEQ. * Electronic signature of Lupillo Grace MD on 12/28/2023 at 12:21 PM STRIPPER OPAQUER Sign off status: Pending * Provider:?Cooper Grace MD Joaquin e:?12/28/2023 Generated for Nicole la/Jenelle/Jeronimoitting on:?12/28/2023 12:21 PM STRIPPER OPAQUER History and Physical Notes * Examination Category Sub-Category Detail Notes General Examination GENERAL APPEARANCE: in no ac mi'kmaq distress. Vital signs as documented. NECK/THYROID: no JVD HEART: notable for regular rhythym, normal sounds and absence of murmurs, rubs or gallops. LUNGS: Lungs clear ABDOMEN: unremarkable, no org anomegaly , no masses, or abdominal aortic enlargement. SKIN: warm and dry, withou t overt rashes.
--- OUTSIDE RECORDS SUMMARY | 2023-12-28 12:22 | XMS_ITS ---
Author Name Unknown Organization [facility] Address [address] [place] [address] Care Team Providers Care Evp Business Development Name Role Phone Cooper Grace Primary Care Provider REASON FOR VISIT Refills Medications Medication SIG (Take, Route, Frequency, Duration) Notes Start Date End Date Status HYDROcodone-Acetaminophen 5-325 MG 1 tablet as needed Orally every 6 hrs for 30 days 12/05/2023 01/04/2024 Active Encounters Encounter Location Date Provider Diagnosis [facility] [address] [place] [id number] 12/05/2023 Cooper Grace Plan Of Treatment Medication Medication Name Sig Start Date Stop Date Notes HYDROcodone-Acetaminophen 5- 325 MG 1 tablet as needed Orally every 6 hrs for 30 days 12/05/2023 01/04/2024 Next Appt Details Provider Name:Cooper Grace, 12/28/2023 01:00:00 PM, [address] [facility] [address], [place], [address], Progress Notes * Travis WIGGINS DDOB: [birth year] (52 yo M)Acc No.[id number]:12/05/2023 Patient:?Travis WIGGINS :1970???Age:52 Y???Sex:Male Address:[place] [address] [address] * Refills? Refill HYDROcodone-Acetaminophen Tablet, 5-325 MG, Orally, 120 Tablet, 1 tablet as needed, every 6 hrs, 30 days, Refills=0 * true * Date:? 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
[2023-12-28 12:24] LABS: Glucose Point of Care 79 mg/dL (70-110)
--- NOTE | 2023-12-28 12:31 | ECG_ITS ---
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 Measurements Intervals [place] Rate: 95 P: 142 CA: 185 QRS: 35 QRSD: 97 T: -22 QT: 363 QTc: 458 Interpretive Statements SINUS RHYTHM POSSIBLE LEFT ATRIAL ENLARGEMENT [-0.1mV P-WAVE IN V1/V2] NONSPECIFIC T-WAVE ABNORMALITY Compared to ECG 12/27/2023 15:43:48 T-wave abnormality now present Myocardial infarct finding no longer present Electronically Signed On 12-28-2023 18:04:15 CERAMIC ARTIST by Cheko Amato M.D. [email or web address]
[2023-12-28] MEDS: levETIRAcetam 500 MG/100 ML PREMIX 400 MG IV (16:14)
[2023-12-28 18:35] LABS: Glucose Point of Care 124 mg/dL (70-110)
[2023-12-28 18:35] LABS: Glucose Point of Care 119 mg/dL (70-110)
[2023-12-28 20:26] LABS: Glucose Point of Care 155 mg/dL (70-110)
--- NOTE | 2023-12-28 20:32 | PC.NURSE ---
Unable to administer PO meds do to altered mental status.
[2023-12-28] MEDS: levETIRAcetam 1,000 MG/100 ML PREMIX 400 MG IV (21:54)
[2023-12-28 23:57] LABS: Glucose Point of Care 130 mg/dL (70-110)
[2023-12-29] VITALS (27 sets, daily range): BP systolic 98–162; BP diastolic 72–105; PULSE 46–94; RESP 11–24; TEMP 36.4; O2SAT 92–97
[2023-12-29 04:03] LABS: Glucose Point of Care 119 mg/dL (70-110)
[2023-12-29 05:04] LABS: Basophils # 0.1 10^3/uL (0.0-0.1); Basophils % 0.6 %; Eosinophils # 0.1 10^3/uL (0.0-0.8); Eosinophils % 1.4 %; Hematocrit 33.9 % (37-53); Lymphocytes # 1.7 10^3/uL (0.8-4.8); Lymphocytes % 19.3 %; Mean Corpuscular HGB Conc 32.2 g/dL (30-55); Mean Corpuscular Hemoglobin 27.8 pg (27-33); Mean Corpuscular Volume 86.5 fl (82-101); Mean Platelet Volume 10.6 fL (7.4-10.4); Monocytes # 0.8 10^3/uL (0.2-0.9); Monocytes % 8.4 %; Neutrophils # 6.32 10^3/uL (1.8-7.7); Neutrophils % 70.1 %; Nucleated Red Blood Cells % 0 %; Platelet Count 252 10^3/cmm (157-399); Red Blood Count 3.92 10^6/uL (3.85-5.65); Red Cell Distribution Width 13.8 % (12.1-15.1); White Blood Count 9.02 10^3/uL (3.29-11.43)
[2023-12-29 05:17] LABS: Anion Gap 13.3 (5-19); Blood Urea Nitrogen 11 mg/dL (6-20); Calcium 9.1 mg/dL (8.5-10.5); Carbon Dioxide 24 mmol/L (22-29); Chloride 103 mmol/L (98-107); Creatinine Clr Calc Pharmacy 109.1037; Glomerular Filtration Rate 88.6 mL/min (90-130); Glucose 128 mg/dL (65-115); Magnesium 1.7 mg/dL (1.7-2.3); Osmolality Calculated 285 mOsm/kg (285-295); Potassium 3.3 mmol/L (3.5-5.1); Sodium 137 mmol/L (136-145)
[2023-12-29] MEDS: levETIRAcetam 500 MG/100 ML PREMIX 400 MG IV (05:51)
[2023-12-29] MEDS: zonisamide 100 MG Capsule 200 MG PO (07:50)
[2023-12-29] MEDS: escitalopram 10 mg Tablet PO (07:50)
[2023-12-29] MEDS: lamoTRIgine 100 mg Tablet PO ×2 (07:51→16:53)
[2023-12-29] MEDS: piperacillin-tazobactam 3.375 GM in sodium chloride 0.9% (plus) 50 ML IV ×3 (07:51→22:40)
[2023-12-29] MEDS: dextrose 10% 1,000 ML 75 ML IV (07:51)
[2023-12-29 10:22] LABS: Glucose Point of Care 138 mg/dL (70-110)
--- NOTE | 2023-12-29 11:21 | CTR_ITS ---
PROCEDURE INFORMATION: Exam: CT Head Without Contrast Exam date and time: 12/29/2023 1:47 PM Age: 53 years old Clinical indication: Altered mental status/memory loss TECHNIQUE: Imaging protocol: Computed tomography of the head without contrast. Radiation optimization: All CT scans at this facility use at least one of these dose optimization techniques: automated exposure control; mA and/or kV adjustment per patient size (includes targeted exams where dose is matched to clinical indication); or iterative reconstruction. COMPARISON: CT head wo con* [id number] 12/27/2023 9:[address] head September 13, 2023 RADIATION DOSE METRICS: Total DLP (mGy-cm): 1089.98 FINDINGS: Brain: White matter hypodensities in right centrum semiovale and cervantes radiata is similar to previous study. Focal area of hypodensity in right thalamus/adjacent cervantes radiata (series 4, image 26) is stable compared to previous studies. Cerebral ventricles: Right frontal ventriculostomy catheter in place, unchanged. Asymmetry of lateral ventricles, left larger than right and minimally prominent 3rd ventricle is similar to previous study. Paranasal sinuses: Visualized sinuses are unremarkable. No fluid levels. Mastoid air cells: Visualized mastoid air cells are well aerated. Bones: Unremarkable. No acute fracture. Soft tissues: Unremarkable. CT/CT head wo con* [id number] IMPRESSION: 1. No acute intracranial abnormality. 2. Stable right frontal ventriculostomy catheter and ventricles. Stable chronic infarction changes.
--- NOTE | 2023-12-29 11:22 | XRR_ITS ---
PROCEDURE INFORMATION: Exam: XR Chest Exam date and time: 12/29/2023 1:45 PM Age: 53 years old Clinical indication: Shortness of breath; Additional info: Follow up TECHNIQUE: Imaging protocol: Radiologic exam of the chest. Views: 1 view. COMPARISON: CR XR chest 1V portable [id number] 12/27/2023 9:18 PM FINDINGS: Tubes, catheters and devices: Right-sided PICC line unchanged. Right-sided PHOTOGRAPHIC EDITOR shunt catheter again seen. Lungs: Low lung volume. No consolidation. Pleural spaces: Unremarkable. No pleural effusion. No pneumothorax. Heart/Mediastinum: Stable cardiomegaly. Bones/joints: Stable. XR/XR chest 1V portable [id number] IMPRESSION: No acute findings.
[2023-12-29] MEDS: sodium chloride 0.9% 500 ML IV (11:27)
[2023-12-29] MEDS: atropine 0.1 mg/mL Syr 10 mL 0.5 MG IVP (11:27)
[2023-12-29] MEDS: potassium chloride premix 100 ML 25 MEQ IV (11:27)
[2023-12-29 12:14] LABS: Estmated Average Glucose 97
--- NOTE | 2023-12-29 13:00 | PM.PN ---
Subjective Subjective: Seen this morning. 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 He is following commands. Smiles for me and stuck his tongue out. Does have a chronic contracture on left side. Opened his eyes. Working with speech therapy at this time and trying different consistencies of food. Potassium 3.3 this morning. Did not have any seizures in the hospital. Secondary to sinus bradycardia. Did order 0.5 atropine and a 500 cc normal saline bolus Chest x-ray. Has been afebrile last 48 hours. Discussed with cardiology Hematuria starting to clear up. Chirinos draining clear yellow urine at this time. Still on a D10 drip. Vitals/I&O/Wt Last Vital Signs Temp 97.6 F 12/29/23 04:00 Pulse 52 L 12/29/23 08:00 Resp 18 12/29/23 08:00 BP 119/83 12/29/23 08:00 Pulse Ox 96 12/29/23 08:00 O2 Del Method Room Air 12/28/23 06:00 12/28/23 12/29/23 12/29/23 22:59 06:59 14:59 Intake Total 2132.5 / 2182.5 150 / 2332.5 957.5 / 957.5 Output Total 800 / 800 400 / 1200 Balance 1332.5 / 1382.5 -250 / 1132.5 957.5 / 957.5 Weight last 48 hrs Weight 87.589 kg Weight 87.9 kg Weight 86.778 kg Physical Exam Narrative: Sitting up in bed at this time appearing comfortable., Follows commands. On 2 L nasal cannula. Vitals are stable. Lungs, rhonchi bilateral lung grier however most likely secondary to secretions. no Crackles appreciated. Abdomen soft nontender Scar noted at xiphoid process area Nonverbal at this time. However was able to gesture saying the word yes. Visible skin intact Able to smile for me and stick his tongue out able to wiggle right toes, moved to his right hand. Patient is back to his baseline. Urinary Catheter Management: Chirinos: Cath Placed During This Visit: yes Reason for Continuing Indwelling Catheter: Accurate Measurement of Urinary Output in Critically Ill Patients Urinary Catheter Date of Insertion: 12/21/22 Urinary Catheter Time of Insertion: 11:00 Data 12/29/23 03:57 12/29/23 03:57 Micro: Microbiology 12/27/23 13:30 Urine Culture - Final Urine,Clean Catch 12/27/23 09:44 Blood Culture - Preliminary Blood NEGATIVE TO DATE 12/27/23 09:40 Blood Culture - Preliminary Blood NEGATIVE TO DATE A&P Assessment and plan (1) History of CVA in adulthood: (2) Altered mental status: (3) Seizure: (4) Recurrent seizures: (5) Intractable epilepsy: (6) Spastic hemiparesis of left dominant side as late effect of cerebral infarction: (7) CVA (cerebral vascular accident): (8) Postictal state: Plan #Seizure-like activity/altered mental status #Hypertension #NSTEMI, most likely type II demand ischemia, elevated troponin #Microscopic hematuria most likely due to traumatic Chirinos insertion #Leukocytosis #History of PEG tube placement and removal #History of hydrocephalus, ruptured aneurysm requiring a 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 Patient is presented with hypertension and is staring into space and has a right-sided hand tremor which apparently has been going on for the last couple of weeks intermittently. [facility] this is normal for him to have. He did have 2 recent seizures few weeks ago however has not had any seizure activity between today and yesterday. ? At baseline he is not completely nonverbal. He will answer some questions and speak some words but is somewhat nonverbal. ? Urinalysis shows RBCs in urine 1+ bacteria. Most likely due to traumatic Chirinos insertion. ? Troponins elevated 98, 90.86, 85 with a negative delta 13. Heparin drip was initiated to cover for possible NSTEMI however my suspicion is not very high at this time and I believe this may be due to a demand ischemia. Patient has not complained of any chest pain at the detention. We will check an echo and if echo is normal we will turn off heparin drip. ? Chirinos is draining clear yellow urine at this time. ? Consult neurology since I have a suspicion patient may be having an absence seizure or prolonged postictal state? ? Will order Ativan 1 mg IV x 1. ? Will load with Keppra 1000 mg IV x 1. ? Discussed with neurology over the phone. Will continue lamotrigine at 100 twice daily, Metroprolol tartrate 100 twice daily, zonisamide 200 daily. They will also switch his Keppra dose to 500 morning and afternoon and 1000 at bedtime. ? Will order Ativan 1 mg IV every 6 hours as needed ? Will keep n.p.o. for now until mental status is improved. At which point we can restart his diet. ? Continue amlodipine 10 daily. ? Transfer to ICU at this time. Patient is no longer on tube feeds. ? CT head was obtained which does not show any acute stroke. ROOM SERVICE FOOD SERVICE ATTENDANT shunt is intact with no issues at this time ? EKG does not show any acute ischemic changes ? Will place on Zosyn empirically to cover for possible aspiration versus possible UTI. ? Will need to redo home med rec with the patient as tube feeds are still listed as a part of his home medication list. Full code DVT prophylaxis: Will be on a heparin drip. 12/29/2023 -Aspiration pneumonia: No longer febrile. Continue Zosyn at this time. Will complete 7 days total. Will switch to Augmentin at discharge ? Speech therapy evaluation today. Restart diet when able. ? Cut down Keppra to 500 3 times daily. Will check Keppra level. Patient bradycardic. Ordered atropine 0.5 x 1 and 500 cc normal saline bolus. I am suspecting Keppra toxicity ? Troponins elevated but flat. Echocardiogram shows no regional wall motion abnormalities. Most likely secondary to type II demand ischemia possibility. Discussed with cardiology. No further cardiac workup suggested at this time. Did not have any chest pain at the detention either. ? Continue to flush Chirinos. Hematuria has cleared up. Will remove Chirinos later on today. ? Continue D10 drip at this time. Will wean off once patient able to eat by mouth. Awaiting assessment from speech therapy. ? Check chest x-ray today. ? Speech therapy to evaluate the patient again. For now we will keep him n.p.o. Patient is extremely thick pur?ed diet at the detention. ?Will switch medications back to oral once able to take diet. ? Blood cultures pending, urine culture pending, sputum Gram stain pending at this time. Negative to date. -If patient continues to improve and remained stable in next 24 hours may consider discharging back to detention. Attestations Medical Necessity Statement*: Aspiration pneumonia, possible breakthrough seizure. Diagnoses History of CVA in adulthood Z86.73 Altered mental status R41.82 Seizure R56.9 Recurrent seizures G40.909 Intractable epilepsy G40.919 Spastic hemiparesis of left dominant side as late effect of cerebral infarction I69.352 CVA (cerebral vascular accident) I63.9 Postictal state R56.9
[2023-12-29] MEDS: levETIRAcetam 1,000 mg/10 mL UDC 500 MG PO ×2 (15:00→21:33)
--- NOTE | 2023-12-29 15:14 | P.CONIM_ITS ---
Providers/Reason For Consult 2 Consulting Physician/Specialty*: Dr. Amato/cardiology Reason for Consult*: Bradycardia/mildly elevated cardiac troponin enzymes Requesting Physician: Dr. 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 He was admitted with an episode of seizure and has been treated accordingly. As patient is nonverbal, therefore it is difficult to assess any history regarding any cardiovascular symptoms. His troponin markers have flat elevation, EKG showed nonspecific ST changes and echocardiogram showed normal LV function with no wall motion abnormalities. Clinically no objective evidence of any heart failure. Last night and this morning patient was noticed to have asymptomatic bradycardia heart rate in the high 30s to 40s, sinus bradycardia. His blood pressure remained normal. He was treated with 0.5 mg of atropine and also given some IV fluids as his oral intake is limited. Currently patient vitals are stable heart rate 70s to 80s in sinus rhythm and blood pressure is within normal range. Review of Systems 2 Narrative: Unable to take any history from the patient as patient is nonverbal. As per medical record there appears to be no history of any cardiac pathology. However it was noticed patient has been taking a quite high dose of metoprolol 100 mg twice a day which was discontinued on admission. Medications/Allergies Home Medications Medication Instructions Recorded Confirmed Last Taken Type acetaminophen 325 mg tablet 650 mg feeding tube Q6H PRN Pain 11/04/22 12/27/23 Unknown History (Tylenol) amlodipine 10 mg tablet 10 mg feeding tube DAILY 11/04/22 12/27/23 09/06/23 History bisacodyl 10 mg rectal suppository 10 mg AL QPM PRN Constipation 11/04/22 12/27/23 Unknown History (Dulcolax (bisacodyl)) famotidine 20 mg tablet 20 mg feeding tube DAILY 11/04/22 12/27/23 09/06/23 History lactose-reduced food with fiber See Rx Instructions .Route 11/04/22 12/27/23 Unknown History 0.06 gram-1.5 kcal/mL oral liquid .COMPLEX PRN NUTRITION (Jevity 1.5 Luke) lactulose 20 gram/30 mL oral 30 ml feeding tube BEDTIME 11/04/22 12/27/23 09/05/23 History solution magnesium hydroxide 400 mg/5 mL 30 ml PO DAILY PRN Constipation 11/04/22 12/27/23 Unknown History oral suspension (Milk of Magnesia) chhngbng-xxsc-nznhmzm gluconate 9 15 ml feeding tube TID 11/04/22 12/27/23 09/06/23 History mg iron/15 mL (15 mL) oral liquid sodium phosphates 19 gram-7 118 ml AL BEDTIME PRN Constipation 11/04/22 12/27/23 Unknown History gram/118 mL enema (Fleet Enema) tamsulosin 0.4 mg capsule (Flomax) 0.4 mg PO BEDTIME 11/04/22 12/27/23 09/05/23 History albuterol sulfate 2.5 mg/3 mL 2.5 mg inhalation Q6H PRN 12/21/22 12/27/23 Unknown History (0.083 %) solution for nebulization Shortness Of Breath Or Wheezing amino ac-protein hydro-whey 1 ea feeding tube DAILY 12/21/22 12/27/23 09/05/23 History protein 10 gram-100 kcal/30 mL oral liquid (ProSource) hydrocodone 5 mg-acetaminophen 325 1 tab feeding tube Q6H PRN Pain 12/21/22 12/27/23 Unknown History mg tablet ashwagandha root extract 300 mg 300 mg PO TID 09/06/23 12/27/23 09/06/23 History tablet escitalopram oxalate 10 mg tablet 10 mg PO DAILY 09/06/23 12/27/23 09/06/23 History (Lexapro) levetiracetam 500 mg tablet 500 mg PO TID #90 tabs 09/11/23 12/27/23 Unknown Rx (Keppra) diazepam 5 mg/spray (0.1 mL) nasal 5 mg (0.1 mL) intranasal ONCE #2 10/29/23 12/27/23 Unknown Rx spray sprays lamotrigine 100 mg tablet 100 mg PO BID 12/27/23 12/27/23 Unknown History metoprolol tartrate 100 mg tablet 100 mg PO BID 12/27/23 12/27/23 Unknown History potassium chloride 10 mEq 10 meq PO BID 12/27/23 12/27/23 Unknown History capsule,extended release zonisamide 100 mg capsule 200 mg PO DAILY 12/27/23 12/27/23 Unknown History Allergies Allergy/AdvReac Type Severity Reaction Status Date / Time No Known Allergies Allergy Verified 11/08/23 16:50 Current Medications Generic Name Dose Route Start Last Admin Trade Name Freq PRN Reason Stop Dose Admin Amlodipine Besylate 10 mg 12/28/23 09:00 12/28/23 07:50 Amlodipine 10 Mg Tablet PO 10 mg DAILY SRINIVASA Administration Escitalopram Oxalate 10 mg 12/28/23 09:00 12/29/23 07:50 Escitalopram 10 Mg Tablet PO 10 mg DAILY SRINIVASA Administration Piperacillin Sod/Tazobactam 50 mls @ 12.5 mls/hr 12/27/23 15:30 12/29/23 15:00 Sod 3.375 gm/ Sodium Chloride IV 12.5 mls/hr Q8H SRINIVASA Administration Dextrose 125 mls @ 750 mls/hr 12/28/23 07:28 12/28/23 19:02 D10w IV Infused PRN PRN Infusion HYPOGLYCEMIA Dextrose 1,000 mls @ 75 mls/hr 12/28/23 10:15 12/29/23 07:51 D10w IV 75 mls/hr .[id number] SRINIVASA Administration Lactulose 20 gm 12/28/23 21:00 12/28/23 20:31 Lactulose Oral Liq 20 Gm/30 Ml Udc PO Not Given BEDTIME SRINIVASA Lamotrigine 100 mg 12/27/23 18:00 12/29/23 07:51 Lamotrigine 100 Mg Tablet PO 100 mg BID SRINIVASA Administration Levetiracetam 500 mg 12/29/23 15:00 12/29/23 15:00 Levetiracetam 1,000 Mg/10 Ml Udc PO 500 mg TID SRINIVASA Administration Tamsulosin HCl 0.4 mg 12/27/23 21:00 12/28/23 20:31 Tamsulosin 0.4 Mg Capsule PO Not Given BEDTIME SRINIVASA Zonisamide 200 mg 12/28/23 09:00 12/29/23 07:50 Zonisamide 100 Mg Capsule PO 200 mg DAILY SRINIVASA Administration PFSH Acute 2 PFSH: Medical History Seizure CVA (cerebral vascular accident) Social History Smoking and tobacco/nicotine status: never used tobacco/nicotine Vitals/I&O/Wt Last Vital Signs Temp 97.6 F 12/29/23 04:00 Pulse 91 12/29/23 14:00 Resp 13 12/29/23 14:00 BP 136/98 12/29/23 14:00 Pulse Ox 97 12/29/23 14:00 O2 Del Method Room Air 12/28/23 06:00 12/29/23 12/29/23 12/29/23 06:59 14:59 22:59 Intake Total 150 / 2332.5 1127.5 / 1127.5 Output Total 400 / 1200 Balance -250 / 1132.5 1127.5 / 1127.5 Weight last 48 hrs Weight 193 lb 1.6 oz Weight 193 lb 12.581 oz Weight 191 lb 5 oz Physical Exam 2 Const: OTHER: Patient is nonverbal. He does not appear to be in any distress. His vitals are stable currently within normal range. HENMT: OTHER: Grossly normal Chest: OTHER: Normal exam of the chest. Resp: OTHER: Good air entry bilaterally on auscultation Cardio: OTHER: There is no JVD. Normal first and second heart sounds. No added sound. GI: OTHER: Abdominal soft. Bowel sounds audible. Extremity: NARRATIVE EXTREMITY EXAM: Patient has significant contracture of his extremities most of his left upper and left lower leg. No pedal edema on lower extremities. Neuro: OTHER: He is nonverbal and does not respond to any verbal command. Difficult to assess the detail of neurological deficit. Skin: NARRATIVE SKIN EXAM: Skin is warm and dry. Urinary Catheter Management: Chirinos: Cath Placed During This Visit: yes Reason for Continuing Indwelling Catheter: Accurate Measurement of Urinary Output in Critically Ill Patients Urinary Catheter Date of Insertion: 12/21/22 Urinary Catheter Time of Insertion: 11:00 Data 12/29/23 03:57 12/29/23 03:57 Micro: Microbiology 12/27/23 13:30 Urine Culture - Final Urine,Clean Catch 12/27/23 09:44 Blood Culture - Preliminary Blood NEGATIVE TO DATE 12/27/23 09:40 Blood Culture - Preliminary Blood NEGATIVE TO DATE A&P Assessment and plan (1) Recurrent seizures: (2) CVA (cerebral vascular accident): (3) Bradycardia: Plan 53-year-old male patient, bedridden long-term correction care patient due to debilitating neurological disabilities related to previous stroke. Admitted with this recurrent seizures, which are now controlled with the medication adjustment. Sinus bradycardia this morning is likely combination of his home medication, metoprolol XL, and increasing the dose of antiseizure medication specially Keppra. The flat mildly elevated cardiac troponins are nonspecific. Rarely cardiac enzyme, troponin have been found to be mildly elevated in the scenario of severe epileptic seizure. Clinically no objective evidence of any active ischemia or heart failure symptoms. The sinus bradycardia has now resolved since after treatment. Recommendation To observe heart rate on the compliance monitor, patient will likely need restart of lower dose of beta-quincy, metoprolol at some point before discharge I agreed to discontinue heparin as this troponin elevation is not a primary acute coronary pathology. Coding Level of Care Code 65775 Diagnoses Recurrent seizures G40.909 CVA (cerebral vascular accident) I63.9 Bradycardia R00.1 Time Spent (min) 25
[2023-12-29] MEDS: HYDROcodone-acetaminophen 5-325 mg Tablet 1 TAB PO (16:53)
[2023-12-29 18:33] LABS: Glucose Point of Care 174 mg/dL (70-110)
[2023-12-29 19:55] LABS: Glucose Point of Care 136 mg/dL (70-110)
[2023-12-29] MEDS: tamsulosin 0.4 mg Capsule PO (21:35)
[2023-12-29] MEDS: lactulose oral liq 20 gm/30 mL UDC PO (21:43)
[2023-12-29 22:30] LABS: Glucose Point of Care 115 mg/dL (70-110)
[2023-12-30] VITALS (19 sets, daily range): BP systolic 110–155; BP diastolic 64–101; PULSE 54–92; RESP 11–17; TEMP 36.6–37; O2SAT 94–98
[2023-12-30 00:28] LABS: Glucose Point of Care 97 mg/dL (70-110)
[2023-12-30 02:09] LABS: Glucose Point of Care 108 mg/dL (70-110)
[2023-12-30 04:29] LABS: Glucose Point of Care 79 mg/dL (70-110)
[2023-12-30 04:35] LABS: Basophils # 0.1 10^3/uL (0.0-0.1); Eosinophils # 0.2 10^3/uL (0.0-0.8); Eosinophils % 3.1 %; Hematocrit 33.8 % (37-53); Lymphocytes # 1.8 10^3/uL (0.8-4.8); Lymphocytes % 27.1 %; Mean Corpuscular HGB Conc 32.2 g/dL (30-55); Mean Corpuscular Hemoglobin 27.8 pg (27-33); Mean Corpuscular Volume 86.2 fl (82-101); Mean Platelet Volume 10.6 fL (7.4-10.4); Monocytes # 0.6 10^3/uL (0.2-0.9); Monocytes % 8.8 %; Neutrophils # 4.02 10^3/uL (1.8-7.7); Neutrophils % 59.9 %; Nucleated Red Blood Cells % 0 %; Platelet Count 259 10^3/cmm (157-399); Red Blood Count 3.92 10^6/uL (3.85-5.65); Red Cell Distribution Width 13.9 % (12.1-15.1); White Blood Count 6.72 10^3/uL (3.29-11.43)
[2023-12-30 04:55] LABS: Blood Urea Nitrogen 8 mg/dL (6-20); Carbon Dioxide 25 mmol/L (22-29); Chloride 108 mmol/L (98-107); Creatinine Clr Calc Pharmacy 108.9348; Glomerular Filtration Rate 88.6 mL/min (90-130); Glucose 82 mg/dL (65-115); Magnesium 1.7 mg/dL (1.7-2.3); Osmolality Calculated 295 mOsm/kg (285-295); Phosphorus 2.9 mg/dL (2.5-4.5); Sodium 144 mmol/L (136-145)
[2023-12-30 05:00] LABS: Anion Gap 14.5 (5-19); Potassium 3.5 mmol/L (3.5-5.1)
[2023-12-30 05:26] LABS: Glucose Point of Care 104 mg/dL (70-110)
[2023-12-30 06:15] LABS: Glucose Point of Care 84 mg/dL (70-110)
[2023-12-30] MEDS: lamoTRIgine 100 mg Tablet PO (08:02)
[2023-12-30] MEDS: zonisamide 100 MG Capsule 200 MG PO (08:02)
[2023-12-30] MEDS: levETIRAcetam 1,000 mg/10 mL UDC 500 MG PO ×2 (08:02→15:00)
[2023-12-30] MEDS: piperacillin-tazobactam 3.375 GM in sodium chloride 0.9% (plus) 50 ML IV ×2 (08:02→14:58)
[2023-12-30] MEDS: escitalopram 10 mg Tablet PO (08:02)
[2023-12-30 10:14] LABS: Glucose Point of Care 86 mg/dL (70-110)
--- NOTE | 2023-12-30 12:30 | P.DS_ITS ---
Discharge Providers Date of Admission: 12/27/23 15:14 Date of Discharge: December 30, 2023 Attending Provider at Admission: Latonya Malin MD Attending Provider at Discharge: Latonya Malin MD Primary Care Provider: Chong Grace MD Diagnoses at Discharge Discharge Diagnosis (1) Recurrent seizures: Status: Acute (2) CVA (cerebral vascular accident): Status: Acute (3) Bradycardia: Status: Acute Reason for Visit Reason for Visit: ams, possible seizures Hospital Course Hospital Course Patient was initially admitted to the hospital for possible postictal state and an absence seizure?. He was seen by neurology. He was given Ativan 1 mg IV x 1. He was able to follow commands thereafter. He was altered. There was a question of aspiration pneumonia. Chest x-ray did show possible pneumonia. He was kept on IV antibiotics. Subsequently he improved. He is awake alert and able to tolerate a diet by mouth. Has seen speech therapy. I believe he is back to baseline. He may be able to go back to [facility] and complete Augmentin for another 4 days to complete treatment for aspiration. UTI ruled out. Of note initially when he came to the hospital we did increase his Keppra to thousand at nighttime and 500 morning and afternoon and he was loaded with Keppra 1000 in the ER as well. I believe he may have had some Keppra toxicity as patient was bradycardic thereafter. He did require 1 dose of IV atropine after which heart rate improved. He was seen by cardiology as well. We will cut back back down to regular home dose 500 3 times daily at this time. Continue zonisamide and lamotrigine. Troponins were elevated but flat delta - 13. Low suspicion of cardiac event however initially was started on a heparin drip for possible NSTEMI. He developed mild hematuria secondary traumatic Chirinos insertion. Chirinos was flushed and was draining clear yellow urine at that point. Echo did not show any acute wall motion abnormalities, EKG similar to previous EKGs with no acute ischemic changes. Discussed with cardiology at length. Suspicion of coronary event is low at this point. Heparin drip was discontinued. Cardiology recommended to reduce metoprolol dosage. We will send patient home on 50 twice daily at this point. Lastly during hospitalization for the first day and a half patient was altered and therefore was kept n.p.o. and did develop hypoglycemia and required a D10 drip. Now the diet has been restarted sugars have been stable. At this point patient will be recommended to follow-up with neurology as an outpatient and to continue home meds as previously directed.. Aspiration precautions must be followed. Patient is high risk of aspiration. He is on pur?ed diet and moderately thick liquids. Discussed with nursing staff in detail. Patient appears better, color looks better is following commands able to respond and answer questions. Physical Exam Narrative: Sitting up in bed at this time appearing comfortable., Follows commands. On 2 L nasal cannula. Vitals are stable. Lungs, rhonchi bilateral lung grier however most likely secondary to secretions, much improved compared to yesterday. No Crackles appreciated. Abdomen soft nontender Scar noted at xiphoid process area Nonverbal at this time. Able to use his hands and moves his lips to answer questions. Visible skin intact Following commands. I believe he is back to baseline. Urinary Catheter Management: Chirinos: Cath Placed During This Visit: yes Reason for Continuing Indwelling Catheter: Accurate Measurement of Urinary Output in Critically Ill Patients Urinary Catheter Date of Insertion: 12/21/22 Urinary Catheter Time of Insertion: 11:00 Discharge Data Studies Completed and Pending Completed Studies During Hospitalization Category Date Time Status CT head wo con* [id number] Stat Cat Scan 12/27/23 09:[address] head wo con* [id number] Stat Cat Scan 12/29/23 11:21 Completed CXRP [XR chest 1V portable [id number]] Routine Exams 12/27/23 18:19 Completed CXRP [XR chest 1V portable [id number]] Routine Exams 12/27/23 20:40 Completed XR chest 1V portable [id number] Stat Exams 12/27/23 09:20 Completed XR chest 1V portable [id number] Stat Exams 12/29/23 11:22 Completed CV. echo complete* [id number] Stat Ultrasound 12/27/23 14:48 Completed Pending at discharge Category Date Time Status Blood Culture Stat Lab 12/27/23 09:40 Results KEPPRA [Levetiracetam Immunoassy] Routine Lab 12/29/23 11:16 Received Platelet Count Q2D Lab 12/31/23 04:00 Ordered Radiology Impressions Head CT 12/29/23 11:21 IMPRESSION: 1. No acute intracranial abnormality. 2. Stable right frontal ventriculostomy catheter and ventricles. Stable chronic infarction changes. Chest X-Ray 12/29/23 11:22 IMPRESSION: No acute findings. Laboratory Results WBC 6.72 10^3/uL (3.29-11.43) 12/30/23 04:04 RBC 3.92 10^6/uL (3.85-5.65) 12/30/23 04:04 Hgb 10.90 g/dL (11.27-16.99) L 12/30/23 04:04 Hct 33.8 % (37-53) L 12/30/23 04:04 MCV 86.2 fl (82-101) 12/30/23 04:04 MCH 27.8 pg (27-33) 12/30/23 04:04 MCHC 32.2 g/dL (30-55) 12/30/23 04:04 RDW 13.9 % (12.1-15.1) 12/30/23 04:04 Plt Count 259 10^3/cmm (157-399) 12/30/23 04:04 MPV 10.6 fL (7.4-10.4) H 12/30/23 04:04 Neut % (Auto) 59.9 % 12/30/23 04:04 Lymph % (Auto) 27.1 % 12/30/23 04:04 Anderson % (Auto) 8.8 % 12/30/23 04:04 Eos % (Auto) 3.1 % 12/30/23 04:04 Baso % (Auto) 1.0 % 12/30/23 04:04 Neut # (Auto) 4.02 10^3/uL (1.8-7.7) 12/30/23 04:04 Lymph # (Auto) 1.8 10^3/uL (0.8-4.8) 12/30/23 04:04 Anderson # (Auto) 0.6 10^3/uL (0.2-0.9) 12/30/23 04:04 Eos # (Auto) 0.2 10^3/uL (0.0-0.8) 12/30/23 04:04 Baso # (Auto) 0.1 10^3/uL (0.0-0.1) 12/30/23 04:04 Nucleated RBC % (auto) 0 % 12/30/23 04:04 Nucleated RBCs # 0.0 /100WBC 12/30/23 04:04 APTT 44.4 SECONDS (23.9-36.7) H 12/27/23 20:24 Specimen Type Arterial 12/27/23 09: Sample Site Radial, right 12/27/23 09:27 ABG pH 7.38 (7.35-7.45) 12/27/23 09:27 ABG pCO2 40.7 mmHg (35-45) 12/27/23 09: ABG pO2 73.0 mmHg (80.0-100.0) L 12/27/23 09: ABG PO2/FiO2 Ratio 347 12/27/23 09: ABG HCO3 24.2 mmol/L (22-26) 12/27/23 09: ABG O2 Saturation 95.6 12/27/23 09: ABG Base Excess -0.9 mmol/L (-2.0-2.0) 12/27/23 09:27 Kareem Test Pos 12/27/23 09:27 A-a O2 Gradient 3.6 mmHg (5-10) L 12/27/23 09:27 Hematocrit 38.9 % (42-52) L 12/27/23 09:27 Hgb O2 Saturation 93.8 % (95-100) L 12/27/23 09:27 Carboxyhemoglobin 0.8 %THgb (0.4-20.1) 12/27/23 09:27 Methemoglobin 1.0 % (0.4-1.5) 12/27/23 09:27 Total Hemoglobin 12.7 g/dL (14-18) L 12/27/23 09:27 Sodium 146.0 mmol/L (131-143) H 12/27/23 09:27 Potassium 3.6 mmol/L (3.5-5.0) 12/27/23 09:27 Glucose 74.0 mg/dL (70-115) 12/27/23 09:27 Ionized Calcium 1.3 mmol/L (1.1-1.4) 12/27/23 09:27 O2 Delivery Device Room air 12/27/23 09:27 FiO2 21.0 % 12/27/23 09:27 Supervisor Riprap Placing ID Walci 12/27/23 09:27 Sodium 144 mmol/L (136-145) 12/30/23 04:04 Potassium 3.5 mmol/L (3.5-5.1) 12/30/23 04:04 Chloride 108 mmol/L (98-107) H 12/30/23 04:04 Carbon Dioxide 25 mmol/L (22-29) 12/30/23 04:04 Anion Gap 14.5 (5-19) 12/30/23 04:04 BUN 8 mg/dL (6-20) 12/30/23 04:04 Creatinine 0.9 mg/dL (0.7-1.2) 12/30/23 04:04 GFR Calculation 88.6 mL/min (90-130) L 12/30/23 04:04 Glucose 82 mg/dL (65-115) 12/30/23 04:04 POC Glucose 86 mg/dL (70-110) 12/30/23 10:09 Estimat Average Glucose 97 12/29/23 03:57 Hemoglobin A1c 5.0 % (4.0-6.0) 12/29/23 03:57 Calculated Osmolality 295 mOsm/kg (285-295) 12/30/23 04:04 Lactic Acid 1.2 mmol/L (0.5-2.2) 12/27/23 09:40 Calcium 9.0 mg/dL (8.5-10.5) 12/30/23 04:04 Phosphorus 2.9 mg/dL (2.5-4.5) 12/30/23 04:04 Magnesium 1.7 mg/dL (1.7-2.3) 12/30/23 04:04 Total Bilirubin 0.5 mg/dL (0.15-1.2) 12/28/23 04:06 AST 19 U/L (0-40) 12/28/23 04:06 ALT 9 U/L (0-41) 12/28/23 04:06 Alkaline Phosphatase 88 U/L (40-130) 12/28/23 04:06 Creatine Kinase 145 U/L (39-308) 12/27/23 09:40 Troponin T Baseline 98 ng/L (0-15) H 12/27/23 09:40 Troponin T 120 Minute 90.86 ng/L (0-15) H 12/27/23 12:41 Delta Troponin T -7.14 ABS# (0-10) L 12/27/23 12:41 Troponin T Hi Sens 6Hr 85.00 ng/L (0-15) H 12/27/23 15:47 Troponin T Hi Sens 6Hr Delta -13.00 ng/L (0-12) L 12/27/23 15:47 Total Protein 6.5 g/dL (6.6-8.7) L 12/28/23 04:06 Albumin 3.9 g/dL (3.5-5.2) 12/28/23 04:06 Globulin 2.6 g/dL (1.3-4.6) 12/28/23 04:06 Lipase 32 U/L (13-60) 12/27/23 09:40 Procalcitonin 0.09 ng/mL (0-0.5) 12/28/23 04:06 Urine Color Yellow (Yellow) 12/27/23 13:30 Urine Appearance Cloudy (CLEAR) A 12/27/23 13:30 Urine pH 5.0 (5-7) 12/27/23 13:30 Ur Specific [place] 1.022 (1.005-1.030) 12/27/23 13:30 Urine Protein Trace (Negative) A 12/27/23 13:30 Urine Glucose (UA) Negative (Normal) 12/27/23 13:30 Urine Ketones 2+ (Negative) H 12/27/23 13:30 Urine Blood 2+ (Negative) A 12/27/23 13:30 Urine Nitrate Negative (Negative) 12/27/23 13:30 Urine Bilirubin Negative (Negative) 12/27/23 13:30 Urine Urobilinogen 1.0 mg/dL (Negative) 12/27/23 13:30 Ur Leukocyte Esterase Trace (Negative) A 12/27/23 13:30 Urine RBC 15-25 /hpf (0-2) H 12/27/23 13:30 Urine WBC 0-4 /hpf (0-5) H 12/27/23 13:30 Ur Squamous Epith Cells 0-4 /hpf (0-5) H 12/27/23 13:30 Uric Acid Crystals 5-10 /hpf H 12/27/23 13:30 Amorphous Sediment 1+ /hpf 12/27/23 13:30 Urine Bacteria 1+ /hpf (NONE) H 12/27/23 13:30 Hyaline Casts 0-4 /lpf H 12/27/23 10:22 Urine Mucus 3+ /hpf 12/27/23 13:30 Coronavirus (PCR) Negative (Negative) 12/27/23 10:36 Influenza A (PCR) Negative (Negative) 12/27/23 10:36 Influenza Type B (PCR) Negative (Negative) 12/27/23 10:36 RSV (PCR) Negative (Negative) 12/27/23 10:36 Vitals Last Vital Signs Temp 98.1 F 12/30/23 08:00 Pulse 77 12/30/23 10:00 Resp 12 12/30/23 10:00 BP 155/93 12/30/23 10:00 Pulse Ox 97 12/30/23 10:00 O2 Del Method Room Air 12/30/23 10:00 Discharge Plan Discharge Patient Disposition: Xfer SNF Condition: Stable Prescriptions: New metoprolol tartrate 50 mg tablet 50 mg PO BID Qty: 60 0RF amoxicillin-pot clavulanate 250-62.5 mg/5 mL suspension for reconstitution 10 ml PO Q8H 4 Days Qty: 120 0RF Continued levetiracetam [Keppra] 500 mg tablet 500 mg PO TID Qty: 90 3RF diazepam 5 mg/spray (0.1 mL) spray,non-aerosol 5 mg intranasal ONCE Qty: 2 2RF Rx Instructions: for seizures lasting greater than 2 minutes magnesium hydroxide [Milk of Magnesia] 400 mg/5 mL Suspension 30 ml PO DAILY PRN (Reason: Constipation) tamsulosin [Flomax] 0.4 mg Capsule 0.4 mg PO BEDTIME bisacodyl [Dulcolax (bisacodyl)] 10 mg Suppository 10 mg WA QPM PRN (Reason: Constipation) Fleet Enema 19-7 gram/118 mL Enema 118 ml WA BEDTIME PRN (Reason: Constipation) jtwcjhgv-[id number]-[id number] gluconate 9 mg iron/ 15 mL (15 mL) Liquid 15 ml feeding tube TID potassium chloride 10 mEq Capsule, Extended Release 10 meq PO BID lamotrigine 100 mg tablet 100 mg PO BID zonisamide 100 mg capsule 200 mg PO DAILY Rx Instructions: 1 capsule po at night for 1 week; then go up to 2 capsules po at night. albuterol sulfate 2.5 mg /3 mL (0.083 %) Solution For Nebulization 2.5 mg INHALATION Q6H PRN (Reason: Shortness Of Breath Or Wheezing) hydrocodone-acetaminophen 5-325 mg Tablet 1 tab feeding tube Q6H PRN (Reason: Pain) escitalopram oxalate [Lexapro] 10 mg Tablet 10 mg PO DAILY Changed acetaminophen [Tylenol] 325 mg Tablet 650 mg PO Q8H PRN (Reason: Pain) Qty: 10 0RF famotidine 20 mg Tablet 20 mg PO DAILY Qty: 20 0RF amlodipine 10 mg Tablet 10 mg PO DAILY Qty: 30 0RF lactulose 20 gram/30 mL Solution 30 ml PO BEDTIME Qty: 1200 0RF Discontinued Jevity 1.5 Luke 0.06 gram-1.5 kcal/mL Liquid See Rx Instructions .ROUTE .COMPLEX PRN (Reason: NUTRITION) Rx Instructions: 60ML/HR TUBE EVERY SHIFT FOR NPO metoprolol tartrate 100 mg Tablet 100 mg PO BID ProSource 10-100 gram-kcal/30 mL Liquid 1 ea feeding tube DAILY ashwagandha root extract 300 mg Tablet 300 mg PO TID Discharge Orders: Discharge Order (Routine); Ordered 12/30/23 Ordered By: Latonya Malin Referrals: Chong Grace MD [Primary Care Provider] - 1-3 days Jorge Bermudez MD [Physician] - 7-10 days Discharge Diet: Usual diet Discharge Activity: Resume usual activity Discharge Attestations Time Spent in Discharge Care*: greater than 30 min Quality Metrics Clinical Quality Measures [ No reported AMI, CVA or VTE this stay] Coding Level of Care Code Acute Code for Chg Fwd Diagnoses Recurrent seizures G40.909 CVA (cerebral vascular accident) I63.9 Bradycardia R00.1
--- NOTE | 2023-12-30 13:42 | PC.NURSE ---
Updated Ethal patients mother of discharge to [facility].
--- NOTE | 2023-12-30 13:43 | PC.NURSE ---
Medicaid ride number [id number].
[2023-12-30 14:44] LABS: Glucose Point of Care 95 mg/dL (70-110)
--- NOTE | 2023-12-30 14:47 | PC.NURSE ---
Report called to Kush Srivastava. Waiting on ride with [facility].
--- NOTE | 2023-12-30 16:03 | PC.NURSE ---
Patient in care of [facility] for transport back to [facility] at this time.
[2024-01-01 09:44] LABS: Levetiracetam Immunoassy 12.2 mcg/mL (6.0-46.0)
== END 2023-12-30 16:05 | disposition intermediate care facility (04) | DRG 100 ==
LOC: ER 14:48 → ICU 12-28 12:20
PROVIDERS: Admitting Provider Internal Medicine; Emergency Provider Family Medicine; PCP Internal Medicine; Visit Provider Internal Medicine
DX: G40.919 Epilepsy, unspecified, intractable, without status epilepticus (principal); J69.0 Pneumonitis due to inhalation of food and vomit; I69.352 Hemiplegia and hemiparesis following cerebral infarction affecting left dominant side; S37.90XA Unspecified injury of unspecified urinary and pelvic organ, initial encounter; R00.1 Bradycardia, unspecified; T42.6X5A Adverse effect of other antiepileptic and sedative-hypnotic drugs, initial encounter; E16.2 Hypoglycemia, unspecified; R41.82 Altered mental status, unspecified; Z98.2 Presence of cerebrospinal fluid drainage device; Y92.239 Unspecified place in hospital as the place of occurrence of the external cause; Y84.6 Urinary catheterization as the cause of abnormal reaction of the patient, or of later complication, without mention of misadventure at the time of the procedure; Z86.69 Personal history of other diseases of the nervous system and sense organs; Z74.01 Bed confinement status
CPT/HCPCS: 0241U; 36415; 36416; 36573; 36592; 36600; 51702; 70450; 71045; 80048; 80051; 80053; 80177; 81001; 82330; 82550; 82805; 82962; 83036; 83605; 83690; 83735; 84100; 84145; 84484; 85025; 85730; 87040; 87086; 92507; 92523; 92526; 92610; 93005; 93306; 96376; J0461; J1644; J1953; J2060; J2543; J3480; J7030; J7040; J7799

== ENCOUNTER → 2024-04-24 11:14 | Outpatient (BNVA) | payer MEDICAID, SELFPAY | PROVIDERS: PCP Internal Medicine; Visit Provider Psychiatry & Neurology Neurology | DX: I69.352 Hemiplegia and hemiparesis following cerebral infarction affecting left dominant side (principal) | CPT/HCPCS: 99212 ==

== ENCOUNTER → 2024-04-25 14:16 | Outpatient (BNVA) | payer MEDICAID, SELFPAY | PROVIDERS: PCP Internal Medicine; Visit Provider Specialist | DX: I69.352 Hemiplegia and hemiparesis following cerebral infarction affecting left dominant side (principal) | CPT/HCPCS: 64642; J0585 ==

== ENCOUNTER → 2024-06-03 13:06 | Outpatient (BNVA) | payer MEDICAID, SELFPAY | PROVIDERS: PCP Internal Medicine; Referring Provider Psychiatry & Neurology Neurology; Visit Provider Psychiatry & Neurology Neurology | DX: G40.919 Epilepsy, unspecified, intractable, without status epilepticus (principal) | CPT/HCPCS: 95816 ==

== ENCOUNTER 2024-07-15 14:40 | Emergency (ER) | payer MEDICAID, SELFPAY ==
[2024-07-15] VITALS (12 sets, daily range): BP systolic 127–161; BP diastolic 65–116; PULSE 83–100; RESP 14–18; TEMP 37.2; O2SAT 92–98; BMI 25.1
--- NOTE | 2024-07-15 14:44 | CTR_ITS ---
PROCEDURE INFORMATION: Exam: CT Head Without Contrast Exam date and time: 07/15/2024 3:40 PM Age: 53 years old Clinical indication: Altered mental status/memory loss; Confusion or disorientation; Additional info: AMS TECHNIQUE: Imaging protocol: Computed tomography of the head without contrast. Radiation optimization: All CT scans at this facility use at least one of these dose optimization techniques: automated exposure control; mA and/or kV adjustment per patient size (includes targeted exams where dose is matched to clinical indication); or iterative reconstruction. COMPARISON: CT head wo con* [id number] 12/29/2023 1:47 PM RADIATION DOSE METRICS: Total DLP (mGy-cm): 1104.88 FINDINGS: Tubes, catheters and devices: There is a right frontal approach ventriculoperitoneal catheter traversing the right lateral ventricle with the tip in the superolateral aspect of the 3rd ventricle, unchanged in position. Brain: There has been interval development of hydrocephalus with marked dilatation of the temporal horns bilaterally. There is diffuse hypodensity surrounding the ventricular system, greater on the right, suggestive of transependymal edema related to hydrocephalus. There is moderate diffuse effacement of the cortical sulci throughout the supratentorial brain, new since the prior study. No acute intracranial hemorrhage is seen. Previously seen underlying hypodensities in the deep white matter are obscured by the hydrocephalus and transependymal edema. Cerebral ventricles: Enlarged related to hydrocephalus as described above. Paranasal sinuses: Visualized sinuses are clear. No air fluid levels. Mastoid air cells: Visualized mastoid air cells are well aerated. Bones: Intact. No acute fracture detected. Soft tissues: Unremarkable. CT/CT head wo con* [id number] IMPRESSION: Interval development of hydrocephalus with transependymal edema and moderate diffuse effacement of the cortical sulci throughout the supratentorial brain suggesting diffuse cerebral edema. This may be related to [employer] shunt failure. THIS REPORT CONTAINS FINDINGS THAT MAY BE CRITICAL TO PATIENT CARE. The findings were verbally communicated via telephone conference with ZBIGNIEW AU at 4:16 PM CDT on 07/15/2024. The findings were acknowledged and understood.
--- NOTE | 2024-07-15 14:44 | XRR_ITS ---
PROCEDURE INFORMATION: Exam: XR Chest Exam date and time: 07/15/2024 3:00 PM Age: 53 years old Clinical indication: Other: AMS TECHNIQUE: Imaging protocol: Radiologic exam of the chest. Views: 1 view. COMPARISON: CR XR chest 1V portable [id number] 12/29/2023 1:45 PM FINDINGS: Tubes, catheters and devices: And a shunt catheter projects over the right chest. Lungs: Lung volumes are low. There is no consolidation. Pleural spaces: There is no pleural effusion or pneumothorax. Heart/Mediastinum: The cardiomediastinal silhouette is unremarkable given AP technique. Bones/joints: There is mild degenerative disease at both shoulders. No acute osseous findings. XR/XR chest 1V portable [id number] IMPRESSION: No acute findings.
--- NOTE | 2024-07-15 14:45 | ECG_ITS ---
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
--- NOTE | 2024-07-15 14:48 | W.ED.AMS ---
HPI - Altered Mental Status General: Chief Complaint: Altered Mental Status Stated Complaint: AMS X 3 day Time Seen by Provider: 07/15/24 14:41 Source: EMS Mode of arrival: EMS Limitations: altered mental status History of Present Illness: 53-year-old male history of traumatic brain injury is here from correction his baseline is awake and conversational is bedbound per EMS correction states he has been altered over the last 3 days patient here is unresponsive not giving any history no known fevers no known vomiting or diarrhea. Related Data Home Medications ?Medication ?Instructions ?Recorded ?Confirmed bisacodyl 10 mg rectal suppository 10 mg LA QPM PRN Constipation 11/04/22 06/03/24 (Dulcolax (bisacodyl)) magnesium hydroxide 400 mg/5 mL 30 ml PO DAILY PRN Constipation 11/04/22 06/03/24 oral suspension (Milk of Magnesia) tamsulosin 0.4 mg capsule (Flomax) 0.4 mg PO BEDTIME 11/04/22 06/03/24 albuterol sulfate 2.5 mg/3 mL 2.5 mg inhalation Q6H PRN 12/21/22 06/03/24 (0.083 %) solution for nebulization Shortness Of Breath Or Wheezing hydrocodone 5 mg-acetaminophen 325 1 tab feeding tube Q6H PRN Pain 12/21/22 06/03/24 mg tablet escitalopram oxalate 10 mg tablet 10 mg PO DAILY 09/06/23 06/03/24 (Lexapro) lamotrigine 100 mg tablet 100 mg PO BID 12/27/23 06/03/24 potassium chloride 10 mEq 10 meq PO BID 12/27/23 06/03/24 capsule,extended release Previous Rx's ?Medication ?Instructions ?Recorded levetiracetam 500 mg tablet 500 mg PO TID #90 tabs 09/11/23 (Keppra) diazepam 5 mg/spray (0.1 mL) nasal 5 mg (0.1 mL) intranasal ONCE #2 10/29/23 spray sprays acetaminophen 325 mg tablet 650 mg (2 x 325 mg) PO Q8H PRN 12/30/23 (Tylenol) Pain #10 tabs amlodipine 10 mg tablet 10 mg PO DAILY #30 tabs 12/30/23 famotidine 20 mg tablet 20 mg PO DAILY #20 tabs 12/30/23 lactulose 20 gram/30 mL oral 30 ml PO BEDTIME #1,200 mL 12/30/23 solution metoprolol tartrate 50 mg tablet 50 mg PO BID #60 tabs 12/30/23 zonisamide 100 mg capsule 200 mg (2 x 100 mg) PO DAILY #60 02/18/24 caps Allergies Allergy/AdvReac Type Severity Reaction Status Date / Time No Known Allergies Allergy Verified 06/03/24 13:56 Review of Systems General: Reports: ROS unobtainable due to mental status PFSH ED PFSH: Medical History Unspecified open wound of right buttock, initial encounter Nontraumatic intracerebral hemorrhage, intraventricular Other seizures Pneumonitis due to inhalation of food and vomit Nontraumatic intracerebral hemorrhage in hemisphere, subcortical Disorder of the autonomic nervous system, unspecified Essential (primary) hypertension Abrasion, right thigh, initial encounter Presence of cerebrospinal fluid drainage device Aphasia Retention of urine, unspecified Compression of brain Hydrocephalus, unspecified Dysphagia, oropharyngeal phase Open wound of right buttock Seizure CVA (cerebral vascular accident) Social History Smoking and tobacco/nicotine status: never used tobacco/nicotine Lives independently: No Housing: Longterm Physical Exam Const: COMMON NORMALS: negative for patient oriented x3 GENERAL APPEARANCE: ill appearing HENMT: COMMON NORMALS: normocephalic and atraumatic HEAD & SCALP: normocephalic and atraumatic Eye: COMMON NORMALS: Equal, round and reactive pupils present and conjunctivae normal CONJUNCTIVA: Yes conjunctivae normal PUPIL: Yes Equal, round and reactive pupils present Neck/C-Spine: COMMON NORMALS: full ROM and supple Chest: COMMONS NORMALS: normal inspection of the chest Resp: COMMON NORMALS: normal respiratory effort, No retractions, No use of accessory muscles and clear to auscultation bilaterally AUSCULTATION: clear to auscultation bilaterally Cardio: COMMON NORMALS: regular rate, regular rhythm and No murmurs present (Cardio) RATE: regular rate RHYTHM: regular rhythm GI: COMMON NORMALS: Normal to inspection, nondistended, normoactive bowel sounds present, Soft to palpation, non-tender and no masses PALPATION: Yes Soft to palpation Extremity: COMMON NORMALS: normal to inspection and full ROM Neuro: COMMON NORMALS: negative for patient oriented x3 Psych: COMMON NORMALS: negative for mental status grossly normal Skin: COMMON NORMALS: no rashes or lesions noted and no wounds GENERAL SKIN EXAM: no rashes or lesions noted Procedures Intubation Time out performed: Yes sedative: Etomidate Mg Given: 20 paralytic: Vecuronium Mg Given: 10 Laryngoscope: Eloise ET Tube Size: 8 ET Tube Uncuffed: Yes Tube Secured Depth (cm): 25 Tube Secured Location: teeth Tube Placement Confirmation: visualized tube passing through cords, equal breath sounds bilaterally, no breath sounds over epigastrium and confirmation by capnometry Patient Tolerated Procedure: well Intubation Complications: none Course Vital Signs: Vital signs: Vital Signs Temperature 98.9 F 07/15/24 15:09 Pulse Rate 83 07/15/24 18:53 Respiratory Rate 18 07/15/24 18:53 Blood Pressure 157/116 07/15/24 18:53 Pulse Oximetry 96 07/15/24 18:53 Oxygen Delivery Me thod Mechanical Ventil ation 07/15/24 18:53 MDM - Altered Mental Status Medical Decision Making Patient presents here with altered mental status found to have cerebral edema with a SHEET METAL PATTERN CUTTER shunt obstruction patient was intubated will transfer to [facility] for high-level care with neurosurgery. Medical Records I reviewed the patient's medical records. Lab Data I reviewed the patient's lab results. 07/15/24 14:59 07/15/24 14:59 Radiology Impressions Chest X-Ray 07/15/24 14:44 IMPRESSION: No acute findings. Head CT 07/15/24 14:44 IMPRESSION: Interval development of hydrocephalus with transependymal edema and moderate diffuse effacement of the cortical sulci throughout the supratentorial brain suggesting diffuse cerebral edema. This may be related to SHEET METAL PATTERN CUTTER shunt failure. THIS REPORT CONTAINS FINDINGS THAT MAY BE CRITICAL TO PATIENT CARE. The findings were verbally communicated via telephone conference with ZBIGNIEW AU at 4:16 PM CDT on 07/15/2024. The findings were acknowledged and understood. Imaging Shunt Series 07/15/24 16:16 IMPRESSION: SHEET METAL PATTERN CUTTER shunt in place with lucent gap surrounding the reservoir at the skull and slight kink in the proximal portion of the catheter near the reservoir as described above. The tip of the catheter is seen in the right upper abdomen. Laboratory Results WBC 9.31 10^3/uL (3.29-11.43) 07/15/24 14:59 RBC 4.74 10^6/uL (3.85-5.65) 07/15/24 14:59 Hgb 13.10 g/dL (11.27-16.99) 07/15/24 14:59 Hct 41.3 % (37-53) 07/15/24 14:59 MCV 87.1 fl (82-101) 07/15/24 14:59 MCH 27.6 pg (27-33) 07/15/24 14:59 MCHC 31.7 g/dL (30-55) 07/15/24 14:59 RDW 13.7 % (12.1-15.1) 07/15/24 14:59 Plt Count 296 10^3/cmm (157-399) 07/15/24 14:59 MPV 10.6 fL (7.4-10.4) H 07/15/24 14:59 Neut % (Auto) 64.3 % 07/15/24 14:59 Lymph % (Auto) 24.6 % 07/15/24 14:59 [place] % (Auto) 8.6 % 07/15/24 14:59 Eos % (Auto) 1.4 % 07/15/24 14:59 Baso % (Auto) 0.8 % 07/15/24 14:59 Neut # (Auto) 5.99 10^3/uL (1.8-7.7) 07/15/24 14:59 Lymph # (Auto) 2.3 10^3/uL (0.8-4.8) 07/15/24 14:59 [place] # (Auto) 0.8 10^3/uL (0.2-0.9) 07/15/24 14:59 Eos # (Auto) 0.1 10^3/uL (0.0-0.8) 07/15/24 14:59 Baso # (Auto) 0.1 10^3/uL (0.0-0.1) 07/15/24 14:59 Nucleated RBC % (auto) 0 % 07/15/24 14:59 Nucleated RBCs # 0.0 /100WBC 07/15/24 14:59 Specimen Type Arterial 07/15/24 14:56 Sample Site Radial, right 07/15/24 14:56 ABG pH 7.39 (7.35-7.45) 07/15/24 14:56 ABG pCO2 36.1 mmHg (35-45) 07/15/24 14:56 ABG pO2 91.5 mmHg (80.0-100.0) 07/15/24 14:56 ABG PO2/FiO2 Ratio 435 07/15/24 14:56 ABG HCO3 22.0 mmol/L (22-26) 07/15/24 14:56 ABG Base Excess -2.4 mmol/L (-2.0-2.0) L 07/15/24 14:56 Kareem Test Pos 07/15/24 14:56 Hematocrit 41.2 % (42-52) L 07/15/24 14:56 O2 Delivery Device Room air 07/15/24 14:56 FiO2 21.0 % 07/15/24 14:56 Broaching Machine Operator ID glc 07/15/24 14:56 Sodium 152 mmol/L (136-145) H 07/15/24 14:59 Potassium 3.5 mmol/L (3.5-5.1) 07/15/24 14:59 Chloride 114 mmol/L (98-107) H 07/15/24 14:59 Carbon Dioxide 22 mmol/L (22-29) 07/15/24 14:59 Anion Gap 19.5 (5-19) H 07/15/24 14:59 BUN 19 mg/dL (6-20) 07/15/24 14:59 Creatinine 1.3 mg/dL (0.7-1.2) H 07/15/24 14:59 GFR Calculation 58.0 mL/min (90-130) L 07/15/24 14:59 Glucose 69 mg/dL (65-115) 07/15/24 14:59 Calculated Osmolality 315 mOsm/kg (285-295) H 07/15/24 14:59 Calcium 9.9 mg/dL (8.5-10.5) 07/15/24 14:59 Total Bilirubin 0.4 mg/dL (0.15-1.2) 07/15/24 14:59 AST 15 U/L (0-40) 07/15/24 14:59 ALT 10 U/L (0-41) 07/15/24 14:59 Alkaline Phosphatase 106 U/L (40-130) 07/15/24 14:59 Ammonia 28 umol/L (16-60) 07/15/24 14:59 Total Protein 7.6 g/dL (6.6-8.7) 07/15/24 14:59 Albumin 4.1 g/dL (3.5-5.2) 07/15/24 14:59 Globulin 3.5 g/dL (1.3-4.6) 07/15/24 14:59 TSH 0.11 uIU/mL (0.27-4.20) L 07/15/24 14:59 Urine Color Yellow (Yellow) 07/15/24 15:20 Urine Appearance Clear (CLEAR) 07/15/24 15:20 Urine pH 5.0 (5-7) 07/15/24 15:20 Ur Specific [place] 1.026 (1.005-1.030) 07/15/24 15:20 Urine Protein 1+ (Negative) A 07/15/24 15:20 Urine Glucose (UA) Negative (Normal) 07/15/24 15:20 Urine Ketones 2+ (Negative) H 07/15/24 15:20 Urine Blood Negative (Negative) 07/15/24 15:20 Urine Nitrate Negative (Negative) 07/15/24 15:20 Urine Bilirubin Negative (Negative) 07/15/24 15:20 Urine Urobilinogen 1.0 mg/dL (Negative) 07/15/24 15:20 Ur Leukocyte Esterase Negative (Negative) 07/15/24 15:20 Urine RBC 0-4 /hpf (0-2) H 07/15/24 15:20 Urine WBC 0-4 /hpf (0-5) H 07/15/24 15:20 Ur Squamous Epith Cells 0-4 /hpf (0-5) H 07/15/24 15:20 Calcium Oxalate Crystal 10-15 /hpf H 07/15/24 15:20 Amorphous Sediment Not Reportable 07/15/24 15:20 Urine Bacteria Trace /hpf (NONE) 07/15/24 15:20 Hyaline Casts 15-25 /lpf H 07/15/24 15:20 Urine Mucus 1+ /hpf 07/15/24 15:20 All radiology interpretation(s) finalized by discharge EKG Data EKG 1: I personally reviewed and interpreted this EKG as follows: EKG interpretation date: 07/15/24 EKG interpretation time: 14:48 Interpretation: nsr hr [address] or t wave abnormalities qrs 74 qtc 406 Critical Care Time Critical Care Time: Critical Care Time: Yes Total Critical Care Time: 40 Attestation: The high probability of a clinically significant, sudden or life threatening deterioration of the patient's neuro system(s) required my full and direct attention, intervention and personal management. The critical care time is as shown. This time is in addition to time spent performing any reported procedures but includes the following: [x] Data and vital sign review and interpretation [x] Patient assessment, examination and intervention [x] Documentation [x] Medication orders and management Discharge Plan Discharge Patient Disposition: Admitted As Inpatient Clinical Impression: Cerebral edema, Obstructed SHEET METAL PATTERN CUTTER shunt Condition: Stable Coding Level of Care Code ED Federal Air Marshal for Tere Saavedra
[2024-07-15 15:08] LABS: ABG PCO2 36.1 mmHg (35-45); ABG PH Result 7.39 (7.35-7.45); Arterial Blood Gas Hematocrit 41.2 % (42-52); Base Excess ABG -2.4 mmol/L (-2.0-2.0); Blood Gas Allen Test Pos; Blood Gas Operator Identificat glc; Blood Gas Sample Site Radial, right; Blood Gas Sample Type Arterial; Oxygen Device ROOM AIR; PO2 ABG 91.5 mmHg (80.0-100.0); PO2 FiO2 Ratio Arterial Blood 435
[2024-07-15 15:09] LABS: Basophils # 0.1 10^3/uL (0.0-0.1); Basophils % 0.8 %; Eosinophils # 0.1 10^3/uL (0.0-0.8); Eosinophils % 1.4 %; Hematocrit 41.3 % (37-53); Lymphocytes # 2.3 10^3/uL (0.8-4.8); Lymphocytes % 24.6 %; Mean Corpuscular HGB Conc 31.7 g/dL (30-55); Mean Corpuscular Hemoglobin 27.6 pg (27-33); Mean Corpuscular Volume 87.1 fl (82-101); Mean Platelet Volume 10.6 fL (7.4-10.4); Monocytes # 0.8 10^3/uL (0.2-0.9); Monocytes % 8.6 %; Neutrophils # 5.99 10^3/uL (1.8-7.7); Neutrophils % 64.3 %; Nucleated Red Blood Cells % 0 %; Platelet Count 296 10^3/cmm (157-399); Red Blood Count 4.74 10^6/uL (3.85-5.65); Red Cell Distribution Width 13.7 % (12.1-15.1); White Blood Count 9.31 10^3/uL (3.29-11.43)
[2024-07-15 15:27] LABS: Ammonia 28 umol/L (16-60)
[2024-07-15 15:36] LABS: Alanine Aminotransferase 10 U/L (0-41); Albumin Level 4.1 g/dL (3.5-5.2); Alkaline Phosphatase 106 U/L (40-130); Anion Gap 19.5 (5-19); Aspartate Amino Transferase 15 U/L (0-40); Blood Urea Nitrogen 19 mg/dL (6-20); Calcium 9.9 mg/dL (8.5-10.5); Carbon Dioxide 22 mmol/L (22-29); Chloride 114 mmol/L (98-107); Creatinine Clr Calc Pharmacy 73.1818; Globulin 3.5 g/dL (1.3-4.6); Glucose 69 mg/dL (65-115); Osmolality Calculated 315 mOsm/kg (285-295); Potassium 3.5 mmol/L (3.5-5.1); Sodium 152 mmol/L (136-145); Thyroid Stimulating Hormone 0.11 uIU/mL (0.27-4.20); Total Bilirubin 0.4 mg/dL (0.15-1.2); Total Protein 7.6 g/dL (6.6-8.7)
[2024-07-15 15:38] LABS: Bilirubin Urine Negative (Negative); Blood Urine Negative (Negative); Glucose Urine UA Negative (Normal); Ketones Urine 2+ (Negative); Leukocyte Esterase Urine Negative (Negative); Nitrate Urine Negative (Negative); Protein Urine 1+ (Negative); Specific Gravity, Urine 1.026 (1.005-1.030); Urine Appearance Clear (CLEAR); Urine Color Yellow (Yellow)
[2024-07-15 15:50] LABS: Add Urine Microscopic? YES
[2024-07-15 16:11] LABS: UA Manual Slide Review YES; UA Slide Review UA Slide Review Perf
[2024-07-15 16:12] LABS: Add Urine Culture? No; Bacteria Urine TRACE /hpf; Hyaline Casts Urine 15-25 /lpf; Mucus Urine 1+ /hpf; RBC Urine 0-4 /hpf (0-2); Squamous Epithelial Cell Urine 0-4 /hpf (0-5); WBC Urine 0-4 /hpf (0-5)
--- NOTE | 2024-07-15 16:16 | XRR_ITS ---
PROCEDURE INFORMATION: Exam: XR Shunt Series With 4 XR Procedures Exam date and time: 07/15/2024 4:31 PM Age: 53 years old Clinical indication: Other: AMS; Prior surgery; Surgery date: 6+ months; Surgery type: Shunt TECHNIQUE: Imaging protocol: XR Shunt Series was performed with skull less than 4 views, neck 1 view, chest 1 view, and abdomen 1 view. COMPARISON: CT head wo con* [id number] 07/15/2024 3:40 PM FINDINGS: Tubes, catheters and devices: Ventriculoperitoneal catheter is present. Catheter is seen on the right. The catheter is seen coursing through the neck and chest. The distal catheter tip in the right upper abdomen. There are lucent gaps surrounding the reservoir at the skull. There is a slight kink in the proximal portion of the catheter near the reservoir. Paranasal sinuses: Visualized paranasal sinuses are well aerated. Lungs: No consolidations. Gastrointestinal tract: Bowel is unremarkable. Bones/joints: Normal. No fracture. No dislocation. Soft tissues: Unremarkable. XR/XR shunt series IMPRESSION: CONTROL ROOM TENDER shunt in place with lucent gap surrounding the reservoir at the skull and slight kink in the proximal portion of the catheter near the reservoir as described above. The tip of the catheter is seen in the right upper abdomen.
[2024-07-15] MEDS: hyDRALAzine 20 mg/mL INJ 1 mL 10 MG IVP (17:29)
--- NOTE | 2024-07-15 18:32 | ECG_ITS ---
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
[2024-07-15] MEDS: vecuronium 10 mg SDV IVP (18:51)
[2024-07-15] MEDS: etomidate 2 mg/mL INJ SDV 10 mL 20 MG IVP (18:51)
[2024-07-15] MEDS: propofol 1,000 MG/100 ML INJ 2.45 MG IV (18:52)
--- NOTE | 2024-07-15 18:53 | XRR_ITS ---
PROCEDURE INFORMATION: Exam: XR Chest Exam date and time: 07/15/2024 6:55 PM Age: 53 years old Clinical indication: Device placement; Ett placement (vent status); Additional info: Post intubation TECHNIQUE: Imaging protocol: Radiologic exam of the chest. Views: 1 view. COMPARISON: CR XR chest 1V portable [id number] 07/15/2024 3:00 PM FINDINGS: Tubes, catheters and devices: There has been interval placement of an endotracheal tube with the tip low in position approximately 1 cm above the stanislaw. A shunt catheter is again seen projecting over the right chest. Lungs: There is pulmonary hypoinflation with compressive changes at the lung bases, left worse than right. No dense focal consolidation is seen. No kayla pulmonary edema. Pleural spaces: No significant pleural effusion. No pneumothorax. Heart/Mediastinum: There is mild stable cardiomegaly. Bones/joints: Intact. Other findings: None. XR/XR chest 1V portable [id number] IMPRESSION: 1. Interval placement of endotracheal tube, low in position with the tip approximately 1 cm above the stanislaw. This should be pulled back. 2. Persistent pulmonary hypoinflation with compressive changes at the lung bases. 3. Stable mild cardiomegaly. 4. No dense focal consolidation or evidence for congestive heart failure.
--- NOTE | 2024-07-15 19:55 | PC.NURSE ---
Addendum entered by Ria Philippe RN 07/15/24 19:56: spelled mother's name incorrectly in original note - Edith Mcfadden was contacted at [phone] by RN and MD. Original Note: mother stas updated on patient status and transfer. mother aware of transfer to [facility] in [place], [place]
== END 2024-07-15 20:15 | disposition admitted as inpatient to this hospital (09) ==
PROVIDERS: Emergency Provider Emergency Medicine; PCP Internal Medicine
DX: T85.09XA Other mechanical complication of ventricular intracranial (communicating) shunt, initial encounter (principal); R41.82 Altered mental status, unspecified; G93.6 Cerebral edema; Z87.820 Personal history of traumatic brain injury; Z74.01 Bed confinement status; Y75.1 Therapeutic (nonsurgical) and rehabilitative neurological devices associated with adverse incidents
CPT/HCPCS: 36415; 36600; 70250; 70450; 71045; 71046; 72040; 74019; 80053; 81001; 82140; 82803; 84443; 85025; 93005; 94002; 94799; 96374; 99291; J0360; J2704; J3490